=== PATIENT | female | born 1965 | race Caucasian/White ===

== ENCOUNTER 2024-12-11 13:52 | Inpatient (IN) | payer OTHER, SELFPAY ==
[2024-12-11] VITALS (11 sets, daily range): BP systolic 139–206; BP diastolic 77–125; PULSE 70–151; RESP 16–30; TEMP 36.4–36.9; O2SAT 95–98; BMI 49.6; BMI 45.1
[2024-12-11 14:22] LABS: Absolute Lymphocyte Count 1.23 X10^3/uL (0.83-4.51); Absolute Neutrophil Count 6.2 X10^3/uL (2.0-7.7); Basophil# 0.03 X10^3/uL; Basophil% 0.4 % (0-1); Eosinophil# 0.12 X10^3/uL; Eosinophils% 1.5 % (0-5); Hematocrit 43.8 % (37-47); Hemoglobin 14.7 g/dL (12.0-15.0); Lymphocyte # 1.23 X10^3/ul (0.83-4.51); Lymphocyte % 15.1 % (19-41); Mean Corp Hgb Conc 33.6 g/dL (32-36); Mean Corpuscular Hgb 28.6 pg (27.0-32.0); Mean Corpuscular Volume 85.2 fL (81-99); Mean Platelet Vol. 10.5 fl (6.2-12.0); Monocyte# 0.47 X10^3/uL; Monocyte% 5.8 % (0-10); NRBC Flagged by Analyzer 0 % (0-5); Neutrophil # 6.23 X10^3/uL (2.7-7.7); Neutrophil % 76.7 % (47-70); Platelet Count 265 K/mm3 (150-450); RBC Distribution Width CV 12.7 % (11.6-14.6); RBC Distribution Width SD 39.3 fl (35.1-43.9); Red Blood Count 5.14 M/mm3 (4.2-5.4); White Blood Count 8.1 K/mm3 (4.4-11.0)
--- NOTE | 2024-12-11 14:38 | ED.VIS.DYS ---
HPI History of Present Illness Chief Complaint: Shortness of Breath Narrative Narrative: Chief complaint and HPI: Chest pain. 59-year-old female with past medical history of asthma noncompliant with medication as well as had no medical care in multiple years presents for evaluation of left-sided chest pain. Onset of symptoms yesterday and progressively worsened. Describes the pain as sharp. Associated symptom is shortness of breath and chronic morning cough. She denies any fever, chills, URI symptoms, abdominal pain, nausea, vomiting. Bilateral lower extremity swelling or pain. Recent travel or surgery. Review of systems: See HPI Medications: As listed on the chart Allergies: As listed on the chart PFSH: Per chart Vital signs: As listed on the chart. Reviewed. Physical exam: Gen: A&O x3, NAD Head: Normocephalic, atraumatic Eyes: No sclera icterus, conjunctiva clear PERRL, ENT: Moist mucous membranes Neck: Trachea midline, No JVD CV: Tachycardic, irregularly irregular rhythm, no murmurs, no peripheral edema Resp: Lungs CTA BL, no w/r/c GI: Obese, abd soft, non-distended, non-tender, no r/r/g Musc: Full ROM, no deformity Skin: Warm, dry Neuro: Alert, oriented, grossly intact, sensation intact Psych: Cooperative, appropriate mood and affect [facility] Medical History (Updated 12/11/24 @ 19:[address] Mackenzie Pritchard MD) Asthma Home Medications ?Medication ?Instructions ?Recorded ?Last Taken ?Type albuterol sulfate 90 mcg/actuation 2 inh inhalation Q4H PRN shortness 12/11/24 Unknown History aerosol inhaler (Ventolin HFA) of breath or wheezing Allergy/AdvReac Type Severity Reaction Status Date / Time bee venom protein (honey Allergy Severe Anaphylaxis Verified 12/11/24 14:01 bee) (bee sting) Social History Smoking Status: Never smoker EXAM Physical Exam Const Vital Signs: 12/11/24 13:53 12/11/24 14:31 12/11/24 14:31 Temperature 97.6 F L 98.5 F Temperature Source Oral Oral Pulse Rate 151 H 125 H Respiratory Rate 30 H 28 H Respiratory Effort Respiratory Depth Respiratory Pattern Blood Pressure 206/125 H 148/109 H Blood Pressure Mean 152 122 Pulse Ox 98 97 Oxygen Delivery Method Room Air Room Air Room Air 12/11/24 14:31 12/11/24 14:55 12/11/24 15:00 Temperature 98.5 F 98.5 F Temperature Source Oral Oral Pulse Rate 78 78 Respiratory Rate 23 H 23 H Respiratory Effort Short of Breath Respiratory Depth Normal Respiratory Pattern Tachypnea Blood Pressure 142/90 H 142/90 H Blood Pressure Mean 107 107 Pulse Ox 95 95 Oxygen Delivery Method Room Air Room Air Room Air 12/11/24 16:00 12/11/24 17:00 12/11/24 18:00 Temperature 98.3 F 98.3 F Temperature Source Oral Oral Pulse Rate 83 70 80 Respiratory Rate 20 H 16 21 H Respiratory Effort Respiratory Depth Respiratory Pattern Blood Pressure 142/78 H 142/77 H 152/81 H Blood Pressure Mean 99 98 104 Pulse Ox 96 96 96 Oxygen Delivery Method Room Air Room Air Room Air 12/11/24 19:03 Temperature 98 F Temperature Source Pulse Rate 73 Respiratory Rate 17 Respiratory Effort Respiratory Depth Respiratory Pattern Blood Pressure 139/79 H Blood Pressure Mean 99 Pulse Ox 96 Oxygen Delivery Method MDM MDM MDM Narrative Medical decision making narrative: 59-year-old female with past medical history of asthma noncompliant with medication as well as had no medical care in multiple years presents for evaluation of left-sided chest pain. Onset of symptoms yesterday and progressively worsened. On presentation, patient is hypertensive and tachycardic. She is in atrial fibrillation with RVR. Patient states she has no history of atrial fibrillation. Differential diagnosis includes but is not limited to symptomatic atrial fibrillation with RVR, ACS, PE, electrolyte abnormality, thyroid disease, viral illness, pneumonia, CHF. Diltiazem bolus ordered for atrial fibrillation with RVR. Cardiac/respiratory workup ordered. Aspirin given for chest pain. EKG and chest x-ray reviewed see below. CBC without leukocytosis or anemia. Coagulation panel unremarkable. D-dimer elevated at 0.93. CTA chest ordered to assess for PE. BMP shows mild renal insufficiency with creatinine 1.21. I do not previous labs to compare to. Troponin unremarkable. Magnesium level unremarkable. CTA chest negative for PE although this shows severe coronary artery and mild thoracic artery calcifications. Troponin unremarkable x 2. BNP elevated at 1213. Patient not overtly fluid overloaded on exam or chest x-ray. TSH elevated at 10.1. Will add on free T4 and free T3. Free T4 and free T3 unremarkable. On reevaluation, patient's chest pain has improved. She is no longer tachycardic. Repeat EKG shows atrial fibrillation with a heart rate of 68. Patient not placed on anticoagulation given no previous medical diagnoses. Patient will warrant admission for further cardiac workup given new onset atrial fibrillation with elevated BNP. Patient and family member was updated of all the results and the plan. They confirmed understanding. Patient discussed with the hospitalist service who accepted admission. EKG: Interpreted by me/EM physician: EKG shows atrial fibrillation with RVR. Nonspecific ST changes. Heart rate 126. Repeat EKG shows atrial fibrillation. Heart rate 68. Diagnostic: Interpreted by me/EM physician: Chest x-ray pneumonia, effusion, pneumothorax, cardiomegaly. Radiology in agreement. Impression: 1. New onset atrial fibrillation with RVR, now rate controlled 2. Elevated BNP, concerning for heart failure 3. Subclinical hypothyroidism 4. HTN Lab Data Labs: Laboratory Results - last 24 hr 12/11/24 12/11/24 12/11/24 14:02 14:02 14:37 WBC 8.1 RBC 5.14 Hgb 14.7 Hct 43.8 MCV 85.2 MCH 28.6 MCHC 33.6 RDW Std Deviation 39.3 RDW Coeff of Shannan 12.7 Plt Count 265 MPV 10.5 Immature Gran % (Auto) 0.500 Neut % (Auto) 76.7 H Lymph % (Auto) 15.1 L [place] % (Auto) 5.8 Eos % (Auto) 1.5 Baso % (Auto) 0.4 Absolute Neuts (auto) 6.2 Absolute Lymphs (auto) 1.23 Nucleated RBC % 0 PT 13.2 INR 1.0 APTT 27.8 D-Dimer Quant (PE/DVT) 0.93 H* Sodium 138 Potassium 3.8 Chloride 100 Carbon Dioxide 24.4 Anion Gap 13 BUN 13 Creatinine 1.21 H Est GFR (MDRD) Non-Af 51 L BUN/Creatinine Ratio 10.7 Glucose 126 H Calcium 9.5 Magnesium 2.0 1.9 Troponin T High Sens 13 Troponin T Hi Sens 2 Hr NT pro BNP II 1213 H TSH 10.100 H Free T4 1.00 Free T3 pg/dL 2.7 12/11/24 16:35 WBC RBC Hgb Hct MCV MCH MCHC RDW Std Deviation RDW Coeff of Shannan Plt Count MPV Immature Gran % (Auto) Neut % (Auto) Lymph % (Auto) [place] % (Auto) Eos % (Auto) Baso % (Auto) Absolute Neuts (auto) Absolute Lymphs (auto) Nucleated RBC % PT INR APTT D-Dimer Quant (PE/DVT) Sodium Potassium Chloride Carbon Dioxide Anion Gap BUN Creatinine Est GFR (MDRD) Non-Af BUN/Creatinine Ratio Glucose Calcium Magnesium Troponin T High Sens Troponin T Hi Sens 2 Hr 13 NT pro BNP II TSH Free T4 Free T3 pg/dL Radiography Diagnostic Testing: Clinical Impression(s) from Imaging Studies Chest X-Ray 12/11/24 14:45 IMPRESSION: The lateral view is markedly limited by patient motion. Mild frontal view patient motion. Lungs appear clear of acute disease. No pleural effusion or pneumothorax. The cardiomediastinal silhouette is within the normal range for age. 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 Reading Location: [place] [id number] Chest CTA 12/11/24 15:46 IMPRESSION: LIMITED. NO LARGE CENTRAL PULMONARY EMBOLI. Reading Location: [id number] Discharge Plan Disposition Disposition: Acute Care Hospital [facility] Discharge Date/Time: 12/11/24 19:39
[2024-12-11 14:39] LABS: Anion Gap 13 (5-15); BUN 13 mg/dL (4-19); BUN/Creat Ratio 10.7 RATIO (10-20); Calcium,Total 9.5 mg/dL (7.6-11.0); Carbon Dioxide 24.4 mmol/L (21.0-32.0); Chloride 100 mmol/L (98-108); Creatinine, Serum 1.21 mg/dL (0.70-1.20); EST Glomerular Filtration Rate 51 (>60); Glucose 126 mg/dL (70-99); Potassium 3.8 mmol/L (3.3-5.1); Sodium Level 138 mmol/L (133-145); Troponin T High Sensitivity 13 ng/L (<=14)
[2024-12-11] MEDS: Aspirin 81 MG TAB.CHEW 324 MG PO (14:39)
--- NOTE | 2024-12-11 14:45 | RAD_ITS ---
PROCEDURE: CHEST PA AND LATERAL 12/11/2024 REASON FOR EXAM: CHEST PAIN/SOB TECHNIQUE: CHEST PA AND LATERAL COMPARISON: None provided. RAD/Chest PA and Lateral IMPRESSION: The lateral view is markedly limited by patient motion. Mild frontal view patient motion. Lungs appear clear of acute disease. No pleural effusion or pneumothorax. The cardiomediastinal silhouette is within the normal range for age. 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 Reading Location: [place] [id number]
[2024-12-11] MEDS: dilTIAZem 25 MG/5 ML Vial 20 MG IV BOLUS (14:59)
[2024-12-11] MEDS: 0.9% Normal Saline (500mL Bag) 500 ML 999 ML IV (14:59)
[2024-12-11 15:16] LABS: Partial Thromboplast Time 27.8 Seconds (24.1-36.2); Prothrombin Time (Protime)PT. 13.2 SECONDS (11.7-14.9)
[2024-12-11 15:33] LABS: D-Dimer Quantitative (DVT/PE) 0.93 FEU/ug/m (0.27-0.49)
--- NOTE | 2024-12-11 15:46 | CT_ITS ---
PROCEDURE: CTA CHEST W/WO CONTRAST 12/11/2024 REASON FOR EXAM: ELEVATED DIMER, ASSESS FOR PE TECHNIQUE: CTA axial imaging of the chest with intravenous contrast. Coronal and Sagittal reconstruction series were provided. 3D, 3D post processing, 3D reconstructions, Maximum intensity projection (MIPs) Volume rendering and Shaded surface rendering was provided. PATIENT PREPARATION: Per protocol CONTRAST: Isovue 370 VOLUME: 100mL One or more dose reduction techniques were used (e.g., Automated exposure control, adjustment of the mA and/or kV according to patient size, use of iterative reconstruction technique). RADIATION DOSE SUMMARY: CTDlvol: 35 mGy DLP: 540 mGycm COMPARISON: Same day chest radiograph. FINDINGS: Hardware: None. Lymph nodes: No axillary, mediastinal, or hilar lymphadenopathy. Heart: The heart is normal in size without pericardial effusion. Severe coronary artery and mild thoracic aortic calcifications. The great vessels are normal in caliber. Pulmonary Vessels: No central filling defect of the segmental pulmonary arteries. Visualization of the more distal pulmonary arteries is limited by motion artifact. Lungs and Airways: Visualization is limited by motion artifact. The central airways are patent with expiratory phase imaging. No large pulmonary mass. No pleural effusion or pneumothorax. Upper Abdomen: Visualized portions of the upper abdominal viscera are unremarkable. Bones: Mild thoracic spondylosis. CT/CTA Chest W/WO Contrast IMPRESSION: LIMITED. NO LARGE CENTRAL PULMONARY EMBOLI. Reading Location: [id number]
[2024-12-11 17:01] LABS: Pro- Brain NATRIURETIC PEPTIDE 1213 pg/mL (<=900)
[2024-12-11 17:05] LABS: Troponin T High Sens 2 HR 13 ng/L (<=14)
[2024-12-11 18:16] LABS: Free T3 2.7 pg/mL (2.18-3.98)
--- NOTE | 2024-12-11 19:28 | PCM.HP.STD ---
HPI - General General Date of Admission: 12/11/24 Date of Service: 12/11/24 Chief Complaint: Generally feeling unwell, some sharp left-sided chest pain HPI Narrative ALECIA GUTIERREZ, is a 59-year-old female history of asthma noncompliant with medications and no medical care in multiple years presented [facility] ED 12/11/2024 for left-sided chest pain. Symptoms started yesterday and has progressively worsened, it is sharp in nature and is associated with shortness of breath and morning cough. In the ED patient afebrile, heart rate initially 151 with a blood pressure of 206/125, respiratory rate of 30 and pulse ox 98% on room air. EKG revealed A-fib with RVR. CBC overall unremarkable, BMP with a creatinine 1.21 with no previous baseline for comparison and a glucose of 126. Chest x-ray no overt abnormality on D-dimer 0.93 so patient CTA which was limited but had no central pulmonary emboli or other acute abnormality. TSH found to be 10, proBNP 1200 and initial troponin of 13 with a repeat of 13. Patient given diltiazem bolus and hospitalist contacted for admission for A-fib with RVR with elevated BNP. Patient evaluated at bedside. She reports some chronic shortness of breath from her asthma but is noncompliant with her inhaler but does not feel this is changed over the past couple of days, also has a chronic morning cough which is unchanged. She reports that since yesterday she has had some sharp pain under her left breast which is worse when she moves, does seem to be worse with palpation as well and she thinks she might of pulled a muscle playing with her puppy. She notes that her right now she might feel a little bit of dull sensation in that area but feels it is improved from earlier. She denies any swelling in her legs. [facility] Medical History (Updated 12/11/24 @ 19:[address] Mackenzie Pritchard MD) Asthma Home Medications ?Medication ?Instructions ?Recorded ?Last Taken ?Type albuterol sulfate 90 mcg/actuation 2 inh inhalation Q4H PRN shortness 12/11/24 Unknown History aerosol inhaler (Ventolin HFA) of breath or wheezing Allergy/AdvReac Type Severity Reaction Status Date / Time bee venom protein (honey Allergy Severe Anaphylaxis Verified 12/11/24 14:01 bee) (bee sting) Social History Smoking Status: Never smoker ROS ROS Narrative General: Denies fever/chills HENT: Denies headache, denies stuffy nose, denies sore throat EYES: Denies changes in vision Resp: Chronic morning cough, chronic intermittent shortness of breath that is unchanged Cardiac: Some sharp pain under her left breast GI: Denies abdominal pain, denies changes in bowel, denies nausea/vomiting : Denies changes in urination Extremity: Denies swelling MSK: Denies weakness Neuro: Denies any numbness/tingling Heme: Denies any bleeding or bruising Skin: Denies rashes, some scratches on her legs from her puppy Psychiatric: No complaints voiced Vital Signs Vital Signs Vital Signs: 12/11/24 13:53 12/11/24 14:31 12/11/24 14:31 Temperature 97.6 F L 98.5 F Temperature Source Oral Oral Pulse Rate 151 H 125 H Respiratory Rate 30 H 28 H Respiratory Effort Respiratory Depth Respiratory Pattern Blood Pressure 206/125 H 148/109 H Blood Pressure Mean 152 122 Pulse Ox 98 97 Oxygen Delivery Method Room Air Room Air Room Air 12/11/24 14:31 12/11/24 14:55 12/11/24 15:00 Temperature 98.5 F 98.5 F Temperature Source Oral Oral Pulse Rate 78 78 Respiratory Rate 23 H 23 H Respiratory Effort Short of Breath Respiratory Depth Normal Respiratory Pattern Tachypnea Blood Pressure 142/90 H 142/90 H Blood Pressure Mean 107 107 Pulse Ox 95 95 Oxygen Delivery Method Room Air Room Air Room Air 12/11/24 16:00 12/11/24 17:00 12/11/24 18:00 Temperature 98.3 F 98.3 F Temperature Source Oral Oral Pulse Rate 83 70 80 Respiratory Rate 20 H 16 21 H Respiratory Effort Respiratory Depth Respiratory Pattern Blood Pressure 142/78 H 142/77 H 152/81 H Blood Pressure Mean 99 98 104 Pulse Ox 96 96 96 Oxygen Delivery Method Room Air Room Air Room Air 12/11/24 19:03 Temperature 98 F Temperature Source Pulse Rate 73 Respiratory Rate 17 Respiratory Effort Respiratory Depth Respiratory Pattern Blood Pressure 139/79 H Blood Pressure Mean 99 Pulse Ox 96 Oxygen Delivery Method Weight Weight: 139.6 kg Body Mass Index (BMI) 49.6 Physical Exam Narrative General: Alert, oriented, no apparent distress, large body habitus HEENT: Atraumatic, normocephalic Eyes: Anicteric, normal conjunctiva, extraocular movements grossly intact Neck: Supple Respiratory: Slightly diminished at the bases but suspect this largely due to body habitus, normal respiratory effort Cardiovascular: Irregularly irregular but normal rate GI: Soft, nontender, nondistended Extremities: No edema Musculoskeletal: Moving all extremities Neuro: No overt focal neurological deficits Skin: No rashes appreciated, has some light scratches on legs without any appreciated discharge Psych: Cooperative Results Lab / Micro Data 12/11/24 14:02 12/11/24 14:02 Labs: Laboratory Results - last 24 hr 12/11/24 14:02: WBC 8.1, RBC 5.14, Hgb 14.7, Hct 43.8, MCV 85.2, MCH 28.6, MCHC 33.6, RDW Std Deviation 39.3, RDW Coeff of Shannan 12.7, Plt Count 265, MPV 10.5, Immature Gran % (Auto) 0.500, Neut % (Auto) 76.7 H, Lymph % (Auto) 15.1 L, [place] % (Auto) 5.8, Eos % (Auto) 1.5, Baso % (Auto) 0.4, Absolute Neuts (auto) 6.2, Absolute Lymphs (auto) 1.23, Nucleated RBC % 0, Sodium 138, Potassium 3.8, Chloride 100, Carbon Dioxide 24.4, Anion Gap 13, BUN 13, Creatinine 1.21 H, Est GFR (MDRD) Non-Af 51 L, BUN/Creatinine Ratio 10.7, Glucose 126 H, Calcium 9.5, Magnesium 2.0, Troponin T High Sens 13, NT pro BNP II 1213 H, TSH 10.100 H, Free T4 1.00, Free T3 pg/dL 2.7 12/11/24 14:37: PT 13.2, INR 1.0, APTT 27.8, D-Dimer Quant (PE/DVT) 0.93 H* 12/11/24 16:35: Troponin T Hi Sens 2 Hr 13 Micro: Microbiology 12/11/24 14:40 Mucosa - Nose SARS-CoV-2, Influenza & RSV (PCR) - Final Imaging Radiology Impression Chest X-Ray 12/11/24 14:45 IMPRESSION: The lateral view is markedly limited by patient motion. Mild frontal view patient motion. Lungs appear clear of acute disease. No pleural effusion or pneumothorax. The cardiomediastinal silhouette is within the normal range for age. 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 Reading Location: [facility] Chest CTA 12/11/24 15:46 IMPRESSION: LIMITED. NO LARGE CENTRAL PULMONARY EMBOLI. Reading Location: [facility] Assessment & Plan Assessment/Plan (1) Atrial fibrillation with RVR: PLAN: Plan #Afib w/ RVR -Admit to telemetry -Improved with push of diltiazem, will schedule beta-gale -Initial rate in ED: 151 -EKG: With heart rate of 126, repeat with A-fib with rate of 68 -Rate control: Start beta-gale -AC: Checking A1c in the a.m., technically patient does not meet criteria for anticoagulation but suspect this is because she does not follow with a physician, if she remains hypertensive or if A1c elevated may benefit from anticoagulation on discharge -Echocardiogram: Ordered -TSH: 10.1 but free T4 and T3 WNL, may need to repeat TSH on outpatient basis to see if patient does indeed need further management, will need to establish with PCP on discharge - High suspicion the patient has sleep apnea given habitus and she does snore, would recommend sleep study on an outpatient basis # Elevated proBNP -proBNP of 1200, does not appear overloaded -May be due to patient's A-fib with RVR -Echo as above -Daily weights, I's and O's # Pain under left breast - Pain is sharp, positional, seems to be reproducible and troponin is within normal limits - This is atypical, patient said she thinks she might have pulled muscle playing with her puppy and this is certainly possible - Beta-gale and echo as above, if pain becomes more concerning can consider stress testing or other workup prior to DC # History of asthma -Albuterol as needed # Hyperglycemia -Will check A1c, unclear if this is stress response or patient may have diabetes or prediabetes # Mild renal insufficiency -Creatinine of 1.21, no baseline available -Repeat in the a.m. #Morbid obesity -BMI documented as 49.7 kg/m? at time of admission -Complicates treatment, prognosis, outcomes -Recommend weight loss and lifestyle changes #DVT ppx: Lovenox twice daily Mackenzie Pritchard MD Charges/Coding Visit Charges Inpatient E&M: 41106 Init Hosp L2
[2024-12-11 21:10] LABS: Magnesium 1.9 mg/dL (1.5-2.2)
[2024-12-11] MEDS: Metoprolol Tartrate 25 MG Tablet PO (22:22)
[2024-12-11] MEDS: Enoxaparin 40 MG/0.4 ML Syringe SC (22:22)
--- OUTSIDE RECORDS SUMMARY | 2024-12-11 22:46 | XMS RPT_ITS | CCD ---
Author Organization [facility] Inform ion Partnership [facility] Care Team Providers Care Tool Carrier Name Role Phone Ede FUNEZ, Dr. Kareem Mortensen Primary Care Provider Dr. Wilfredo Galindo DO Emergency Provider Macho FUNEZ, Dr. Mann Admit Provider Macho FUNEZ, Dr. Mann Attending Provider Allergies Allergy Classification Reported Allergen(s) Allergy Type Date of Onset Reaction(s) Facility (1 source) bee venom protein (honey bee) Allergy to substance 12-11-2024 Anaphylaxis [facility] Medications Current Medications Medication Drug Class(es) Dates Sig (Normalized) Sig (Original) [id number] 200 actuat albuterol 0.09 mg/actuat metered dose inhaler (1 source) beta2-Adrenergic Agonist Start: 12-11-2024 Albuterol Sulfate (Ventolin Hfa) 90 mcg/actuation HFA aerosol inhaler Active 2 NMA INHALATION Q4H as needed for shortness of breath or wheezing December 11, 2024 12:00am Results Test Name Value Interpretation Reference Range Facility Absolute lymphocyte countOrd ered By: ED PROVIDER on 12-11-2024 Lymphocytes Auto (Unsp spec) [#/Vol] 1.23 10*3/uL 0.83-4.51 [facility] Absolute neutrophil countOrd ered By: ED PROVIDER on 12-11-2024 Neutrophils (Bld) [#/Vol] 6.2 10*3/uL 2.0-7.7 [facility] Activated partial thrombopla stin time (aPTT) in platelet poor plasma by coagulation aOrdered By: Wilfredo Galindo on 12-11-2024 aPTT Coag (PPP) [Time] 27.8 s 24.1-36.2 [facility] Anion gap in Serum or Plasma Ordered By: Wilfredo Galindo on 12-11-2024 Anion gap [Moles/Vol] 13 mmol/L 5-15 [facility] Automated lymphocyte count a s percentage of total leukocytesOrdered By: ED PROVIDER on 12-11-2024 Lymphocytes/100 WBC Auto (Unsp spec) 15.1 % Low 19-41 [facility] BUN/creatinine ratioOrdered By: Wilfredo Galindo on 12-11-2024 Urea nitrogen/Creatinine [Mass ratio] 10.7 mg/mg 10-20 [facility] Basophil percentageOrdered B y: ED PROVIDER on 12-11-2024 Basophils/100 WBC (Bld) 0.4 % 0-1 [facility] Carbon dioxide, total [Moles /volume] in Central venous bloodOrdered By: Wilfredo Galindo on 12-11-2024 CO2 [Moles/Vol] 24.4 mmol/L 21.0-32.0 [facility] Chloride assayOrdered By: Hemanth Galindo on 12-11-2024 Chloride [Moles/Vol] 100 mmol/L 98-108 [facility] Eosinophil percentageOrdered By: ED PROVIDER on 12-11-2024 Eosinophils/100 WBC (Bld) 1.5 % 0-5 [facility] Erythrocyte distribution wid th ratioOrdered By: ED PROVIDER on 12-11-2024 Erythrocyte distribution width (RBC) [Ratio] 12.7 % 11.6-14.6 [facility] Erythrocyte distribution wid th standard deviationOrdered By: ED PROVIDER on 12-11-2024 Erythrocyte distribution width (RBC) [Ratio] 39.3 fl 35.1-43.9 [facility] Free J1Xmejdpe By: Wilfredo Hannah on 12-11-2024 Free T3 [Mass/Vol] 2.7 pg/mL 2.18-3.98 [facility] Glomerular filtration rate ( GFR) estimation/1.73 sq m using serum, plasma, or whole bOrdered By: Wilfredo Galindo on 12-11-2024 GFR/1.73 sq M.predicted among non-blacks MDRD (S/P/Bld) [Vol rate/Area] 51 mL/min/{1.73_m2} Low >60 [facility] Comment on above: mL/min/1.73m2 CKD-EP I Creatinine Equation (2020) Hematocrit Auto (Bld) [Volum e fraction]Ordered By: ED PROVIDER on 12-11-2024 Hematocrit (Bld) [Volume fraction] 43.8 % 37-47 [facility] Hemoglobin measurementOrdere d By: ED PROVIDER on 12-11-2024 Hemoglobin (Bld) [Mass/Vol] 14.7 g/dL 12.0-15.0 [facility] Immature granulocytes/100 WB C Auto (Bld)Ordered By: ED PROVIDER on 12-11-2024 Immature granulocytes/100 WBC (Bld) 0.500 % 0.0-0.9 [facility] Comment on above: IG% - Immature Granu locytes (promyelocytes, myelocytes and metamyelocytes) > 1% indicates that a LEFT SHIFT is Present. Influenza virus A and B and SARS-CoV-2 (COVID-19) and Respiratory syncytial virus RNAOrdered By: Wilfredo Galindo on 12-11-2024 SARS-CoV-2 (COVID-19) RNA GT+probe Ql (Unsp spec) [facility] International normalized rat io (INR) calculationOrdered By: Wilfredo Galindo on 12-11-2024 INR Coag (Bld) [Relative time] 1.0 {INR} [facility] MCV (mean corpuscular volume ) determinationOrdered By: ED PROVIDER on 12-11-2024 MCV (RBC) [Entitic vol] 85.2 fL 81-99 [facility] Magnesium measurement (mass/ volume)Ordered By: Wilfredo Galindo on 12-11-2024 Magnesium (Unsp spec) [Mass/Vol] 2.0 mg/dL 1.5-2.2 [facility] Mean corpuscular hemoglobin (MCH) determinationOrdered By: ED PROVIDER on 12-11-2024 MCH (RBC) [Entitic mass] 28.6 pg 27.0-32.0 [facility] Mean corpuscular hemoglobin concentration (MCHC) determinationOrdered By: ED PROVIDER on 12-11-2024 MCHC (RBC) [Mass/Vol] 33.6 g/dL 32-36 [facility] Mean platelet volume determi nationOrdered By: ED PROVIDER on 12-11-2024 Platelet mean volume (Bld) [Entitic vol] 10.5 fL 6.2-12.0 [facility] Monocyte percentageOrdered B y: ED PROVIDER on 12-11-2024 Monocytes/100 WBC (Bld) 5.8 % 0-10 [facility] Natriuretic peptide.B prohor twila N-Terminal [Mass/volume] in Serum or PlasmaOrdered By: Wilfredo Galindo on 12-11-2024 Natriuretic peptide.B prohormone N-Terminal [Mass/Vol] 1213 pg/mL High <900 [facility] Comment on above: Heart Failure Unlike ly: < 300 pg/mLHeart Failure Likely< 50 Years: > 450 pg/mL50-75 Years: > 900 pg/mL>75 Years: > 1800 pg/mL Neutrophil percentageOrdered By: ED PROVIDER on 12-11-2024 Neutrophils/100 WBC (Bld) 76.7 % High 47-70 [facility] Nucleated red blood cell per centageOrdered By: ED PROVIDER on 12-11-2024 Nucleated RBC/100 WBC (Bld) [Ratio] 0 % 0-5 [facility] Platelet countOrdered By: ED PROVIDER on 12-11-2024 Platelets (Bld) [#/Vol] 265 10*3/uL 150-450 [facility] Potassium measurement (mass/ volume)Ordered By: Wilfredo Galindo on 12-11-2024 Potassium (Unsp spec) [Mass/Vol] 3.8 mmol/L 3.3-5.1 [facility] Prothrombin timeOrdered By: Wilfredo Galindo on 12-11-2024 PT Coag (PPP) [Time] 13.2 s 11.7-14.9 [facility] RBC Auto (Bld) [#/Vol]Ordere d By: ED PROVIDER on 12-11-2024 RBC (Bld) [#/Vol] 5.14 10*6/uL 4.2-5.4 [facility] Serum creatinine measurement (mass/volume)Ordered By: Wilfredo Galindo on 12-11-2024 Creatinine [Mass/Vol] 1.21 mg/dL High 0.70-1.20 [facility] Serum glucose measurement (m ass/volume)Ordered By: Wilfredo Galindo on 12-11-2024 Glucose [Mass/Vol] 126 mg/dL High 70-99 [facility] Serum or plasma calcium willian urement (mass/volume)Ordered By: Wilfredo Gonzalez on 12-11-2024 Calcium [Mass/Vol] 9.5 mg/dL 7.6-11.0 [facility] Serum or plasma urea nitroge n measurement (mass/volume)Ordered By: Wilfredo Galindo on 12-11-2024 Urea nitrogen [Mass/Vol] 13 mg/dL 4-19 [facility] Sodium levelOrdered By: [place] Galindo on 12-11-2024 Sodium [Moles/Vol] 138 mmol/L 133-145 [facility] T4 freeOrdered By: Wilfredo Hannah on 12-11-2024 Free T4 [Mass/Vol] 1.00 ng/dL 0.76-1.46 [facility] TSH DL <= 0.005 mIU/L QnOrde red By: Wilfredo Galindo on 12-11-2024 TSH Qn 10.100 uIU/mL High 0.300-4.200 [facility] Troponin T.cardiac [Mass/vol ume] in Serum or Plasma by High sensitivity methodOrdered By: Wilfredo Galindo on 12-11-2024 Troponin T.cardiac High sensitivity method [Mass/Vol] 13 ng/L <14 [facility] Troponin T.cardiac High sensitivity method [Mass/Vol] 13 ng/L <14 [facility] White blood cell (WBC) count Ordered By: ED PROVIDER on 12-11-2024 WBC (Bld) [#/Vol] 8.1 10*3/uL 4.4-11.0 [facility] Vital Signs Date Time Vital Sign Value Performing Clinician Faci lity 12-11-2024 19:03-0400 Body temperature 98 [degF] Dr. Kareem Esteban MD Work Phone: [phone] [place] [address] 12-11-2024 19:03-0400 Diastolic blood pressure 79 mm[Hg] Dr. Kareem Esteban MD Work Phone: [phone] [place] [address] 12-11-2024 19:03-0400 Heart rate 73 /min Dr. Kareem Esteban MD Work Phone: [phone] [place] [address] 12-11-2024 19:03-0400 Respiratory rate 17 /min Dr. Kareem Esteban MD Work Phone: [phone] [place] [address] 12-11-2024 19:03-0400 SaO2% (BldA) [Mass fraction] 96 % Dr. Kareem Esteban MD Work Phone: [phone] [place] [address] 12-11-2024 19:03-0400 Systolic blood pressure 139 mm[Hg] Dr. Kareem Esteban MD Work Phone: [phone] [place] [address] 12-11-2024 15:33-0400 Body mass index (BMI) [Ratio] 49.6 kg/m2 Dr. Kaerem Esteban MD Work Phone: [phone] [place] [address] 12-11-2024 15:33-0400 Body weight 139.[address] Kareem Esteban MD Work Phone: [phone] [place] [address] 12-11-2024 13:53-0400 Body height 167.[address] Kareem Esteban MD Work Phone: [phone] [place] [address] Encounters Encounter Date Encounter Type Care Provider Facility Start: 12-11-2024 Evaluation and management of inpatient Dr. Mackenzie Pritchard MD -Progressive Care Unit Work Phone: Start: 12-11-[address] Kareem Esteban MD Work Phone: [facility] Work Phone: Procedures Date Procedure Procedure Detail Performing Clinician Start: 12-11-2024 CT angiography of ch est with contrast Dr. Kareem Esteban MD Work Phone: Start: 12-11-2024 X-ray of chest, PA a nd lateral views Dr. Kareem Esteban MD Work Phone: Start: 12-11-2024 D-dimer assay, quantitative Dr. Kareem Esteban MD Work Phone: Comment on above: D-Dimer ELEVATED (>0 .49): Additional studies and clinicalassessments are indicated to conclude diagnosis of:Deep Vein Thrombosis (DVT) or Pulmonary Embolism (PE)CRITICAL VALUE CALLED TO Isidro HALE12/11/24 1532 Philly Reynoso.RESULTS READ BACK BY SAME. Start: 12-11-2024 SARS-CoV-2, Influenz a & RSV (PCR) Dr. Kareem Esteban MD Work Phone: Plan of Treatment Date Care Activity Detail Author Start: 12-12-2024 [facility] Start: 12-11-2024 Admission procedure [facility] Start: 12-11-2024 Hospital admission, emergency, from emergency room, medical nature [facility] Start: 12-11-2024 End: 12-11-2024 [facility] spital Patient referral [facility] Work Phone: Payers Date Payer Category Payer Policy ID Unknown ERIKA [id number] Unknown [id number] Social History Date Type Detail [facility] Work Phone: Start: 1965 Sex Assigned At Female [facility] Start: 12-11-2024 [facility] Radiology Diagnostic study note 12-11-2024 Note Date & Type Note Facility 12-11-2024 Radiology Diagnostic study note [facility] Imaging Services [address] [place] [address] CTA Chest W/WO Contrast MR#: [id number] Acct: [id number] Name: ALECIA GUTIERREZ Rep #: [id number] : 1965 F 59 From: Elizabeth Ritchie MD PCP: Dr. Kareem Esteban MD Status: RE G ER Study:CTA Chest W/WO Contrast Date of Exam: 12/11/24 Exam# [id number] Ordering Dr: Wilfredo Moore DO PROCEDURE: CTA CHEST W/WO CONTRAST 12/11/2024 REASON FOR EXAM: ELEVATED DIMER, ASSESS FOR PE TECHNIQUE: CTA axial imaging of the chest with intravenous contrast. Coronal and Sagittal reconstruction series were provided. 3D, 3D post processing, 3D reconstructions, Maximum intensity projection (MIPs) Volume rendering and Shaded surface rendering was provided. PATIENT PREPARATION: Per protocol CONTRAST: Isovue 370 VOLUME: 100mL One or more dose reduction techniques were used (e.g., Automated exposure control, adjustment of the mA and/or kV according to patient size, use of iterative reconstruction technique). RADIATION DOSE SUMMARY: CTDlvol: 35 mGy DLP: 540 mGycm COMPARISON: Same day chest radiograph. FINDINGS: Hardware: None. Lymph nodes: No axillary, mediastinal, or hilar lymphadenopathy. Heart: The heart is normal in size without pericardial effusion. Severe coronary artery and mild thoracic aortic calcifications. The great vessels are normal in caliber. Pulmonary Vessels: No central filling defect of the segmental pulmonary arteries. Visualization of the more distal pulmonary arteries is limited by motion artifact. Lungs and Airways: Visualization is limited by motion artifact. The central airways are patent with expiratory phase imaging. No large pulmonary mass. No pleural effusion or pneumothorax. Upper Abdomen: Visualized portions of the upper abdominal viscera are unremarkable. Bones: Mild thoracic spondylosis. CT/CTA Chest W/WO Contrast IMPRESSION: LIMITED. NO LARGE CENTRAL PULMONARY EMBOLI. Reading Location: [id number] CC: Dr. Wilfredo Galindo DO; Dr. Kareem Esteban MD ~ Pulp Grinder Feeder: Signed [facility] Radiology Diagnostic study note 12-11-2024 Note Date & Type Note Facility 12-11-2024 Radiology Diagnostic study note [facility] Imaging Services [address] [place] [address] Chest PA and Lateral MR#: [id number] Acct: [id number] Name: ALECIA GUTIERREZ Rep #: [id number] : 1965 F 59 From: Melvin Frank MD PCP: Dr. Kareem Esteban MD Status: RE G ER Study:Chest PA and Lateral Date of Exam: 12/11/24 Exam# [id number] Ordering Dr: Wilfredo Moore DO PROCEDURE: CHEST PA AND LATERAL 12/11/2024 REASON FOR EXAM: CHEST PAIN/SOB TECHNIQUE: CHEST PA AND LATERAL COMPARISON: None provided. RAD/Chest PA and Lateral IMPRESSION: The lateral view is markedly limited by patient motion. Mild frontal view patient motion. Lungs appear clear of acute disease. No pleural effusion or pneumothorax. The cardiomediastinal silhouette is within the normal range for age. 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 Reading Location: [place] [address] CC: Dr. Wilfredo Galindo DO; Dr. Kareem Esteban MD ~ Pulp Grinder Feeder: Signed [facility] Clinical Note 01-08-2021 Note Date & Type Note Facility 01-08-2021 Note Patient Outreach (IN [facility]) ALECIA GUTIERREZ ([id number]) 1965 F Date Time Provider Department 01/08/21 KAREEM ESTEBAN During your visit today, we recorded the following information about you: Allergies As of Date: 01/08/2021 Noted Allergy Reaction BEES 03/09/2015 7 - Swelling Date Reviewed: 05/16/2018 Reviewed by: Myrna Harry LPN - Fully Assessed Visit Diagnosis:Encounter for screening mammogram for breast cancer [Z12.31] Order(s):[facility] SCREENING [[id number]] Order #: [id number] FUTURE Prescriptions as of 01/11/2021 - beclomethasone (QVAR REDIHALER) 40 mcg/actuation inhaler Inhale 1 Puff as instructed twice daily. - albuterol sulfate (PROAIR RESPICLICK) 90 mcg/actuation aepb Inhale 2 Inhalation as instructed every 4 hours as needed (PRN for shortness of breath or wheezing). - EPINEPHrine (EPIPEN) 0.3 mg/0.3 mL auto-injector Use for bee sting. 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] 03/09/2015 Obesity, Class III, BMI 40-49.9 (morbid obesity*03/09/2015 Asthma [J45.909] Acute midline low back pain without sciatica [M*07/05/2016 Sacral pain [M53.3] 07/12/2016 Pain in right hip [M25.551] 07/12/2016 Gastroesophageal reflux disease [K21.9] 08/22/2016 Encounter Status:Closed by YOLI HERNÁNDEZ on 01/11/21 [facility] Evaluation note Note Date & Type Note Facility Evaluation note No assessment information availa ble [facility] Work Phone: Reason for referral (narrative) Note Date & Type Note Facility Reason for referral (narrative) No reason for referral information available [facility] Work Phone: Summary Purpose Family History No Family History Records Found Advance Directives Advance Directive Response Recorded Date/ Time Do you have a Healthcare Power of Flap Presser? No December 11, 2024 2:31pm Chief Complaint and Reason for Visit Chief Complaint Admit Date NEW ONSET AFIB WITH RVR December 11, 2024 7:12pm Additional Source Comments INFORMATION SOURCE (unrecogn ized section and content) DATE CREATED AUTHOR 01/11/2021 [facility] Goals (unrecognized section and content) Goals may be documented in a n alternate sectionGoals may be documented in an alternate section Care Teams (unrecognized sec tion and content) Team Status: Active Member Role Status Dates Dr. Kareem Esteban MD Primary Care Provider Active Team Status: Active Member Role Status Dates Dr. Kareem Esteban MD Primary Care Provider Active Start: December 11, 2024 Dr. Wilfredo Galindo DO Emergency Provider Activ e Start: December 11, 2024 Dr. Mackenzie Pritchard MD Admit Provider Active Star t: December 11, 2024 Dr. Mackenzie Pritchard MD Attending Provider Active Start: December 11, 2024 FOR RECORDS PERTAINING TO PATIENTS WHO ARE OR HAVE BEEN ENROLLED IN A CHEMICAL DEPENDENCY/SUBSTANCEABUSE PROGRAM, SOME INFORMATION MAY BE OMITTED. This clinical summary was aggregated from multiple sources. Caution should be exercised in using it in the provision of clinical care. This summary normalizes information from multiple sources, and as a consequence, information in this document may materially change the coding, format and clinical context of patient data. In addition, data may be omitted in some cases. CLINICAL DECISIONS SHOULD BE BASED ON THE PRIMARY CLINICAL RECORDS. [employer] provides no warranty or guarantee of the accuracy or completeness of information in this document.
--- OUTSIDE RECORDS SUMMARY | 2024-12-11 22:59 | XMS RPT_ITS | CCD ---
Author Organization [facility] Inform ion Partnership [facility] Care Team Providers Care Jewel Bearing Maker Name Role Phone Ede FUNEZ, Dr. Kareem Mortensen Primary Care Provider Dr. Wilfredo Galindo DO Emergency Provider Macho FUNEZ, Dr. Mann Admit Provider Macho FUNEZ, Dr. Mann Attending Provider [phone] Allergies Allergy Classification Reported Allergen(s) Allergy Type Date of Onset Reaction(s) Facility (1 source) bee venom protein (honey bee) Allergy to substance 12-11-2024 Anaphylaxis [facility] Medications Current Medications Medication Drug Class(es) Dates Sig (Normalized) Sig (Original) [id number] 200 actuat albuterol 0.09 mg/actuat metered dose [...] Auto (Unsp spec) [#/Vol] 1.23 10*3/uL 0.83-4.51 [facility] Absolute neutrophil countOrd ered By: ED PROVIDER on 12-11-2024 Neutrophils (Bld) [#/Vol] 6.2 10*3/uL 2.0-7.7 [facility] Activated partial thrombopla stin time (aPTT) in platelet poor plasma by coagulation aOrdered By: Wilfredo Galindo on 12-11-2024 aPTT Coag (PPP) [Time] 27.8 s 24.1-36.2 [facility] Anion gap in Serum or Plasma Ordered By: Wilfredo Galindo on 12-11-2024 Anion gap [Moles/Vol] 13 mmol/L 5-15 [facility] Automated lymphocyte count a s percentage of total leukocytesOrdered By: ED PROVIDER on 12-11-2024 Lymphocytes/100 WBC Auto (Unsp spec) 15.1 % Low 19-41 [facility] BUN/creatinine ratioOrdered By: Wilfredo Galindo on 12-11-2024 Urea nitrogen/Creatinine [Mass ratio] 10.7 mg/mg 10-20 [facility] Basophil percentageOrdered B y: ED PROVIDER on 12-11-2024 Basophils/100 WBC (Bld) 0.4 % 0-1 [facility] Carbon dioxide, total [Moles /volume] in Central venous bloodOrdered By: Wilfredo Galindo on 12-11-2024 CO2 [Moles/Vol] 24.4 mmol/L 21.0-32.0 [facility] Chloride assayOrdered By: Hemanth Galindo on 12-11-2024 Chloride [Moles/Vol] 100 mmol/L 98-108 [facility] Eosinophil percentageOrdered By: ED PROVIDER on 12-11-2024 Eosinophils/100 WBC (Bld) 1.5 % 0-5 [facility] Erythrocyte distribution wid th ratioOrdered By: ED PROVIDER on 12-11-2024 Erythrocyte distribution width (RBC) [Ratio] 12.7 % 11.6-14.6 [facility] Erythrocyte distribution wid th standard deviationOrdered By: ED PROVIDER on 12-11-2024 Erythrocyte distribution width (RBC) [Ratio] 39.3 fl 35.1-43.9 [facility] Free [id number] By: Wilfredo Hannah on 12-11-2024 Free T3 [Mass/Vol] 2.7 pg/mL 2.18-3.98 [facility] Glomerular filtration rate ( GFR) estimation/1.73 sq m using serum, plasma, or whole bOrdered By: Wilfredo Galindo on 12-11-2024 GFR/1.73 sq M.predicted among non-blacks MDRD (S/P/Bld) [Vol rate/Area] 51 mL/min/{1.73_m2} Low >60 [facility] Comment on above: mL/min/1.73m2 CKD-EP I Creatinine Equation (2020) Hematocrit Auto (Bld) [Volum e fraction]Ordered By: ED PROVIDER on 12-11-2024 Hematocrit (Bld) [Volume fraction] 43.8 % 37-47 [facility] Hemoglobin measurementOrdere d By: ED PROVIDER on 12-11-2024 Hemoglobin (Bld) [Mass/Vol] 14.7 g/dL 12.0-15.0 [facility] Immature granulocytes/100 WB C Auto (Bld)Ordered By: ED PROVIDER on 12-11-2024 Immature granulocytes/100 WBC (Bld) 0.500 % 0.0-0.9 [facility] Comment on above: IG% - Immature Granu locytes (promyelocytes, myelocytes and metamyelocytes) > 1% indicates that a LEFT SHIFT is Present. Influenza virus A and B and SARS-CoV-2 (COVID-19) and Respiratory syncytial virus RNAOrdered By: Wilfredo Galindo on 12-11-2024 SARS-CoV-2 (COVID-19) RNA GT+probe Ql (Unsp spec) [facility] International normalized rat io (INR) calculationOrdered By: Wilfredo Galindo on 12-11-2024 INR Coag (Bld) [Relative time] 1.0 {INR} [facility] MCV (mean corpuscular volume ) determinationOrdered By: ED PROVIDER on 12-11-2024 MCV (RBC) [Entitic vol] 85.2 fL 81-[address] [facility] Magnesium measurement (mass/ volume)Ordered By: Wilfredo Galindo on 12-11-2024 Magnesium (Unsp spec) [Mass/Vol] 2.0 mg/dL 1.5-2.2 [facility] Mean corpuscular hemoglobin (MCH) determinationOrdered By: ED PROVIDER on 12-11-2024 MCH (RBC) [Entitic mass] 28.6 pg 27.0-32.0 [facility] Mean corpuscular hemoglobin concentration (MCHC) determinationOrdered By: ED PROVIDER on 12-11-2024 MCHC (RBC) [Mass/Vol] 33.6 g/dL 32-36 [facility] Mean platelet volume determi nationOrdered By: ED PROVIDER on 12-11-2024 Platelet mean volume (Bld) [Entitic vol] 10.5 fL 6.2-12.0 [facility] Monocyte percentageOrdered B y: ED PROVIDER on 12-11-2024 Monocytes/100 WBC (Bld) 5.8 % 0-[address] [facility] Natriuretic peptide.B prohor twila N-Terminal [Mass/volume] in Serum or PlasmaOrdered By: Wilfredo Galindo on 12-11-2024 Natriuretic peptide.B prohormone N-Terminal [Mass/Vol] 1213 pg/mL High <900 [facility] Comment on above: Heart Failure Unlike ly: < 300 pg/mLHeart Failure Likely< 50 Years: > 450 pg/mL50-75 Years: > 900 pg/mL>75 Years: > 1800 pg/mL Neutrophil percentageOrdered By: ED PROVIDER on 12-11-2024 Neutrophils/100 WBC (Bld) 76.7 % High 47-70 [facility] Nucleated red blood cell per centageOrdered By: ED PROVIDER on 12-11-2024 Nucleated RBC/100 WBC (Bld) [Ratio] 0 % 0-5 [facility] Platelet countOrdered By: ED PROVIDER on 12-11-2024 Platelets (Bld) [#/Vol] 265 10*3/uL 150-450 [facility] Potassium measurement (mass/ volume)Ordered By: Wilfredo Galindo on 12-11-2024 Potassium (Unsp spec) [Mass/Vol] 3.8 mmol/L 3.3-5.1 [facility] Prothrombin timeOrdered By: Wilfredo Galindo on 12-11-2024 PT Coag (PPP) [Time] 13.2 s 11.7-14.9 [facility] RBC Auto (Bld) [#/Vol]Ordere d By: ED PROVIDER on 12-11-2024 RBC (Bld) [#/Vol] 5.14 10*6/uL 4.2-5.4 [facility] Serum creatinine measurement (mass/volume)Ordered By: Wilfredo Galindo on 12-11-2024 Creatinine [Mass/Vol] 1.21 mg/dL High 0.70-1.20 [facility] Serum glucose measurement (m ass/volume)Ordered By: Wilfredo Galindo on 12-11-2024 Glucose [Mass/Vol] 126 mg/dL High 70-99 [facility] Serum or plasma calcium willian urement (mass/volume)Ordered By: Wilfredo Gonzalez on 12-11-2024 Calcium [Mass/Vol] 9.5 mg/dL 7.6-11.0 [facility] Serum or plasma urea nitroge n measurement (mass/volume)Ordered By: Wilfredo Galindo on 12-11-2024 Urea nitrogen [Mass/Vol] 13 mg/dL 4-19 [facility] Sodium levelOrdered By: London Galindo on 12-11-2024 Sodium [Moles/Vol] 138 mmol/L 133-145 [facility] T4 freeOrdered By: Wilfredo Hannah on 12-11-2024 Free T4 [Mass/Vol] 1.00 ng/dL 0.76-1.46 [facility] TSH DL <= 0.005 mIU/L QnOrde red By: Wilfredo Galindo on 12-11-2024 TSH Qn 10.100 uIU/mL High 0.300-4.200 [facility] Troponin T.cardiac [Mass/vol ume] in Serum or Plasma by High sensitivity methodOrdered By: Wilfredo Galindo on 12-11-2024 Troponin T.cardiac High sensitivity method [Mass/Vol] 13 ng/L <14 [facility] Troponin T.cardiac High sensitivity method [Mass/Vol] 13 ng/L <14 [facility] White blood cell (WBC) count Ordered By: ED PROVIDER on 12-11-2024 WBC (Bld) [#/Vol] 8.1 10*3/uL 4.4-11.0 [facility] Vital Signs Date Time Vital Sign Value Performing Clinician Faci lity 12-11-2024 19:03-0400 Body temperature 98 [degF] Dr. Kareem Esteban MD Work Phone: [phone] [place] [address] 12-11-2024 19:03-0400 Diastolic blood pressure 79 mm[Hg] Dr. Kareem Esteban MD Work Phone: [phone] [place] [address] 12-11-2024 19:03-0400 Heart rate 73 /min Dr. Kareem Esteban MD Work Phone: [phone] [place] [address] 12-11-2024 19:03-0400 Respiratory rate 17 /min Dr. Kareem Esteban MD Work Phone: [phone] [place] [address] 12-11-2024 19:03-0400 SaO2% (BldA) [Mass fraction] 96 % Dr. Kareem Esteban MD Work Phone: [phone] [place] [address] 12-11-2024 19:03-0400 Systolic blood pressure 139 mm[Hg] Dr. Kareem Esteban MD Work Phone: [phone] [place] [address] 12-11-2024 15:33-0400 Body mass index (BMI) [Ratio] 49.6 kg/m2 Dr. Kareem Esteban MD Work Phone: [phone] [place] [address] 12-11-2024 15:33-0400 Body weight 139.[address] Kareem Esteban MD Work Phone: [phone] [place] [address] 12-11-2024 13:53-0400 Body height 167.[address] Kareem Esteban MD Work Phone: [phone] [place] [address] Encounters Encounter Date Encounter Type Care Provider Facility Start: 12-11-2024 Evaluation and management of inpatient Dr. Mackenzie Pritchard MD -Progressive Care Unit Work Phone: Start: 12-11-[address] Kareem Esteban MD Work Phone: [facility] Work Phone: Procedures Date Procedure Procedure Detail [...] Date Care Activity Detail Author Start: 12-12-2024 [facility] Start: 12-11-2024 Admission procedure [facility] Start: 12-11-2024 Hospital admission, emergency, from emergency room, medical nature [facility] Start: 12-11-2024 End: 12-11-2024 [facility] spital Patient referral [facility] Work Phone: Payers Date Payer Category Payer Policy ID Unknown ERIKA [id number] [id number] Social History Date Type Detail Facility [facility] if ever smoked [facility] Work Phone: Start: 1965 Sex Assigned At Female [facility] Start: 12-11-2024 Tobacco [facility] Never [facility] tobacco (finding) [facility] Radiology Diagnostic study note 12-11-2024 Note Date & Type Note Facility 12-11-2024 Radiology Diagnostic study note [facility] Imaging Services [address] [place] [address] CTA Chest W/WO Contrast MR#: [id number] Acct: [id number] Name: ALECIA GUTIERREZ Rep #: [id number] : 1965 F 59 From: Elizabeth Ritchie MD PCP: Dr. Kareem Esteban MD Status: RE G ER Study:CTA Chest W/WO Contrast Date of Exam: 12/11/24 Exam# [id number] Ordering Dr: Wilfredo Moore DO PROCEDURE: CTA [...] NO LARGE CENTRAL PULMONARY EMBOLI. Reading Location: [id number] CC: Dr. Wilfredo Galindo DO; Dr. Kareem Esteban MD ~ Fluorescent Solution Mixer: Signed [facility] Radiology Diagnostic study note 12-11-2024 Note Date & Type Note Facility 12-11-2024 Radiology Diagnostic study note [facility] Imaging Services [address] [place] [address] Chest PA and Lateral MR#: [id number] Acct: [id number] Name: ALECIA GUTIERREZ Rep #: [id number] : 1965 F 59 From: Melvin Frank MD PCP: Dr. Kareem Esteban MD Status: RE G ER Study:Chest PA and Lateral Date of Exam: 12/11/24 Exam# [id number] Ordering Dr: Wilfredo Moore DO PROCEDURE: CHEST [...] degenerative changes and DISH noted. Reading Location: [place] [address] CC: Dr. Wilfredo Galindo DO; Dr. Kareem Esteban MD ~ Fluorescent Solution Mixer: Signed [facility] Clinical Note 01-08-2021 Note Date & Type Note Facility 01-08-2021 Note Patient Outreach (IN T[facility]) ALECIA GUTIERREZ ([id number]) 1965 F Date Time Provider Department 01/08/21 KAREEM ESTEBAN During your visit today, we recorded the following information about you: Allergies As of Date: 01/08/2021 Noted Allergy Reaction BEES 03/09/2015 7 - Swelling Date Reviewed: 05/16/2018 Reviewed by: Myrna Harry LPN - Fully Assessed Visit Diagnosis:Encounter for screening mammogram for breast cancer [Z12.31] Order(s):[facility] SCREENING [[id number]] Order #: [id number] FUTURE Prescriptions as of 01/11/2021 - beclomethasone [...] Encounter Status:Closed by YOLI HERNÁNDEZ on 01/11/21 [facility] Evaluation note Note Date & Type Note Facility Evaluation note No assessment information availa ble [facility] Work Phone: Reason for referral (narrative) Note Date & Type Note Facility Reason for referral (narrative) No reason for referral information available [facility] Work Phone: Summary Purpose Family History No Family History Records Found Advance Directives Advance Directive Response Recorded Date/ Time Do you have a Healthcare Power of Commercial Loan Closer? No December 11, 2024 2:31pm Chief Complaint and Reason for Visit Chief Complaint Admit Date NEW ONSET AFIB WITH RVR December 11, 2024 7:12pm Additional Source Comments INFORMATION SOURCE (unrecogn ized section and content) DATE CREATED AUTHOR 01/11/2021 [facility] Goals (unrecognized section and content) Goals may [...] BE BASED ON THE PRIMARY CLINICAL RECORDS. [employer] provides no warranty or guarantee of the accuracy or completeness of information in this document.
[2024-12-12] VITALS (9 sets, daily range): BP systolic 117–144; BP diastolic 60–94; PULSE 62–81; RESP 18–20; TEMP 36.5–36.8; O2SAT 96–97; BMI 44.9
--- NOTE | 2024-12-12 05:55 | ECHOCS_ITS ---
Reason For Study Reason For Study: ATRIAL FIB-FLUTTER Procedure This was a 2D Doppler, Color Flow transthoracic echocardiogram. The study was technically difficult. Exam performed portable in patient room. Left Ventricle Normal LV size. Mild concentric left ventricular hypertrophy. Moderate generalized LV hypokinesis. Estimated LVEF 35- 40%. Stage I diastolic dysfunction. Right Ventricle Normal right ventricle. Atria There is moderate biatrial dilatation. Mitral Valve Trivial mitral valve insufficiency. Tricuspid Valve Trivial tricuspid valve insufficiency. Unable to estimate RV systolic pressure due to insufficient tricuspid regurgitant envelope. Aortic Valve Trisinus/trileaflet aortic valve. Pulmonic Valve The pulmonic valve is not well visualized. Great Vessels Normal sized aortic root. Pericardium/Pleural No pericardial effusion. Medication Diluted definity 2ml given slow IV push to enhance endocardial definition. MMode/2D Measurements & Calculations LVIDd: 4.7 cm IVSd: 1.2 cm Ao root diam: 3.1 cm LVIDs: 3.5 cm LVPWd: 1.2 cm LA dimension: 4.7 cm FS: 24.2 % LAV(MOD-bp): 55.3 ml LVAd ap4: 34.4 cm2 SV(MOD-sp4): 41.7 ml LAV(MOD-bp) Indexed: 24.0 ml/m2 LVLd ap4: 8.7 cm SI(MOD-sp4): 18.1 ml/m2 LAV(MOD-sp2): 51.6 ml EDV(MOD-sp4): 111.0 ml LAV(MOD-sp4): 51.1 ml EDV(sp4-el): 115.3 ml LVAs ap4: 24.6 cm2 LVLs ap4: 7.2 cm ESV(MOD-sp4): 69.3 ml ESV(sp4-el): 70.7 ml EF(MOD-sp4): 37.6 % EF(sp4-el): 38.7 % SV(sp4-el): 44.6 ml LA A4 area: 19.8 cm2 LA dimension(2D): 3.6 cm RA A4 area: 18.8 cm2 TAPSE: 2.3 cm Doppler Measurements & Calculations Ao V2 max: 162.3 cm/sec LV V1 max: 110.8 cm/sec PA V2 max: 92.0 cm/sec Ao max P.6 mmHg LV V1 max P.9 mmHg Ao V2 mean: 119.0 cm/sec LV V1 mean P.8 mmHg Ao mean P.3 mmHg LV V1 mean: 78.8 cm/sec Ao V2 VTI: 26.2 cm LV V1 VTI: 20.5 cm AV (velocity ratio): 0.78 ECHO/Echo Complete W/ Contrast Interpretation Summary The study was technically difficult. Mild concentric left ventricular hypertrophy. Moderate generalized LV hypokinesis. Estimated LVEF 35-40%. Stage I diastolic d ysfunction. There is moderate biatrial dilatation. Ordering Physician: Mackenzie Pritchard Referring Physician: KAREEM ESTEBAN Performed By: Kyra Monterroso RDCS and Student
[2024-12-12 07:23] LABS: Absolute Lymphocyte Count 0.97 X10^3/uL (0.83-4.51); Absolute Neutrophil Count 4.9 X10^3/uL (2.0-7.7); Basophil# 0.03 X10^3/uL; Basophil% 0.5 % (0-1); Eosinophil# 0.08 X10^3/uL; Eosinophils% 1.3 % (0-5); Hematocrit 41.4 % (37-47); Hemoglobin 13.8 g/dL (12.0-15.0); Lymphocyte # 0.97 X10^3/ul (0.83-4.51); Lymphocyte % 15.2 % (19-41); Mean Corp Hgb Conc 33.3 g/dL (32-36); Mean Corpuscular Hgb 28.6 pg (27.0-32.0); Mean Corpuscular Volume 85.9 fL (81-99); Mean Platelet Vol. 10.3 fl (6.2-12.0); Monocyte# 0.34 X10^3/uL; Monocyte% 5.3 % (0-10); NRBC Flagged by Analyzer 0 % (0-5); Neutrophil # 4.94 X10^3/uL (2.7-7.7); Neutrophil % 77.4 % (47-70); Platelet Count 239 K/mm3 (150-450); RBC Distribution Width CV 12.7 % (11.6-14.6); RBC Distribution Width SD 40.1 fl (35.1-43.9); Red Blood Count 4.82 M/mm3 (4.2-5.4); White Blood Count 6.4 K/mm3 (4.4-11.0)
[2024-12-12 08:33] LABS: Hemoglobin A1c 5.5 % (<=5.6)
[2024-12-12 08:37] LABS: Cholesterol 151 mg/dL (<=200); High Density Lipoprotein 41 mg/dL; Low Density Lipoprotein Calc. 93 mg/dL; Triglycerides 88 mg/dL; Very Low Density Lipoprotein 18 mg/dL (5-40); cholesterol:hdl ratio screen 3.71
[2024-12-12 08:53] LABS: Anion Gap 14 (5-15); BUN 11 mg/dL (4-19); BUN/Creat Ratio 12.8 RATIO (10-20); Carbon Dioxide 20.2 mmol/L (21.0-32.0); Chloride 103 mmol/L (98-108); Creatinine, Serum 0.88 mg/dL (0.70-1.20); EST Glomerular Filtration Rate 75 (>60); Estimated Creatinine Clearance 92.62 ml/min (50-250); Glucose 103 mg/dL (70-99); Potassium 3.8 mmol/L (3.3-5.1); Sodium Level 137 mmol/L (133-145)
--- NOTE | 2024-12-12 09:29 | PN.HOSP_ITS ---
Reason for Visit Reason for Visit: Diagnoses Unspecified atrial fibrillation (12/11/24) Objective Data Objective Data Vital Signs: Vital Signs Temp Pulse Resp BP Pulse Ox O2 Del Method 98.1 F 64 18 137/60 H 96 Room Air 12/12/24 02:00 12/12/24 03:00 12/12/24 02:00 12/12/24 02:00 12/12/24 02:00 12/12/24 02:00 Oxygen Delivery Method Room Air Weight: 279 lb 8.738 oz Body Mass Index (BMI) 44.9 Intake & Output: Intake and Output for Last 24 Hours 12/10/24 12/11/24 12/12/24 23:59 23:59 23:59 Intake Total 500 / 980 720 / 720 Balance 500 / 980 720 / 720 Lab / Micro Data 12/12/24 06:57 12/12/24 06:57 Labs: Laboratory Results - last 24 hr 12/11/24 14:02: WBC 8.1, RBC 5.14, Hgb 14.7, Hct 43.8, MCV 85.2, MCH 28.6, MCHC 33.6, RDW Std Deviation 39.3, RDW Coeff of Shannan 12.7, Plt Count 265, MPV 10.5, Immature Gran % (Auto) 0.500, Neut % (Auto) 76.7 H, Lymph % (Auto) 15.1 L, [place] % (Auto) 5.8, Eos % (Auto) 1.5, Baso % (Auto) 0.4, Absolute Neuts (auto) 6.2, Absolute Lymphs (auto) 1.23, Nucleated RBC % 0, Sodium 138, Potassium 3.8, Chloride 100, Carbon Dioxide 24.4, Anion Gap 13, BUN 13, Creatinine 1.21 H, Est GFR (MDRD) Non-Af 51 L, BUN/Creatinine Ratio 10.7, Glucose 126 H, Calcium 9.5, Magnesium 2.0 12/11/24 14:02: Magnesium 1.9, Troponin T High Sens 13, NT pro BNP II 1213 H, T SH 10.100 H, Free T4 1.00, Free T3 pg/dL 2.7 12/11/24 14:37: PT 13.2, INR 1.0, APTT 27.8, D-Dimer Quant (PE/DVT) 0.93 H* 12/11/24 16:35: Troponin T Hi Sens 2 Hr 13 12/12/24 06:57: WBC 6.4, RBC 4.82, Hgb 13.8, Hct 41.4, MCV 85.9, MCH 28.6, MCHC 33.3, RDW Std Deviation 40.1, RDW Coeff of Shannan 12.7, Plt Count 239, MPV 10.3, Immature Gran % (Auto) 0.300, Neut % (Auto) 77.4 H, Lymph % (Auto) 15.2 L, [place] % (Auto) 5.3, Eos % (Auto) 1.3, Baso % (Auto) 0.5, Absolute Neuts (auto) 4.9, Absolute Lymphs (auto) 0.97, Nucleated RBC % 0, Sodium 137, Potassium 3.8, Chloride 103, Carbon Dioxide 20.2 L, Anion Gap 14, BUN 11, Creatinine 0.88, Estim Creat Clear Calc 92.62, Est GFR (MDRD) Non-Af 75, BUN/Creatinine Ratio 12.8, Glucose 103 H, Hemoglobin A1c 5.5, Calcium 9.0, Triglycerides 88, Cholesterol 151, LDL Cholesterol, Calc 93, VLDL Cholesterol 18, HDL Cholesterol 41, Cholesterol/HDL Ratio 3.71 Micro: Microbiology 12/11/24 14:40 Mucosa - Nose SARS-CoV-2, Influenza & RSV (PCR) - Final Radiography Diagnostic Testing: Radiology Impression Chest X-Ray 12/11/24 14:45 IMPRESSION: The lateral view is markedly limited by patient motion. Mild frontal view patient motion. Lungs appear clear of acute disease. No pleural effusion or pneumothorax. The cardiomediastinal silhouette is within the normal range for age. 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 Reading Location: [facility] Chest CTA 12/11/24 15:46 IMPRESSION: LIMITED. NO LARGE CENTRAL PULMONARY EMBOLI. Reading Location: [id number] Physical Exam Narrative Seen and Patient had mild chest tightness/squeezing sensation over left inframammary region then persistent for 2 days. Mild short of breath. History of asthma. Shortness of breath. A-fib with RVR Physical exam General: Alert, Oriented x3, Cooperative. Morbid obesity BMI 45.1 kg/m? HEENT: Atraumatic, PERRLA, EOMI, Normocephalic. Oral: No Gingival or Mucosal Lesions/ Ulcerations Neck: Supple, No JVD, Negative Carotid Bruits Chest wall/Lungs: Air entry diminished in bilateral lungs. Bilateral fine wheezing Cardiovascular: Regular rate and rhythm, Normal S1,S2, No M/G/R Abdomen: Bowel Sounds Present, Soft, Non Tender, Non-Distended : No dysuria. No renal angle tenderness. No suprapubic tenderness. Extremities: Bilateral 3+ below mid thigh edema, bilateral TKR Skin: No rashes, No breakdown Musculoskeletal: No Tenderness to Palpation of Joints or Extremities Neurological: Cranial nerves II-XII grossly intact, DTR 2+/4. No acute focal neurological deficit. Psych/Mental Status: Normal Affect, Appropriate. Assessment & Plan Assessment/Plan (1) Atrial fibrillation with RVR: PLAN: Plan 59-year-old female admitted with shortness of breath and left-sided chest pain, inframammary region started yesterday and progressively got worse described as sharp with associated shortness of breath and chronic morning cough. Denies fever, chills, abdominal pain, nausea or vomiting. Bilateral middle extremity swelling or pain #Afib w/ RVR -Admit to telemetry -Improved with push of diltiazem, will schedule beta-gale -Initial rate in ED: 151 -EKG: With heart rate of 126, repeat with A-fib with rate of 68 12/12: Heart rate is controlled currently in 70s. Afebrile. Continue beta- gale. Chest x-ray shows lungs clear of no acute disease no pleural effusion or pneumothorax. Chest CTA no large central pulmonary emboli. A1c 5.5%. 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 TSH: 10.1 but free T4 and T3 WNL, advise repeat thyroid function test in 6 weeks to 2 months. Possible subclinical hypothyroidism. proBNP 1200. Heart failure core measures including intake and output, fluid restriction less than 1500 mL, daily weight monitoring, kidney and electrolytes monitoring. Discussed with the delinquency prevention officer and nuclear stress test ordered for tomorrow Atypical chest pain: - Pain is sharp, positional, seems to be reproducible and troponin is within normal limits from admitting hospital Plan for nuclear stress test tomorrow a.m. # History of asthma -Albuterol as needed # Hyperglycemia -Will check A1c, unclear if this is stress response or patient may have diabetes or prediabetes # Mild renal insufficiency -Creatinine of 1.21, no baseline available -Repeat in the a.m. #Morbid obesity -BMI documented as 49.7 kg/m? at time of admission -Complicates treatment, prognosis, outcomes -Recommend weight loss and lifestyle changes - High suspicion the patient has sleep apnea given habitus and she does snore, would recommend sleep study on an outpatient basis #DVT ppx: Lovenox twice daily Microbiology Past 72 Hours 12/11/24 14:40 Mucosa - Nose SARS-CoV-2, Influenza & RSV (PCR) - Final Laboratory Results 12/11/24 14:02: Magnesium 1.9, NT pro BNP II 1213 H, TSH 10.100 H, Free T4 1.00, Free T3 pg/dL 2.7 12/11/24 16:35: Troponin T Hi Sens 2 Hr 13 12/12/24 06:57: WBC 6.4, RBC 4.82, Hgb 13.8, Hct 41.4, MCV 85.9, MCH 28.6, MCHC 33.3, RDW Std Deviation 40.1, RDW Coeff of Shannan 12.7, Plt Count 239, MPV 10.3, Immature Gran % (Auto) 0.300, Neut % (Auto) 77.4 H, Lymph % (Auto) 15.2 L, [place] % (Auto) 5.3, Eos % (Auto) 1.3, Baso % (Auto) 0.5, Absolute Neuts (auto) 4.9, Absolute Lymphs (auto) 0.97, Nucleated RBC % 0, Sodium 137, Potassium 3.8, Chloride 103, Carbon Dioxide 20.2 L, Anion Gap 14, BUN 11, Creatinine 0.88, Estim Creat Clear Calc 92.62, Est GFR (MDRD) Non-Af 75, BUN/Creatinine Ratio 12.8, Glucose 103 H, Hemoglobin A1c 5.5, Calcium 9.0, Triglycerides 88, Cholesterol 151, LDL Cholesterol, Calc 93, VLDL Cholesterol 18, HDL Cholesterol 41, Cholesterol/HDL Ratio 3.71 Clinical Impression(s) from Imaging Studies Chest X-Ray 12/11/24 14:45 IMPRESSION: The lateral view is markedly limited by patient motion. Mild frontal view patient motion. Lungs appear clear of acute disease. No pleural effusion or pneumothorax. The cardiomediastinal silhouette is within the normal range for age. 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 Reading Location: [facility] Chest CTA 12/11/24 15:46 IMPRESSION: LIMITED. NO LARGE CENTRAL PULMONARY EMBOLI. Reading Location: [id number] Echocardiogram 12/12/24 05:55 Interpretation Summary The study was technically difficult. Mild concentric left ventricular hypertrophy. Moderate generalized LV hypokinesis. Estimated LVEF 35-40%. Stage I diastolic dysfunction. There is moderate biatrial dilatation. Ordering Physician: Mackenzie Pritchard Referring Physician: KAREEM ESTEBAN Performed By: Kriss HOLDEN, Kyra and Student Charges/Coding Visit Charges Inpatient E&M: 76903 Subs Hosp L2
[2024-12-12] MEDS: Metoprolol Tartrate 25 MG Tablet PO ×2 (10:45→21:05)
[2024-12-12] MEDS: Enoxaparin 40 MG/0.4 ML Syringe SC ×2 (10:45→21:05)
[2024-12-13] VITALS (13 sets, daily range): BP systolic 98–153; BP diastolic 57–104; PULSE 62–85; RESP 14–20; TEMP 36.4–36.8; O2SAT 90–98; BMI 45.0
[2024-12-13] MEDS: Metoprolol Tartrate 25 MG Tablet PO (10:58)
[2024-12-13 12:23] LABS: Absolute Lymphocyte Count 0.71 X10^3/uL (0.83-4.51); Absolute Neutrophil Count 4.7 X10^3/uL (2.0-7.7); Basophil# 0.01 X10^3/uL; Basophil% 0.2 % (0-1); Eosinophil# 0.06 X10^3/uL; Hematocrit 42.2 % (37-47); Hemoglobin 13.7 g/dL (12.0-15.0); Lymphocyte # 0.71 X10^3/ul (0.83-4.51); Lymphocyte % 12.4 % (19-41); Mean Corp Hgb Conc 32.5 g/dL (32-36); Mean Corpuscular Hgb 28.3 pg (27.0-32.0); Mean Corpuscular Volume 87.2 fL (81-99); Mean Platelet Vol. 10.4 fl (6.2-12.0); Monocyte# 0.24 X10^3/uL; Monocyte% 4.2 % (0-10); NRBC Flagged by Analyzer 0 % (0-5); Neutrophil # 4.69 X10^3/uL (2.7-7.7); Neutrophil % 81.7 % (47-70); Platelet Count 227 K/mm3 (150-450); RBC Distribution Width CV 12.7 % (11.6-14.6); RBC Distribution Width SD 40.1 fl (35.1-43.9); Red Blood Count 4.84 M/mm3 (4.2-5.4); White Blood Count 5.7 K/mm3 (4.4-11.0)
--- NOTE | 2024-12-13 12:54 | STRESSREP ---
Stress Test Report Date: 12/13/2024 Procedure: Pharmacologic stress nuclear imaging study Indications: Chest pain Consent: Per the patient Procedure: The patient underwent pharmacologic (Regadenoson 0.4mg ) evaluation with a peak heart rate of 122 beats per minute (76%predicted maximal heart rate) and a peak blood pressure of 138/92 mmHg. The baseline ECG demonstrated atrial fibrillation with nonspecific ST changes. The peak pharmacologic ECG was nondiagnostic. Rare PVC noted. There was no complaint of chest discomfort during pharmacologic infusion or recovery. The patient was injected with 15.3 millicuries of technetium 99m Cardiolite and subsequently rest SPECT Cardiolite nuclear imaging was obtained in the horizontal long, vertical long, and short axis views. The patient underwent pharmacologic (Regadenoson) evaluation. The patient was injected with 44.9 millicuries of technetium 99m Cardiolite and subsequently stress SPECT Cardiolite nuclear imaging was obtained in the horizontal long, vertical long, and short axis views. A gated Cardiolite study at peak stress was obtained. The examination was stopped secondary to completion of protocol. Rest and stress SPECT Cardiolite nuclear imaging status post realignment, normalization, and attenuation correction demonstrate anterior hypoperfusion suggestive of moderate ischemia. There is end systolic thickening and brightening. The gated Cardiolite study demonstrates myocardial thickening and inward wall motion. The reported LVEF is 55%. Impression: 1. Pharmacologic (Regadenoson) evaluation 2. Peak pharmacologic ECG nondiagnostic. 3. Baseline atrial fibrillation. Rare PVC. 5. Reversible anterior perfusion defect, suggestive of anterior ischemia. 6. The gated Cardiolite study reports an LVEF of 55%. This note was generated with [employer] software. It may contain incorrect words, spelling, and punctuation that were not noted in checking the note before signing.
[2024-12-13 13:35] LABS: Anion Gap 13 (5-15); BUN 12 mg/dL (4-19); BUN/Creat Ratio 13.2 RATIO (10-20); Calcium,Total 8.7 mg/dL (7.6-11.0); Carbon Dioxide 23.3 mmol/L (21.0-32.0); Chloride 100 mmol/L (98-108); Creatinine, Serum 0.92 mg/dL (0.70-1.20); EST Glomerular Filtration Rate 71 (>60); Estimated Creatinine Clearance 88.47 ml/min (50-250); Glucose 111 mg/dL (70-99); Sodium Level 136 mmol/L (133-145)
--- NOTE | 2024-12-13 13:55 | PCM.CONS.C ---
Assessment & Plan Assessment/Plan (1) Abnormal cardiovascular stress test: PLAN: Stress test shows anterior ischemia. Recommend coronary angiography and possible revascularization, if indicated. Risks benefits and alternatives were explained to the patient. She understand these and wishes to proceed. (2) Atrial fibrillation: PLAN: New onset atrial fibrillation. Her echocardiogram showed LVEF 35 to 40%. If this is confirmed on left ventriculography, or if she is noted to have significant coronary artery disease, then will recommend chronic oral anticoagulation. (3) Hypertension: PLAN: Started on metoprolol. (4) Morbid obesity: PLAN: Lose weight. (5) History of asthma: PLAN: As per internal medicine. HPI Consult Data Date of Consult: 12/13/24 HPI Narrative Reason for Consultation: Abnormal cardiovascular stress test HPI Narrative: 59-year-old female with past medical history significant for morbid obesity and asthma. She presented to the emergency room with complaints of chest pain. According to her, the chest pain was left-sided. Constant. According to her, it worsened with doing stuff such as lifting laundry. There was some shortness of breath. No diaphoresis. Lasted for hours. In the emergency room, she was noted to be in atrial fibrillation with rapid ventricular response. She was treated with diltiazem. An echocardiogram was done. It showed EF of 35 to 40%. Mild LVH. Also has had a Lexiscan stress Myoview done this morning. It shows ischemia in the anterior wall. Patient denies any previous history of chest pains. She does describe dyspnea on exertion. According to her, it has been a chronic problem for her with no recent exacerbation. Denies any orthopnea or PND. Denies ankle edema. COUNT INCLUDES THE [facility] Medical History (Updated 12/13/24 @ 14:[address] Zachary Cleary MD) Asthma Home Medications ?Medication ?Instructions ?Recorded ?Last Taken ?Type albuterol sulfate 90 mcg/actuation 2 inh inhalation Q4H PRN shortness 12/11/24 Unknown History aerosol inhaler (Ventolin HFA) of breath or wheezing Allergy/AdvReac Type Severity Reaction Status Date / Time bee venom protein (honey Allergy Severe Anaphylaxis Verified 12/11/24 14:01 bee) (bee sting) Social History Smoking Status: Never smoker Physical Exam Narrative Morbidly obese. Heart sounds 1 and 2 noted. Irregularly irregular. Chest examination with decreased air entry bilaterally. 1+ bilateral ankle edema. Alert oriented x 3. Risk Stratification Risk Stratification Applicable: No Objective Data Vital Signs: Vital Signs Temp Pulse Resp BP Pulse Ox O2 Del Method 97.5 F L 85 18 147/94 H 96 Room Air 12/13/24 10:58 12/13/24 10:58 12/13/24 10:58 12/13/24 10:58 12/13/24 10:58 12/13/24 10:58 Oxygen Delivery Method Room Air Weight: 278 lb 14.156 oz Body Mass Index (BMI) 45.0 Intake & Output: Intake and Output for Last 24 Hours 12/11/24 12/12/24 12/13/24 23:59 23:59 23:59 Intake Total 500 / 980 1140 / 1140 220 / 220 Balance 500 / 980 1140 / 1140 220 / 220 Lab / Micro Data 12/13/24 11:59 12/13/24 11:59 Labs: Laboratory Results - last 24 hr 12/13/24 11:59: WBC 5.7, RBC 4.84, Hgb 13.7, Hct 42.2, MCV 87.2, MCH 28.3, MCHC 32.5, RDW Std Deviation 40.1, RDW Coeff of Shannan 12.7, Plt Count 227, MPV 10.4, Immature Gran % (Auto) 0.500, Neut % (Auto) 81.7 H, Lymph % (Auto) 12.4 L, [place] % (Auto) 4.2, Eos % (Auto) 1.0, Baso % (Auto) 0.2, Absolute Neuts (auto) 4.7, Absolute Lymphs (auto) 0.71 L, Nucleated RBC % 0, Sodium 136, Potassium 4.0, Chloride 100, Carbon Dioxide 23.3, Anion Gap 13, BUN 12, Creatinine 0.92, Estim Creat Clear Calc 88.47, Est GFR (MDRD) Non-Af 71, BUN/Creatinine Ratio 13.2, Glucose 111 H, Calcium 8.7 Cardiology Labs/Tests 12/13/24 11:59: WBC 5.7, RBC 4.84, Hgb 13.7, Hct 42.2, MCV 87.2, MCH 28.3, MCHC 32.5, Plt Count 227, MPV 10.4, Immature Gran % (Auto) 0.500, Neut % (Auto) 81.7 H, Lymph % (Auto) 12.4 L, [place] % (Auto) 4.2, Eos % (Auto) 1.0, Baso % (Auto) 0.2, Absolute Neuts (auto) 4.7, Nucleated RBC % 0, Sodium 136, Potassium 4.0, Chloride 100, Carbon Dioxide 23.3, Anion Gap 13, BUN 12, Creatinine 0.92, Est GFR (MDRD) Non-Af 71, BUN/Creatinine Ratio 13.2, Glucose 111 H, Calcium 8.7 Rhythm: EKG: ECHO: Stress Test: Cardiac Cath: PCI: CT Surgery: Holter monitor: EPS: PPM: CXR: Chest CT Scan: Radiography Diagnostic Testing: Radiology Impression Echocardiogram 12/12/24 05:55 Interpretation Summary The study was technically difficult. Mild concentric left ventricular hypertrophy. Moderate generalized LV hypokinesis. Estimated LVEF 35-40%. Stage I diastolic dysfunction. There is moderate biatrial dilatation. Ordering Physician: Mackenzie Pritchard Referring Physician: KAREEM ESTEBAN Performed By: Kyra Monterroso RDCS and Student
--- NOTE | 2024-12-13 14:46 | NURSING ---
Report called to TONG Anderson in [facility].
--- NOTE | 2024-12-13 15:33 | CHAPLAIN ---
Type of Pastoral Visit _x__ Initial Visit ___ Follow-up Visit ___ On-call Visit ___ General Patient Visit ___ Spiritual Assessment ___ Family Conference ___ Bereavement ___ Rapid Response ___ Code Blue ___ Other (describe below) Pastoral Care Referral From _x__ Patient ___ Family ___ Nurse ___ Physician ___ Mineralogy Professor ___ Munitions Worker ___ Other (describe below) Sacrament/Intervention _x__ Active listening ___ Anointing ___ Hinduism ___ Bereavement ___ Communion ___ Missy exploration ___ ___ Life review ___ Prayer ___ Reconciliation ___ Sacrament of Sick ___ Supportive presence ___ Wedding ___ Other (describe below) Pastoral Comments patient has visitor in the room; pt stats that she is feeling fine and is optimistic; pt goal is to get home today or soon; no other needs reported
[2024-12-13 15:51] LABS: ACT Activated Clotting Time 227 sec (74-137)
[2024-12-13] MEDS: Potassium Chloride Oral Tablet 20 MEQ PO (16:14)
[2024-12-13] MEDS: 0.9% Normal Saline (1000mL) 1,000 ML 100 ML IV (16:14)
[2024-12-13] MEDS: Furosemide 40 MG Tablet PO (16:14)
[2024-12-13] MEDS: 0.9% Saline Lock 10 ML Syringe IV (16:14)
[2024-12-13] MEDS: Empagliflozin 10 MG Tablet PO (16:14)
[2024-12-13] MEDS: Acetaminophen 325 MG Tablet 650 MG PO (16:18)
--- NOTE | 2024-12-13 16:31 | PN.HOSP_ITS ---
Reason for Visit Reason for Visit: Diagnoses Morbid (severe) obesity due to excess calories (12/11/24) Essential (primary) hypertension (12/11/24) Unspecified atrial fibrillation (12/11/24) Abnormal result of other cardiovascular function study (12/11/24) Personal history of other diseases of the respiratory system (12/11/24) Objective Data Objective Data Vital Signs: Vital Signs Temp Pulse Resp BP Pulse Ox O2 Del Method 97.5 F L 75 20 H 153/103 H 98 Room Air 12/13/24 10:58 12/13/24 14:05 12/13/24 14:05 12/13/24 14:05 12/13/24 14:05 12/13/24 14:05 Oxygen Delivery Method Room Air Weight: 278 lb 14.156 oz Body Mass Index (BMI) 45.0 Intake & Output: Intake and Output for Last 24 Hours 12/11/24 12/12/24 12/13/24 23:59 23:59 23:59 Intake Total 500 / 980 1140 / 1140 220 / 220 Balance 500 / 980 1140 / 1140 220 / 220 Lab / Micro Data 12/13/24 11:59 12/13/24 11:59 Labs: Laboratory Results - last 24 hr 12/13/24 11:59: WBC 5.7, RBC 4.84, Hgb 13.7, Hct 42.2, MCV 87.2, MCH 28.3, MCHC 32.5, RDW Std Deviation 40.1, RDW Coeff of Shannan 12.7, Plt Count 227, MPV 10.4, Immature Gran % (Auto) 0.500, Neut % (Auto) 81.7 H, Lymph % (Auto) 12.4 L, [place] % (Auto) 4.2, Eos % (Auto) 1.0, Baso % (Auto) 0.2, Absolute Neuts (auto) 4.7, A bsolute Lymphs (auto) 0.71 L, Nucleated RBC % 0, Sodium 136, Potassium 4.0, Chloride 100, Carbon Dioxide 23.3, Anion Gap 13, BUN 12, Creatinine 0.92, Estim Creat Clear Calc 88.47, Est GFR (MDRD) Non-Af 71, BUN/Creatinine Ratio 13.2, G lucose 111 H, Calcium 8.7 12/13/24 14:37: Activated Clotting Time 227 H Micro: Microbiology 12/11/24 14:40 Mucosa - Nose SARS-CoV-2, Influenza & RSV (PCR) - Final Physical Exam Narrative Seen and examined Stress test was normal therefore patient had cardiac catheter today. Patient was admitted with mild chest tightness/squeezing sensation over left inframammary region then persistent for 2 days. Mild short of breath. History of asthma. Shortness of breath. A-fib with RVR Physical exam General: Alert, Oriented x3, Cooperative. Morbid obesity BMI 45.1 kg/m? HEENT: Atraumatic, PERRLA, EOMI, Normocephalic. Oral: No Gingival or Mucosal Lesions/ Ulcerations Neck: Supple, No JVD, Negative Carotid Bruits Chest wall/Lungs: Air entry diminished in bilateral lungs. Bilateral fine wheezing Cardiovascular: Irregular rate and rhythm normal S1,S2, No M/G/R Abdomen: Bowel Sounds Present, Soft, Non Tender, Non-Distended : No dysuria. No renal angle tenderness. No suprapubic tenderness. Extremities: Bilateral 3+ below mid thigh edema, bilateral TKR Skin: Right radial region no hematoma or bleeding Musculoskeletal: No Tenderness to Palpation of Joints or Extremities Neurological: Cranial nerves II-XII grossly intact, DTR 2+/4. No acute focal neurological deficit. Psych/Mental Status: Normal Affect, Appropriate. Assessment & Plan Assessment/Plan (1) Atrial fibrillation with RVR: PLAN: Plan 59-year-old female admitted with shortness of breath and left-sided chest pain, inframammary region started yesterday and progressively got worse described as sharp with associated shortness of breath and chronic morning cough. Denies fever, chills, abdominal pain, nausea or vomiting. Bilateral middle extremity swelling or pain #Afib w/ RVR -Admit to telemetry -Improved with push of diltiazem, will schedule beta-gale -Initial rate in ED: 151 -EKG: With heart rate of 126, repeat with A-fib with rate of 68 12/12: Heart rate is controlled currently in 70s. Afebrile. Continue beta- gale. Chest x-ray shows lungs clear of no acute disease no pleural effusion or pneumothorax. Chest CTA no large central pulmonary emboli. A1c 5.5%. Fasting profile within normal limit 12/13 heart rate is controlled 75/min. 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 TSH: 10.1 but free T4 and T3 WNL, advise repeat thyroid function test in 6 weeks to 2 months. Possible subclinical hypothyroidism. proBNP 1200. Heart failure core measures including intake and output, fluid restriction less than 1500 mL, daily weight monitoring, kidney and electrolytes monitoring. Discussed with the regulatory affairs internship and nuclear stress test ordered for tomorrow 12/13: Her stress test was abnormal therefore taken for Community Mental Health Worker. It reported anterior wall hypoperfusion suggestive of moderate ischemia. Diagnostic cardiac cath showed EF 30% calcific moderate three-vessel disease 40% mid LAD, 50% mid circumflex, 60% mid RCA IFR 0.99. Medical therapy was recommended. Empagliflozin 10 mg daily, losartan 25 mg daily, metoprolol succinate 50 mg daily and atorvastatin 40 mg daily started. Atypical chest pain: - Pain is sharp, positional, seems to be reproducible and troponin is within normal limits from admitting hospital Plan for nuclear stress test tomorrow a.m. # History of asthma -Albuterol as needed 12/13: Patient is white and thick neck and wheezing suggestive of possible obstructive sleep apnea associated with asthma/COPD. Follow-up in pulmonary clinic for sleep study and PFT. # Hyperglycemia -Will check A1c, unclear if this is stress response or patient may have diabetes or prediabetes # Mild renal insufficiency -Creatinine of 1.21, no baseline available -Repeat in the a.m. #Morbid obesity -BMI documented as 49.7 kg/m? at time of admission -Complicates treatment, prognosis, outcomes -Recommend weight loss and lifestyle changes - High suspicion the patient has sleep apnea given habitus and she does snore, would recommend sleep study on an outpatient basis #DVT ppx: Lovenox twice daily Changed to Eliquis 5 mg twice daily. Microbiology Past 72 Hours 12/11/24 14:40 Mucosa - Nose SARS-CoV-2, Influenza & RSV (PCR) - Final Laboratory Results 12/13/24 11:59: WBC 5.7, RBC 4.84, Hgb 13.7, Hct 42.2, MCV 87.2, MCH 28.3, MCHC 32.5, RDW Std Deviation 40.1, RDW Coeff of Shannan 12.7, Plt Count 227, MPV 10.4, Immature Gran % (Auto) 0.500, Neut % (Auto) 81.7 H, Lymph % (Auto) 12.4 L, [place] % (Auto) 4.2, Eos % (Auto) 1.0, Baso % (Auto) 0.2, Absolute Neuts (auto) 4.7, A bsolute Lymphs (auto) 0.71 L, Nucleated RBC % 0, Sodium 136, Potassium 4.0, Chloride 100, Carbon Dioxide 23.3, Anion Gap 13, BUN 12, Creatinine 0.92, Estim Creat Clear Calc 88.47, Est GFR (MDRD) Non-Af 71, BUN/Creatinine Ratio 13.2, G lucose 111 H, Calcium 8.7 12/13/24 13:13: Triglycerides Pending, Cholesterol Pending, LDL Cholesterol, Calc Pending, VLDL Cholesterol Pending, HDL Cholesterol Pending, Cholesterol/HDL Ratio Pending 12/13/24 14:37: Activated Clotting Time 227 H Hemoglobin A1c 5.5, Calcium 9.0, Triglycerides 88, Cholesterol 151, LDL Cholesterol, Calc 93, VLDL Cholesterol 18, HDL Cholesterol 41, Cholesterol/HDL Ratio 3.71 Clinical Impression(s) from Imaging Studies Chest X-Ray 12/11/24 14:45 IMPRESSION: The lateral view is markedly limited by patient motion. Mild frontal view patient motion. Lungs appear clear of acute disease. No pleural effusion or pneumothorax. The cardiomediastinal silhouette is within the normal range for age. 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 [facility] Chest CTA 12/11/24 15:46 IMPRESSION: LIMITED. NO LARGE CENTRAL PULMONARY EMBOLI. Reading Location: [id number] Echocardiogram 12/12/24 05:55 Interpretation Summary The study was technically difficult. Mild concentric left ventricular hypertrophy. Moderate generalized LV hypokinesis. Estimated LVEF 35-40%. Stage I diastolic dysfunction. There is moderate biatrial dilatation. Ordering Physician: Mackenzie Pritchard Referring Physician: KAREEM ESTEBAN Performed By: Kyra Monterroso RDCS and Student Charges/Coding Visit Charges Inpatient E&M: 84778 Subs Hosp L2
[2024-12-13] MEDS: Ondansetron 4 MG/2 ML Vial IV (16:41)
[2024-12-13] MEDS: Albuterol 2.5 MG/3 ML VIAL.NEB. INHALATION (16:54)
[2024-12-13 17:43] LABS: Cholesterol 147 mg/dL (<=200); High Density Lipoprotein 37 mg/dL; Low Density Lipoprotein Calc. 90 mg/dL; Triglycerides 98 mg/dL; Very Low Density Lipoprotein 20 mg/dL (5-40); cholesterol:hdl ratio screen 3.93
[2024-12-13] MEDS: APIXABAN 5 MG TABLET PO (20:40)
[2024-12-13] MEDS: Atorvastatin Calcium 40 MG Tablet PO (20:42)
[2024-12-14 03:47] VITALS: BMI 44.8
[2024-12-14 05:35] VITALS: BP 155/86; PULSE 81; RESP 18; TEMP 36.7; O2SAT 96
--- NOTE | 2024-12-14 05:55 | EKG12_ITS ---
Test Reason : AM EKG Blood Pressure : */* mmHG Vent. Rate : 74 BPM Atrial Rate : * BPM P-R Int : * ms QRS Dur : 94 ms QT Int : 400 ms P-R-T Axes : * -12 3 degrees QTcB Int : 444 ms Atrial fibrillation Abnormal ECG When compared with ECG of 13-Dec-2024 06:00, MANUAL COMPARISON REQUIRED DATA IS UNCONFIRMED Confirmed by STAR FUNEZ, ELVIA ([id number]), acquisitions editor GREG COWAN ([id number]) on 12/17/2024 6:51:54 AM Referred By: Confirmed By: ELVIA GRAVES MD
[2024-12-14 06:39] LABS: Absolute Lymphocyte Count 1.04 X10^3/uL (0.83-4.51); Absolute Neutrophil Count 5.7 X10^3/uL (2.0-7.7); Basophil# 0.02 X10^3/uL; Basophil% 0.3 % (0-1); Eosinophil# 0.07 X10^3/uL; Hematocrit 41.1 % (37-47); Hemoglobin 13.4 g/dL (12.0-15.0); Lymphocyte # 1.04 X10^3/ul (0.83-4.51); Lymphocyte % 14.5 % (19-41); Mean Corp Hgb Conc 32.6 g/dL (32-36); Mean Corpuscular Hgb 28.5 pg (27.0-32.0); Mean Corpuscular Volume 87.3 fL (81-99); Mean Platelet Vol. 10.5 fl (6.2-12.0); Monocyte# 0.34 X10^3/uL; Monocyte% 4.7 % (0-10); NRBC Flagged by Analyzer 0 % (0-5); Neutrophil # 5.67 X10^3/uL (2.7-7.7); Neutrophil % 78.9 % (47-70); Platelet Count 230 K/mm3 (150-450); RBC Distribution Width CV 12.7 % (11.6-14.6); RBC Distribution Width SD 40.4 fl (35.1-43.9); Red Blood Count 4.71 M/mm3 (4.2-5.4); White Blood Count 7.2 K/mm3 (4.4-11.0)
[2024-12-14 06:59] LABS: Anion Gap 12 (5-15); BUN 13 mg/dL (4-19); BUN/Creat Ratio 13.4 RATIO (10-20); Calcium,Total 8.7 mg/dL (7.6-11.0); Carbon Dioxide 24.1 mmol/L (21.0-32.0); Chloride 102 mmol/L (98-108); Creatinine, Serum 0.96 mg/dL (0.70-1.20); EST Glomerular Filtration Rate 68 (>60); Estimated Creatinine Clearance 84.59 ml/min (50-250); Glucose 101 mg/dL (70-99); Sodium Level 138 mmol/L (133-145)
--- NOTE | 2024-12-14 08:33 | DCINST_ITS ---
Discharge Instructions Diet Discharge Diet: Low fat / Low cholesterol and 2000 mg Sodium Diet DC O2, CPAP, BIPAP needs Home O2 Discharge instructions: No Dressing / Incision Discharge Activity: Return to Normal Activity Weight Bearing Status: Weight bearing as tolerated Dressing / Incision Call your doctor if you observe: Fever of 101 or Higher, Coldness, Increased Pain, Numbness or Tingling, Change in Color, Inability to urinate, Inability to have a bowel movement, Shortness of breath, Dizziness, Fainting spells, Swelling in the ankles, Chest pain, Prolonged hiccupping, Increased palpitations (irregular heartbeat) and Calf discomfort Follow Up Care When: IN 2 WEEKS Test Results: Test results from this visit will be discussed in further detail at your follow- up appointment, if applicable. Discharge Plan Admission Admit Date/Time: 12/13/24 16:43 Primary Reason for Your Visit: Moderate CAD, COPD/asthma bronchitis Attending Provider: Holden Barros Primary Care Provider: Gilda Mera Consulting Providers: Mackenzie Pritchard; Zachary Cleary Discharge Orders/Prescriptions Prescriptions: New furosemide 40 mg Tablet 40 mg PO DAILY 30 Days Qty: 30 0RF atorvastatin 40 mg Tablet 40 mg PO QHS 30 Days Qty: 30 2RF metoprolol succinate 50 mg Tablet Extended Release 24 Hr 50 mg PO DAILY 30 Days Qty: 30 2RF sennosides-docusate sodium [Stimulant Laxative Plus] 8.6-50 mg Tablet 2 tab PO BID PRN PRN (Reason: Constipation) Qty: 0 0RF losartan 25 mg Tablet 25 mg PO DAILY 30 Days Qty: 30 2RF Eliquis 5 mg Tablet 5 mg PO BID 30 Days Qty: 60 2RF Jardiance 10 mg Tablet 10 mg PO DAILY 30 Days Qty: 30 1RF potassium chloride 20 mEq Tablet,Er Particles/Crystals 20 meq PO DAILYCM 30 Days Qty: 30 0RF Continued albuterol sulfate [Ventolin HFA] 90 mcg/actuation HFA aerosol inhaler 2 inh inhalation Q4H PRN (Reason: shortness of breath or wheezing) Referrals / Follow Up: Pato Ritchie DO [Med Staff - Active Staff] - Within 1 Month (Needs sleep study and PFT) Gilda Mera MD [Primary Care Provider] - Maricruz Gaitan TRIMMING PRESS OPERATOR-C [Med Staff - Adv Practice Prof] - Within 2 Weeks (PFT and sleep study) Zachary Cleary MD [Med Staff - Active Staff] - Within 1 Month Kathie Richardson PA [Med Staff - Adv Practice Prof] - Within 2 Weeks Disposition Disposition (needs filled in before D/C Order can be placed): Home, Self Care
[2024-12-14 09:21] VITALS: BP 133/73; PULSE 91; RESP 18; TEMP 36.8; O2SAT 96
[2024-12-14 09:27] VITALS: PULSE 91
[2024-12-14] MEDS: APIXABAN 5 MG TABLET PO (09:27)
[2024-12-14] MEDS: Furosemide 40 MG Tablet PO (09:27)
[2024-12-14] MEDS: Metoprolol(XL)Succ 50 MG Tablet PO (09:27)
[2024-12-14] MEDS: Potassium Chloride Oral Tablet 20 MEQ PO (09:27)
[2024-12-14] MEDS: Losartan Potassium 25 MG Tablet PO (09:28)
[2024-12-14 10:01] VITALS: O2SAT 94
--- NOTE | 2024-12-14 10:01 | PCM.DC.SUM ---
Providers Date of Admission: 12/13/24 Date of Discharge: 12/14/24 Primary Care Physician: Dr. Gilda Esteban MD Consultations 12/13/24 13:35 Consult: Cardiology Routine Consulting Provider: Zachary Cleary Reason for Consult: Abrormal stress, Afib rvr EMERGENT Consult: No MD Notified: Yes Date Notified: 12/13/24 Time Notified: 13:39 Method of Notification: Verbal Reason For Visit: A-FIB WITH RVR Diagnosis Discharge Diagnosis (1) Atrial fibrillation with RVR: Status: Acute Code(s): I48.91 - Unspecified atrial fibrillation Plan 59-year-old female admitted with shortness of breath and left-sided chest pain, inframammary region started yesterday and progressively got worse described as sharp with associated shortness of breath and chronic morning cough. Denies fever, chills, abdominal pain, nausea or vomiting. Bilateral middle extremity swelling or pain #Afib w/ RVR -Admit to telemetry -Improved with push of diltiazem, will schedule beta-gale -Initial rate in ED: 151 -EKG: With heart rate of 126, repeat with A-fib with rate of 68 12/12: Heart rate is controlled currently in 70s. Afebrile. Continue beta-gale. Chest x-ray shows lungs clear of no acute disease no pleural effusion or pneumothorax. Chest CTA no large central pulmonary emboli. A1c 5.5%. Fasting profile within normal limit 12/13 heart rate is controlled 75/min. 12/14: Heart rate and blood pressure are controlled. Pulse ox 93% on room air. 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 TSH: 10.1 but free T4 and T3 WNL, advise repeat thyroid function test in 6 weeks to 2 months. Possible subclinical hypothyroidism. proBNP 1200. Heart failure core measures including intake and output, fluid restriction less than 1500 mL, daily weight monitoring, kidney and electrolytes monitoring. 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 It reported anterior wall hypoperfusion suggestive of moderate ischemia. Diagnostic cardiac cath showed EF 30% calcific moderate three-vessel disease 40% mid LAD, 50% mid circumflex, 60% mid RCA IFR 0.99. Medical therapy was recommended. Empagliflozin 10 mg daily, losartan 25 mg daily, metoprolol succinate 50 mg daily and atorvastatin 40 mg daily started. 12/14: Patient given prescription for furosemide 40 mg daily, metoprolol succinate 50 mg daily, losartan 25 mg daily, empagliflozin 10 mg daily, Eliquis 5 mg p.o. twice daily and baby aspirin 81 mg daily Atypical chest pain: - Pain is sharp, positional, seems to be reproducible and troponin is within normal limits from admitting hospital Plan for nuclear stress test tomorrow a.m. 12/14: Patient had cath admission of # History of asthma -Albuterol as needed 12/13: Patient is white and thick neck and wheezing suggestive of possible obstructive sleep apnea associated with asthma/COPD. Follow-up in pulmonary clinic for sleep study and PFT. # Hyperglycemia - A1c 5.5%. Diabetes or prediabetes ruled out. # Mild renal insufficiency -Creatinine of 1.21, no baseline available -Creatinine normal about 0.8 #Morbid obesity -BMI documented as 49.7 kg/m? at time of admission -Complicates treatment, prognosis, outcomes -Recommend weight loss and lifestyle changes - High suspicion the patient has sleep apnea given habitus and she does snore, would recommend sleep study on an outpatient basis #DVT ppx: Lovenox twice daily Changed to Eliquis 5 mg twice daily. Discharge medication reconciliation done. Discharge follow-up instructions completed. Discharge process discussed with the patient and all questions were answered to patient's satisfaction. Follow with PCP in 1 to 2 weeks Total time spent, exact 35 minutes on discharge meds reconciliation, examination, coordination of care with nurses and ancillary staff, review of imaging and blood test and discussion with the patient on follow-up instructions. Microbiology Past 72 Hours 12/11/24 14:40 Mucosa - Nose SARS-CoV-2, Influenza & RSV (PCR) - Final Laboratory Results 12/13/24 11:59: WBC 5.7, RBC 4.84, Hgb 13.7, Hct 42.2, MCV 87.2, MCH 28.3, MCHC 32.5, RDW Std Deviation 40.1, RDW Coeff of Shannan 12.7, Plt Count 227, MPV 10.4, Immature Gran % (Auto) 0.500, Neut % (Auto) 81.7 H, Lymph % (Auto) 12.4 L, [place] % (Auto) 4.2, Eos % (Auto) 1.0, Baso % (Auto) 0.2, Absolute Neuts (auto) 4.7, Absolute Lymphs (auto) 0.71 L, Nucleated RBC % 0, Sodium 136, Potassium 4.0, Chloride 100, Carbon Dioxide 23.3, Anion Gap 13, BUN 12, Creatinine 0.92, Estim Creat Clear Calc 88.47, Est GFR (MDRD) Non-Af 71, BUN/Creatinine Ratio 13.2, Glucose 111 H, Calcium 8.7 12/13/24 13:13: Triglycerides Pending, Cholesterol Pending, LDL Cholesterol, Calc Pending, VLDL Cholesterol Pending, HDL Cholesterol Pending, Cholesterol/HDL Ratio Pending 12/13/24 14:37: Activated Clotting Time 227 H Hemoglobin A1c 5.5, Calcium 9.0, Triglycerides 88, Cholesterol 151, LDL Cholesterol, Calc 93, VLDL Cholesterol 18, HDL Cholesterol 41, Cholesterol/HDL Ratio 3.71 Clinical Impression(s) from Imaging Studies Chest X-Ray 12/11/24 14:45 IMPRESSION: The lateral view is markedly limited by patient motion. Mild frontal view patient motion. Lungs appear clear of acute disease. No pleural effusion or pneumothorax. The cardiomediastinal silhouette is within the normal range for age. 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 Reading Location: [facility] Chest CTA 12/11/24 15:46 IMPRESSION: LIMITED. NO LARGE CENTRAL PULMONARY EMBOLI. Reading Location: [id number] Echocardiogram 12/12/24 05:55 Interpretation Summary The study was technically difficult. Mild concentric left ventricular hypertrophy. Moderate generalized LV hypokinesis. Estimated LVEF 35-40%. Stage I diastolic dysfunction. There is moderate biatrial dilatation. Ordering Physician: Mackenzie Pritchard Referring Physician: GILDA ESTEBAN Performed By: Kriss HOLDEN, Kyra and Student Medications at Discharge Home Medications albuterol sulfate 90 mcg/actuation aerosol inhaler (Ventolin HFA) 2 inh inhalation Q4H PRN shortness of breath or wheezing 12/11/24 apixaban 5 mg tablet (Eliquis) 5 mg PO BID 30 days #60 tabs 12/14/24 aspirin 81 mg tablet,delayed release (Rebel Low Dose Aspirin) 81 mg PO DAILY 3 months #90 tabs 12/14/24 atorvastatin 40 mg tablet 40 mg PO QHS 30 days #30 tabs 12/14/24 empagliflozin 10 mg tablet (Jardiance) 10 mg PO DAILY 30 days #30 tabs 12/14/24 furosemide 40 mg tablet 40 mg PO DAILY 30 days #30 tabs 12/14/24 losartan 25 mg tablet 25 mg PO DAILY 30 days #30 tabs 12/14/24 metoprolol succinate 50 mg tablet,extended release 24 hr 50 mg PO DAILY 30 days #30 tabs 12/14/24 potassium chloride 20 mEq tablet,extended release(part/cryst) 20 meq PO DAILYCM 30 days #30 tabs 12/14/24 sennosides 8.6 mg-docusate sodium 50 mg tablet (Stimulant Laxative Plus) 2 tab PO BID PRN PRN Constipation #0 tabs 12/14/24 Physical Exam Narrative Seen and examined Stress test was abnormal therefore patient had cardiac catheter yesterday and cardiac cath she has moderate CAD with calcified vessel Patient was admitted with mild chest tightness/squeezing sensation over left inframammary region then persistent for 2 days. Mild short of breath. History of asthma. Shortness of breath. A-fib with RVR Physical exam General: Alert, Oriented x3, Cooperative. Morbid obesity BMI 45.1 kg/m? HEENT: Atraumatic, PERRLA, EOMI, Normocephalic. Oral: No Gingival or Mucosal Lesions/ Ulcerations Neck: Supple, No JVD, Negative Carotid Bruits Chest wall/Lungs: Air entry diminished in bilateral lungs. Bilateral fine wheezing Cardiovascular: Irregular rate and rhythm normal S1,S2, No M/G/R Abdomen: Bowel Sounds Present, Soft, Non Tender, Non-Distended : No dysuria. No renal angle tenderness. No suprapubic tenderness. Extremities: Bilateral 1+ below mid thigh edema, bilateral TKR Skin: Right radial region no hematoma or bleeding Musculoskeletal: No Tenderness to Palpation of Joints or Extremities Neurological: Cranial nerves II-XII grossly intact, DTR 2+/4. No acute focal neurological deficit. Psych/Mental Status: Normal Affect, Appropriate. Weight / BMI Weight Weight: 277 lb 12.519 oz Body Mass Index (BMI) 44.8 ABG / Lab / Microbiology Data 12/14/24 05:50 12/14/24 05:50 Laboratory: Laboratory Results - last 24 hr 12/13/24 11:59: WBC 5.7, RBC 4.84, Hgb 13.7, Hct 42.2, MCV 87.2, MCH 28.3, MCHC 32.5, RDW Std Deviation 40.1, RDW Coeff of Shannan 12.7, Plt Count 227, MPV 10.4, Immature Gran % (Auto) 0.500, Neut % (Auto) 81.7 H, Lymph % (Auto) 12.4 L, [place] % (Auto) 4.2, Eos % (Auto) 1.0, Baso % (Auto) 0.2, Absolute Neuts (auto) 4.7, Absolute Lymphs (auto) 0.71 L, Nucleated RBC % 0, Sodium 136, Potassium 4.0, Chloride 100, Carbon Dioxide 23.3, Anion Gap 13, BUN 12, Creatinine 0.92, Estim Creat Clear Calc 88.47, Est GFR (MDRD) Non-Af 71, BUN/Creatinine Ratio 13.2, Glucose 111 H, Calcium 8.7 12/13/24 13:13: Triglycerides 98, Cholesterol 147, LDL Cholesterol, Calc 90, VLDL Cholesterol 20, HDL Cholesterol 37 L, Cholesterol/HDL Ratio 3.93 12/13/24 14:37: Activated Clotting Time 227 H 12/14/24 05:50: WBC 7.2, RBC 4.71, Hgb 13.4, Hct 41.1, MCV 87.3, MCH 28.5, MCHC 32.6, RDW Std Deviation 40.4, RDW Coeff of Shannan 12.7, Plt Count 230, MPV 10.5, Immature Gran % (Auto) 0.600, Neut % (Auto) 78.9 H, Lymph % (Auto) 14.5 L, [place] % (Auto) 4.7, Eos % (Auto) 1.0, Baso % (Auto) 0.3, Absolute Neuts (auto) 5.7, Absolute Lymphs (auto) 1.04, Nucleated RBC % 0, Sodium 138, Potassium 4.0, Chloride 102, Carbon Dioxide 24.1, Anion Gap 12, BUN 13, Creatinine 0.96, Estim Creat Clear Calc 84.59, Est GFR (MDRD) Non-Af 68, BUN/Creatinine Ratio 13.4, Glucose 101 H, Calcium 8.7 Microbiology: Microbiology 12/11/24 14:40 Mucosa - Nose SARS-CoV-2, Influenza & RSV (PCR) - Final D/C Instructions Discharge Diet: Low fat / Low cholesterol and 2000 mg Sodium Diet Weight Bearing Status: Weight bearing as tolerated Call your doctor if you observe: Fever of 101 or Higher, Coldness, Increased Pain, Numbness or Tingling, Change in Color, Inability to urinate, Inability to have a bowel movement, Shortness of breath, Dizziness, Fainting spells, Swelling in the ankles, Chest pain, Prolonged hiccupping, Increased palpitations (irregular heartbeat) and Calf discomfort DC O2, CPAP, BIPAP Needs Home O2 Discharge instructions: No When: IN 2 WEEKS Meaningful Use Info Meaningful Use Meaningful Use Diagnoses (Choose all that apply): None applicable Ischemic Stroke Statin Dosing Therapy Reference: STATIN DOSE THERAPY REFERENCE: * Patients > 75 years receive moderate or high dose statin therapy. * Patients 75 years or YOUNGER should receive HIGH intensity statin dose unless contraindicated. You will be required to document reason for non-treatment if statin daily dose does not meet guidelines. HIGH DOSE STATIN THERAPY DAILY Atorvastatin > than or = to 40 mg Rosuvastatin > than or = to 20 mg Amlodipine + Atorvastatin > than or = to 2.5/40 mg Ezetimibe + Simvastatin 10/80 mg Simvastatin 80mg Discharge Plan Admission Admit Date/Time: 12/13/24 16:43 Primary Reason for Your Visit: Moderate CAD, COPD/asthma bronchitis Attending Provider: Holden Barros Primary Care Provider: Gilda Estebna Consulting Providers: Mackenzie Pritchard; Zachary Cleary Discharge Orders/Prescriptions Prescriptions: New furosemide 40 mg Tablet 40 mg PO DAILY 30 Days Qty: 30 0RF atorvastatin 40 mg Tablet 40 mg PO QHS 30 Days Qty: 30 2RF metoprolol succinate 50 mg Tablet Extended Release 24 Hr 50 mg PO DAILY 30 Days Qty: 30 2RF sennosides-docusate sodium [Stimulant Laxative Plus] 8.6-50 mg Tablet 2 tab PO BID PRN PRN (Reason: Constipation) Qty: 0 0RF losartan 25 mg Tablet 25 mg PO DAILY 30 Days Qty: 30 2RF Eliquis 5 mg Tablet 5 mg PO BID 30 Days Qty: 60 2RF Jardiance 10 mg Tablet 10 mg PO DAILY 30 Days Qty: 30 1RF potassium chloride 20 mEq Tablet,Er Particles/Crystals 20 meq PO DAILYCM 30 Days Qty: 30 0RF aspirin [Rebel Low Dose Aspirin] 81 mg tablet,delayed release (DR/EC) 81 mg PO DAILY 90 Days Qty: 90 1RF Continued albuterol sulfate [Ventolin HFA] 90 mcg/actuation HFA aerosol inhaler 2 inh inhalation Q4H PRN (Reason: shortness of breath or wheezing) Referrals / Follow Up: Zachary Cleary MD [Med Staff - Active Staff] - Within 1 Month Pato Ritchie DO [Med Staff - Active Staff] - Within 1 Month (Needs sleep study and PFT) Gilda Esteban MD [Primary Care Provider] - Maricruz Gaitan NP-C [Med Staff - Adv Practice Prof] - Within 2 Weeks (PFT and sleep study) Kathie Richardson, PA [Med Staff - Adv Practice Prof] - Within 2 Weeks Disposition Disposition (needs filled in before D/C Order can be placed): Home, Self Care Charges/Coding Visit Charges Inpatient E&M: 81411 Disch Hosp >30min
--- NOTE | 2024-12-14 10:56 | CASEMGMT ---
Pt has an order for DC placed. Noted pt has an Rx for Eliquis and Jardiance. TC to [facility] who states that the Eliquis is 584$ and the Jardiance is 606$ after insurance. Collaborated with Dr Barros who states that if the pt cannot afford the Jardiance, the pt does not have to pick the Rx up and is then recommended to follow up with cardiology (See DC f/u referrals). TONG BAIN to pt room at this time. Pt states that she cannot afford either medication. This RN CM educated the pt about the 10$ co-pay card for Eliquis and that it can only be used once. Pt states understanding and accepts the savings card to bring to the pharmacy. Pt states that she will call and schedule a f/u appt with Cardiology regarding the Jardiance. Pt denies further DC concerns and is ready to go home with her today.
--- NOTE | 2024-12-14 12:11 | PN.CARD_ITS ---
Subjective Subjective Feels better. Denies any complaints. Objective Data Vital Signs: Vital Signs Temp Pulse Resp BP Pulse Ox O2 Del Method 98.3 F 91 18 133/73 H 96 Room Air 12/14/24 09:21 12/14/24 09:27 12/14/24 09:21 12/14/24 09:21 12/14/24 09:21 12/14/24 09:21 Oxygen Delivery Method Room Air Weight: 277 lb 12.519 oz Body Mass Index (BMI) 44.8 Intake & Output: Intake and Output for Last 24 Hours 12/12/24 12/13/24 12/14/24 23:59 23:59 23:59 Intake Total 1140 / 1140 560 / 560 1600 / 1600 Balance 1140 / 1140 560 / 560 1600 / 1600 Lab / Micro Data 12/14/24 05:50 12/14/24 05:50 Labs: Laboratory Results - last 24 hr 12/13/24 11:59: WBC 5.7, RBC 4.84, Hgb 13.7, Hct 42.2, MCV 87.2, MCH 28.3, MCHC 32.5, RDW Std Deviation 40.1, RDW Coeff of Shannan 12.7, Plt Count 227, MPV 10.4, Immature Gran % (Auto) 0.500, Neut % (Auto) 81.7 H, Lymph % (Auto) 12.4 L, [place] % (Auto) 4.2, Eos % (Auto) 1.0, Baso % (Auto) 0.2, Absolute Neuts (auto) 4.7, A bsolute Lymphs (auto) 0.71 L, Nucleated RBC % 0, Sodium 136, Potassium 4.0, Chloride 100, Carbon Dioxide 23.3, Anion Gap 13, BUN 12, Creatinine 0.92, Estim Creat Clear Calc 88.47, Est GFR (MDRD) Non-Af 71, BUN/Creatinine Ratio 13.2, G lucose 111 H, Calcium 8.7 12/13/24 13:13: Triglycerides 98, Cholesterol 147, LDL Cholesterol, Calc 90, VLDL Cholesterol 20, HDL Cholesterol 37 L, Cholesterol/HDL Ratio 3.93 12/13/24 14:37: Activated Clotting Time 227 H 12/14/24 05:50: WBC 7.2, RBC 4.71, Hgb 13.4, Hct 41.1, MCV 87.3, MCH 28.5, MCHC 32.6, RDW Std Deviation 40.4, RDW Coeff of Shannan 12.7, Plt Count 230, MPV 10.5, Immature Gran % (Auto) 0.600, Neut % (Auto) 78.9 H, Lymph % (Auto) 14.5 L, [place] % (Auto) 4.7, Eos % (Auto) 1.0, Baso % (Auto) 0.3, Absolute Neuts (auto) 5.7, Absolute Lymphs (auto) 1.04, Nucleated RBC % 0, Sodium 138, Potassium 4.0, Chloride 102, Carbon Dioxide 24.1, Anion Gap 12, BUN 13, Creatinine 0.96, Estim Creat Clear Calc 84.59, Est GFR (MDRD) Non-Af 68, BUN/Creatinine Ratio 13.4, G lucose 101 H, Calcium 8.7 Cardiology Labs/Tests 12/13/24 11:59: WBC 5.7, RBC 4.84, Hgb 13.7, Hct 42.2, MCV 87.2, MCH 28.3, MCHC 32.5, Plt Count 227, MPV 10.4, Immature Gran % (Auto) 0.500, Neut % (Auto) 81.7 H, Lymph % (Auto) 12.4 L, [place] % (Auto) 4.2, Eos % (Auto) 1.0, Baso % (Auto) 0.2, Absolute Neuts (auto) 4.7, Nucleated RBC % 0, Sodium 136, Potassium 4.0, Chloride 100, Carbon Dioxide 23.3, Anion Gap 13, BUN 12, Creatinine 0.92, Est GFR (MDRD) Non-Af 71, BUN/Creatinine Ratio 13.2, Glucose 111 H, Calcium 8.7 12/13/24 13:13: Triglycerides 98, Cholesterol 147, VLDL Cholesterol 20, HDL Cholesterol 37 L, Cholesterol/HDL Ratio 3.93 12/14/24 05:50: WBC 7.2, RBC 4.71, Hgb 13.4, Hct 41.1, MCV 87.3, MCH 28.5, MCHC 32.6, Plt Count 230, MPV 10.5, Immature Gran % (Auto) 0.600, Neut % (Auto) 78.9 H, Lymph % (Auto) 14.5 L, [place] % (Auto) 4.7, Eos % (Auto) 1.0, Baso % (Auto) 0.3, Absolute Neuts (auto) 5.7, Nucleated RBC % 0, Sodium 138, Potassium 4.0, Chloride 102, Carbon Dioxide 24.1, Anion Gap 12, BUN 13, Creatinine 0.96, Est GFR (MDRD) Non-Af 68, BUN/Creatinine Ratio 13.4, Glucose 101 H, Calcium 8.7 Rhythm: EKG: ECHO: Stress Test: Cardiac Cath: PCI: CT Surgery: Holter monitor: EPS: PPM: CXR: Chest CT Scan: Physical Exam Narrative Morbidly obese. Heart sounds 1 and 2 noted. Irregularly irregular. Chest examination with decreased air entry bilaterally. 1+ bilateral ankle edema. Alert oriented x 3. Assessment & Plan Assessment/Plan (1) Atrial fibrillation: PLAN: New onset atrial fibrillation. CHADS2?VASc score 4. Recommend oral anticoagulation for prevention of thromboembolic phenomenon. Discussed with patient in detail. Risks and benefits explained. She understands these and wishes to proceed with chronic oral anticoagulation. Continue metoprolol for rate control. (2) CAD (coronary artery disease): PLAN: Three-vessel calcific CAD. No critical stenosis. Continue medical management. Risk factor modification. (3) Nonischemic cardiomyopathy: PLAN: Beta-blockers, ARB, SGLT2 inhibitors. (4) Chronic systolic (congestive) heart failure: PLAN: Beta-blockers, ARB, SGLT2 inhibitors, furosemide (5) Hypertension: PLAN: Metoprolol, furosemide, ARB (6) Dyslipidemia: PLAN: Atorvastatin. (7) Morbid obesity: PLAN: Lose weight. (8) History of asthma: PLAN: As per internal medicine.
--- NOTE | 2025-01-27 09:45 | CL.D_ITS ---
Patient Name: ALECIA GUTIERREZ Study Date: 12/13/2024 Performing: Zachary Cleary MD Ht: 64 inches 162.56 cm : 1965 Wt: 278 lbs 126.1 kg Age: 59 Gender: female BSA: 2.25 PROCEDURE(S) PERFORMED DC01-(95273)LHC/COR/LV IC10-(46337)FFR, CORONARY OR GRAFT, INITIAL VESSEL CLINICAL PROFILE AND INDICATIONS Indications: Suspected CAD Heart Failure: None Stress/Imaging Stress Test w/SPECT MPI: Yes Result: Positive Intermediate RiskStress Test with SPECT MPI: Positive Intermediate Risk CAD Presentations: Symptom unlikely to be ischemic. CONCLUSIONS Calcific moderate 3 vessel disease 40% Mid LAD, 50% Mid LCX, 60% Mid RCA (iFR 0.99) Non-ischemic cardiomyopathy. LVEF 30% RECOMMENDATIONS Medical therapy Risk factor modification DESCRIPTION OF PROCEDURE The patient arrived to the procedure lab. The risks and benefits of the procedure as well as a full description of our services here and current unavailability of surgical backup were fully explained to the patient and/or their significant other prior to the catheterization. The Timeout was completed, verifying the correct patient and procedure. The patient's procedural site was prepped and draped in the usual fashion. Local anesthetic was given subcutaneously to right radial region with Lidocaine 2%. Using a modified Seldinger technique, arterial access was obtained via the right radial artery, a 6Fr sheath was inserted. Left Coronary Artery selective angiography was performed in multiple views using a 5 Fr. 4.0 [place] catheter. Right Coronary Artery selective angiography was then performed in multiple views using a 5 Fr. 4.0 [place] catheter. Left Ventriculography was performed in JE[employer]TISTE projection using a 5 Fr. [place] catheter. LV to AO pullback pressures were then recorded.The arterial sheath was pulled and a TR Band was applied for hemostasis w/ 8ml air CORONARY ANGIOGRAPHY DOMINANCE: Right Dominant LEFT HEART ASSESSMENT Left Ventricular Ejection Fraction: by LV Gram 30 % Global Hypokinesis - Severe LVEDP: 37 mmHg LEFT MAIN: Tubular 20% Distal lesion in LMCA RIGHT CORONARY ARTERY: RCA: Calcified Eccentric 60% Mid lesion in RCA COMPLICATIONS No Complications PROCEDURE MEDICATIONS Versed 1 mg IV Fentanyl 50 mcg IV Fentanyl 25 mcg IV Oxygen: 2 L/min via nasal cannula Aspirin (325mg) 1 Tabs PO @ 12/13/2024 15:01:42 Heparin given IA 12/13/2024 15:14:07 Heparin 8000 unit(s) IV 12/13/2024 15:22:37 Verapamil 2.5mg, Ntg 200mcgs, 2000 units of Heparin given IA 12/13/2024 15:14:07 SUMMARY OF HEMODYNAMIC DATA Time AIR REST ECG 15:00:30 AO 140/91 (112) SA 15:16:35 LV 156/27, 37 15:22:55 LV 157/28, 38 15:23:04 LV 161/40, 52 15:23:56 LV 163/39, 50 15:24:04 LVp 167/39, 49 15:24:09 AOp 162/98 (122) 15:24:16 AO 170/84 (123) 15:31:52 15:44:35 Signed By Zachary Cleary MD On 12/13/2024 15:50:28 Zachary Cleary MD
== END 2024-12-14 12:24 | disposition home or self-care (01) | DRG 286 ==
LOC: ED 14:57 → PCU 20:19
PROVIDERS: Internal Medicine Cardiovascular Disease; Admitting Provider Internal Medicine; Emergency Provider Surgery; PCP Internal Medicine; Visit Provider Internal Medicine
DX: I48.91 Unspecified atrial fibrillation (principal); I50.43 Acute on chronic combined systolic (congestive) and diastolic (congestive) heart failure; Z68.42 Body mass index [BMI] 45.0-49.9, adult; I11.0 Hypertensive heart disease with heart failure; E03.9 Hypothyroidism, unspecified; J45.909 Unspecified asthma, uncomplicated; I42.8 Other cardiomyopathies; E78.5 Hyperlipidemia, unspecified; E66.01 Morbid (severe) obesity due to excess calories; I25.10 Atherosclerotic heart disease of native coronary artery without angina pectoris; R73.9 Hyperglycemia, unspecified; R07.89 Other chest pain; N28.9 Disorder of kidney and ureter, unspecified; R94.39 Abnormal result of other cardiovascular function study
CPT/HCPCS: 36415; 71046; 71275; 78452; 80048; 80061; 83036; 83735; 83880; 84439; 84443; 84481; 84484; 85025; 85347; 85379; 85610; 85730; 87631; 93005; 93017; 93306; 93458; 93571; 94640; 94668; 97802; 99152; 99153; 99285; A9500; Q9957; Q9967; A4216; C1769; C1887; C1894; C8929; J2405; J2785

== ENCOUNTER 2025-01-13 10:09 | Day surgery (SDC) | payer OTHER, SELFPAY ==
[2025-01-10 10:51] VITALS: BMI 48.9
--- NOTE | 2025-01-13 12:44 | PRO.PCM_ITS ---
Procedures Pulmonary Pulmonary Procedures /Diagnostic Testin Con Sedation Non-invasive Procedural Procedure Information Date of Procedure: 01/13/25 Description of procedure: CONSCIOUS SEDATION REPORT DATE OF SERVICE: January 13, 2025 BRIEF HISTORY OF PRESENT ILLNESS: The patient is a 59-year-old female who presented to [facility] to undergo an elective outpatient cardioversion due to underlying atrial fibrillation. The patient has never previously undergone a cardioversion. She denied any prior anesthetic complications. The patient is at high risk for obstructive sleep apnea and is currently scheduled to undergo a diagnostic polysomnogram, but is yet to complete testing. She reported that she is a lifelong non-smoker. The patient is systemically anticoagulated on Eliquis. Her last surface echocardiogram demonstrated an ejection fraction of 35 to 40%. PHYSICAL EXAMINATION: VITAL SIGNS: Reviewed and were acceptable. GENERAL: The patient is a morbidly obese female, in no apparent dist ress, speaking in full sentences. HEENT: Normocephalic, atraumatic. Mucous membranes are moist and pink. Good mouth opening noted. Trachea is midline. Good neck mobility. MPII CHEST: S1, S2 irregularly irregular. No murmurs, rubs or gallops were noted. LUNGS: Clear to auscultation bilaterally without appreciable wheezes, rales or rhonchi. ABDOMEN: Soft, nontender, nondistended. Positive bowel sounds. EXTREMITIES: There is no clubbing, cyanosis or edema. ASA Class: II DESCRIPTION OF PROCEDURE: After confirmation of informed consent, the patient's anesthesia plan was reviewed in detail. Etomidate was chosen. Risks and benefits were reviewed and the patient agreed to proceed. At 1204, the patient was given 6 mg of etomidate. The patient achieved an appropriate level of sedation and was given a 300 joule synchronized cardioversion by Dr. Bay at the bedside. This was successful in achieving normal sinus rhythm. However, shortly after going back into sinus rhythm, the patient reverted back to atrial fibrillation. The patient was then given an additional 8 mg of etomidate to facilitate two additional attempts at cardioversion, both at 360 J. Unfortunately, normal sinus rhythm was unable to be restored. The patient was monitored until 1220, at which time she reached her baseline mental status and function. The patient tolerated the procedure well. COMPLICATIONS: None ESTIMATED BLOOD LOSS: None RECOMMENDATIONS: Okay to recover in usual fashion.
--- NOTE | 2025-01-13 12:54 | PCM.OP.PRO2 ---
Non-invasive Procedural Procedure Information Date of Procedure: 01/13/25 Pre-Procedure Diagnosis: Atrial fibrillation Post-Procedure Diagnosis: Same Procedure Performed:: DC cardioversion measurer machine: No Procedure Time Out: 12:04 Procedure Start Time: 12:06 Procedure Stop Time: 12:15 Special Medications: Intravenous etomidate 6 mg, followed by intravenous etomidate 8mg Description of procedure: Patient was brought to cardiac catheterization lab in the postabsorptive nonsedated state. Informed consent was obtained. The patient was seen by Dr. Ritchie of the critical care division. Patient was confirmed to have atrial fibrillation with reduced ejection fraction of 40%. Anterior posterior pads were applied. The patient was then administered 6 mg of intravenous etomidate and 300 J of synchronized DC biphasic cardioversion energy were applied. The patient reverted to sinus rhythm but it appeared it held for only approximately 5 minutes. The patient then went back into atrial fibrillation and underwent resedation with 6 mg of intravenous etomidate and was cardioverted with 360 J of biphasic DC cardioversion energy which was unsuccessful in restoring sinus rhythm. An additional 2 mg of intravenous etomidate was administered for total of 8 mg and then 360 J of DC biphasic energy was applied with reversal to sinus rhythm only for a brief moment. Procedure findings: Unsuccessful DC cardioversion from atrial fibrillation to sinus rhythm Severe sleep apnea noted with decreased oxygen saturation by observation Will consider referral to pulmonary and EP
== END 2025-01-13 13:10 | disposition home or self-care (01) ==
PROVIDERS: PCP Internal Medicine; Referring Provider Internal Medicine Cardiovascular Disease; Visit Provider Internal Medicine Cardiovascular Disease
DX: I48.19 Other persistent atrial fibrillation (principal); I42.8 Other cardiomyopathies; Z68.42 Body mass index [BMI] 45.0-49.9, adult; I10 Essential (primary) hypertension; E78.5 Hyperlipidemia, unspecified; E66.9 Obesity, unspecified; I25.10 Atherosclerotic heart disease of native coronary artery without angina pectoris; G47.33 Obstructive sleep apnea (adult) (pediatric); J45.909 Unspecified asthma, uncomplicated; Z79.01 Long term (current) use of anticoagulants; Z79.82 Long term (current) use of aspirin; Z79.899 Other long term (current) drug therapy
CPT/HCPCS: 92960; 93005

== ENCOUNTER → 2025-01-14 | Outpatient (CLI) | payer OTHER, SELFPAY | END | disposition home or self-care (01) | LOC: SL 19:50 | PROVIDERS: PCP Internal Medicine; Referring Provider Physician Assistant Medical; Visit Provider Physician Assistant Medical | DX: G47.33 Obstructive sleep apnea (adult) (pediatric) (principal) | CPT/HCPCS: 95810 ==

== ENCOUNTER → 2025-02-28 | Outpatient (CLI) | payer OTHER, SELFPAY | END | disposition home or self-care (01) | LOC: SL 19:33 | PROVIDERS: PCP Pediatrics; Referring Provider Nurse Practitioner Acute Care; Visit Provider Nurse Practitioner Acute Care | DX: G47.33 Obstructive sleep apnea (adult) (pediatric) (principal) | CPT/HCPCS: 95811 ==

== ENCOUNTER → 2025-04-03 | Outpatient (CLI) | payer OTHER, SELFPAY | END | disposition home or self-care (01) | LOC: SL 13:34 | PROVIDERS: PCP Pediatrics; Referring Provider Nurse Practitioner Acute Care; Visit Provider Nurse Practitioner Acute Care | DX: Z00.00 Encounter for general adult medical examination without abnormal findings (principal) ==

== ENCOUNTER → 2025-04-04 | Outpatient (CLI) | payer OTHER, SELFPAY ==
--- NOTE | 2025-04-04 14:34 | ECHOLC_ITS ---
Reason For Study Reason For Study: CHF Procedure This was a limited 2D transthoracic echocardiogram. Contrast injection was performed. Exam performed in department. Left Ventricle Normal LV size. Mild concentric left ventricular hypertrophy. Moderate to severe LV systolic dysfunction. Estimated LVEF 35-40%. Stage I diastolic dysfunction. Right Ventricle Normal right ventricle. Atria There is moderate biatrial dilatation. Mitral Valve Trivial mitral valve insufficiency. Tricuspid Valve Trivial tricuspid valve insufficiency. Normal pulmonary artery pressure. Aortic Valve Aortic sclerosis, no stenosis. Trivial aortic valve insufficiency. Pulmonic Valve The pulmonic valve is not well visualized. Great Vessels Normal sized aortic root. Pericardium/Pleural No pericardial effusion. Medication Diluted definity 4ml given slow IV push to enhance endocardial definition. MMode/2D Measurements & Calculations LVIDd: 4.8 cm IVSd: 1.2 cm LVIDs: 4.0 cm LVPWd: 1.1 cm LVAd ap4: 29.4 cm2 FS: 16.1 % LVLd ap4: 7.7 cm EDV(MOD-sp4): 92.6 ml EDV(sp4-el): 94.9 ml LVAs ap4: 22.0 cm2 LVLs ap4: 6.8 cm ESV(MOD-sp4): 58.8 ml ESV(sp4-el): 60.2 ml EF(MOD-sp4): 36.6 % EF(sp4-el): 36.6 % SV(MOD-sp4): 33.9 ml SV(sp4-el): 34.7 ml SI(MOD-sp4): 14.6 ml/m2 Doppler Measurements & Calculations TR max barb: 225.4 cm/sec TR max P.4 mmHg ECHO/Echo Limited w/Contrast Interpretation Summary Technically difficult study. Moderate to severe LV systolic dysfunction. Estimated LVEF 35-40%. Stage I pham tolic dysfunction. There is moderate biatrial dilatation. Aortic sclerosis, no stenosis. Recommend cardiac MRI for definitive evaluation of LVEF. Ordering Physician: Kathie Richardson Referring Physician: Aidee Kincaid Performed By: Radha Mckeon, NAVIN, RVT
--- OUTSIDE RECORDS SUMMARY | 2025-04-04 15:04 | XMS RPT_ITS | CCD ---
Author Organization [facility] Care Team Providers Care Marble Setter Name Role Phone Ede FUNEZ, Dr. Kareem Mortensen Primary Care Provider [phone] Josie CARPENTER, Dr. Villalobos Emergency Provider Macho FUNEZ, Dr. Mann Admit Provider Macho FUNEZ, Dr. Mann Attending Provider Ede FUNEZ, Dr. Kareem Mortensen Primary Care Provider [phone] Josie CARPENTER, Dr. Villalobos Emergency Provider Macho FUNEZ, Dr. Mann Admit Provider Dr. Mackenzie Pritchard MD Attending Provider Macho FUNEZ, Dr. Mann Other Provider Papo FUNEZ, Dr. Hatch Attending Provider Papo FUNEZ, Dr. Hatch Other Provider Dr. Zachary Cleary MD Attending Provider Dr. Zachary Cleary MD Other Provider Dr. Kareem Esteban MD Referring Provider Germania Handy Attending Provider Dr. Ezra Bay MD Attending Provider Dr. Ezra Bay MD Referring Provider Phu FUNEZ, Dr. Munguia Other Provider Dr. Pato Ritchie DO Attending Provider Patricio VENDING ROUTE DRIVER.HIGH RISK CASE MANAGER, Carmen Unavailable María VENDING ROUTE DRIVER.PATTERN PUNCHER, Evi Unavailable Sanjiv FUNEZ, Aidee Primary Care Provider AIDEE KINCAID Referring Unavailable SANJIV, AIDEE Primary Care Unavailable KINCAID, AIDEE Attending Unavailable KINCAID, AIDEE Primary Care Unavailable Germania Handy Referring Provider Mariah EVENT SPECIALIST FOOD DEMONSTRATOR-C, Nida Attending Provider Sanjiv FUNEZ, Dr. Aidee Wing Primary Care Provider Ede FUNEZ, Dr. Kareem Mortensen Primary Care Physician Josie CARPENTER, Dr. Villalobos Emergency [facility] t Physician Macho FUNEZ, Dr. Mann Admitting Physician Macho FUNEZ, Dr. Mann Attending Physician Macho FUNEZ, Dr. Mann Nurse Practitioner Papo FUNEZ, Dr. Hatch Attending Physician Papo FUNEZ, Dr. Hatch Nurse Practitioner Evin FUNEZ, Dr. Sharma Attending Physician Evin FUNEZ, Dr. Sharma Nurse Practitioner Germania Handy Attending Physician Phu FUNEZ, Dr. Munguia Attending Physician Phu FUNEZ, Dr. Munguia Nurse Practitioner Chau CARPENTER, Dr. Whyte Attending Physician Mariah EVENT SPECIALIST FOOD DEMONSTRATOR-C, Nida Attending Physician Sanjiv FUNEZ, Dr. Aidee Wing Primary Care Physician Mariah EVENT SPECIALIST FOOD DEMONSTRATOR-C, Nida Referring Provider AIDEE KINACID Primary Care Unavailable NEAL GONZALEZ Attending Unavailable GERMANIA RICHARDSON Referring Cici Lemus EVENT SPECIALIST FOOD DEMONSTRATOR, Nida Referring Unavailable Mariah EVENT SPECIALIST FOOD DEMONSTRATOR, Nida Attending Unavailable Aidee Kincaid Primary Care Unavailable Sanjiv, Aidee EscamillaPolish Primary Care Unavailable Germania Handy Referring Unavail able Germania Handy Attending Unavail able Talampas, Kareem D Primary Care Unavailable Talampas, Kareem D Referring Unavailable Germania Handy Attending Unavail able Talampas, Kareem D Referring Unavailable Mariah EVENT SPECIALIST FOOD DEMONSTRATOR, Nida Attending Unavailable Kincaid [facility] Primary Care Unavailable Talampas, Kareem D Primary Care Unavailable Pritchard, Mackenzie Admitting Unavailable Pritchard, Mackenzie Attending Unavailable Pritchard, Mackenzie Consulting Unavailable Pritchard, Mackenzie Admitting Unavailable Pritchard, Mackenzie Consulting Unavailable Papo, Holden Attending Unavailable Talampas, Kareem D Primary Care Unavailable Evin, Zachary Consulting Unavailable Papo, Holden Consulting Unavailable Pritchard, Mackenzie Admitting Unavailable Pritchard, Mackenzie Consulting Unavailable Papo, Holden Attending Unavailable Talampas, Kareem D Primary Care Unavailable Evin, Zachary Consulting Unavailable Papo, Holden Consulting Unavailable Evin, Zachary Attending Unavailable Evin, Zachary Attending Unavailable Talampas, Kareem D Primary Care Unavailable Evin, Zachary Attending Unavailable Talampas, Kareem D Primary Care Unavailable Phu, [place] Referring Unavailable Phu, Ezra Consulting Unavailable Pato Ritchie Attending Unavailable Talampas, Kareem D Primary Care Unavailable Phu, [place] Referring Unavailable Phu, [place] Attending Unavailable Phu, [place] Consulting Unavailable Talampas, Kareem D Referring Unavailable [facility] Unavailable Germania Handy Attending Unavail able Nida Lemus NP Referring Unavailable Mariah JUAREZ, Nida Attending Unavailable Sanjiv [facility] Primary Care Unavailable Talampas, Kareem D Primary Care Unavailable Germania Handy Referring Unavail able Germania Handy Attending Unavail able Talampas, Kareem D Primary Care Unavailable Phu, Ezra Referring Unavailable Phu, [place] Attending Unavailable Talampas, Kareem D Primary Care Unavailable Pritchard, Mackenzie Admitting Unavailable Pritchard, Mackenzie Consulting Unavailable Papo, Holden Attending Unavailable Evin, Zachary Consulting Unavailable Allergies Allergy Classification Reported Allergen(s) Allergy Type Date of Onset Reaction(s) Facility (8 sources) bee venom protein (honey bee) Allergy to substance 12-11-2024 Anaphylaxis [facility] (3 sources) Bees; Translations: [BEES] Allergy to substance 03-09-2015 Swelling [facility] Work Phone: (1 source) bee venom protein (honey bee) Drug allergy (disorder) 02-26-2025 [facility] Repository Medications Current Medications Medication Drug Class(es) Dates Sig (Normalized) Sig (Original) [id number] 200 actuat albuterol 0.09 mg/actuat metered dose inhaler (13 sources) beta2-Adrenergic Agonist Start: 12-11-2024 End: 01-29-2025 Start: 08-07-2017 albuterol sulf ate (PROAIR RESPICLICK) 90 mcg/actuation aepb Inhale 2 Inhalation as instructed every 4 hours as needed (PRN for shortness of breath or wheezing). 1 Inhaler 5 08/07/2017 Active aspirin 81 mg delayed release oral tablet (8 sources) Platelet Aggregation Inhibitor, Nonsteroidal Anti-inflammatory Drug Start: 12-14-2024 atorvastatin 80 mg oral tablet (16 sources) HMG-CoA Reductase Inhibitor Start: 01-24-2025 End: 01-24-2026 take 1 tablet by mouth once daily Start: 12-14-2024 End: 02-26-2025 take 1 tablet by mouth at bedtime Atorvastatin 40 mg tablet Discontinued 40 mg PO AT BEDTIME 90 3 December 25, 2024 1:34pm February 26, 2025 2:00pm [id number] 0.3 ml EPINEPHrine 1 mg/ml auto-injector (1 source) alpha-Adrenergic Agonist, beta-Adrenergic Agonist, Catecholamine Start: 01-24-2025 EPINEPHrine (EPIPEN) 0.3 mg/0.3 mL auto-injector Indications: Bee sting allergy Use for bee sting. (V15.06; Z91.038) Bee sting allergy 2 each 01/24/2025 Active furosemide 40 mg oral tablet (14 sources) Loop Diuretic Start: 12-14-2024 End: 12-25-2024 take 1 tablet by mouth once daily levothyroxine sodium 0.025 mg oral tablet (3 sources) l-Thyroxine Start: 02-26-2025 take 1 tablet by mouth once daily Levothyroxine 25 mcg tablet Active 25 ug PO daily February 26, 2025 12:00am Start: 01-25-2025 End: 04-25-2025 take 1 tablet by mouth once daily 24 hr metoprolol succinate 50 mg extended release oral tablet (14 sources) beta-Adrenergic Gale Start: 12-14-2024 End: 12-25-2024 take 1 tablet by mouth once daily spironolactone 25 mg oral tablet (3 sources) Aldosterone Antagonist Start: 01-24-2025 End: 01-24-2026 take 1 tablet by mouth once daily Completed/Discontinued Medications Medication Drug Class(es) Dates Sig (Normalized) Sig (Original) apixaban 5 mg oral tablet (18 sources) Factor Xa Inhibitor Start: 02-26-2025 End: 02-26-2025 take 1 tablet by mouth once daily Apixaban (Eliquis) 5 mg tablet Discontinued 5 mg PO DAILY February 26, 2025 2:02pm February 26, 2025 2:20pm Start: 12-14-2024 End: 02-26-2025 take 1 tablet by mouth twice daily Apixaban (Eliquis) 5 mg tablet Discontinued 5 mg PO TWICE A DAY 180 30 December 25, 2024 1:33pm February 26, 2025 2:02pm docusate sodium 50 mg / sennosides, long term 8.6 mg oral tablet (8 sources) Start: 12-14-2024 End: 01-29-2025 Sennosides-Docusate Sodium (Stimulant Laxative Plus) 8.6-50 mg Tablet Discontinued 2 {tbl} PO TWICE DAILY NEEDED as needed for Constipation 0 December 14, 2024 12:00am January 29, 2025 9:15am take 2 tablets by mo [facility] once daily as needed for constipation senna-docusate (SENNA-S) 8.6-50 mg per tablet Take 2 tablets by mouth once daily as needed for constipation. Active empagliflozin 10 mg oral tablet (16 sources) Sodium-Glucose Cotransporter 2 Inhibitor Start: 12-14-2024 End: 01-24-2026 take 1 tablet by mouth once daily Empagliflozin (Jardiance) 10 mg tablet Discontinued 10 mg PO DAILY 180 December 25, 2024 1:34pm January 29, 2025 9:15am losartan potassium 25 mg oral tablet (14 sources) Angiotensin 2 Receptor Gale Start: 12-14-2024 End: 02-26-2025 take 1 tablet by mouth once daily Losartan 25 mg tablet Discontinued 25 mg PO DAILY 90 December 25, 2024 1:35pm February 26, 2025 2:01pm microencapsulated potassium chloride 20 meq extended release oral tablet (13 sources) Start: 12-14-2024 End: 01-29-2025 take 1 tablet by mouth once daily at mealtime Potassium Chloride 20 mEq tablet,ER particles/crystal s Discontinued 20 meq PO DAILY WITH MEALS 90 3 December 25, 2024 1:35pm January 29, 2025 9:14am Problems Active Problems Problem Classification Problem Date Documented Date Episodic/Chronic Asthma (2 sources) Asthma; Translations: [Unspecified asthma, uncomplicated] Onset: 04-14-2016 04-14-2016 Chronic Cardiac dysrhythmias (20 sources) Atrial fibrillation; Translations: [Unspecified atrial fibrillation] Onset: 12-11-2024 12-13-2024 Chronic Chronic kidney disease (2 sources) Chronic kidney disease stage 2; Translations: [Chronic kidney disease, stage 2 (mild)] 01-25-2025 Chronic Congestive heart failure; nonhypertensive (17 sources) Chronic systolic heart failure; Translations: [Chronic systolic (congestive) heart failure] Onset: 01-06-2025 12-14-2024 Chronic Coronary atherosclerosis and other heart disease (20 sources) Coronary arteriosclerosis; Translations: [Atherosclerotic heart disease of [place] coronary artery without angina pectoris] Onset: 01-06-2025 12-14-2024 Chronic Disorders of lipid metabolism (20 sources) Dyslipidemia; Translations: [Hyperlipidemia, unspecified] Onset: 02-26-2025 12-14-2024 Chronic Esophageal disorders (1 source) Gastroesophageal reflux disease; Translations: [Gastro-esophageal reflux disease without esophagitis] Onset: 08-22-2016 08-22-2016 Chronic Essential hypertension (20 sources) Hypertensive disorder; Translations: [Essential (primary) hypertension] Onset: 01-06-2025 12-13-2024 Chronic Menopausal disorders (1 source) Menorrhagia; Translations: [Excessive bleeding in the premenopausal period] Onset: 03-22-2012 03-22-2012 Chronic Other aftercare (1 source) 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 service (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) use of anticoagulants; Translations: [Anticoagulant long-term use] Onset: 03-24-2025 Episodic Other and ill-defined heart disease (2 sources) Heart disease, unspecified; Translations: [Heart disease, unspecified] Onset: 02-26-2025 Chronic Other liver diseases (1 source) Alkaline phosphatase raised; Translations: [Abnormal levels of other serum enzymes] 01-25-2025 Episodic Other lower respiratory disease (14 sources) H/O: asthma; Translations: [Personal history of other diseases of the respiratory system] 12-13-2024 Episodic Other lower respiratory disease (1 source) Personal history of other diseases of the respiratory system; Translations: [Personal history of other diseases of the respiratory system] Onset: 01-06-2025 Episodic Other lower respiratory disease (1 source) Shortness of breath; Translations: [Shortness of breath] Onset: 01-06-2025 Episodic Other nutritional; endocrine; and metabolic disorders (17 sources) Morbid obesity; Translations: [Morbid (severe) obesity due to excess calories] 12-13-2024 Chronic Other nutritional; endocrine; and metabolic disorders (1 source) Body mass index 40+ - severely obese; Translations: [Obesity, Class III, BMI 40-49.9 (morbid obesity)] Onset: 03-09-2015 03-09-2015 Chronic Other nutritional; endocrine; and metabolic disorders (1 source) Obesity, unspecified; Translations: [Obesity with serious comorbidity, unspecified class, unspecified obesity type] Onset: 01-24-2025 Chronic Other nutritional; endocrine; and metabolic disorders (1 source) Morbid (severe) obesity due to excess calories; Translations: [Morbid (severe) obesity due to excess calories] Onset: 01-06-2025 Chronic Other screening for suspected conditions (not mental disorders or infectious disease) (15 sources) Cardiovascular stress test abnormal; Translations: [Abnormal result of other cardiovascular function study] Onset: 01-06-2025 12-13-2024 Episodic Radha-; endo-; and myocarditis; cardiomyopathy (except that caused by tuberculosis or sexually transmitted disease) (20 sources) Cardiomyopathy; Translations: [Other cardiomyopathies] Onset: 02-26-2025 12-14-2024 Chronic Residual codes; unclassified (18 sources) Obstructive sleep apnea syndrome; Translations: [Obstructive sleep apnea (adult) (pediatric)] 12-25-2024 Chronic Comment on above: AHI 11.5 Residual codes; unclassified (3 sources) Obstructive sleep apnea (adult) (pediatric); Translations: [AYO (obstructive sleep apnea)] Onset: 01-24-2025 Chronic Residual codes; unclassified (1 source) Other specified personal risk factors, not elsewhere classified; Translations: [At risk for stroke] Onset: 03-24-2025 Episodic Screening and history of mental health and substance abuse codes (2 sources) Encounter for screening for depression; Translations: [Encounter for screening examination for other mental health and behavioral disorders] Onset: 01-24-2025 Episodic Thyroid disorders (1 source) Subclinical hypothyroidism; Translations: [Other specified hypothyroidism] 01-25-2025 Chronic Thyroid disorders (1 source) Sick-euthyroid syndrome; Translations: [Sick euthyroidism] Onset: 01-24-2025 Episodic Unclassified (7 sources) Needs sleep study and PFT Unclassified (7 sources) PFT and sleep study Unclassified (11 sources) I48.19 - Other persistent atrial fibrillation Unclassified (3 sources) Other persistent atrial fibrillation; Translations: [Persistent atrial fibrillation (HCC)] Onset: 01-22-2025 Past or Other Problems Problem Classification Problem Date Documented Da te Episodic/Chronic Allergic reactions (2 sources) Allergy to bee venom; Translations: [Bee allergy status] Onset: 03-09-2015 03-09-2015 Episodic Other non-traumatic joint disorders (1 source) Hip pain; Translations: [Pain in right hip] Onset: 07-12-2016 07-12-2016 Episodic Spondylosis; intervertebral disc disorders; other back problems (2 sources) Acute low back pain; Translations: [Acute midline low back pain without sciatica] Onset: 07-05-2016 07-05-2016 Episodic Results Test Name Value Interpretation Reference Range Facility [facility] 03-26-2025 OV Office Visit (AGCARDPOB) ALECIA GUTIERREZ ([id number]) 1965 F Date Time Provider Department 03/26/25 10:20 AM NEAL GONZALEZ During your visit today, we recorded the following information about you: Pulse Blood pressure Weight 99/minute 130/86 136.1 kg Neal Gonzalez MD 03/26/2025 1:28 PM Signed Hey did not PRIMARY CARE PHYSICIAN: Aidee Kincaid [address] [place] [address] REFERRING PHYSICIAN: Germania Richardson ([facility]) [address] [facility] [address] Patient Care Team: Aidee Kincaid MD as PCP - General (Internal Medicine/Pediatrics) Germania Richardson PA-C as Physician J2Ee Engineer (Cardiology) Zachary Cleary MD as Specialty Graining Operator (Cardiology) Nida Lemus as Nurse Practitioner (Pulmonary Disease) Recording using [employer] software for draft documentation of the visit was discussed with the patient/authorized underwriting service representative; all questions welcomed and answered. Patient/authorized underwriting service representative agreed to proceed CHIEF COMPLAINT: Evaluation for arrhythmia HISTORY OF PRESENT ILLNESS: Mrs. Gutierrez is a 60 year old female who presents today for evaluation of arrhythmia. The patient is a 60-year-old female with a history of atrial fibrillation, moderate three-vessel CAD, and cardiomyopathy, presenting for evaluation and management of atrial fibrillation. The patient was initially hospitalized on December 11, 2024, at [facility] due to chest pain and dyspnea. She describes the chest pain as a "pulled muscle" sensation located in the left axillary area, which she attributed to playing with her puppy on the porch for two days. She also experienced dyspnea, which she thought was due to the heat. Her sister insisted on taking her to the hospital due to a family history of heart issues in their mother. In the ED, she was found to have hypertension and tachycardia and was diagnosed with atrial fibrillation with rapid ventricular response. She received IV diltiazem, which was effective in controlling her heart rate. During her hospitalization, a TTE revealed mild to moderate cardiomyopathy with an LVEF of 35-40% and mild concentric LVH. A stress test on December 13, 2024, showed anterior ischemia, prompting a cardiac catheterization, which revealed moderate three-vessel disease: 40% stenosis in the mid-LAD, 50% in the mid-circumflex, and 60% in the mid-RCA. No interventions were performed, and she was managed medically. She followed up with her commercial lines account assistant office JOVANA ([facility]) on December 25, 2024, and a cardioversion was scheduled. The cardioversion was performed on January 13, 2025, by Dr. Bay but was unsuccessful in maintaining normal sinus rhythm despite multiple attempts. She did state that there was a brief period of time that she was in sinus rhythm after the initial cardioversion attempt. She underwent two sleep studies, the first on January 14, 2025, which she states was inconclusive due to insufficient sleep duration. The second study confirmed obstructive sleep apnea, and she is scheduled to receive a CPAP machine on the . She reports ongoing dyspnea on exertion, stating that she cannot walk long distances without needing to rest. 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 She denies any recent worsening of her dyspnea and states that it has been consistent for years (prior to diagnosis of atrial fibrillation). She denies any history of smoking but reports exposure to secondhand smoke from her brother and . She denies any history of COPD or emphysema. She denies any known kidney dysfunction. She states she is scheduled for a repeat cardioversion on April 04, 2025, but has not been started on any antiarrhythmic medications. She has a history of tubal ligation in 1992. She denies any known drug allergies but is allergic to bee stings. She is currently taking metoprolol succinate 50 mg once daily, Eliquis 5 mg BID, aspirin 81 mg once daily, atorvastatin, Jardiance, furosemide, losartan, spironolactone, and thyroid medication. I have confirmed and edited as necessary, the PFSH and ROS obtained by others. PAST MEDICAL HISTORY Diagnosis Date Anticoagulant long-term use 03/24/2025 Asthma (HCC) At risk for stroke 03/24/2025 Bee sting allergy 03/09/2015 CAD (coronary artery disease) Chronic systolic (congestive) heart failure (HCC) 03/24/2025 Dyslipidemia Gastroesophageal reflux disease 08/22/2016 Hypertension Morbid obesity (HCC) 03/24/2025 Nonischemic cardiomyopathy (HCC) Obesity Obesity, Class III, BMI 40-49.9 (morbid obesity) (HCC) 03/09/2015 AYO (obstructive sleep apnea) 03/24/2025 Persistent atrial fibrillation (HCC) (more content not included)... Normal [facility] Cardiology Visit Reporton Cardiology Visit Report [facility] [address] [place], [place] [address] OFFICE VISIT Date of Service: 02/26/25 MR#: [id number] Acct: [id number] Name: ALECIA GUTIERREZ Rep #: [id number] : 1965 Provider: JOVANA Bravo Age/Sex: 60/F Location: [facility] [place].[facility] Status: Signed HPI HPI History of Present Illness Details: This is a 60-year-old female that was admitted to [facility] on 12/13/2024 for increased shortness of breath, left-sided chest pain. She was noted to be in atrial fibrillation with RVR. Initial heart rate was 151. Echocardiogram demonstrated moderate generalized LV hypokinesis with mild concentric LVH with an estimated ejection fraction of 35 to 40%. Stage I diastolic dysfunction. Moderate biatrial enlargement. Patient underwent a stress test which demonstrated anterior ischemia. She underwent a diagnostic heart catheterization which demonstrated calcific moderate three-vessel disease. 40% mid LAD, 50% mid circumflex, 60% mid RCA with IFR of 0.99. Nonischemic cardiomyopathy with an ejection fraction of 30%. Patient did attempt a cardioversion on January 13, 2025. This was unsuccessful. She was noted to have severe sleep apnea during this time and a referral was made to pulmonary. Sleep study demonstrated mild obstruction apnea noted. 6 minutes of desats noted. She has a f/u sleep study 02/28 since she did not sleep well during this test. She was also referred to EP. She has an appt with them 03/26/25. She does not have any chest pain/heaviness/tight ness. She does have SOB with activity. She is able to sleep in a bed. She does not have any bleeding issues. She does not have any edema. Intake Vital Signs 12/25/24 13:01 01/29/25 08:08 02/26/25 13:56 02/26/25 14:25 Height 5 ft 6 in 5 ft 6 in 5 ft 6 in Weight: 300 lb BMI 48.4 BP 117/79 Blood Pressure Location Lt brachial Position Sitting Respiration 20 H Pulse 95 80 Pulse Source Monitor Intake Visit Reasons: 2 M FU Rabbet Operator Required: No Accompanied by: Self Is patient in pain?: No Allergies bee venom protein (honey bee) (bee sting) Allergy (Severe, Verified 02/26/25 13:59) Anaphylaxis Medications ???Medication ???Instructions ???Recorded ???Confirmed ???Type aspirin 81 mg tablet,delayed 81 mg PO DAILY 3 months #90 tabs 0 12/14/24 02/26/25 Rx release (Rebel Low Dose Aspirin) furosemide 40 mg tablet 40 mg PO DAILY #90 tabs 12/25/24 0 02/26/25 Rx metoprolol succinate 50 mg 50 mg PO DAILY #90 tabs 12/25/24 0 02/26/25 Rx tablet,extended release 24 hr albuterol sulfate 90 mcg/actuation 2 inh inhalation Q4H PRN shortne ss 01/29/25 02/26/25 Rx aerosol inhaler (Ventolin HFA) of breath or wheezing #8.5 grams apixaban 5 mg tablet (Eliquis) 5 mg PO BID 90 days #180 tabs 02/17 Rx atorvastatin 80 mg tablet 80 mg PO QDAY 02/26/25 02/26/25 Hi story empagliflozin 10 mg tablet 10 mg PO QDAY 02/26/25 02/26/25 Hi story (Jardiance) levothyroxine 25 mcg tablet 25 mcg PO QDAY 02/26/25 02/26/25 H istory spironolactone 25 mg tablet 25 mg PO QDAY 02/26/25 02/26/25 Hi story Ejection fraction %: 35 PFSH Medical History Asthma Atrial fibrillation Atrial fibrillation with RVR CAD (coronary artery disease) Dyslipidemia Hypertension Nonischemic cardiomyopathy Persistent atrial fibrillation Surgical History H/O right heart catheterization Social History Smoking Status: Never smoker ROS Const Const: Negative for fatigue, weakness, daytime sleepiness or difficulty sleeping ENT ENT: Negative for dizziness or Nosebleed/epistaxis Cardio Chest Pain: No Palpitations: No Edema: None Resp Respiratory: Positive for SOB with activity; Negative for SOB at rest, SOB orthopnea SOB lying down or Cough GI GI: Negative nausea, vomiting or heartburn Neuro Neuro: Negative for dizziness, lightheadedness, near syncope or weakness Endo Endo: Negative for fatigue Cardiology Exam Const Appearance: cooperative, comfortable, no acute distress and well developed Nutritional Appearance: obese Orientation: alert, awake and oriented x3 Head Head: normal to inspection Ears: hearing grossly normal bilaterally Nose: external nose normal Face and Sinus: face symmetric Mouth: oral mucosae normal, lip normal and moist mucous membranes Eyes General: appearance normal, both eyes and all related structures Eyelids: eyelids normal Conjunctivae: conjunctivae normal Pupils: PERRL EOM: EOM intact bilaterally Neck Neck: normal visual inspection and trachea midline; Negative no JVD Carotids: Negative bruit Chest Chest insp (more content not included)... Normal [facility] Pulmonary Visit Reporton Pulmonary Visit Report [facility] [place] [address] [place] [address] OFFICE VISIT Date of Service: 01/29/25 MR#: [id number] Acct: [id number] Name: ALECIA GUTIERREZ Rep #: [id number] : 1965 Provider: SIMRAN Lemus Age/Sex: 59/F Location: [facility] [place]PMW Status: Signed Assessment and Plan Assessment and Plan (1) AYO (obstructive sleep apnea): Status: Acute Comment: AHI 11.5 Plan: New. Lengthy discussion about the pathophysiology of obstructive sleep apnea. We discussed the risks of untreated sleep apnea as well as the benefits. I am sending her for a titration study. Once the recommended pressures are available for review, I will order the appropriate machine and settings. Initial goal will be to wear PAP at least 4 hours nightly. Ultimately, it should be worn any time spent sleeping. I have encouraged the patient to call the office with any difficulties acclimating to PAP therapy. Follow up in the office in 3 months, at which time I anticipate the patient will be on PAP therapy for 4-6 weeks. (2) Persistent atrial fibrillation: Status: Acute Plan: Complicates exam, plan, care and prognosis. The patient has been suffering from atrial fibrillation despite medical management. She was also noted to have atrial fibrillation during the sleep study. I explained to the patient the relationship of her risk for irregular heart rhythm and untreated sleep apnea. The goal will be to get the patient's sleep apnea under control and optimize so that cardiology can better manage her rhythm and potentially get her back into a regular rate. (3) Morbid obesity: Status: Chronic Plan: BMI 48.6%. This complicates exam, plan, care and prognosis. The patient would benefit from weight loss in multiple ways. Now that she has a diagnosis of obstructive sleep apnea confirmed, she would be appropriate to be managed with weight loss medication called Zepbound. This information will be shared with her primary care doctor to decide if it is a good fit for the patient. This should be managed by PCP as it requires counseling and close monitoring. Obesity and obstructive sleep apnea are closely related and weight loss would impact the patient's pressure support requirements. Ultimately, 20% weight loss would result in patient requiring pressure support and could potentially reverse her obstructive sleep apnea. Orders: Orders Polysomnography with PAP Today G47.33 - Obstructive sleep apnea (adult) (pediatric) Medications: New albuterol sulfate 90 mcg/actuation (Ventolin HFA) 2 inhalations inhalation Q4H PRN 8.5 grams 11RF shortness of breath or wheezing G47.33 - Obstructive sleep apnea (adult) (pediatric) Plan Details Additional Comments: This note was generated with WaveDeck dictation software. It may contain incorrect words, spelling, and punctuation that were not noted in checking the note before signing. Follow Up: 3 Months HPI Sleep problems/Hospital FU Chief Complaint: Test results HPI Comments Details: This patient presents to the office today for initial consultation regarding concern for obstructive sleep apnea. She is in a wheelchair and on room air. The patient reports that her tells her that she does snore. She believes that she usually feels rested when in the morning. She does nap 1 or 2 times weekly, and admits that it is typically unintentional. She finds herself off to sleep occasionally during the day. She has about 2 episodes of nocturia nightly. She denies any difficulty with dry mouth or morning headaches. She is currently unemployed. She states that most recently she had worked [employer] at a [employer]. She states that she saw a news analyst many years ago in [place]. She cannot recall his name. She states that she was told she had some type of respiratory problem, but cannot remember the name of it. She was prescribed a maintenance inhaler, however "after I lost my job I could not afford it". She admits that she never found it to be very effective. She does have an albuterol rescue inhaler that is outdated. She has not recently utilized it. She is a lifelong never smoker. Past medical family history significant for: Mother had some type of heart problems and diabetes. Father had heart problems. Brother had heart problems, diabetes and lung cancer that metastasized to his brain. She has 2 sons, 1 son had a meth addiction. She is not in touch with him any longer and does not know of any additional health problems or if he is still using. She does have shortness of breath on exertion. She denies any cough, sputum production or hemoptysis. She denies any wheezing, chest tightness, chest pain or palpitations. She has not had any fever, chills or body aches. Test results personally reviewed with the patient: Overnight polysom (more content not included)... Normal [facility] Cardiac Cath [facility] Cardiac Cath Diagnostic [facility] Services [address] [place] [address] Cardiac Cath Diagnostic MR#: [id number] Acct: [id number] Name: ALECIA GUTIERREZ Rep #: [id number] : 1965 59 From: Zachary Cleary MD PCP: Dr. Kareem Esteban MD Status:DIS IN Patient Name: ALECIA GUTIERREZ Study Date: 12/13/2024 Performing: Zachary Cleary MD Ht: 64 inches 162.56 cm : 1965 Wt: 278 lbs 126.1 kg Age: 59 Gender: female BSA: 2.25 PROCEDURE(S) PERFORMED DC01-(91007)LHC/COR/ LV IC10-(78002)FFR, CORONARY OR GRAFT, INITIAL VESSEL CLINICAL PROFILE AND INDICATIONS Indications: Suspected CAD Heart Failure: None Stress/Imaging Stress Test w/SPECT MPI: Yes Result: Positive Intermediate RiskStress Test with SPECT MPI: Positive Intermediate Risk CAD Presentations: Symptom unlikely to be ischemic. CONCLUSIONS Calcific moderate 3 vessel disease 40% Mid LAD, 50% Mid LCX, 60% Mid RCA (iFR 0.99) Non-ischemic cardiomyopathy. LVEF 30% RECOMMENDATIONS Medical therapy Risk factor modification DESCRIPTION OF PROCEDURE The patient arrived to the procedure lab. The risks and benefits of the procedure as well as a full description of our services here and current unavailability of surgical backup were fully explained to the patient and/or their significant other prior to the catheterization. The Timeout was completed, verifying the correct patient and procedure. The patient's procedural site was prepped and draped in the usual fashion. Local anesthetic was given subcutaneously to right radial region with Lidocaine 2%. Using a modified Seldinger technique, arterial access was obtained via the right radial artery, a 6Fr sheath was inserted. Left Coronary Artery selective angiography was performed in multiple views using a 5 Fr. 4.0 Wiseman catheter. Right Coronary Artery selective angiography was then performed in multiple views using a 5 Fr. 4.0 Wiseman catheter. Left Ventriculography was performed in JEAN BAPTISTE projection using a 5 Fr. Pigtail catheter. LV to AO pullback pressures were then recorded.The arterial sheath was pulled and a TR Band was applied for hemostasis w/ 8ml air CORONARY ANGIOGRAPHY DOMINANCE: Right Dominant LEFT HEART ASSESSMENT Left Ventricular Ejection Fraction: by LV Gram 30 % Global Hypokinesis - Severe LVEDP: 37 mmHg LEFT MAIN: Tubular 20% Distal lesion in LMCA RIGHT CORONARY ARTERY: RCA: Calcified Eccentric 60% Mid lesion in RCA COMPLICATIONS No Complications PROCEDURE MEDICATIONS Versed 1 mg IV Fentanyl 50 mcg IV Fentanyl 25 mcg IV Oxygen: 2 L/min via nasal cannula Aspirin (325mg) 1 Tabs PO @ 12/13/2024 15:01:42 Heparin given IA 12/13/2024 15:14:07 Heparin 8000 unit(s) IV 12/13/2024 15:22:37 Verapamil 2.5mg, Ntg 200mcgs, 2000 units of Heparin given IA 12/13/2024 15:14:07 SUMMARY OF HEMODYNAMIC DATA Time AIR REST ECG 15:00:30 AO 140/91 (112) SA 15:16:35 LV 156/27, 37 15:22:55 LV 157/28, 38 15:23:04 LV 161/40, 52 15:23:56 LV 163/39, 50 15:24:04 LVp 167/39, 49 15:24:09 AOp 162/98 (122) 15:24:16 AO 170/84 (123) 15:31:52 15:44:35 Signed By Zachary Cleary MD On 12/13/2024 15:50:28 Zachary Cleary MD 01/27/25 0945 Date Zachary Cleary MD Cosigner Signature: Date (if indicated) CC: Dr. Zachary Cleary MD; Dr. Kareem Esteban MD; Dr. Holden Barros MD Date Dictated: 12/13/24 151 Date Transcribed: 12/13/24 155 Crutch Maker: AR Signed Normal [facility] CBC panel Auto (Bld)on 01-24 Erythrocyte distribution width (RBC) [Ratio] 13.5 % Normal 11.5-15.0 [facility] Comment on above: Order Comment: Speci men Type: BLOOD SPECIMENOrdering Facility: [facility] Address: [address] [place] [address] Performed By: #### 5 8410-2 ####[facility] LABIA [id number] [address] STATES OF [facility] Hematocrit (Bld) [Volume fraction] 44.7 % Normal 36.0-46.0 [facility] Comment on above: Order Comment: Speci men Type: BLOOD SPECIMENOrdering Facility: [facility] Address: [address] [place] [address] Performed By: #### 5 8410-2 ####[facility] LABIA [id number] [place] [id number] [place] Hemoglobin (Bld) [Mass/Vol] 14.4 g/dL Normal 11.5-15.5 [facility] Comment on above: Order Comment: Speci men Type: BLOOD SPECIMENOrdering Facility: [facility] Address: [address] [place] [address] Performed By: #### 5 8410-2 ####[facility] LABIA [id number] [place] [address] [place] MCH (RBC) [Entitic mass] 28.5 pg Normal 26.0-34.0 [facility] Comment on above: Order Comment: Speci men Type: BLOOD SPECIMENOrdering Facility: [facility] Address: [address] [place] [address] Performed By: #### 5 8410-2 ####[facility] LABIA [id number] [address] [place] MCHC (RBC) [Mass/Vol] 32.2 g/dL Normal 30.5-36.0 [facility] Comment on above: Order Comment: Speci men Type: BLOOD SPECIMENOrdering Facility: [facility] Address: [address] [place] [address] Performed By: #### 5 8410-2 ####[facility] [id number] [place] [address] [place] MCV (RBC) [Entitic vol] 88.5 fL Normal 80.0-100.0 [facility] Comment on above: Order Comment: Speci men Type: BLOOD SPECIMENOrdering Facility: [facility] Address: [address] [place] [address] Performed By: #### 5 8410-2 ####[facility] LABIA [id number] [place] [address] [place] Nucleated RBC (Bld) [#/Vol] 10*3/uL Normal <0.01 [facility] Comment on above: Order Comment: Speci men Type: BLOOD SPECIMENOrdering Facility: [facility] Address: [address] [place] [address] Performed By: #### 5 8410-2 ####[facility] LABCLIA [id number] [address] [address] [place] Platelet mean volume (Bld) [Entitic vol] 10.7 fL Normal 9.0-12.7 [facility] Comment on above: Order Comment: Speci men Type: BLOOD SPECIMENOrdering Facility: [facility] Address: [address] [place] [address] Performed By: #### 5 8410-2 ####[facility] LABIA [id number] [place] [address] [place] Platelets (Bld) [#/Vol] 302 10*3/uL Normal 150-400 [facility] Comment on above: Order Comment: Speci men Type: BLOOD SPECIMENOrdering Facility: [facility] Address: [address] [place] [address] Performed By: #### 5 8410-2 ####[facility] LABIA [id number] [place] [address] [place] RBC (Bld) [#/Vol] 5.05 10*6/uL Normal 3.90-5.20 [facility] Comment on above: Order Comment: Speci men Type: BLOOD SPECIMENOrdering Facility: [facility] Address: [address] [place] [address] Performed By: #### 5 8410-2 ####[facility] LABIA [id number] [place] [id number] [place] WBC (Bld) [#/Vol] 9.27 10*3/uL Normal 3.70-11.00 [facility] Comment on above: Order Comment: Speci men Type: BLOOD SPECIMENOrdering Facility: [facility] Address: [address] [place] [address] Performed By: #### 5 8410-2 ####[facility] LUIS [id number] ROGERIO BALDERRAMA [id number] [place] [address] [facility] CNOVon 01-24-2025 CNOV Office Visit (FAMPWS) ALECIA GUTIERREZ ([id number]) 1965 F Date Time Provider Department 01/24/25 9:20 AM AIDEE KINCAID During your visit today, we recorded the following information about you: Temperature Pulse Respiration Blood pressure 97.9 degrees 88/minute 24/minute 110/76 Weight Height 137 kg 1.556 m Aidee Kincaid MD 01/24/2025 11:06 AM Signed Family Medicine OUTPATIENT VISIT January 24, 2025 CC: Annual physical HPI: 59 year old female patient with a history of Restrictive lung disease AYO CAD Obesity A fib Bee sting allergy Presents for hospital follow up. Prior to hospitalization in November, her only known chronic illness was asthma, though PFT's in 2015 showed restrictive lung disease. She as admitted 12/13 to 12/15 for Shortness of Breath and left sided chest pain to [facility]. With shortness of breath. Found to have a fib with RVR. Given diltiazem and started on beta blockers Initially rate 151. Responded to above. CXR unremarkable. Chest Cta no PE. A1c 5.5. Fasting lipids normal. Echo c/w Acute on chronic HFrEF and HFpEF, EF 35 to 40%, stage I diastolic dysfunction with moderate biatrial dilation. SH 10 normal T4. BNP 1200. Abnormal stress test. Anterior wall hypoperfusion moderate ischemia. 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 Recommending medical therapy. Started empagliflozin 10mg daily, losartan 25mtg daily, metoproll sucinate 50mg daily, atorvastatin 40mg daily. Given lasix 40 daily. Eliquis 5mg PO, asa 80. Also ordered PFT and PSG as OP. Creatine of 1.2 without baseline. Presents to establish care. Since hospital stay. No chest pain. No shortness of breath. She had a cardioversion on 28 of January with [facility], where she states they attempted cardioversion three times. She converted back to a fib after all three attempts. Not using albuterol routinely. Her 2016 PFT's did suggest restrictive lung disease rather than obstructive. She did get her PSG that showed mild AYO. She has follow up with sleep medicine out of system scheduled to get CPAP initiated. Review of Systems PAIN ASSESSMENT: Negative for pain, history of chronic pain, or current treatment for a chronic pain condition. GENERAL: No weight loss, or fevers HEENT: Negative for frequent or significant headaches RESPIRATORY: Negative for cough, wheezing, shortness of breath CARDIOVASCULAR: Negative for chest pain, palpitations, PND or orthopnea GI: No nausea, vomiting, or diarrhea or abdominal pain. No PA bleeding or melana : No history of dysuria, frequency, urgency, or change in urine appearance NEURO: No history of headaches, numbness, weakness, or changes to vision or hearing Health maintenance: Colorectal Cancer Screening due on 03/11/2025 Allergies: ALLERGIES Allergen Reactions Bees Swelling Medications: potassium chloride ER (KLOR-CON) 20 mEq tablet Take 20 mEq by mouth once daily. senna-docusate (SENNA-S) 8.6-50 mg per tablet Take 2 tablets by mouth once daily as needed for constipation. aspirin, enteric coated (ADULT LOW DOSE ASPIRIN) 81 mg EC tablet Take 81 mg by mouth once daily. apixaban (ELIQUIS) 5 mg tab(s) Take 5 mg by mouth two times a day. furosemide (LASIX) 40 mg tablet Take 40 mg by mouth two times a day. losartan (COZAAR) 25 mg tablet Take 25 mg by mouth once daily. metoprolol succinate ER (TOPROL XL) 50 mg 24 hr tablet Take 50 mg by mouth once daily. albuterol sulfate (PROAIR RESPICLICK) 90 mcg/actuation aepb Inhale 2 Inhalation as instructed every 4 hours as needed (PRN for shortness of breath or wheezing). EPINEPHrine (EPIPEN) 0.3 mg/0.3 mL auto-injector Use for bee sting. (V15.06; Z91.038) Bee sting allergy atorvastatin (LIPITOR) 80 mg tablet Take 1 tablet by mouth once daily. empagliflozin (JARDIANCE) 25 mg tablet Take 1 tablet by mouth daily with breakfast. Past Medical History: PAST MEDICAL HISTORY Diagnosis Date Asthma (HCC) Bee sting allergy 03/09/2015 CAD (coronary artery disease) Dyslipidemia Hypertension Nonischemic cardiomyopathy (HCC) Obesity Persistent atrial fibrillation (HCC) Social History: Social History Tobacco Use Smoking status: Never Smokeless tobacco: Never Tobacco comments: Exposed to secondhand smoke x2 years (1989) Substance Use Topics Alcohol use: No Drug use: No Family History: Family History Problem Relation Age of Onset Diabetes Mother Ischemic Heart Disease Mother 40 atrial fibrillation; CAD; CABG in late 60's other (Atrial Fibrillation [Other]) Mother Ischemic Heart Disease Father at 77yo with ME Prostate Cancer Father Ischemic Heart Disease Brother 50 other (Lung Cancer [Other]) Brother Smoker BP 110/76 Pulse 88 Temp 36.6 ?C (97.9 ?F) (Temporal) Resp 24 Ht 155.6 c (more content not included)... [facility] ALECIA GUTIERREZ ([id number]) 1965 F Date Time Provider Department 01/24/[address] [facility] During your visit today, we recorded the following information about you: Laxmi Rodriguez LPN 01/24/2025 11:50 AM Signed Patient has been notified to stop taking potassium supplement and to take Lasix [address] Kincaid. Allergies As of Date: 01/24/2025 Noted Allergy Reaction BEES 03/09/2015 7 - Swelling Date Reviewed: 01/24/2025 Reviewed by: Laxmi Rodriguez LPN - Fully Assessed Reason for Visit: Medication Update [7126] Prescriptions as of 01/24/2025 - senna-docusate (SENNA-S) 8.6-50 mg per tablet Take 2 tablets by mouth once daily as needed for constipation. - EPINEPHrine (EPIPEN) 0.3 mg/0.3 mL auto-injector Use for bee sting. (V15.06; Z91.038) Bee sting allergy - atorvastatin (LIPITOR) 80 mg tablet Take 1 tablet by mouth once daily. - spironolactone (ALDACTONE) 25 mg tablet Take 1 tablet by mouth once daily. - empagliflozin (JARDIANCE) 10 mg tablet Take 1 tablet by mouth daily with breakfast. - furosemide (LASIX) 40 mg tablet Take 1 tablet by mouth once daily. - aspirin, enteric coated (ADULT LOW DOSE ASPIRIN) 81 mg EC tablet Take 81 mg by mouth once daily. - apixaban (ELIQUIS) 5 mg tab(s) Take 5 mg by mouth two times a day. - losartan (COZAAR) 25 mg tablet Take 25 mg by mouth once daily. - metoprolol succinate ER (TOPROL XL) 50 mg 24 hr tablet Take 50 mg by mouth once daily. - albuterol sulfate (PROAIR RESPICLICK) 90 mcg/actuation aepb Inhale 2 Inhalation as instructed every 4 hours as needed (PRN for shortness of breath or wheezing). Problem List As Of Date 01/24/2025 Noted Resolved Premenopausal menorrhagia [N92.4] 03/22/2012 Bee sting allergy [Z91.030] 03/09/2015 Obesity, Class III, BMI 40-49.9 (morbid obesity*03/09/2015 Asthma [J45.909] Acute midline low back pain without sciatica [M*07/05/2016 Sacral pain [M53.3] 07/12/2016 Pain in right hip [M25.551] 07/12/2016 Gastroesophageal reflux disease [K21.9] 08/22/2016 A-fib (HCC) [I48.91] 12/11/2024 Encounter Status:Closed by LAXMI RODRIGUEZ on 01/24/25 Normal [facility] Comprehensive metabolic 2000 panelon 01-24-2025 Albumin [Mass/Vol] 4.2 g/dL Normal 3.9-4.9 [facility] Comment on above: Order Comment: Speci men Type: BLOOD SPECIMEN [facility]ing Facility: [facility] Address: [address] [place] [address] Performed By: #### L IPNF, 3024-7, TSHRF, 25284-7 #### [facility] LAB CLIA [id number] [address] [place] [address] [place] ALP [Catalytic activity/Vol] 171 U/L High 34-123 [facility] Comment on above: Order Comment: Speci men Type: BLOOD SPECIMEN Ordering Facility: [facility] Address: [address] [place] [address] Performed By: #### L IPNF, 3024-7, TSHRF, 61430-3 #### [facility] CLIA [id number] [address] [place] [address] [place] ALT [Catalytic activity/Vol] 13 U/L Normal 7-38 [facility] Comment on above: Order Comment: Speci men Type: BLOOD SPECIMEN Ordering Facility: [facility] Address: [address] [place] [address] Performed By: #### L IPNF, 3023-7, TSHRF, 17764-7 #### [facility] CLIA [id number] [address] [place] [address] [place] Anion gap [Moles/Vol] 15 mmol/L Normal 8-15 [facility] Comment on above: Order Comment: Speci men Type: BLOOD SPECIMEN Ordering Facility: [facility] Address: [address] [place] [address] Performed By: #### L IPNF, 3024-7, TSHRF, 27449-1 #### [facility] CLIA [id number] [address] [place] [address] [place] AST [Catalytic activity/Vol] 21 U/L Normal 13-35 [facility] Comment on above: Order Comment: Speci men Type: BLOOD SPECIMEN Ordering Facility: [facility] Address: [address] [place] [address] Performed By: #### L IPNF, 3024-7, TSHRF, 49951-8 #### [facility] CLIA [id number] [address] [place] [address] [place] Bilirubin [Mass/Vol] 0.7 mg/dL Normal 0.2-1.3 [facility] Comment on above: Order Comment: Speci men Type: BLOOD SPECIMEN Ordering Facility: [facility] Address: [address] [place] [address] Performed By: #### L IPNF, 3023-7, TSHRF, 00821-7 #### [facility] CLIA [id number] [address] [place] [address] [place] Calcium [Mass/Vol] 9.7 mg/dL Normal 8.5-10.2 [facility] Comment on above: Order Comment: Speci men Type: BLOOD SPECIMEN Ordering Facility: [facility] Address: [address] [place] [address] Performed By: #### L IPNF, 3023-7, TSHRF, 28540-5 #### [facility] CLIA [id number] [address] [place] [address] [place] Chloride [Moles/Vol] 96 mmol/L Low 98-107 [facility] Comment on above: Order Comment: Speci men Type: BLOOD SPECIMEN Ordering Facility: [facility] Address: [address] [place] [address] Performed By: #### L IPNF, 3023-7, TSHRF, 55156-2 #### [facility] CLIA [id number] [address] [place] [address] [place] CO2 [Moles/Vol] 26 mmol/L Normal 22-30 [facility] Comment on above: Order Comment: Speci men Type: BLOOD SPECIMEN Ordering Facility: [facility] Address: [address] [place] [address] Performed By: #### L IPNF, 3023-7, TSHRF, 55011-9 #### [facility] CLIA [id number] [address] [place] [address] [place] Creatinine [Mass/Vol] 1.07 mg/dL High 0.58-0.96 [facility] Comment on above: Order Comment: Yamilet ariza Type: BLOOD SPECIMEN Ordering Facility: [facility] Address: [address] [place] [address] Performed By: #### L SHARDA, 3024-7, [facility], #### [facility] CLIA [id number] [address] [place] [address] [place] eGFRcr SerPlBld CKD-EPI 2020 60 mL/min/1.73m??? Normal >=60 [facility] [facility] Comment on above: Order Comment: Yamilet ariza Type: BLOOD SPECIMEN Ordering Facility: [facility] Address: [address] [place] [address] Result Comment: Tisha mated Glomerular Filtration Rate (eGFR) is calculated using the 2020 CKD-EPI creatinine equation. This equation utilizes serum creatinine, sex, and age as parameters. The creatinine assay has traceable calibration to isotope dilution-mass spectrometry. Refer to KDIGO guidelines for clinical interpretation. In patients with unstable renal function, e.g. those with acute kidney injury, the eGFR may not accurately reflect actual GFR. Performed By: #### L SHARDA, 4-7, [facility], #### [facility] CLIA [id number] [address] [place] [address] [place] Glucose [Mass/Vol] 98 mg/dL Normal 74-99 [facility] Comment on above: Order Comment: Yamilet ariza Type: BLOOD SPECIMEN Ordering Facility: [facility] Address: [address] [place] [address] Result Comment: The [place] Diabetes Association (ADA) provides guidance for cutoff values for fasting glucose and random glucose. The ADA defines fasting as no caloric intake for at least 8 hours. Fasting plasma glucose results between 100 to 125 mg/dL indicate increased risk for diabetes (prediabetes). Fasting plasma glucose results greater than or equal to 126 mg/dL meet the criteria for diagnosis of diabetes. In the absence of unequivocal hyperglycemia, results should be confirmed by repeat testing. In a patient with classic symptoms of hyperglycemia or hyperglycemic crisis, random plasma glucose results greater than or equal to 200 mg/dL meet the criteria for diagnosis of diabetes. Reference: Standards of Medical Care in Diabetes 2016, [place] Diabetes Association. Diabetes Care. 2016.39(Suppl 1). Performed By: #### L IPPB, 3023-7, [facility], #### [facility] CLIA [id number] [address] [place] [address] [place] Potassium [Moles/Vol] 5.1 mmol/L Normal 3.7-5.1 [facility] Comment on above: Order Comment: Speci men Type: BLOOD SPECIMEN Ordering Facility: [facility] Address: [address] [place] [address] Performed By: #### L IPNF, 3023-12, TSHRF, #### [facility] CLIA [id number] [address] [place] [address] [place] Protein [Mass/Vol] 8.0 g/dL Normal 6.3-8.0 [facility] Comment on above: Order Comment: Shelbiei men Type: BLOOD SPECIMEN Ordering Facility: [facility] Address: [address] [place] [address] Performed By: #### L IPNF, 3023-12, TSHRF, #### [facility] CLIA [id number] [address] [place] [address] [place] Sodium [Moles/Vol] 137 mmol/L Normal 136-144 [facility] Comment on above: Order Comment: Speci men Type: BLOOD SPECIMEN Ordering Facility: [facility] Address: [address] [place] [address] Performed By: #### L IPNF, 3023-12, TSHRF, 30243-0 #### [facility] CLIA [id number] [address] [place] [address] [place] Urea nitrogen [Mass/Vol] 17 mg/dL Normal 7-21 [facility] Comment on above: Order Comment: Yamilet ariza Type: BLOOD SPECIMEN Ordering Facility: [facility] Address: [address] [place] [address] Performed By: #### L IPNF, 3024-7, TSHRF, 37270-0 #### [facility] CLIA [id number] [address] [place] [address] [place] HBV core Ab Ser Qlon 025 HBV core Ab Ql (S) Negative Normal Negative [facility] Comment on above: Order Comment: Yamilet ariza Type: BLOOD SPECIMEN Ordering Facility: [facility] Address: [address] [place] [address] Result Comment: No e vidence of current or past infection with Hepatitis B virus. Should recent infection be suspected, repeat testing may be considered 3-4 weeks after this draw. Performed By: #### 5 195-3, 68686-6, 19934-9 #### [facility] CLIA [id number] [address] [place] [address] [place] HBV surface Ab Ql (S)on HBV surface Ab Qn (S) <8.00 Normal [facility] Comment on above: Order Comment: Yamilet ariza Type: BLOOD SPECIMEN Ordering Facility: [facility] Address: [address] [place] [address] Result Comment: <8 m IU/mL: No serological evidence of immunity to Hepatitis B Virus. >/= 8 to <12 mIU/mL: No serological evidence of immunity to Hepatitis B Virus. >/= 12 mIU/mL: Consistent with serological evidence of immunity to Hepatitis B Virus. Performed By: #### 5 195-3, 50381-4, 66467-2 #### [facility] CLIA [id number] [address] [place] [address] [place] HBV surface Ab Ser Qlon HBV surface Ab Ql (S) Negative Normal [facility] Comment on above: Order Comment: Speci men Type: BLOOD SPECIMEN Ordering Facility: [facility] Address: [address] [place] [address] Result Comment: No s erological evidence of immunity to Hepatitis B Virus. Performed By: #### 5 195-3, 07009-6, 32367-4 #### [facility] CLIA [id number] [address] [place] [address] [place] HBV surface Ag Ser Qlon HBV surface Ag Ql (S) Negative Normal Negative [facility] Comment on above: Order Comment: Shelbiei [facility] Type: BLOOD SPECIMEN Ordering Facility: [facility] Address: [address] [place] [address] Performed By: #### 5 195-3, 09577-9, 81479-6 #### [facility] CLIA [id number] [address] [place] [address] [place] HCV Ab Ser Qlon 01-24-2025 HCV Ab Ql (S) Negative Normal Negative [facility] Comment on above: Order Comment: Shelbiei annita Type: BLOOD SPECIMEN Ordering Facility: [facility] Address: [address] [place] [address] Result Comment: The result suggests no evidence of infection with Hepatitis C virus. Should recent infection be suspected, repeat testing may be considered 4-6 weeks after this draw. Performed By: #### 1 6128-1 #### [facility] CLIA [id number] [address] [place] [address] [place] LIPID PANEL, NONFASTINGon Cholesterol [Mass/Vol] 109 mg/dL Normal <200 [facility] Comment on above: Order Comment: Yamilet ariza Type: BLOOD SPECIMEN Ordering Facility: [facility] Address: [address] [place] [address] Result Comment: <200 mg/dL, Desirable 200-239 mg/dL, Borderline high >239 mg/dL, High Performed By: #### L IPNF, 3024-7, TSHRF, #### [facility] CLIA [id number] [address] [place] [address] [place] HDL CHOLESTEROL, NF 42 mg/dL Normal >39 [facility] Comment on above: Order Comment: Speci men Type: BLOOD SPECIMEN Ordering Facility: [facility] Address: [address] [place] [address] Result Comment: 40-5 9 mg/dL, Acceptable >59 mg/dL, High: Negative risk factor for coronary heart disease <40 mg/dL, Low: Positive risk factor for coronary heart disease Performed By: #### L SHARDA, 3023-7, TSH, #### [facility] CLIA [id number] [address] [place] [address] [facility] LDL CHOLESTEROL CALCULATED, NF 52 mg/dL Normal <100 [facility] Comment on above: Order Comment: Speci men Type: BLOOD SPECIMEN Ordering Facility: [facility] Address: [address] [place] [address] Result Comment: <100 mg/dL, Optimal 100-129 mg/dL, Near optimal/above optimal 130-159 mg/dL, Borderline high 160-189 mg/dL, High >189 mg/dL, Very high Secondary prevention optimal LDL Cholesterol levels are recommended to be <70 mg/dL LDL cholesterol is calculated using the Ariza-NIH equation. Performed By: #### L SHARDA, 3023-7, TSHRF, #### [facility] CLIA [id number] [address] [place] [address] [place] LDL/HDL RATIO, NF 1.24 mg/dL Normal <2.54 [facility] Comment on above: Order Comment: Speci men Type: BLOOD SPECIMEN Ordering Facility: [facility] Address: [address] [place] [address] Result Comment: Refe anantce: 1. National Cholesterol Education Program ATP III Guideline At-A-Glance Quick Desk Reference: National Heart, Lung, and Blood [place]. National Institutes of Health. 2001: NIH Publication No. 01-3305. 2. An International Atherosclerosis Society position paper: global recommendations for the management of dyslipidemia: executive summary, Atherosclerosis. 2014: 232(2):410-413. Performed By: #### L SHARDA, 3023-7, TSHRF, 86106-5 #### [facility] CLIA [id number] [address] [place] [address] [place] NON HDL CHOL, NF 67 mg/dL Normal <130 [facility] Comment on above: Order Comment: Speci men Type: BLOOD SPECIMEN Ordering Facility: [facility] Address: [address] [place] [address] Result Comment: <130 mg/dL, Optimal 130-159 mg/dL, Near optimal/above optimal 160-189 mg/dL, Borderline high 190-219 mg/dL, High >219 mg/dL, Very high Secondary prevention optimal non HDL Cholesterol levels are recommended to be <100 mg/dL Performed By: #### L SHARDA, 3023-7, TSHRF, #### [facility] CLIA [id number] [address] [place] [address] [place] T CHOL/HDL RATIO NF 2.60 mg/dL Normal <5.10 [facility] Comment on above: Order Comment: Speci men Type: BLOOD SPECIMEN Ordering Facility: [facility] Address: [address] [place] [address] Performed By: #### L SHARDA, 3023-7, TSHRF, #### [facility] CLIA [id number] [address] [place] [address] [place] TRIGLYCERIDES, NF 71 mg/dL Normal <150 [facility] Comment on above: Order Comment: Shelbiei men Type: BLOOD SPECIMEN Ordering Facility: [facility] Address: [address] [place] [address] Result Comment: <150 mg/dL, Normal 150-199 mg/dL, Borderline high 200-499 mg/dL, High >499 mg/dL, Very high Performed By: #### L IPNF, 3024-7, TSHRF, 20230-7 #### [facility] CLIA [id number] [address] [place] [address] [place] VLDL CHOLESTEROL, NF 10 mg/dL Normal <30 [facility] Comment on above: Order Comment: Speci men Type: BLOOD SPECIMEN Ordering Facility: [facility] Address: [address] [place] [address] Performed By: #### L IPNF, 3024-7, TSHRF, 72950-6 #### [facility] CLIA [id number] [address] [place] [address] [place] T4 Free SerPl-mCncon 025 Free T4 [Mass/Vol] 1.1 ng/dL Normal 0.9-1.7 [facility] Comment on above: Order Comment: Speci men Type: BLOOD SPECIMEN Ordering Facility: [facility] Address: [address] [place] [address] Performed By: #### L IPNF, 3024-7, TSHRF, 73874-9 #### [facility] CLIA [id number] [address] [place] [address] [place] TSH W/REFLEX FT4on 5 TSH Qn 9.490 m[IU]/L High 0.270-4.200 [facility] Comment on above: Order Comment: Speci men Type: BLOOD SPECIMEN Ordering Facility: [facility] Address: [address] [place] [address] Performed By: #### L IPNF, 3024-7, TSHRF, 06214-5 #### [facility] CLIA [id number] [address] [place] [address] [place] Procedure Reporton 5 Procedure Report [facility] Medical Records Department [address] [place] [address] Procedure Report 01/13/25 1254 MR#: [id number] Acct: [id number] Name: ALECIA GUTIERREZ Rep #: [id number] : 1965 59 From: Ezra Bay MD PCP: Dr. Kareem Esteban MD Status:REG [facility] Location: [facility] Non-invasive Procedural Procedure Information Date of Procedure: 01/13/25 Pre-Procedure Diagnosis: Atrial fibrillation Post-Procedure Diagnosis: Same Procedure Performed:: DC cardioversion oxygraph operator: No Procedure Time Out: 12:04 Procedure Start Time: 12:06 Procedure Stop Time: 12:15 Special Medications: Intravenous etomidate 6 mg, followed by intravenous etomidate 8mg Description of procedure: Patient was brought to cardiac catheterization lab in the postabsorptive nonsedated state. Informed consent was obtained. The patient was seen by Dr. Ritchie of the critical care division. Patient was confirmed to have atrial fibrillation with reduced ejection fraction of 40%. Anterior posterior pads were applied. The patient was then administered 6 mg of intravenous etomidate and 300 J of synchronized DC biphasic cardioversion energy were applied. The patient reverted to sinus rhythm but it appeared it held for only approximately 5 minutes. The patient then went back into atrial fibrillation and underwent resedation with 6 mg of intravenous etomidate and was cardioverted with 360 J of biphasic DC cardioversion energy which was unsuccessful in restoring sinus rhythm. An additional 2 mg of intravenous etomidate was administered for total of 8 mg and then 360 J of DC biphasic energy was applied with reversal to sinus rhythm only for a brief moment. Procedure findings: Unsuccessful DC cardioversion from atrial fibrillation to sinus rhythm Severe sleep apnea noted with decreased oxygen saturation by observation Will consider referral to pulmonary and EP 01/13/25 1256 Cosigner Signature (if applicable): CC: Dr. Ezra Bay MD; Dr. Kareem Esteban MD Signed Normal [facility] Procedure Report [facility] Medical Records Department [address] [place] [address] Procedure Report 01/13/25 1244 MR#: [id number] Acct: [id number] Name: ALECIA GUTIERREZ Rep #: [id number] : 1965 59 From: Pato Ritchie DO PCP: Dr. Kareem Esteban MD Status:REG [facility] Location: [facility] Procedures Pulmonary Pulmonary Procedures /Diagnostic Testin Con Sedation Non-invasive Procedural Procedure Information Date of Procedure: 01/13/25 Description of procedure: CONSCIOUS SEDATION REPORT DATE OF SERVICE: January 13, 2025 BRIEF HISTORY OF PRESENT ILLNESS: The patient is a 59-year-old female who presented to [facility] to undergo an elective outpatient cardioversion due to underlying atrial fibrillation. The patient has never previously undergone a cardioversion. She denied any prior anesthetic complications. The patient is at high risk for obstructive sleep apnea and is currently scheduled to undergo a diagnostic polysomnogram, but is yet to complete testing. She reported that she is a lifelong non-smoker. The patient is systemically anticoagulated on Eliquis. Her last surface echocardiogram demonstrated an ejection fraction of 35 to 40%. PHYSICAL EXAMINATION: VITAL SIGNS: Reviewed and were acceptable. GENERAL: The patient is a morbidly obese female, in no apparent distress, speaking in full sentences. HEENT: Normocephalic, atraumatic. Mucous membranes are moist and pink. Good mouth opening noted. Trachea is midline. Good neck mobility. MPII CHEST: S1, S2 irregularly irregular. No murmurs, rubs or gallops were noted. LUNGS: Clear to auscultation bilaterally without appreciable wheezes, rales or rhonchi. ABDOMEN: Soft, nontender, nondistended. Positive bowel sounds. EXTREMITIES: There is no clubbing, cyanosis or edema. ASA Class: II DESCRIPTION OF PROCEDURE: After confirmation of informed consent, the patient's anesthesia plan was reviewed in detail. Etomidate was chosen. Risks and benefits were reviewed and the patient agreed to proceed. At 1204, the patient was given 6 mg of etomidate. The patient achieved an appropriate level of sedation and was given a 300 joule synchronized cardioversion by Dr. Bay at the bedside. This was successful in achieving normal sinus rhythm. However, shortly after going back into sinus rhythm, the patient reverted back to atrial fibrillation. The patient was then given an additional 8 mg of etomidate to facilitate two additional attempts at cardioversion, both at 360 J. Unfortunately, normal sinus rhythm was unable to be restored. The patient was monitored until 1220, at which time she reached her baseline mental status and function. The patient tolerated the procedure well. COMPLICATIONS: None ESTIMATED BLOOD LOSS: None RECOMMENDATIONS: Okay to recover in usual fashion. 01/13/25 1248 Cosigner Signature (if applicable): CC: Dr. Ezra Bya MD; Dr. Pato Ritchie DO; Dr. Kareem Esteban MD Signed Normal [facility] Cardiology Visit Reporton Cardiology Visit Report [facility] [address] [place] [address] OFFICE VISIT Date of Service: 12/25/24 MR#: [id number] Acct: [id number] Name: ALECIA GUTIERREZ Rep #: [id number] : 1965 Provider: JOVANA Bravo Age/Sex: 59/F Location: [facility] Status: Signed HPI HPI History of Present Illness Details: This is a 59-year-old female that was admitted to [facility] on 12/13/2024 for increased shortness of breath, left-sided chest pain. She was noted to be in atrial fibrillation with RVR. Initial heart rate was 151. Echocardiogram demonstrated moderate generalized LV hypokinesis with mild concentric LVH with an estimated ejection fraction of 35 to 40%. Stage I diastolic dysfunction. Moderate biatrial enlargement. Patient underwent a stress test which demonstrated anterior ischemia. She underwent a diagnostic heart catheterization which demonstrated calcific moderate three-vessel disease. 40% mid LAD, 50% mid circumflex, 60% mid RCA with IFR of 0.99. Nonischemic cardiomyopathy with an ejection fraction of 30%. Pt notes that since she was in the hospital she feels better. She is not aware of her Afib. She does not have any more left sided pain. STOP-BANG Assessment: 1. Do you snore? y 2. Are you frequently tired during the day?y 3. Have you been observed gasping or choking while asleep? y 4. Do you have high blood pressure? y 5. BMI - greater than 35kg/m2? y 6. Age - over 50 years old? y 7. Neck Circumference - greater than 37 cm for females or 40 cm for males? y 8. Gender - male? n Total STOP-BANG score = 7 which indicates positive risk for obstructive sleep apnea (yes to 3 or more questions = high risk of sleep apnea). Intake Vital Signs 12/12/24 13:25 12/25/24 13:01 Height 5 ft 6 in 5 ft 6 in Weight: 303 lb BMI 48.9 BP 117/79 Blood Pressure Location Lt brachial Position Sitting Respiration 22 H Pulse 79 Pulse Source Monitor Intake Visit Reasons: [facility] 12/14 AFIB w/ RVR Rabbet Operator Required: No Accompanied by: Self Is patient in pain?: No Allergies bee venom protein (honey bee) (bee sting) Allergy (Severe, Verified 12/25/24 13:01) Anaphylaxis Medications ???Medication ???Instructions ???Recorded ???Confirmed ???Type albuterol sulfate 90 mcg/actuation 2 inh inhalation Q4H PRN shortne ss 12/11/24 12/25/24 History aerosol inhaler (Ventolin HFA) of breath or wheezing aspirin 81 mg tablet,delayed 81 mg PO DAILY 3 months #90 tabs 0 12/14/24 12/25/24 Rx release (Rebel Low Dose Aspirin) sennosides 8.6 mg-docusate sodium 2 tab PO BID PRN PRN Constipation 12/14/24 12/25/24 Rx 50 mg tablet (Stimulant Laxative #0 tabs Plus) apixaban 5 mg tablet (Eliquis) 5 mg PO BID 30 days #180 tabs 03/1312/25/24 Rx atorvastatin 40 mg tablet 40 mg PO QHS #90 tabs 12/25/2403/13 Rx empagliflozin 10 mg tablet 10 mg PO DAILY #180 tabs 12/25/24 12/25/24 Rx (Jardiance) furosemide 40 mg tablet 40 mg PO DAILY #90 tabs 12/25/24 0 12/25/24 Rx losartan 25 mg tablet 25 mg PO DAILY #90 tabs 12/25/24 0 12/25/24 Rx metoprolol succinate 50 mg 50 mg PO DAILY #90 tabs 12/25/24 0 12/25/24 Rx tablet,extended release 24 hr potassium chloride 20 mEq 20 meq PO DAILYCM #90 tabs 5 12/25/24 Rx tablet,extended release(part/cryst) Ejection fraction %: 30 Have you fallen in the past year?: No [facility] Medical History (Updated 12/25/24 @ 13:42 by Germania WHALEY, PA) Persistent atrial fibrillation Atrial fibrillation with RVR Dyslipidemia Hypertension CAD (coronary artery disease) Nonischemic cardiomyopathy Atrial fibrillation Asthma Social History Smoking Status: Never smoker ROS Const Const: Negative for fatigue or weakness Eyes Eyes: Negative for change in vision ENT ENT: Negative for dizziness or balance problems Cardio Chest Pain: No Palpitations: No Edema: None Resp Respiratory: Negative for SOB with activity, SOB at rest or SOB orthopnea SOB lying down GI GI: Negative nausea or heartburn Musc Musc: Negative for balance problems Neuro Neuro: Negative for dizziness, lightheadedness, near syncope, syncope or weakness Endo Endo: Negative for fatigue Cardiology Exam Const Appearance: cooperative, comfortable, no acute distress and well developed Nutritional Appearance: obese Orientation: alert, awake and oriented x3 Head Head: normal to inspection Ears: hearing grossly normal bilaterally Nose: external nose normal Face and Sinus: face symmetric Mouth: oral mucosae normal, lip normal and moist mucous membranes Eyes General: appearance normal, both eyes and all related structures Eyelids: eyelids normal Conjunctivae: conjunctivae n (more content not included)... Normal [facility] Basic Metabolic Profile (BMP )on 12-15-2024 BUN Normal - [facility] Comment on above: Result Comment: Canc elled via OM: Order cancelled - Patient discharged Performed By: #### L 100.0100, L500.2500 #### [facility] [address] [place], [address] BUN/CRE Normal - [facility] Comment on above: Result Comment: Canc elled via OM: Order cancelled - Patient discharged Performed By: #### L 100.0100, L500.2500 #### [facility] [address] [place], [address] Calcium Normal 7.6-11.0 [facility] Comment on above: Result Comment: Canc elled via OM: Order cancelled - Patient discharged Performed By: #### L 100.0100, L500.2500 #### [facility] [address] [place], [address] CL Normal 98-108 [facility] Comment on above: Result Comment: Canc elled via OM: Order cancelled - Patient discharged Performed By: #### L 100.0100, L500.2500 #### [facility] [address] [place], [address] CO2 Normal 21.0-32.0 [facility] Comment on above: Result Comment: Canc elled via OM: Order cancelled - Patient discharged Performed By: #### L 100.0100, L500.2500 #### [facility] [address] [place], [address] CREAT,SERUM Normal 0.70-1.20 [facility] Comment on above: Result Comment: Canc elled via OM: Order cancelled - Patient discharged Performed By: #### L 100.0100, L500.2500 #### [facility] [address] [place], [address] eGFR Normal >60 [facility] Comment on above: Result Comment: Canc elled via OM: Order cancelled - Patient discharged Performed By: #### L 100.0100, L500.2500 #### [facility] [address] [place], [address] GAP Normal 5-15 [facility] Comment on above: Result Comment: Canc elled via OM: Order cancelled - Patient discharged Performed By: #### L 100.0100, L500.2500 #### [facility] [address] [place], [address] GLU Normal 70-99 [facility] Comment on above: Result Comment: Canc elled via OM: Order cancelled - Patient discharged Performed By: #### L 100.0100, L500.2500 #### [facility] [address] [place], [address] Potassium Normal 3.3-5.1 [facility] Comment on above: Result Comment: Canc elled via OM: Order cancelled - Patient discharged Performed By: #### L 100.0100, L500.2500 #### [facility] [address] [place], [address] Basic Metabolic Profile (BMP) Normal 133-145 [facility] Comment on above: Result Comment: Canc elled via OM: Order cancelled - Patient discharged Performed By: #### L 100.0100, L500.2500 #### [facility] [address] [place], [address] CBC W/Diff, Automatedon - Absolute Neut Normal 2.0-7.7 [facility] Comment on above: Result Comment: Canc elled via OM: Order cancelled - Patient discharged Performed By: #### L 100.0100, L500.2500 #### [facility] [address] [place], [address] HCT Normal 37-47 [facility] Comment on above: Result Comment: Canc elled via OM: Order cancelled - Patient discharged Performed By: #### L 100.0100, L500.2500 #### [facility] [address] [place], [address] HGB Normal 12.0-15.0 [facility] Comment on above: Result Comment: Canc elled via OM: Order cancelled - Patient discharged Performed By: #### L 100.0100, L500.2500 #### [facility] [address] [place], [address] MCH Normal 27.0-32.0 [facility] Comment on above: Result Comment: Canc elled via OM: Order cancelled - Patient discharged Performed By: #### L 100.0100, L500.2500 #### [facility] [address] [place], [address] MCHC Normal 32-36 [facility] Comment on above: Result Comment: Canc elled via OM: Order cancelled - Patient discharged Performed By: #### L 100.0100, L500.2500 #### [facility] [address] [place], [address] MCV Normal 81-99 [facility] Comment on above: Result Comment: Canc elled via OM: Order cancelled - Patient discharged Performed By: #### L 100.0100, L500.2500 #### [facility] [address] [place], [address] NEUT% Normal 47-70 [facility] Comment on above: Result Comment: Canc elled via OM: Order cancelled - Patient discharged Performed By: #### L 100.0100, L500.2500 #### [facility] [address] [place], [address] PLT Normal 150-450 [facility] Comment on above: Result Comment: Canc elled via OM: Order cancelled - Patient discharged Performed By: #### L 100.0100, L500.2500 #### [facility] [address] [place], [address] RBC Normal 4.2-5.4 [facility] Comment on above: Result Comment: Canc elled via OM: Order cancelled - Patient discharged Performed By: #### L 100.0100, L500.2500 #### [facility] [address] [place], [address] RDW CV Normal 11.6-14.6 [facility] Comment on above: Result Comment: Canc elled via OM: Order cancelled - Patient discharged Performed By: #### L 100.0100, L500.2500 #### [facility] [address] [place], [address] RDW SD Normal 35.1-43.9 [facility] Comment on above: Result Comment: Canc elled via OM: Order cancelled - Patient discharged Performed By: #### L 100.0100, L500.2500 #### [facility] [address] [place], [address] WBC Normal 4.4-11.0 [facility] Comment on above: Result Comment: Canc elled via OM: Order cancelled - Patient discharged Performed By: #### L 100.0100, L500.2500 #### [facility] [address] [place], [address] 12 Lead EKGon 12-14-2024 12 Lead EKG [facility] [address] [place] [address] 12 Lead EKG 12/14/24 0514 MR#: [id number] Acct: [id number] Name: ALECIA GUTIERREZ Rep #: [id number] : 1965 59 From: Ezra Bay MD Attending Dr: Dr. Holden Barros MD Status: DIS IN Ordering Dr: Holden Barros MD Date: 12/14/24 Location: [facility] Sex: F C Admitted: 12/13/24 Test Reason : AM EKG Blood Pressure : */* mmHG Vent. Rate : 74 BPM Atrial Rate : * BPM P-R Int : * ms QRS Dur : 94 ms QT Int : 400 ms P-R-T Axes : * -12 3 degrees QTcB Int : 444 ms Atrial fibrillation Abnormal ECG When compared with ECG of 13-Dec-2024 06:00, MANUAL COMPARISON REQUIRED DATA IS UNCONFIRMED Confirmed by EZRA BAY MD ([id number]), newspaper managing editor GREG COWAN ([id number]) on 12/17/2024 6:51:54 AM Referred By: Confirmed By: EZRA BAY MD 12/17/24 0652 Date Ezra Bay MD CC: Dr. Kareem Esteban MD; Dr. Holden Barros MD Signed Normal [facility] Absolute lymphocyte countOrd ered By: Holden Barros on 12-14-2024 Lymphocytes Auto (Unsp spec) [#/Vol] 1.04 10*3/uL 0.83-4.51 [facility] Absolute neutrophil countOrd ered By: Holden Barros on 12-14-2024 Neutrophils (Bld) [#/Vol] 5.7 10*3/uL 2.0-7.7 [facility] Anion gap in Serum or Plasma Ordered By: Holden Barros on 12-14-2024 Anion gap [Moles/Vol] 12 mmol/L 10-31 [facility] Automated lymphocyte count a s percentage of total leukocytesOrdered By: Holden Barros on 12-14-2024 Lymphocytes/100 WBC Auto (Unsp spec) 14.5 % Low - [facility] BUN/creatinine ratioOrdered By: Holden Barros on 12-14-2024 Urea nitrogen/Creatinine [Mass ratio] 13.4 mg/mg 04-07 [facility] Basic Metabolic Profile (BMP )on 12-14-2024 BUN/CRE 13.4 RATIO Normal 04-07 [facility] Comment on above: Performed By: #### L 500.2500, L100.0100 #### [facility] [address] [place], [address] Calcium [Mass/Vol] 8.7 mg/dL Normal 7.6-11.[address] [facility] Comment on above: Performed By: #### L 500.2500, L100.0100 #### [facility] [address] [place], [address] Chloride [Moles/Vol] 102 mmol/L Normal 98-108 [facility] Comment on above: Performed By: #### L 500.2500, L100.0100 #### [facility] [address] [place], [address] CO2 [Moles/Vol] 24.1 mmol/L Normal 21.0-32.0 [facility] Comment on above: Performed By: #### L 500.2500, L100.0100 #### [facility] [address] [place], [address] Creatinine [Mass/Vol] 0.96 mg/dL Normal 0.70-1.20 [facility] Comment on above: Performed By: #### L 500.2500, L100.0100 #### [facility] [address] [place], [address] ECRCL 84.59 ml/min Normal 50-250 [facility] Comment on above: Performed By: #### L 500.2500, L100.0100 #### [facility] [address] [place], [address] GAP 12 Normal 5-15 [facility] Comment on above: Performed By: #### L 500.2500, L100.0100 #### [facility] [address] [place], [address] GFR/1.73 sq M.predicted among non-blacks MDRD (S/P/Bld) [Vol rate/Area] 68 mL/min/{1.73_m2} Normal >60 [facility] Comment on above: Result Comment: mL/m in/1.73m2 CKD-EPI Creatinine Equation (2020) Performed By: #### L 500.2500, L100.0100 #### [facility] [address] [place], [address] Glucose [Mass/Vol] 101 mg/dL High 70-[address] [facility] Comment on above: Performed By: #### L 500.2500, L100.0100 #### [facility] [address] [place], [address] Potassium [Moles/Vol] 4.0 mmol/L Normal 3.3-5.1 [facility] Comment on above: Performed By: #### L 500.2500, L100.0100 #### [facility] [address] [place], [address] Sodium [Moles/Vol] 138 mmol/L Normal 133-[address] [facility] Comment on above: Performed By: #### L 500.2500, L100.0100 #### [facility] [address] [place], [address] Urea nitrogen [Mass/Vol] 13 mg/dL Normal 4-19 [facility] Comment on above: Performed By: #### L 500.2500, L100.0100 #### [facility] [address] [place], [address] Basophil percentageOrdered B y: Holden Papo on 12-14-2024 Basophils/100 WBC (Bld) 0.3 % 0-1 [facility] CBC W/Diff, Automatedon 11-18 Absolute Lymph 1.04 X10 3/uL Normal 0.83-4.51 [facility] Comment on above: Performed By: #### L 500.2500, L100.0100 #### [facility] [address] [place], [address] Absolute Neut 5.7 X10 3/uL Normal 2.0-7.7 [facility] Comment on above: Performed By: #### L 500.2500, L100.0100 #### [facility] [address] [place], [address] Basophils/100 WBC (Bld) 0.3 % Normal 0-1 [facility] Comment on above: Performed By: #### L 500.2500, L100.0100 #### [facility] [address] [place], [address] Eosinophils/100 WBC (Bld) 1.0 % Normal 0-5 [facility] Comment on above: Performed By: #### L 500.2500, L100.0100 #### [facility] [address] [place], [address] Erythrocyte distribution width (RBC) [Ratio] 12.7 % Normal 11.6-14.6 [facility] Comment on above: Performed By: #### L 500.2500, L100.0100 #### [facility] [address] [place], [address] Hematocrit (Bld) [Volume fraction] 41.1 % Normal 37-47 [facility] Comment on above: Performed By: #### L 500.2500, L100.0100 #### [facility] [address] [place], [address] Hemoglobin (Bld) [Mass/Vol] 13.4 g/dL Normal 12.0-15.0 [facility] Comment on above: Performed By: #### L 500.2500, L100.0100 #### [facility] [address] [place], [address] IG% 0.600 Normal 0.0-0.9 [facility] Comment on above: Result Comment: IG% - Immature Granulocytes (promyelocytes, myelocytes and metamyelocytes) > 1% indicates that a LEFT SHIFT is Present. Performed By: #### L 500.2500, L100.0100 #### [facility] [address] [place], [address] Lymphocytes/100 WBC (Bld) 14.5 % Low 19-41 [facility] Comment on above: Performed By: #### L 500.2500, L100.0100 #### [facility] [address] [place], [address] MCH (RBC) [Entitic mass] 28.5 pg Normal 27.0-32.0 [facility] Comment on above: Performed By: #### L 500.2500, L100.0100 #### [facility] [address] [place], [address] MCHC (RBC) [Mass/Vol] 32.6 g/dL Normal 32-36 [facility] Comment on above: Performed By: #### L 500.2500, L100.0100 #### [facility] [address] [place], [address] MCV (RBC) [Entitic vol] 87.3 fL Normal 81-99 [facility] Comment on above: Performed By: #### L 500.2500, L100.0100 #### [facility] [address] [place], [address] Monocytes/100 WBC (Bld) 4.7 % Normal 0-10 [facility] Comment on above: Performed By: #### L 500.2500, L100.0100 #### [facility] [address] [place], [address] Neutrophils/100 WBC (Bld) 78.9 % High 47-70 [facility] Comment on above: Performed By: #### L 500.2500, L100.0100 #### [facility] [address] [place], [address] Nucleated RBC (Bld) [#/Vol] 0 10*3/uL Normal 0-5 [facility] Comment on above: Performed By: #### L 500.2500, L100.0100 #### [facility] [address] [place], [address] Platelet mean volume (Bld) [Entitic vol] 10.5 fL Normal 6.2-12.0 [facility] Comment on above: Performed By: #### L 500.2500, L100.0100 #### [facility] [address] [place], [address] Platelets (Bld) [#/Vol] 230 10*3/uL Normal 150-450 [facility] Comment on above: Performed By: #### L 500.2500, L100.0100 #### [facility] [address] [place], [address] RBC (Bld) [#/Vol] 4.71 10*6/uL Normal 4.2-5.4 [facility] Comment on above: Performed By: #### L 500.2500, L100.0100 #### [facility] [address] [place], [address] RDW SD 40.4 fl Normal 35.1-43.9 [facility] Comment on above: Performed By: #### L 500.2500, L100.0100 #### [facility] [address] [place], [address] WBC (Bld) [#/Vol] 7.2 10*3/uL Normal 4.4-11.[address] [facility] Comment on above: Performed By: #### L 500.2500, L100.0100 #### [facility] [address] [place], [address] Carbon dioxide, total [Moles /volume] in Central venous bloodOrdered By: Holden Barros on 12-14-2024 CO2 [Moles/Vol] 24.1 mmol/L 21.0-32.0 [facility] Chloride assayOrdered By: Temo Barros on 12-14-2024 Chloride [Moles/Vol] 102 mmol/L 98-108 [facility] Discharge Instructionon 11-18 Discharge Instruction [facility] Medical Records Department [address] [place] [address] Instructions for Home/Discharge Instructions 12/14/24 0833 MR#: [id number] Acct: [id number] Name: ALECIA GUTIERREZ Rep #: [id number] : 1965 59 From: Holden Barros MD PCP: Dr. Kareem Esteban MD Status:ADM IN Discharge Instructions Diet Discharge Diet: Low fat / Low cholesterol and 2000 mg Sodium Diet DC O2, CPAP, BIPAP needs Home O2 Discharge instructions: No Dressing / Incision Discharge Activity: Return to Normal Activity Weight Bearing Status: Weight bearing as tolerated Dressing / Incision Call your doctor if you observe: Fever of 101 or Higher, Coldness, Increased Pain, Numbness or Tingling, Change in Color, Inability to urinate, Inability to have a bowel movement, Shortness of breath, Dizziness, Fainting spells, Swelling in the ankles, Chest pain, Prolonged hiccupping, Increased palpitations (irregular heartbeat) and Calf discomfort Follow Up Care When: IN 2 WEEKS Test Results: Test results from this visit will be discussed in further detail at your follow-up appointment, if applicable. Discharge Plan Admission Admit Date/Time: 12/13/24 16:43 Primary Reason for Your Visit: Moderate CAD, COPD/asthma bronchitis Attending Provider: Holden Barros Primary Care Provider: Kareem Esteban Consulting Providers: Mackenzie Pritchard; Zachary Cleary Discharge Orders/Prescriptions Prescriptions: New furosemide 40 mg Tablet 40 mg PO DAILY 30 Days Qty: 30 0RF atorvastatin 40 mg Tablet 40 mg PO QHS 30 Days Qty: 30 2RF metoprolol succinate 50 mg Tablet Extended Release 24 Hr 50 mg PO DAILY 30 Days Qty: 30 2RF sennosides-docusate sodium [Stimulant Laxative Plus] 8.6-50 mg Tablet 2 tab PO BID PRN PRN (Reason: Constipation) Qty: 0 0RF losartan 25 mg Tablet 25 mg PO DAILY 30 Days Qty: 30 2RF Eliquis 5 mg Tablet 5 mg PO BID 30 Days Qty: 60 2RF Jardiance 10 mg Tablet 10 mg PO DAILY 30 Days Qty: 30 1RF potassium chloride 20 mEq Tablet,Er Particles/Crystals 20 meq PO DAILYCM 30 Days Qty: 30 0RF Continued albuterol sulfate [Ventolin HFA] 90 mcg/actuation HFA aerosol inhaler 2 inh inhalation Q4H PRN (Reason: shortness of breath or wheezing) Referrals / Follow Up: Pato Ritchie DO [Med Staff - Active Staff] - Within 1 Month (Needs sleep study and PFT) Kareem Esteban MD [Primary Care Provider] - Maricruz Gaitan NP-C [Med Staff - Adv Practice Prof] - Within 2 Weeks (PFT and sleep study) Zachary Cleary MD [Med Staff - Active Staff] - Within 1 Month Germania Richardson, PA [Med Staff - Adv Practice Prof] - Within 2 Weeks Disposition Disposition (needs filled in before D/C Order can be placed): Home, Self Care 12/14/24 1001 Holden Barros MD CC: Dr. Zachary Cleary MD; Dr. Kareem Esteban MD; Dr. Mackenzie Pritchard MD Signed Normal [facility] Eosinophil percentageOrdered By: Holden Barros on 12-14-2024 Eosinophils/100 WBC (Bld) 1.0 % 0-5 [facility] Erythrocyte distribution wid th ratioOrdered By: Holden Barros on 12-14-2024 Erythrocyte distribution width (RBC) [Ratio] 12.7 % 11.6-14.6 [facility] Erythrocyte distribution wid th standard deviationOrdered By: Holden Barros on 12-14-2024 Erythrocyte distribution width (RBC) [Ratio] 40.4 fl 35.1-43.9 [facility] Glomerular filtration rate ( GFR) estimation/1.73 sq m using serum, plasma, or whole bOrdered By: Holden Barros on 12-14-2024 GFR/1.73 sq M.predicted among non-blacks MDRD (S/P/Bld) [Vol rate/Area] 68 mL/min/{1.73_m2} >60 [facility] Comment on above: mL/min/1.73m2 CKD-EP I Creatinine Equation (2020) Hematocrit Auto (Bld) [Volum e fraction]Ordered By: Holden Barros on 12-14-2024 Hematocrit (Bld) [Volume fraction] 41.1 % 37-47 [facility] Hemoglobin measurementOrdere d By: Holden Barros on 12-14-2024 Hemoglobin (Bld) [Mass/Vol] 13.4 g/dL 12.0-15.0 [facility] Immature granulocytes/100 WB C Auto (Bld)Ordered By: Holden Barros on 12-14-2024 Immature granulocytes/100 WBC (Bld) 0.600 % 0.0-0.9 [facility] Comment on above: IG% - Immature Granu locytes (promyelocytes, myelocytes and metamyelocytes) > 1% indicates that a LEFT SHIFT is Present. MCV (mean corpuscular volume ) determinationOrdered By: Holden Barros on 12-14-2024 MCV (RBC) [Entitic vol] 87.3 fL 81-99 [facility] Mean corpuscular hemoglobin (MCH) determinationOrdered By: Holden Barros on 12-14-2024 MCH (RBC) [Entitic mass] 28.5 pg 27.0-32.0 [facility] Mean corpuscular hemoglobin concentration (MCHC) determinationOrdered By: Holden Barros on 12-14-2024 MCHC (RBC) [Mass/Vol] 32.6 g/dL 32-36 [facility] Mean platelet volume determi nationOrdered By: Holden Barros on 12-14-2024 Platelet mean volume (Bld) [Entitic vol] 10.5 fL 6.2-12.0 [facility] Monocyte percentageOrdered B y: Holden Barros on 12-14-2024 Monocytes/100 WBC (Bld) 4.7 % 0-10 [facility] Neutrophil percentageOrdered By: Holden Barros on 12-14-2024 Neutrophils/100 WBC (Bld) 78.9 % High 47-70 [facility] Nucleated red blood cell per centageOrdered By: Holden Barros on 12-14-2024 Nucleated RBC/100 WBC (Bld) [Ratio] 0 % 0-5 [facility] Platelet countOrdered By: Temo Barros on 12-14-2024 Platelets (Bld) [#/Vol] 230 10*3/uL 150-450 [facility] Potassium measurement (mass/ volume)Ordered By: Holden Barros on 12-14-2024 Potassium (Unsp spec) [Mass/Vol] 4.0 mmol/L 3.3-5.1 [facility] RBC Auto (Bld) [#/Vol]Ordere d By: Holden Barros on 12-14-2024 RBC (Bld) [#/Vol] 4.71 10*6/uL 4.2-5.4 [facility] Serum creatinine measurement (mass/volume)Ordered By: Holden Barros on 12-14-2024 Creatinine [Mass/Vol] 0.96 mg/dL 0.70-1.20 [facility] Serum glucose measurement (m ass/volume)Ordered By: Holden Barros on 12-14-2024 Glucose [Mass/Vol] 101 mg/dL High 70-[address] [facility] Serum or plasma calcium willian urement (mass/volume)Ordered By: Holden Barros on 12-14-2024 Calcium [Mass/Vol] 8.7 mg/dL 7.6-11.[address] [facility] Serum or plasma urea nitroge n measurement (mass/volume)Ordered By: Holden Barros on 12-14-2024 Urea nitrogen [Mass/Vol] 13 mg/dL 4-19 [facility] Sodium levelOrdered By: Giselle Barros on 12-14-2024 Sodium [Moles/Vol] 138 mmol/L 133-[address] [facility] White blood cell (WBC) count Ordered By: Holden Barros on 12-14-2024 WBC (Bld) [#/Vol] 7.2 10*3/uL 4.4-11.[address] [facility] ACT Activated Clotting Timeo n 12-13-2024 ACTk CLOT TIME 227 sec High 74-137 [facility] Comment on above: Performed By: #### L 9100.0100 #### [facility] [address] [place], [address] Basic Metabolic Profile (BMP )on 12-13-2024 BUN/CRE 13.2 RATIO Normal 10-20 [facility] Comment on above: Performed By: #### L 100.0100, L500.2500 #### [facility] [address] [place], [address] Calcium [Mass/Vol] 8.7 mg/dL Normal 7.6-11.[address] [facility] Comment on above: Performed By: #### L 100.0100, L500.2500 #### [facility] [address] [place], [address] Chloride [Moles/Vol] 100 mmol/L Normal 98-108 [facility] Comment on above: Performed By: #### L 100.0100, L500.2500 #### [facility] [address] [place], [address] CO2 [Moles/Vol] 23.3 mmol/L Normal 21.0-32.0 [facility] Comment on above: Performed By: #### L 100.0100, L500.2500 #### [facility] [address] [place], [address] Creatinine [Mass/Vol] 0.92 mg/dL Normal 0.70-1.20 [facility] Comment on above: Performed By: #### L 100.0100, L500.2500 #### [facility] [address] [place], [address] ECRCL 88.47 ml/min Normal 50-250 [facility] Comment on above: Performed By: #### L 100.0100, L500.2500 #### [facility] [address] [place], [address] GAP 13 Normal 5-15 [facility] Comment on above: Performed By: #### L 100.0100, L500.2500 #### [facility] [address] [place], [address] GFR/1.73 sq M.predicted among non-blacks MDRD (S/P/Bld) [Vol rate/Area] 71 mL/min/{1.73_m2} Normal >60 [facility] Comment on above: Result Comment: mL/m in/1.73m2 CKD-EPI Creatinine Equation (2020) Performed By: #### L 100.0100, L500.2500 #### [facility] [address] [place], [address] Glucose [Mass/Vol] 111 mg/dL High 70-[address] [facility] Comment on above: Performed By: #### L 100.0100, L500.2500 #### [facility] [address] [place], [address] Potassium [Moles/Vol] 4.0 mmol/L Normal 3.3-5.1 [facility] Comment on above: Result Comment: Hemo lysis present, Results??could be affected. ?? Performed By: #### L 100.0100, L500.2500 #### [facility] [address] [place], [address] Sodium [Moles/Vol] 136 mmol/L Normal 133-[address] [facility] Comment on above: Performed By: #### L 100.0100, L500.2500 #### [facility] [address] [place], [address] Urea nitrogen [Mass/Vol] 12 mg/dL Normal 4-19 [facility] Comment on above: Performed By: #### L 100.0100, L500.2500 #### [facility] [address] [place], [address] CBC W/Diff, Automatedon 11-18-2024 Absolute Lymph 0.71 X10 3/uL Low 0.83-4.51 [facility] Comment on above: Performed By: #### L 100.0100, L500.2500 #### [facility] [address] [place], [address] Absolute Neut 4.7 X10 3/uL Normal 2.0-7.7 [facility] Comment on above: Performed By: #### L 100.0100, L500.2500 #### [facility] [address] [place], [address] Basophils/100 WBC (Bld) 0.2 % Normal 0-1 [facility] Comment on above: Performed By: #### L 100.0100, L500.2500 #### [facility] [address] [place], [address] Eosinophils/100 WBC (Bld) 1.0 % Normal 0-5 [facility] Comment on above: Performed By: #### L 100.0100, L500.2500 #### [facility] [address] [place], [address] Erythrocyte distribution width (RBC) [Ratio] 12.7 % Normal 11.6-14.6 [facility] Comment on above: Performed By: #### L 100.0100, L500.2500 #### [facility] [address] [place], [address] Hematocrit (Bld) [Volume fraction] 42.2 % Normal 37-47 [facility] Comment on above: Performed By: #### L 100.0100, L500.2500 #### [facility] [address] [place], [address] Hemoglobin (Bld) [Mass/Vol] 13.7 g/dL Normal 12.0-15.0 [facility] Comment on above: Performed By: #### L 100.0100, L500.2500 #### [facility] [address] [place], [address] IG% 0.500 Normal 0.0-0.9 [facility] Comment on above: Result Comment: IG% - Immature Granulocytes (promyelocytes, myelocytes and metamyelocytes) > 1% indicates that a LEFT SHIFT is Present. Performed By: #### L 100.0100, L500.2500 #### [facility] [address] [place], [address] Lymphocytes/100 WBC (Bld) 12.4 % Low 19-41 [facility] Comment on above: Performed By: #### L 100.0100, L500.2500 #### [facility] [address] [place], [address] MCH (RBC) [Entitic mass] 28.3 pg Normal 27.0-32.0 [facility] Comment on above: Performed By: #### L 100.0100, L500.2500 #### [facility] [address] [place], [address] MCHC (RBC) [Mass/Vol] 32.5 g/dL Normal 32-36 [facility] Comment on above: Performed By: #### L 100.0100, L500.2500 #### [facility] [address] [place], [address] MCV (RBC) [Entitic vol] 87.2 fL Normal 81-99 [facility] Comment on above: Performed By: #### L 100.0100, L500.2500 #### [facility] [address] [place], [address] Monocytes/100 WBC (Bld) 4.2 % Normal 0-10 [facility] Comment on above: Performed By: #### L 100.0100, L500.2500 #### [facility] [address] [place], [address] Neutrophils/100 WBC (Bld) 81.7 % High 47-70 [facility] Comment on above: Performed By: #### L 100.0100, L500.2500 #### [facility] [address] [place], [address] Nucleated RBC (Bld) [#/Vol] 0 10*3/uL Normal 0-5 [facility] Comment on above: Performed By: #### L 100.0100, L500.2500 #### [facility] [address] [place], [address] Platelet mean volume (Bld) [Entitic vol] 10.4 fL Normal 6.2-12.0 [facility] Comment on above: Performed By: #### L 100.0100, L500.2500 #### [facility] [address] [place], [address] Platelets (Bld) [#/Vol] 227 10*3/uL Normal 150-450 [facility] Comment on above: Performed By: #### L 100.0100, L500.2500 #### [facility] [address] [place], [address] RBC (Bld) [#/Vol] 4.84 10*6/uL Normal 4.2-5.4 [facility] Comment on above: Performed By: #### L 100.0100, L500.2500 #### [facility] [address] [place], [address] RDW SD 40.1 fl Normal 35.1-43.9 [facility] Comment on above: Performed By: #### L 100.0100, L500.2500 #### [facility] [address] [place], [address] WBC (Bld) [#/Vol] 5.7 10*3/uL Normal 4.4-11.[address] [facility] Comment on above: Performed By: #### L 100.0100, L500.2500 #### [facility] [address] [place], [address] Calculated very low density lipoprotein (VLDL) cholesterol measurementOrdered By: Zachary Cleary on 12-13-2024 Calculated very low density lipoprotein (VLDL) cholesterol measurement 20 mg/dL 5-40 [facility] Cardiovascular stress test r eportOrdered By: Zachary Cleary on 12-13-2024 Study report [facility] [address] [place] [address] MR#: [id number] Acct: [id number] Name: ALECIA GUTIERREZ Rep #: [id number] : 1965 59 From: Zachary Cleary MD Primary Care: Dr. Kareem Esteban MD Sta tus: ADM FCO Referring Dr: Sex: F C Stress Test Report Date: 12/13/2024 Procedure: Pharmacologic stress nuclear imaging study Indications: Chest pain Consent: Per the patient Procedure: The patient underwent pharmacologic (Regadenoson 0.4mg ) evaluation with a peak heart rate of 122 beats per minute (76%predicted maximal heart rate) and a peak blood pressure of 138/92 mmHg. The baseline ECG demonstrated atrial fibrillation with nonspecific ST changes. The peak pharmacologic ECG was nondiagnostic. Rare PVC noted. There was no complaint of chest discomfort during pharmacologic infusion or recovery. The patient was injected with 15.3 millicuries of technetium 99m Cardiolite and subsequently rest SPECT Cardiolite nuclear imaging was obtained in the horizontal long, vertical long, and short axis views. The patient underwent pharmacologic (Regadenoson) evaluation. The patient was injected with 44.9 millicuries of technetium 99m Cardiolite and subsequently stress SPECT Cardiolite nuclear imaging was obtained in the horizontal long, vertical long, and short axis views. A gated Cardiolite study at peak stress was obtained. The examination was stopped secondary to completion of protocol. Rest and stress SPECT Cardiolite nuclear imaging status post realignment, normalization, and attenuation correction demonstrate anterior hypoperfusion suggestive of moderate ischemia. There is end systolic thickening and brightening. The gated Cardiolite study demonstrates myocardial thickening and inward wall motion. The reported LVEF is 55%. Impression: 1. Pharmacologic (Regadenoson) evaluation 2. Peak pharmacologic ECG nondiagnostic. 3. Baseline atrial fibrillation. Rare PVC. 5. Reversible anterior perfusion defect, suggestive of anterior ischemia. 6. The gated Cardiolite study reports an LVEF of 55%. This note was generated with Wave[employer] dictation software. It may contain incorrectwords, spelling, and punctuation that were not noted in checking the note beforesigning. 12/13/24 1256 Date _ Zachary Cleary MD CC: Dr. Wilfredo Galindo DO; Dr. Kareem Esteban MD; Dr. Mackenzie Pritchard MD; Dr. Holden Barros MD ~ Date Dictated: 12/13/241253 Date Transcribed: 12/13/241253 Crutch Maker: HEMANTH Fisher [facility] Work Phone: Consultation - Cardiologyon 12-13-2024 Consultation - Cardiology [facility] Medical Records Department [address] [place] [address] Consultation - Cardiology 12/13/24 1353 MR#: [id number] Acct: [id number] Name: ALECIA GUTIERREZ Rep #: [id number] : 1965 59 From: Zachary Cleary MD PCP: Dr. Kareem Esteban MD Status:ADM [facility]CO Location: [place] [address] Assessment Plan Assessment/Plan (1) Abnormal cardiovascular stress test: PLAN: Stress test shows anterior ischemia. Recommend coronary angiography and possible revascularization, if indicated. Risks benefits and alternatives were explained to the patient. She understand these and wishes to proceed. (2) Atrial fibrillation: PLAN: New onset atrial fibrillation. Her echocardiogram showed LVEF 35 to 40%. If this is confirmed on left ventriculography, or if she is noted to have significant coronary artery disease, then will recommend chronic oral anticoagulation. (3) Hypertension: PLAN: Started on metoprolol. (4) Morbid obesity: PLAN: Lose weight. (5) History of asthma: PLAN: As per internal medicine. HPI Consult Data Date of Consult: 12/13/24 HPI Narrative Reason for Consultation: Abnormal cardiovascular stress test HPI Narrative: 59-year-old female with past medical history significant for morbid obesity and asthma. She presented to the emergency room with complaints of chest pain. According to her, the chest pain was left-sided. Constant. According to her, it worsened with doing stuff such as lifting laundry. There was some shortness of breath. No diaphoresis. Lasted for hours. In the emergency room, she was noted to be in atrial fibrillation with rapid ventricular response. She was treated with diltiazem. An echocardiogram was done. It showed EF of 35 to 40%. Mild LVH. Also has had a Lexiscan stress Myoview done this morning. It shows ischemia in the anterior wall. Patient denies any previous history of chest pains. She does describe dyspnea on exertion. According to her, it has been a chronic problem for her with no recent exacerbation. Denies any orthopnea or PND. Denies ankle edema. [facility] Medical History (Updated 12/13/24 @ 14:[address] Zachary Cleary MD) Asthma Home Medications ???Medication ???Instructions ???Recorded ???Last Taken ???Type albuterol sulfate 90 mcg/actuation 2 inh inhalation Q4H PRN shortne ss 12/11/24 Unknown History aerosol inhaler (Ventolin HFA) of breath or wheezing Allergy/AdvReac Type Severity Reaction Status Date / Time bee venom protein (honey Allergy Severe Anaphylaxis Verified 12/11/24 14:01 bee) (bee sting) Social History Smoking Status: Never smoker Physical Exam Narrative Morbidly obese. Heart sounds 1 and 2 noted. Irregularly irregular. Chest examination with decreased air entry bilaterally. 1+ bilateral ankle edema. Alert oriented x 3. Risk Stratification Risk Stratification Applicable: No Objective Data Vital Signs: Vital Signs Temp Pulse Resp BP Pulse Ox O2 Del Method 97.5 F L 85 18 147/94 H 96 Room Air 12/13/24 10:58 12/13/24 10:58 12/13/24 10:58 12/13/24 10:58 12/13/24 10:58 12/13/24 10:58 Oxygen Delivery Method Room Air Weight: 278 lb 14.156 oz Body Mass Index (BMI) 45.0 Intake Output: Intake and Output for Last 24 Hours 12/11/24 12/12/24 12/13/24 23:59 23:59 23:59 Intake Total 500 / 980 1140 / 1140 220 / 220 Balance 500 / 980 1140 / 1140 220 / 220 Lab / Micro Data 12/13/24 11:59 12/13/24 11:59 Labs: Laboratory Results - last 24 hr 12/13/24 11:59: WBC 5.7, RBC 4.84, Hgb 13.7, Hct 42.2, MCV 87.2, MCH 28.3, MCHC 32.5, RDW Std Deviation 40.1, RDW Coeff of Shannan 12.7, Plt Count 227, MPV 10.4, Immature Gran % (Auto) 0.500, Neut % (Auto) 81.7 H, Lymph % (Auto) 12.4 L, Freestone % (Auto) 4.2, Eos % (Auto) 1.0, Baso % (Auto) 0.2, Absolute Neuts (auto) 4.7, Absolute Lymphs (auto) 0.71 L, Nucleated RBC % 0, Sodium 136, Potassium 4.0, Chloride 100, Carbon Dioxide 23.3, Anion Gap 13, BUN 12, Creatinine 0.92, Estim Creat Clear Calc 88.47, Est GFR (MDRD) Non-Af 71, BUN/Creatinine Ratio 13.2, Glucose 111 H, Calcium 8.7 Cardiology Labs/Tests 12/13/24 11:59: WBC 5.7, RBC 4.84, Hgb 13.7, Hct 42.2, MCV 87.2, MCH 28.3, MCHC 32.5, Plt Count 227, MPV 10.4, Immature Gran % (Auto) 0.500, Neut % (Auto) 81.7 H, Lymph % (Auto) 12.4 L, Fre[place] % (Auto) 4.2, Eos % (Auto) 1.0, Baso % (Auto) 0.2, Absolute Neuts (auto) 4.7, Nucleated RBC % 0, Sodium 136, Potassium 4.0, Chloride 100, Carbon Dioxide 23.3, Anion Gap 13, BUN 12, Creatinine 0.92, Est GFR (MDRD) Non-Af 71, BUN/Creatinine Ratio 13.2, Glucose 111 H, Calcium 8.7 Rhythm: EKG: ECHO: Stress Test: Cardiac Cath: PCI: CT Surgery: Holter monitor: EPS: PPM: CXR: Chest CT Scan: Radiography Diagnostic Testing: Radiology Impression Echocardiogram 12/12/24 05:55 Interpretatio (more content not included)... Normal [facility] LDL calc ser/plasOrdered By: Zachary Cleary on 12-13-2024 Cholesterol in LDL [Mass/Vol] 90 mg/dL [facility] Comment on above: Mjyynqtrzi=228-938 m g/dL & Higher Jlzl=912 mg/dL or greater Lipid Profileon 12-13-2024 CHOL:HDL 3.93 Normal [facility] Comment on above: Performed By: #### L 500.2500, L100.0100 #### [facility] [address] [place], [place], [id number] Cholesterol [Mass/Vol] 147 mg/dL Normal <=200 [facility] Comment on above: Result Comment: Chol esterol level, Desirable <200 mg/dL Borderline high cholesterol 200-239 mg/dL High cholesterol >=240 mg/dL Recommendations of the NCEP Adult Treatment Panel for the following risk-cutoff thresholds for the [place] population. Performed By: #### L 500.2500, L100.0100 #### [facility] [address] [place], [address] Cholesterol in HDL [Mass/Vol] 37 mg/dL Low [facility] Comment on above: Result Comment: Miriam onal Cholesterol Education Program (NCEP) guidelines: <40 mg/dL: Low HDL-cholesterol (major risk factor for CHD) >= 60 mg/dL: High HDL-cholesterol (negative risk factor for CHD) HDL-cholesterol is affected by a number of factors, e.g. smoking, exercise, hormones, sex and age. Performed By: #### L 500.2500, L100.0100 #### [facility] [address] [place], [address] Cholesterol in LDL [Mass/Vol] 90 mg/dL Normal [facility] Comment on above: Result Comment: Bord kxodah=055-275 mg/dL Higher Mlzf=953 mg/dL or greater Performed By: #### L 500.2500, L100.0100 #### [facility] [address] [place], [address] Cholesterol in VLDL [Mass/Vol] 20 mg/dL Normal 5-40 [facility] Comment on above: Performed By: #### L 500.2500, L100.0100 #### [facility] [address] [place], [address] Triglyceride [Mass/Vol] 98 mg/dL Normal [facility] Comment on above: Result Comment: The drugs N-Acetylcysteine and Metamizole may falsely depress this assay. Normal range: <150 mg/dL Borderline High: 150-199 mg/dL High: 200-499 mg/dL Very High: >500 mg/dL Performed By: #### L 500.2500, L100.0100 #### [facility] [address] [place], [address] Screening total cholesterol/ high density lipoprotein (HDL) cholesterol ratioOrdered By: Zachary Cleary on 12-13-2024 Cholesterol.total/Choles terol in HDL [Mass ratio] 3.93 {ratio} [facility] Serum or plasma cholesterol in HDL measurement (mass/volume)Ordered By: Zachary Cleary on 12-13-2024 Cholesterol in HDL [Mass/Vol] 37 mg/dL Low >40 [facility] Comment on above: National Cholesterol Education Program (NCEP) guidelines:<40 mg/dL: Low HDL-cholesterol (major risk factor for CHD)>= 60 mg/dL: High HDL-cholesterol (negative risk factor for CHD)HDL-cholesterol is affected by a number of factors, e.g. smoking, exercise, hormones, sex and age. Serum or plasma cholesterol measurement (mass/volume)Ordered By: Zachary Cleary on 12-13-2024 Cholesterol [Mass/Vol] 147 mg/dL <201 [facility] Comment on above: Cholesterol level, D esirable <200 mg/dLBorderline high cholesterol 200-239 mg/dLHigh cholesterol >=240 mg/dLRecommendations of the NCEP Adult Treatment Panel for the following risk-cutoff thresholds for the [place] population. Stress Reporton 12-13-2024 Stress Report [facility] [address] [place] [address] MR#: [id number] Acct: [id number] Name: ALECIA GUTIERREZ Rep #: [id number] : 1965 59 From: Zachary Cleary MD Primary Care: Dr. Kareem Esteban MD Status: ADM [facility]CO Referring Dr: Sex: F C Stress Test Report Date: 12/13/2024 Procedure: Pharmacologic stress nuclear imaging study Indications: Chest pain Consent: Per the patient Procedure: The patient underwent pharmacologic (Regadenoson 0.4mg ) evaluation with a peak heart rate of 122 beats per minute (76%predicted maximal heart rate) and a peak blood pressure of 138/92 mmHg. The baseline ECG demonstrated atrial fibrillation with nonspecific ST changes. The peak pharmacologic ECG was nondiagnostic. Rare PVC noted. There was no complaint of chest discomfort during pharmacologic infusion or recovery. The patient was injected with 15.3 millicuries of technetium 99m Cardiolite and subsequently rest SPECT Cardiolite nuclear imaging was obtained in the horizontal long, vertical long, and short axis views. The patient underwent pharmacologic (Regadenoson) evaluation. The patient was injected with 44.9 millicuries of technetium 99m Cardiolite and subsequently stress SPECT Cardiolite nuclear imaging was obtained in the horizontal long, vertical long, and short axis views. A gated Cardiolite study at peak stress was obtained. The examination was stopped secondary to completion of protocol. Rest and stress SPECT Cardiolite nuclear imaging status post realignment, normalization, and attenuation correction demonstrate anterior hypoperfusion suggestive of moderate ischemia. There is end systolic thickening and brightening. The gated Cardiolite study demonstrates myocardial thickening and inward wall motion. The reported LVEF is 55%. Impression: 1. Pharmacologic (Regadenoson) evaluation 2. Peak pharmacologic ECG nondiagnostic. 3. Baseline atrial fibrillation. Rare PVC. 5. Reversible anterior perfusion defect, suggestive of anterior ischemia. 6. The gated Cardiolite study reports an LVEF of 55%. This note was generated with Frugotonation software. It may contain incorrect words, spelling, and punctuation that were not noted in checking the note before signing. 12/13/24 1256 Date Zachary Cleary MD CC: Dr. Wilfredo Galindo DO; Dr. Kareem Esteban MD; Dr. Mackenzie Pritchard MD; Dr. Holden Barros MD Date Dictated: 12/13/24 1254 Date Transcribed: 12/13/24 125 Crutch Maker: HEMANTH Signed Normal [facility] Triglycerides measurementOrd ered By: Zachary Cleary on 12-13-2024 Triglyceride [Mass/Vol] 98 mg/dL <199 [facility] Comment on above: The drugs N-Acetylcy steine and Metamizole may falsely depress this assay. Normal range: <150 mg/dLBorderline High: 150-199 mg/dLHigh: 200-499 mg/dLVery High: >500 mg/dL Basic Metabolic Profile (BMP )on 12-12-2024 BUN/CRE 12.8 RATIO Normal 10-20 [facility] Comment on above: Order Comment: Comme nts: Fasting Lipid Profile Performed By: #### L 100.0100, L500.2500 #### [facility] [address] [place], [address] Calcium [Mass/Vol] 9.0 mg/dL Normal 7.6-11.[address] [facility] Comment on above: Order Comment: Comme nts: Fasting Lipid Profile Performed By: #### L 100.0100, L500.2500 #### [facility] [address] [place], [address] Chloride [Moles/Vol] 103 mmol/L Normal 98-108 [facility] Comment on above: Order Comment: Comme nts: Fasting Lipid Profile Performed By: #### L 100.0100, L500.2500 #### [facility] [address] [place], [address] CO2 [Moles/Vol] 20.2 mmol/L Low 21.0-32.0 [facility] Comment on above: Order Comment: Comme nts: Fasting Lipid Profile Performed By: #### L 100.0100, L500.2500 #### [facility] [address] [place], [address] Creatinine [Mass/Vol] 0.88 mg/dL Normal 0.70-1.20 [facility] Comment on above: Order Comment: Comme nts: Fasting Lipid Profile Performed By: #### L 100.0100, L500.2500 #### [facility] [address] [place], [address] ECRCL 92.62 ml/min Normal 50-250 [facility] Comment on above: Order Comment: Comme nts: Fasting Lipid Profile Performed By: #### L 100.0100, L500.2500 #### [facility] [address] [place], [address] GAP 14 Normal 5-15 [facility] Comment on above: Order Comment: Comme nts: Fasting Lipid Profile Performed By: #### L 100.0100, L500.2500 #### [facility] [address] [place], [address] GFR/1.73 sq M.predicted among non-blacks MDRD (S/P/Bld) [Vol rate/Area] 75 mL/min/{1.73_m2} Normal >60 [facility] Comment on above: Order Comment: Comme nts: Fasting Lipid Profile Result Comment: mL/m in/1.73m2 CKD-EPI Creatinine Equation (2020) Performed By: #### L 100.0100, L500.2500 #### [facility] [address] [place], [address] Glucose [Mass/Vol] 103 mg/dL High 70-[address] [facility] Comment on above: Order Comment: Comme nts: Fasting Lipid Profile Performed By: #### L 100.0100, L500.2500 #### [facility] [address] [place], [address] Potassium [Moles/Vol] 3.8 mmol/L Normal 3.3-5.1 [facility] Comment on above: Order Comment: Comme nts: Fasting Lipid Profile Result Comment: Hemo lysis present, Results??could be affected. ?? Performed By: #### L 100.0100, L500.2500 #### [facility] [address] [place], [address] Sodium [Moles/Vol] 137 mmol/L Normal 133-[address] [facility] Comment on above: Order Comment: Comme nts: Fasting Lipid Profile Performed By: #### L 100.0100, L500.2500 #### [facility] [address] [place], [address] Urea nitrogen [Mass/Vol] 11 mg/dL Normal 4-19 [facility] Comment on above: Order Comment: Comme nts: Fasting Lipid Profile Performed By: #### L 100.0100, L500.2500 #### [facility] [address] [place], [address] CBC W/Diff, Automatedon 06-2 Absolute Lymph 0.97 X10 3/uL Normal 0.83-4.51 [facility] Comment on above: Performed By: #### L 100.0100, L500.2500 #### [facility] [address] [place], [address] Absolute Neut 4.9 X10 3/uL Normal 2.0-7.7 [facility] Comment on above: Performed By: #### L 100.0100, L500.2500 #### [facility] [address] [place], [address] Basophils/100 WBC (Bld) 0.5 % Normal 0-1 [facility] Comment on above: Performed By: #### L 100.0100, L500.2500 #### [facility] [address] [place], [address] Eosinophils/100 WBC (Bld) 1.3 % Normal 0-5 [facility] Comment on above: Performed By: #### L 100.0100, L500.2500 #### [facility] [address] [place], [address] Erythrocyte distribution width (RBC) [Ratio] 12.7 % Normal 11.6-14.6 [facility] Comment on above: Performed By: #### L 100.0100, L500.2500 #### [facility] [address] [place], [address] Hematocrit (Bld) [Volume fraction] 41.4 % Normal 37-47 [facility] Comment on above: Performed By: #### L 100.0100, L500.2500 #### [facility] [address] [place], [address] Hemoglobin (Bld) [Mass/Vol] 13.8 g/dL Normal 12.0-15.0 [facility] Comment on above: Performed By: #### L 100.0100, L500.2500 #### [facility] [address] [place], [address] IG% 0.300 Normal 0.0-0.9 [facility] Comment on above: Result Comment: IG% - Immature Granulocytes (promyelocytes, myelocytes and metamyelocytes) > 1% indicates that a LEFT SHIFT is Present. Performed By: #### L 100.0100, L500.2500 #### [facility] [address] [place], [address] Lymphocytes/100 WBC (Bld) 15.2 % Low 19-41 [facility] Comment on above: Performed By: #### L 100.0100, L500.2500 #### [facility] [address] [place], [address] MCH (RBC) [Entitic mass] 28.6 pg Normal 27.0-32.0 [facility] Comment on above: Performed By: #### L 100.0100, L500.2500 #### [facility] [address] [place], [address] MCHC (RBC) [Mass/Vol] 33.3 g/dL Normal 32-36 [facility] Comment on above: Performed By: #### L 100.0100, L500.2500 #### [facility] [address] [place], [address] MCV (RBC) [Entitic vol] 85.9 fL Normal 81-99 [facility] Comment on above: Performed By: #### L 100.0100, L500.2500 #### [facility] [address] [place], [address] Monocytes/100 WBC (Bld) 5.3 % Normal 0-10 [facility] Comment on above: Performed By: #### L 100.0100, L500.2500 #### [facility] [address] [place], [address] Neutrophils/100 WBC (Bld) 77.4 % High 47-70 [facility] Comment on above: Performed By: #### L 100.0100, L500.2500 #### [facility] [address] [place], [address] Nucleated RBC (Bld) [#/Vol] 0 10*3/uL Normal 0-5 [facility] Comment on above: Performed By: #### L 100.0100, L500.2500 #### [facility] [address] [place], [address] Platelet mean volume (Bld) [Entitic vol] 10.3 fL Normal 6.2-12.0 [facility] Comment on above: Performed By: #### L 100.0100, L500.2500 #### [facility] [address] [place], [address] Platelets (Bld) [#/Vol] 239 10*3/uL Normal 150-450 [facility] Comment on above: Performed By: #### L 100.0100, L500.2500 #### [facility] [address] [place], [address] RBC (Bld) [#/Vol] 4.82 10*6/uL Normal 4.2-5.4 [facility] Comment on above: Performed By: #### L 100.0100, L500.2500 #### [facility] [address] [place], [address] RDW SD 40.1 fl Normal 35.1-43.9 [facility] Comment on above: Performed By: #### L 100.0100, L500.2500 #### [facility] [address] [place], [address] WBC (Bld) [#/Vol] 6.4 10*3/uL Normal 4.4-11.[address] [facility] Comment on above: Performed By: #### L 100.0100, L500.2500 #### [facility] [address] [place], [address] Echo Complete W/ Contraston 12-12-2024 Echo Complete W/ Contrast [facility] [facility] [address] [place] [address] Echo Complete W/ Contrast 12/12/24 0929 MR#: [id number] Acct: [id number] Name: ALECIA GUTIERREZ Rep #: [id number] : 1965 59 From: Zachary Cleary MD Attending Dr: Dr. Holden Barros MD Status: ADM [facility]CO Ordering Dr: Mackenzie Pritchard MD Date: 12/12/24 Location: [facility] Sex: F C Admitted: 12/11/24 Reason For Study Reason For Study: ATRIAL FIB-FLUTTER Procedure This was a 2D Doppler, Color Flow transthoracic echocardiogram. The study was technically difficult. Exam performed portable in patient room. Left Ventricle Normal LV size. Mild concentric left ventricular hypertrophy. Moderate generalized LV hypokinesis. Estimated LVEF 35- 40%. Stage I diastolic dysfunction. Right Ventricle Normal right ventricle. Atria There is moderate biatrial dilatation. Mitral Valve Trivial mitral valve insufficiency. Tricuspid Valve Trivial tricuspid valve insufficiency. Unable to estimate RV systolic pressure due to insufficient tricuspid regurgitant envelope. Aortic Valve Trisinus/trileaflet aortic valve. Pulmonic Valve The pulmonic valve is not well visualized. Great Vessels Normal sized aortic root. Pericardium/Pleural No pericardial effusion. Medication Diluted definity 2ml given slow IV push to enhance endocardial definition. MMode/2D Measurements Calculations LVIDd: 4.7 cm IVSd: 1.2 cm Ao root diam: 3.1 cm LVIDs: 3.5 cm LVPWd: 1.2 cm LA dimension: 4.7 cm FS: 24.2 % LAV(MOD-bp): 55.3 ml LVAd ap4: 34.4 cm2 SV(MOD-sp4): 41.7 ml LAV(MOD-bp) Indexed: 24.0 ml/m2 LVLd ap4: 8.7 cm SI(MOD-sp4): 18.1 ml/m2 LAV(MOD-sp2): 51.6 ml EDV(MOD-sp4): 111.0 ml LAV(MOD-sp4): 51.1 ml EDV(sp4-el): 115.3 ml LVAs ap4: 24.6 cm2 LVLs ap4: 7.2 cm ESV(MOD-sp4): 69.3 ml ESV(sp4-el): 70.7 ml EF(MOD-sp4): 37.6 % EF(sp4-el): 38.7 % SV(sp4-el): 44.6 ml LA A4 area: 19.8 cm2 LA dimension(2D): 3.6 cm RA A4 area: 18.8 cm2 TAPSE: 2.3 cm Doppler Measurements Calculations Ao V2 max: 162.3 cm/sec LV V1 max: 110.8 cm/sec PA V2 max: 92.0 cm/sec Ao max P.6 mmHg LV V1 max P.9 mmHg Ao V2 mean: 119.0 cm/sec LV V1 mean P.8 mmHg Ao mean P.3 mmHg LV V1 mean: 78.8 cm/sec Ao V2 VTI: 26.2 cm LV V1 VTI: 20.5 cm AV (velocity ratio): 0.78 ECHO/Echo Complete W/ Contrast Interpretation Summary The study was technically difficult. Mild concentric left ventricular hypertrophy. Moderate generalized LV hypokinesis. Estimated LVEF 35-40%. Stage I diastolic dysfunction. There is moderate biatrial dilatation. Ordering Physician: Mackenzie Pritchard Referring Physician: KAREEM ESTEBAN Performed By: Kyra Monterroso RDCS and Student 12/12/249 Date Zachary Cleary MD CC: Dr. Kareem Esteban MD; Dr. Mackenzie Pritchard MD; Dr. Holden Barros MD Date Dictated: 12/12/24928 Date Transcribed: 12/12/241438 Crutch Maker: Signed Normal [facility] Echocardiogram study reportO rdered By: Zachary Cleary on 12-12-2024 Study report [facility] [address] [place] [address] Echo Complete W/ Contrast 12/12/24928 MR#: [id number] Acct: [id number] Name: ALECIA GUTIERREZ Rep #:[id number] : 1965 59 From: Zachary Cleary MD Attending Dr: Dr. Holden Barros MD Status: ADM [facility]CO Ordering Dr: Mackenzie Pritchard MD Date: Location: [facility] Sex: F C Admitted: 12/11/24 Reason For Study Reason For Study: ATRIAL FIB-FLUTTER Procedure This was a 2D Doppler, Color Flow transthoracic echocardiogram. The study was technically difficult. Exam performed portable in patient room. Left Ventricle Normal LV size. Mild concentric left ventricular hypertrophy. Moderate generalized LV hypokinesis. Estimated LVEF 35- 40%. Stage I diastolic dysfunction. Right Ventricle Normal right ventricle. Atria There is moderate biatrial dilatation. Mitral Valve Trivial mitral valve insufficiency. Tricuspid Valve Trivial tricuspid valve insufficiency. Unable to estimate RV systolic pressure due to insufficient tricuspid regurgitant envelope. Aortic Valve Trisinus/trileaflet aortic valve. Pulmonic Valve The pulmonic valve is not well visualized. Great Vessels Normal sized aortic root. Pericardium/Pleural No pericardial effusion. Medication Diluted definity 2ml given slow IV push to enhance endocardial definition. MMode/2D Measurements & Calculations LVIDd: 4.7 cm IVSd: 1.2 cm Ao root diam: 3.1 cm LVIDs: 3.5 cm LVPWd: 1.2 cm LA dimension: 4.7 cm FS: 24.2 % LAV(MOD-bp): 55.3 ml LVAd ap4: 34.4 cm2 SV(MOD-sp4): 41.7 ml LAV(MOD-bp) Indexed: 24.0 ml/m2 LVLd ap4: 8.7 cm SI(MOD-sp4): 18.1 ml/m2 LAV(MOD-sp2): 51.6 ml EDV(MOD-sp4): 111.0 ml LAV(MOD-sp4): 51.1 ml EDV(sp4-el): 115.3 ml LVAs ap4: 24.6 cm2 LVLs ap4: 7.2 cm ESV(MOD-sp4): 69.3 ml ESV(sp4-el): 70.7 ml EF(MOD-sp4): 37.6 % EF(sp4-el): 38.7 % SV(sp4-el): 44.6 ml LA A4 area: 19.8 cm2 LA dimension(2D): 3.6 cm RA A4 area: 18.8 cm2 TAPSE: 2.3 cm Doppler Measurements & Calculations Ao V2 max: 162.3 cm/sec LV V1 max: 110.8 cm/sec PA V2 max: 92.0 cm/sec Ao max P.6 mmHg LV V1 max P.9 mmHg Ao V2 mean: 119.0 cm/sec LV V1 mean P.8 mmHg Ao mean P.3 mmHg LV V1 mean: 78.8 cm/sec Ao V2 VTI: 26.2 cm LV V1 VTI: 20.5 cm AV (velocity ratio): 0.78 ECHO/Echo Complete W/ Contrast Interpretation Summary The study was technically difficult. Mild concentric left ventricular hypertrophy. Moderate generalized LV hypokinesis. Estimated LVEF 35-40%. Stage I diastolic dysfunction. There is moderate biatrial dilatation. Ordering Physician: Mackenzie Pritchard Referring Physician: KAREEM ESTEBAN Performed By: Kyra Monterroso RDCS and Student 12/12/24 1439 Date _ Zachary Cleary MD CC: Dr. Kareem Esteban MD; Dr. Mackenzie Pritchard MD; Dr. Holden Barros MD ~ Date Dictated: 12/12/24928 Date Transcribed: 12/12/241438 Crutch Maker: Signed [facility] Work Phone: Hemoglobin A1con 12-12-2024 HbA1c (Bld) [Mass fraction] 5.5 % Normal <=5.6 [facility] Comment on above: Result Comment: Norm al < 5.7 % Prediabetic 5.7 - 6.4 % Diabetic >or= 6.5 % Please note range changes. Performed By: #### L 100.0100, L500.2500 #### [facility] [address] [place], [address] Hemoglobin A1c percentageOrd ered By: Mackenzie Pritchard on 12-12-2024 HbA1c (Bld) [Mass fraction] 5.5 % <5.7 [facility] Comment on above: Normal < 5.7 % Predi abetic 5.7 - 6.4 % Diabetic >or= 6.5 % Please note range changes. Lipid Profileon 12-12-2024 CHOL:HDL 3.71 Normal [facility] Comment on above: Order Comment: Comme nts: Fasting Lipid Profile Performed By: #### L 100.0100, L500.2500 #### [facility] [address] [place], [place], [address] Cholesterol [Mass/Vol] 151 mg/dL Normal <=200 [facility] Comment on above: Order Comment: Comme nts: Fasting Lipid Profile Result Comment: Chol esterol level, Desirable <200 mg/dL Borderline high cholesterol 200-239 mg/dL High cholesterol >=240 mg/dL Recommendations of the NCEP Adult Treatment Panel for the following risk-cutoff thresholds for the [place] population. Performed By: #### L 100.0100, L500.2500 #### [facility] [address] [place], [address] Cholesterol in HDL [Mass/Vol] 41 mg/dL Normal [facility] Comment on above: Order Comment: Comme nts: Fasting Lipid Profile Result Comment: Miriam onal Cholesterol Education Program (NCEP) guidelines: <40 mg/dL: Low HDL-cholesterol (major risk factor for CHD) >= 60 mg/dL: High HDL-cholesterol (negative risk factor for CHD) HDL-cholesterol is affected by a number of factors, e.g. smoking, exercise, hormones, sex and age. Performed By: #### L 100.0100, L500.2500 #### [facility] [address] [place], [address] Cholesterol in LDL [Mass/Vol] 93 mg/dL Normal [facility] Comment on above: Order Comment: Comme nts: Fasting Lipid Profile Result Comment: Bord xgtxml=002-146 mg/dL Higher Sphs=417 mg/dL or greater Performed By: #### L 100.0100, L500.2500 #### [facility] [address] [place], [address] Cholesterol in VLDL [Mass/Vol] 18 mg/dL Normal 5-40 [facility] Comment on above: Order Comment: Comme nts: Fasting Lipid Profile Performed By: #### L 100.0100, L500.2500 #### [facility] [address] [place], [address] Triglyceride [Mass/Vol] 88 mg/dL Normal [facility] Comment on above: Order Comment: Comme nts: Fasting Lipid Profile Result Comment: The drugs N-Acetylcysteine and Metamizole may falsely depress this assay. Normal range: <150 mg/dL Borderline High: 150-199 mg/dL High: 200-499 mg/dL Very High: >500 mg/dL Performed By: #### L 100.0100, L500.2500 #### [facility] [address], [place], [address] Absolute lymphocyte countOrd ered By: ED PROVIDER on 12-11-2024 Lymphocytes Auto (Unsp spec) [#/Vol] 1.23 10*3/uL 0.83-4.51 [facility] Absolute neutrophil countOrd ered By: ED PROVIDER on 12-11-2024 Neutrophils (Bld) [#/Vol] 6.2 10*3/uL 2.0-7.7 [facility] Activated partial thrombopla stin time (aPTT) in platelet poor plasma by coagulation aOrdered By: Wilfrdeo Galindo on 12-11-2024 aPTT Coag (PPP) [Time] 27.8 s 24.1-36.2 [facility] Anion gap in Serum or Plasma Ordered By: Wilfredo Galindo on 12-11-2024 Anion gap [Moles/Vol] 13 mmol/L 5-15 [facility] Automated lymphocyte count a s percentage of total leukocytesOrdered By: ED PROVIDER on 12-11-2024 Lymphocytes/100 WBC Auto (Unsp spec) 15.1 % Low 19-41 [facility] BUN/creatinine ratioOrdered By: Wilfredo Galindo on 12-11-2024 Urea nitrogen/Creatinine [Mass ratio] 10.7 mg/mg 10-20 [facility] Basic Metabolic Profile (BMP )on 12-11-2024 BUN/CRE 10.7 RATIO Normal - [facility] Comment on above: Performed By: #### L 9100.0100 #### [facility] [address] [facility] [place], [address] Calcium [Mass/Vol] 9.5 mg/dL Normal 7.6-11.[address] [facility] Comment on above: Performed By: #### L 9100.0100 #### [facility] [address] [place], [address] Chloride [Moles/Vol] 100 mmol/L Normal 98-108 [facility] Comment on above: Performed By: #### L 9100.0100 #### [facility] [address] [place], [address] CO2 [Moles/Vol] 24.4 mmol/L Normal 21.0-32.0 [facility] Comment on above: Performed By: #### L 00.0100 #### [facility] [address] [place], [address] Creatinine [Mass/Vol] 1.21 mg/dL High 0.70-1.20 [facility] Comment on above: Performed By: #### L 9099.0100 #### [facility] [address] [place], [address] GAP 13 Normal 5-15 [facility] Comment on above: Performed By: #### L 9099.0100 #### [facility] [address] [place], [address] GFR/1.73 sq M.predicted among non-blacks MDRD (S/P/Bld) [Vol rate/Area] 51 mL/min/{1.73_m2} Low >60 [facility] Comment on above: Result Comment: mL/m in/1.73m2 CKD-EPI Creatinine Equation (2020) Performed By: #### L 00.0100 #### [facility] [address] [place], [address] Glucose [Mass/Vol] 126 mg/dL High 70-[address] [facility] Comment on above: Performed By: #### L 9100.0100 #### [facility] [address] [place], [address] Potassium [Moles/Vol] 3.8 mmol/L Normal 3.3-5.1 [facility] Comment on above: Performed By: #### L 9100.0100 #### [facility] [address] [place], [address] Sodium [Moles/Vol] 138 mmol/L Normal 133-[address] [facility] Comment on above: Performed By: #### L 9100.0100 #### [facility] [address] [place], [address] Urea nitrogen [Mass/Vol] 13 mg/dL Normal 4-19 [facility] Comment on above: Performed By: #### L 9100.0100 #### [facility] [address] [place], [address] Basophil percentageOrdered B y: ED PROVIDER on 12-11-2024 Basophils/100 WBC (Bld) 0.4 % 0-1 [facility] CBC W/Diff, Automatedon 11-18 Absolute Lymph 1.23 X10 3/uL Normal 0.83-4.51 [facility] Comment on above: Performed By: #### L 100.0100, L500.2500 #### [facility] [address] [place], [address] Absolute Neut 6.2 X10 3/uL Normal 2.0-7.7 [facility] Comment on above: Performed By: #### L 100.0100, L500.2500 #### [facility] [address] [place], [address] Basophils/100 WBC (Bld) 0.4 % Normal 0-1 [facility] Comment on above: Performed By: #### L 100.0100, L500.2500 #### [facility] [address] [place], [address] Eosinophils/100 WBC (Bld) 1.5 % Normal 0-5 [facility] Comment on above: Performed By: #### L 100.0100, L500.2500 #### [facility] [address] [place], [address] Erythrocyte distribution width (RBC) [Ratio] 12.7 % Normal 11.6-14.6 [facility] Comment on above: Performed By: #### L 100.0100, L500.2500 #### [facility] [address] [place], [address] Hematocrit (Bld) [Volume fraction] 43.8 % Normal 37-47 [facility] Comment on above: Performed By: #### L 100.0100, L500.2500 #### [facility] [address] [place], [address] Hemoglobin (Bld) [Mass/Vol] 14.7 g/dL Normal 12.0-15.0 [facility] Comment on above: Performed By: #### L 100.0100, L500.2500 #### [facility] [address] [place], [address] IG% 0.500 Normal 0.0-0.9 [facility] Comment on above: Result Comment: IG% - Immature Granulocytes (promyelocytes, myelocytes and metamyelocytes) > 1% indicates that a LEFT SHIFT is Present. Performed By: #### L 100.0100, L500.2500 #### [facility] [address] [place], [address] Lymphocytes/100 WBC (Bld) 15.1 % Low 19-41 [facility] Comment on above: Performed By: #### L 100.0100, L500.2500 #### [facility] [address] [place], [address] MCH (RBC) [Entitic mass] 28.6 pg Normal 27.0-32.0 [facility] Comment on above: Performed By: #### L 100.0100, L500.2500 #### [facility] [address] [place], [address] MCHC (RBC) [Mass/Vol] 33.6 g/dL Normal 32-36 [facility] Comment on above: Performed By: #### L 100.0100, L500.2500 #### [facility] [address] [place], [address] MCV (RBC) [Entitic vol] 85.2 fL Normal 81-99 [facility] Comment on above: Performed By: #### L 100.0100, L500.2500 #### [facility] [address] [place], [address] Monocytes/100 WBC (Bld) 5.8 % Normal 0-10 [facility] Comment on above: Performed By: #### L 100.0100, L500.2500 #### [facility] [address] [place], [address] Neutrophils/100 WBC (Bld) 76.7 % High 47-70 [facility] Comment on above: Performed By: #### L 100.0100, L500.2500 #### [facility] [address] [place], [address] Nucleated RBC (Bld) [#/Vol] 0 10*3/uL Normal 0-5 [facility] Comment on above: Performed By: #### L 100.0100, L500.2500 #### [facility] [address] [place], [address] Platelet mean volume (Bld) [Entitic vol] 10.5 fL Normal 6.2-12.0 [facility] Comment on above: Performed By: #### L 100.0100, L500.2500 #### [facility] [address] [place], [address] Platelets (Bld) [#/Vol] 265 10*3/uL Normal 150-450 [facility] Comment on above: Performed By: #### L 100.0100, L500.2500 #### [facility] [address] [place], [address] RBC (Bld) [#/Vol] 5.14 10*6/uL Normal 4.2-5.4 [facility] Comment on above: Performed By: #### L 100.0100, L500.2500 #### [facility] [address] [place], [address] RDW SD 39.3 fl Normal 35.1-43.9 [facility] Comment on above: Performed By: #### L 100.0100, L500.2500 #### [facility] [address] [place], [address] WBC (Bld) [#/Vol] 8.1 10*3/uL Normal 4.4-11.[address] [facility] Comment on above: Performed By: #### L 100.0100, L500.2500 #### [facility] [address] [place], [address] CTA Chest W/WO Contraston CTA Chest W/WO Contrast [facility] Imaging Services [address] [place] [address] CTA Chest W/WO Contrast MR#: [id number] Acct: [id number] Name: ALECIA GUTIERREZ Rep #: [id number] : 1965 F 59 From: Tyesha Damian nd, MD PCP: Dr. Kareem Esteban MD Status: [facility] ER Study: CTA Chest W/WO Contrast Date of Exam: 12/11/24 Exam# [id number] Ordering Dr: Wilfredo Galindo DO PROCEDURE: CTA CHEST W/WO CONTRAST 12/11/2024 [...] NO LARGE CENTRAL PULMONARY EMBOLI. Reading Location: [facility] CC: Dr. Wilfredo Galindo DO; Dr. Kareem Esteban MD Crutch Maker: Signed Normal [facility] Carbon dioxide, total [Moles /volume] in Central venous bloodOrdered By: Wilfredo Galindo on 12-11-2024 CO2 [Moles/Vol] 24.4 mmol/L 21.0-32.0 [facility] Chest PA and Lateralon 12-11 Chest PA and Lateral [facility] Imaging Services [address] [place] [address] Chest PA and Lateral MR#: [id number] Acct: [id number] Name: ALECIA GUTIERREZ Rep #: [id number] : 1965 F 59 From: Michael Mortensen PCP: Dr. Kareem Esteban MD Status: REG ER Study: Chest PA and Lateral Date of Exam: 12/11/24 Exam# [id number] Ordering Dr: Wilfredo Galindo DO PROCEDURE: CHEST PA AND LATERAL 12/11/2024 [...] degenerative changes and DISH noted. Reading Location: [place] [address] CC: Dr. Wilfredo Galindo DO; Dr. Kareem Esteban MD Crutch Maker: Signed Normal [facility] Chloride assayOrdered By: Hemanth Galindo on 12-11-2024 Chloride [Moles/Vol] 100 mmol/L 98-108 [facility] D-Dimer Quantitative (DVT/PE )on 12-11-2024 D-DIMER QUANT 0.93 FEU/ug/m Invalid Interpretation Code 0.27-0.49 [facility] Comment on above: Result Comment: D-Di mary ELEVATED (>0.49): Additional studies and clinical assessments are indicated to conclude diagnosis of: Deep Vein Thrombosis (DVT) or Pulmonary Embolism (PE) CRITICAL VALUE CALLED TO Isidro HALE 12/11/24 1532 Philly Reynoso. RESULTS READ BACK BY SAME. Performed By: #### L 500.2500, L100.0100 #### [facility] [address] [facility] [place], [address] Emergency Department Summary on 12-11-2024 Emergency Department Summary [facility] Medical Records Department [address] [place] [address] Emergency Department Summary 12/11/24 MR#: [id number] Acct: [id number] Name: ALECIA GUTIERREZ Rep #: [id number] : 1965 59 From: Wilfredo Galindo DO PCP: Dr. Kareem Esteban MD Status:ADM [facility]CO Location: [place] [address] HPI History of Present Illness Chief Complaint: Shortness of Breath Narrative Narrative: Chief complaint and HPI: Chest pain. 59-year-old female with past medical history of asthma noncompliant with medication as well as had no medical care in multiple years presents for evaluation of left-sided chest pain. Onset of symptoms yesterday and progressively worsened. Describes the pain as sharp. Associated symptom is shortness of breath and chronic morning cough. She denies any fever, chills, URI symptoms, abdominal pain, nausea, vomiting. Bilateral lower extremity swelling or pain. Recent travel or surgery. Review of systems: See HPI Medications: As listed on the chart Allergies: As listed on the chart PFSH: Per chart Vital signs: As listed on the chart. Reviewed. Physical exam: Gen: A O x3, NAD Head: Normocephalic, atraumatic Eyes: No sclera icterus, conjunctiva clear PERRL, ENT: Moist mucous membranes Neck: Trachea midline, No JVD CV: Tachycardic, irregularly irregular rhythm, no murmurs, no peripheral edema Resp: Lungs CTA BL, no w/r/c GI: Obese, abd soft, non-distended, non-tender, no r/r/g Musc: Full ROM, no deformity Skin: Warm, dry Neuro: Alert, oriented, grossly intact, sensation intact Psych: Cooperative, appropriate mood and affect [facility] Medical History (Updated 12/11/24 @ 19:[address] Mackenzie Pritchard MD) Asthma Home Medications ???Medication ???Instructions ???Recorded ???Last Taken ???Type albuterol sulfate 90 mcg/actuation 2 inh inhalation Q4H PRN shortne ss 12/11/24 Unknown History aerosol inhaler (Ventolin HFA) of breath or wheezing Allergy/AdvReac Type Severity Reaction Status Date / Time bee venom protein (honey Allergy Severe Anaphylaxis Verified 12/11/24 14:01 bee) (bee sting) Social History Smoking Status: Never smoker EXAM Physical Exam Const Vital Signs: 12/11/24 13:53 12/11/24 14:31 12/11/24 14:31 Temperature 97.6 F L 98.5 F Temperature Source Oral Oral Pulse Rate 151 H 125 H Respiratory Rate 30 H 28 H Respiratory Effort Respiratory Depth Respiratory Pattern Blood Pressure 206/125 H 148/109 H Blood Pressure Mean 152 122 Pulse Ox 98 97 Oxygen Delivery Method Room Air Room Air Room Air 12/11/24 14:31 12/11/24 14:55 12/11/24 15:00 Temperature 98.5 F 98.5 F Temperature Source Oral Oral Pulse Rate 78 78 Respiratory Rate 23 H 23 H Respiratory Effort Short of Breath Respiratory Depth Normal Respiratory Pattern Tachypnea Blood Pressure 142/90 H 142/90 H Blood Pressure Mean 107 107 Pulse Ox 95 95 Oxygen Delivery Method Room Air Room Air Room Air 12/11/24 16:00 12/11/24 17:00 12/11/24 18:00 Temperature 98.3 F 98.3 F Temperature Source Oral Oral Pulse Rate 83 70 80 Respiratory Rate 20 H 16 21 H Respiratory Effort Respiratory Depth Respiratory Pattern Blood Pressure 142/78 H 142/77 H 152/81 H Blood Pressure Mean 99 98 104 Pulse Ox 96 96 96 Oxygen Delivery Method Room Air Room Air Room Air 12/11/24 19:03 Temperature 98 F Temperature Source Pulse Rate 73 Respiratory Rate 17 Respiratory Effort Respiratory Depth Respiratory Pattern Blood Pressure 139/79 H Blood Pressure Mean 99 Pulse Ox 96 Oxygen Delivery Method MDM MDM MDM Narrative Medical decision making narrative: 59-year-old female with past medical history of asthma noncompliant with medication as well as had no medical care in multiple years presents for evaluation of left-sided chest pain. Onset of symptoms yesterday and progressively worsened. On presentation, patient is hypertensive and tachycardic. She is in atrial fibrillation with RVR. Patient states she has no history of atrial fibrillation. Differential diagnosis includes but is not limited to symptomatic atrial fibrillation with RVR, ACS, PE, electrolyte abnormality, thyroid disease, viral illness, pneumonia, CHF. Diltiazem bolus ordered for atrial fibrillation with RVR. Cardiac/respiratory workup ordered. Aspirin given for chest pain. EKG and chest x-ray reviewed see below. CBC without leukocytosis or anemia. Coagulation panel unremarkable. D-dimer elevated at 0.93. CTA chest ordered to assess for PE. BMP shows mild renal insufficiency with creatinine 1.21. I do not previous labs to compare to. Troponin unremarkable. Magnesium level unremarkable. CTA chest negative for PE although this shows severe coronary (more content not included)... Normal [facility] Eosinophil percentageOrdered By: ED PROVIDER on 12-11-2024 Eosinophils/100 WBC (Bld) 1.5 % 0-5 [facility] Erythrocyte distribution wid th ratioOrdered By: ED PROVIDER on 12-11-2024 Erythrocyte distribution width (RBC) [Ratio] 12.7 % 11.6-14.6 [facility] Erythrocyte distribution wid th standard deviationOrdered By: ED PROVIDER on 12-11-2024 Erythrocyte distribution width (RBC) [Ratio] 39.3 fl 35.1-43.9 [facility] Free T3on 12-11-2024 Free T3 [Mass/Vol] 2.7 pg/mL Normal 2.18-3.[address] [facility] Comment on above: Performed By: #### L 506.0400, L501.16219 #### [facility] [address] [facility] [facility] [place], [place], [id number] Free D1Pofylzn By: Wilfredo Hannah on 12-11-2024 Free T3 [Mass/Vol] 2.7 pg/mL 2.18-3.[address] [facility] Glomerular filtration rate ( GFR) estimation/1.73 sq m using serum, plasma, or whole bOrdered By: Wilfredo Galindo on 12-11-2024 GFR/1.73 sq M.predicted among non-blacks MDRD (S/P/Bld) [Vol rate/Area] 51 mL/min/{1.73_m2} Low >60 [facility] Comment on above: mL/min/1.73m2 CKD-EP I Creatinine Equation (2020) H AND P Exam - [facility] 12-11-2024 H&P Exam - Hospitalist [facility] Medical Records Department [address] [place] [address] H P Exam - Hospitalist 12/11/241927 MR#: [id number] Acct: [id number] Name: ALECIA GUTIERREZ Rep #: [id number] : 1965 59 From: Mackenzie Pritchard MD PCP: Dr. Kareem Esteban MD Status:ADM [facility]CO Location: [place] [address] HPI - General General Date of Admission: 12/11/24 Date of Service: 12/11/24 Chief Complaint: Generally feeling unwell, some sharp left-sided chest pain HPI Narrative ALECIA GUTIERREZ, is a 59-year-old female history of asthma noncompliant with medications and no medical care in multiple years presented [facility] ED 12/11/2024 for left-sided chest pain. Symptoms started yesterday and has progressively worsened, it is sharp in nature and is associated with shortness of breath and morning cough. In the ED patient afebrile, heart rate initially 151 with a blood pressure of 206/125, respiratory rate of 30 and pulse ox 98% on room air. EKG revealed A-fib with RVR. CBC overall unremarkable, BMP with a creatinine 1.21 with no previous baseline for comparison and a glucose of 126. Chest x-ray no overt abnormality on D-dimer 0.93 so patient CTA which was limited but had no central pulmonary emboli or other acute abnormality. TSH found to be 10, proBNP 1200 and initial troponin of 13 with a repeat of 13. Patient given diltiazem bolus and hospitalist contacted for admission for A-fib with RVR with elevated BNP. Patient evaluated at bedside. She reports some chronic shortness of breath from her asthma but is noncompliant with her inhaler but does not feel this is changed over the past couple of days, also has a chronic morning cough which is unchanged. She reports that since yesterday she has had some sharp pain under her left breast which is worse when she moves, does seem to be worse with palpation as well and she thinks she might of pulled a muscle playing with her puppy. She notes that her right now she might feel a little bit of dull sensation in that area but feels it is improved from earlier. She denies any swelling in her legs. [facility] Medical History (Updated 12/11/24 @ 19:[address] Mackenzie Pritchard MD) Asthma Home Medications ???Medication ???Instructions ???Recorded ???Last Taken ???Type albuterol sulfate 90 mcg/actuation 2 inh inhalation Q4H PRN shortne ss 12/11/24 Unknown History aerosol inhaler (Ventolin HFA) of breath or wheezing Allergy/AdvReac Type Severity Reaction Status Date / Time bee venom protein (honey Allergy Severe Anaphylaxis Verified 12/11/24 14:01 bee) (bee sting) Social History Smoking Status: Never smoker ROS ROS Narrative General: Denies fever/chills HENT: Denies headache, denies stuffy nose, denies sore throat EYES: Denies changes in vision Resp: Chronic morning cough, chronic intermittent shortness of breath that is unchanged Cardiac: Some sharp pain under her left breast GI: Denies abdominal pain, denies changes in bowel, denies nausea/vomiting : Denies changes in urination Extremity: Denies swelling MSK: Denies weakness Neuro: Denies any numbness/tingling Heme: Denies any bleeding or bruising Skin: Denies rashes, some scratches on her legs from her puppy Psychiatric: No complaints voiced Vital Signs Vital Signs Vital Signs: 12/11/24 13:53 12/11/24 14:31 12/11/24 14:31 Temperature 97.6 F L 98.5 F Temperature Source Oral Oral Pulse Rate 151 H 125 H Respiratory Rate 30 H 28 H Respiratory Effort Respiratory Depth Respiratory Pattern Blood Pressure 206/125 H 148/109 H Blood Pressure Mean 152 122 Pulse Ox 98 97 Oxygen Delivery Method Room Air Room Air Room Air 12/11/24 14:31 12/11/24 14:55 12/11/24 15:00 Temperature 98.5 F 98.5 F Temperature Source Oral Oral Pulse Rate 78 78 Respiratory Rate 23 H 23 H Respiratory Effort Short of Breath Respiratory Depth Normal Respiratory Pattern Tachypnea Blood Pressure 142/90 H 142/90 H Blood Pressure Mean 107 107 Pulse Ox 95 95 Oxygen Delivery Method Room Air Room Air Room Air 12/11/24 16:00 12/11/24 17:00 12/11/24 18:00 Temperature 98.3 F 98.3 F Temperature Source Oral Oral Pulse Rate 83 70 80 Respiratory Rate 20 H 16 21 H Respiratory Effort Respiratory Depth Respiratory Pattern Blood Pressure 142/78 H 142/77 H 152/81 H Blood Pressure Mean 99 98 104 Pulse Ox 96 96 96 Oxygen Delivery Method Room Air Room Air Room Air 12/11/24 19:03 Temperature 98 F Temperature Source Pulse Rate 73 Respiratory Rate 17 Respiratory Effort Respiratory Depth Respiratory Pattern Blood Pressure 139/79 H Blood Pressure Mean 99 Pulse Ox 96 Oxygen Delivery Method Weight Weight: 139.6 kg Body Mass Index (BMI) 49.6 (more content not included)... Normal [facility] Hematocrit Auto (Bld) [Volum e fraction]Ordered By: ED PROVIDER on 12-11-2024 Hematocrit (Bld) [Volume fraction] 43.8 % 37-47 [facility] Hemoglobin measurementOrdere d By: ED PROVIDER on 12-11-2024 Hemoglobin (Bld) [Mass/Vol] 14.7 g/dL 12.0-15.0 [facility] Immature granulocytes/100 WB C Auto (Bld)Ordered By: ED PROVIDER on 12-11-2024 Immature granulocytes/100 WBC (Bld) 0.500 % 0.0-0.9 [facility] Comment on above: IG% - Immature Granu locytes (promyelocytes, myelocytes and metamyelocytes) > 1% indicates that a LEFT SHIFT is Present. Influenza virus A and B and SARS-CoV-2 (COVID-19) and Respiratory syncytial virus RNAOrdered By: Wilfredo Galindo on 12-11-2024 SARS-CoV-2 (COVID-19) RNA GT+probe Ql (Unsp spec) [facility] International normalized rat io (INR) calculationOrdered By: Wilfredo Galindo on 12-11-2024 INR Coag (Bld) [Relative time] 1.0 {INR} [facility] L499.0042on 12-11-2024 Trop T High Sen 13 ng/L Normal <=14 [facility] Comment on above: Performed By: #### L 499.0042 #### [facility] [address] [place], [address] L499.0043on 12-11-2024 Trop T High Sen Normal <=14 [facility] Comment on above: Result Comment: Florin bob via OM: Ordered Performed By: #### L 500.2500, L100.0100 #### [facility] [address] [place], [address] L501.4021on 12-11-2024 Trop T High Sen 13 ng/L Normal <=14 [facility] Comment on above: Performed By: #### L 9100.0100 #### [facility] [address] [place], [address] L503.7505on 12-11-2024 Natriuretic peptide B (Bld) [Mass/Vol] 1213 pg/mL High <=900 [facility] Comment on above: Result Comment: Hear t Failure Unlikely: < 300 pg/mL Heart Failure Likely < 50 Years: > 450 pg/mL 50-75 Years: > 900 pg/mL >75 Years: > 1800 pg/mL Performed By: #### L 500.2500, L100.0100 #### [facility] [address] [place], [address] M100.678on 12-11-2024 M100.678 Pending SARS-CoV-2 (COVID 19) Negative INFLUENZA A Negative INFLUENZA B Negative RSV PCR Negative Normal [facility] Comment on above: Performed By: #### L 100.0100, L500.2500 #### [facility] [address] [place], [address] MCV (mean corpuscular volume ) determinationOrdered By: ED PROVIDER on 12-11-2024 MCV (RBC) [Entitic vol] 85.2 fL 81-99 [facility] Magnesiumon 12-11-2024 Magnesium [Mass/Vol] 1.9 mg/dL Normal 1.5-2.2 [facility] Comment on above: Order Comment: Comme nts: Add onto previous labs if possible Performed By: #### L 9100.0100 #### [facility] [address] [place], [address] Magnesium [Mass/Vol] 2.0 mg/dL Normal 1.5-2.2 [facility] Comment on above: Performed By: #### L 500.2500, L100.0100 #### [facility] [address] [place], [address] Magnesium measurement (mass/ volume)Ordered By: Wilfredo Galindo on 12-11-2024 Magnesium (Unsp spec) [Mass/Vol] 2.0 mg/dL 1.5-2.2 [facility] Magnesium measurement (mass/ volume)Ordered By: Mackenzie Pritchard on 12-11-2024 Magnesium (Unsp spec) [Mass/Vol] 1.9 mg/dL 1.5-2.2 [facility] Mean corpuscular hemoglobin (MCH) determinationOrdered By: ED PROVIDER on 12-11-2024 MCH (RBC) [Entitic mass] 28.6 pg 27.0-32.0 [facility] Mean corpuscular hemoglobin concentration (MCHC) determinationOrdered By: ED PROVIDER on 12-11-2024 MCHC (RBC) [Mass/Vol] 33.6 g/dL 32-36 [facility] Mean platelet volume determi nationOrdered By: ED PROVIDER on 12-11-2024 Platelet mean volume (Bld) [Entitic vol] 10.5 fL 6.2-12.0 [facility] Monocyte percentageOrdered B y: ED PROVIDER on 12-11-2024 Monocytes/100 WBC (Bld) 5.8 % 0-10 [facility] Natriuretic peptide.B prohor twila N-Terminal [Mass/volume] in Serum or PlasmaOrdered By: Wilfredo Galindo on 12-11-2024 Natriuretic peptide.B prohormone N-Terminal [Mass/Vol] 1213 pg/mL High <900 [facility] Comment on above: Heart Failure Unlike ly: < 300 pg/mLHeart Failure Likely< 50 Years: > 450 pg/mL50-75 Years: > 900 pg/mL>75 Years: > 1800 pg/mL Neutrophil percentageOrdered By: ED PROVIDER on 12-11-2024 Neutrophils/100 WBC (Bld) 76.7 % High 47-70 [facility] Nucleated red blood cell per centageOrdered By: ED PROVIDER on 12-11-2024 Nucleated RBC/100 WBC (Bld) [Ratio] 0 % 0-5 [facility] Partial Thromboplast Timeon 12-11-2024 aPTT Coag (Bld) [Time] 27.8 s Normal 24.1-36.2 [facility] Comment on above: Performed By: #### L 500.2500, L100.0100 #### [facility] [place], [address] Platelet countOrdered By: ED PROVIDER on 12-11-2024 Platelets (Bld) [#/Vol] 265 10*3/uL 150-450 [facility] Potassium measurement (mass/ volume)Ordered By: Wilfredo Galindo on 12-11-2024 Potassium (Unsp spec) [Mass/Vol] 3.8 mmol/L 3.3-5.1 [facility] Prothrombin Time w/INRon INR Coag (PPP) [Relative time] 1.0 {INR} Normal [facility] Comment on above: Performed By: #### L 500.2500, L100.0100 #### [facility] [address] [place], [address] PT Coag (PPP) [Time] 13.2 s Normal 11.7-14.9 [facility] Comment on above: Performed By: #### L 500.2500, L100.0100 #### [facility] [address] [place], [address] Prothrombin timeOrdered By: Wilfredo Galindo on 12-11-2024 PT Coag (PPP) [Time] 13.2 s 11.7-14.9 [facility] RBC Auto (Bld) [#/Vol]Ordere d By: ED PROVIDER on 12-11-2024 RBC (Bld) [#/Vol] 5.14 10*6/uL 4.2-5.4 [facility] Serum creatinine measurement (mass/volume)Ordered By: Wilfredo Galindo on 12-11-2024 Creatinine [Mass/Vol] 1.21 mg/dL High 0.70-1.20 [facility] Serum glucose measurement (m ass/volume)Ordered By: Wilfredo Galindo on 12-11-2024 Glucose [Mass/Vol] 126 mg/dL High 70-[address] [facility] Serum or plasma calcium willian urement (mass/volume)Ordered By: Wilfredo Gonzalez on 12-11-2024 Calcium [Mass/Vol] 9.5 mg/dL 7.6-11.[address] [facility] Serum or plasma urea nitroge n measurement (mass/volume)Ordered By: Wilfredo Galindo on 12-11-2024 Urea nitrogen [Mass/Vol] 13 mg/dL 4-19 [facility] Sodium levelOrdered By: [place] Galindo on 12-11-2024 Sodium [Moles/Vol] 138 mmol/L 133-[address] [facility] T4 Free Directon 12-11-2024 T4 FREE DIRECT 1.00 ng/dL Normal 0.76-1.46 [facility] Comment on above: Performed By: #### L 506.0400, L501.10540 #### [facility] [address] [place], [place], [id number] T4 freeOrdered By: Wilfredo Hannah on 12-11-2024 Free T4 [Mass/Vol] 1.00 ng/dL 0.76-1.[address] [facility] TSH DL <= 0.005 mIU/L QnOrde red By: Wilfredo Galindo on 12-11-2024 TSH Qn 10.100 uIU/mL High 0.300-4.200 [facility] Thyroid Stim Hormone (TSH)on 12-11-2024 TSH 10.100 uIU/mL High 0.300-4.200 [facility] Comment on above: Performed By: #### L 500.2500, L100.0100 #### [facility] [address] [place], [address] Troponin T.cardiac [Mass/vol ume] in Serum or Plasma by High sensitivity methodOrdered By: Wilfredo Galindo on 12-11-2024 Troponin T.cardiac High sensitivity method [Mass/Vol] 13 ng/L <14 [facility] Troponin T.cardiac High sensitivity method [Mass/Vol] 13 ng/L <14 [facility] White blood cell (WBC) count Ordered By: ED PROVIDER on 12-11-2024 WBC (Bld) [#/Vol] 8.1 10*3/uL 4.4-11.[address] [facility] Vital Signs Date Time Vital Sign Value Performing Clinician You amaro 02-26-2025 14:25-0400 Heart rate 80 /min Dr. Kareem Esteban MD Work Phone: 2(088)049-319420 [place] [address] 02-26-2025 13:56-0400 Body height 167.[address] Kareem Esteban MD Work Phone: 0(926)600-420495 [place] [address] 02-26-2025 13:56-0400 Body mass index (BMI) [Ratio] 48.4 kg/m2 Dr. Kareem Esteban MD Work Phone: 2(942)549-590595 [place] [address] 02-26-2025 13:56-0400 Body weight 136.[address] Kareem Esteban MD Work Phone: 7(671)703-345195 [place] [address] 02-26-2025 13:56-0400 Diastolic blood pressure 79 mm[Hg] Dr. Kareem Esteban MD Work Phone: 2(020)541-812195 [place] [address] 02-26-2025 13:56-0400 Respiratory rate 20 /min Dr. Kareem Esteban MD Work Phone: 0(135)406-820895 [place] [address] 02-26-2025 13:56-0400 Systolic blood pressure 117 mm[Hg] Dr. Kareem Esteban MD Work Phone: 4(768)571-641895 [place] [address] 01-29-2025 08:08-0400 Body mass index (BMI) [Ratio] 48.6 kg/m2 Dr. Kareem Esteban MD Work Phone: 3(747)012-822620 [place] [address] 01-29-2025 08:08-0400 Body temperature 97.6 [degF] Dr. Kareem Esteban MD Work Phone: 3(758)474-652795 [place] [address] 01-29-2025 08:08-0400 Body weight 136.[address] Kareem Esteban MD Work Phone: 4(202)038-950795 [place] [address] 01-29-2025 08:08-0400 Diastolic blood pressure 80 mm[Hg] Dr. Kareem Esteban MD Work Phone: 7(342)723-438595 [place] [address] 01-29-2025 08:08-0400 Heart rate 98 /min Dr. Kareem Esteban MD Work Phone: 4(227)950-492720 [place] [address] 01-29-2025 08:08-0400 Respiratory rate 18 /min Dr. Kareem Esteban MD Work Phone: 5(939)307-535195 [place] [address] 01-29-2025 08:08-0400 SaO2% (BldA) [Mass fraction] 95 % Dr. Kareem Esteban MD Work Phone: 8(508)818-811595 [place] [address] 01-29-2025 08:08-0400 Systolic blood pressure 137 mm[Hg] Dr. Kareem Esteban MD Work Phone: 6(784)503-310895 [place] [address] 01-13-2025 10:47-0400 Body height 167.[address] Kareem Esteban MD Work Phone: 6(452)612-241895 [place] [address] 01-13-2025 10:47-0400 Body weight 137.[address] Kareem Esteban MD Work Phone: 9(081)426-812395 [place] [address] 01-10-2025 10:51-0400 Body mass index (BMI) [Ratio] 48.9 kg/m2 Dr. Kareem Esteban MD Work Phone: 3(482)917-949895 [place] [address] 12-25-2024 13:01-0400 Body height 167.[address] Kareem Esteban MD Work Phone: 9(024)337-404895 [place] [address] 12-25-2024 13:01-0400 Body mass index (BMI) [Ratio] 48.9 kg/m2 Dr. Kareem Esteban MD Work Phone: 2(296)108-080995 [place] [address] 12-25-2024 13:01-0400 Body weight 137.[address] Kareem Esteban MD Work Phone: 4(713)296-425395 [place] [address] 12-25-2024 13:01-0400 Diastolic blood pressure 79 mm[Hg] Dr. Kareem Esteban MD Work Phone: 5(422)675-903095 [place] [address] 12-25-2024 13:01-0400 Heart rate 79 /min Dr. Kareem Esteban MD Work Phone: 6(461)772-078795 [place] [address] 12-25-2024 13:01-0400 Respiratory rate 22 /min Dr. Kareem Esteban MD Work Phone: 2(722)572-750595 [place] [address] 12-25-2024 13:01-0400 Systolic blood pressure 117 mm[Hg] Dr. Kareem Esteban MD Work Phone: 2(980)462-553695 [place] [address] 12-14-2024 09:27-0400 Heart rate 91 /min Dr. Kareem Esteban MD Work Phone: 6(887)971-668895 [place] [address] 12-14-2024 09:21-0400 Body temperature 98.3 [degF] Dr. Kareem Esteban MD Work Phone: 3(883)500-269395 [place] [address] 12-14-2024 09:21-0400 Diastolic blood pressure 73 mm[Hg] Dr. Kareem Esteban MD Work Phone: 5(297)786-299495 [place] [address] 12-14-2024 09:21-0400 Respiratory rate 18 /min Dr. Kareem Esteban MD Work Phone: 0(756)078-055795 [place] [address] 12-14-2024 09:21-0400 SaO2% (BldA) [Mass fraction] 96 % Dr. Kareem Esteban MD Work Phone: 6(081)700-946195 [place] [address] 12-14-2024 09:21-0400 Systolic blood pressure 133 mm[Hg] Dr. Kareem Esteban MD Work Phone: 7(072)357-195895 [place] [address] 12-14-2024 03:47-0400 Body mass index (BMI) [Ratio] 44.8 kg/m2 Dr. Kareem Esteban MD Work Phone: 1(160)932-555595 [place] [address] 12-14-2024 03:47-0400 Body weight [address] Kareem Esteban MD Work Phone: 6(633)532-160995 [place] [address] 12-12-2024 13:25-0400 Body height 167.[address] Kareem Esteban MD Work Phone: 7(058)805-291495 [place] [address] 12-11-2024 19:03-0400 Body temperature 98 [degF] Dr. Kareem Esteban MD Work Phone: [facility] 12-11-2024 19:03-0400 Diastolic blood pressure 79 mm[Hg] Dr. Kareem Esteban MD Work Phone: [facility] 12-11-2024 19:03-0400 Heart rate 73 /min Dr. Kareem Esteban MD Work Phone: [facility] 12-11-2024 19:03-0400 Respiratory rate 17 /min Dr. Kareem Esteban MD Work Phone: [facility] 12-11-2024 19:03-0400 SaO2% (BldA) [Mass fraction] 96 % Dr. Kareem Esteban MD Work Phone: [facility] 12-11-2024 19:03-0400 Systolic blood pressure 139 mm[Hg] Dr. Kareem Esteban MD Work Phone: [facility] 12-11-2024 15:33-0400 Body mass index (BMI) [Ratio] 49.6 kg/m2 Dr. Kareem Esteban MD Work Phone: [facility] 12-11-2024 15:33-0400 Body weight 139.[address] Kareem Esteban MD Work Phone: [facility] 12-11-2024 13:53-0400 Body height 167.[address] Kareem Esteban MD Work Phone: [facility] Encounters Encounter Date Encounter Type Care Provider Facility Start: 04-04-2025 ambulatory Aidee Kincaid Facil ity:[facility] Start: 04-03-2025 ambulatory Nida Lemus NP Fac ility:[facility] Start: 03-26-2025 End: 03-26-2025 ambulatory AIDEE SANJIV Facility:[facility] Start: 02-28-2025 End: 02-28-[address] Kareem Esteban MD Work Phone: [facility] Start: 02-28-2025 End: 02-28-2025 Patient encounter procedure Nida Lemus EVENT SPECIALIST FOOD DEMONSTRATOR-C -[facility] Work Phone: Start: 02-28-2025 End: 02-28-2025 ambulatory Nida Lemus NP Facility:[facility] Start: 02-26-2025 End: 02-26-2025 Patient encounter procedure Germania Richardson PA -[facility] Work Phone: Start: 02-26-2025 End: 02-26-[address] Kareem Esteban MD Work Phone: -[facility] Start: 01-29-2025 End: 01-29-2025 Patient encounter procedure Nida Lemus EVENT SPECIALIST FOOD DEMONSTRATOR-C -[facility] Work Phone: Start: 01-29-2025 End: 01-29-[address] Kareem Esteban MD Work Phone: -[facility] Start: 01-25-2025 End: 01-25-2025 ambulatory Aidee Kincaid MD Work Phone: [facility] Start: 01-25-2025 End: 01-25-2025 E-mail encounter from caregiver Aidee Kincaid MD Work Phone: [facility] Start: 01-24-2025 End: 01-24-2025 ambulatory AIDEE KINCAID Facility:[facility] Start: 01-24-2025 Patient encounter procedure AIDEE KINCAID [facility] Start: 01-24-2025 End: 01-24-2025 ambulatory AIDEE KINCAID Facility:[facility] Start: 01-14-2025 End: 01-14-[address] Kareem Esteban MD Work Phone: -[facility] Start: 01-14-2025 End: 01-14-2025 Patient encounter procedure Germania Richardson PA -[facility] Work Phone: Start: 01-13-2025 ambulatory Kareem Mcqueen y:[facility] Start: 01-13-2025 Non-patient / Non-visit Dr. Jude FUNEZ -[facility] Start: 01-13-2025 End: 01-13-2025 Admission to same day surgery center Dr. Ezra Bay MD -Body Repairer/Special Procedures Work Phone: Start: 01-13-2025 End: 01-14-[address] Kareem Esteban MD Work Phone: -Body Repairer/Special Procedures Start: 12-25-2024 End: 12-25-2024 Patient encounter procedure Germania Richardson AL -[facility] Work Phone: Start: 12-25-2024 End: 12-25-[address] Kareem Esteban MD Work Phone: -[facility] Start: 12-14-2024 Non-patient / Non-visit Dr. Zachary arnold MD -[facility] Start: 12-14-2024 Non-patient / Non-visit Dr. Holden Barros MD -[facility] Work Phone: Start: 12-13-2024 ambulatory Mackenzie Pritchard Facility:[facility] Start: 12-13-2024 End: 12-14-2024 Evaluation and management of inpatient Dr. Holden Barros MD -[facility] Work Phone: Start: 12-13-2024 Non-patient / Non-visit Dr. Holden Barros MD [facility] Work Phone: Start: 12-13-2024 Non-patient / Non-visit Dr. Zachary arnold MD -[facility] Start: 12-12-2024 ambulatory Kareem Mcqueen y:[facility] Start: 12-12-2024 Non-patient / Non-visit Dr. Holden Barros MD [facility] Work Phone: Start: 12-11-2024 Non-patient / Non-visit Dr. Mackenzie arcos MD -[facility] Work Phone: Start: 12-11-2024 Evaluation and management of inpatient Dr. Mackenzie Pritchard MD -[facility] Work Phone: Start: 12-11-[address] Kareem Esteban MD Work Phone: [facility] Work Phone: Start: 12-11-2024 ambulatory [facility] Facility:[facility] Procedures Date Procedure Procedure Detail Performing Clinician Start: 01-24-2025 Adult depression scr eening assessment Aidee Kincaid MD Work Phone: Start: 01-24-2025 Lipid 1996 panel - S arash or Plasma Aidee Kincaid MD Work Phone: Start: 12-14-[address] Kareem Esteban MD Work Phone: Start: 12-13-2024 Coagulation time, activated Dr. Kareem Esteban MD Work Phone: Start: 12-13-2024 Cardiovascular stres s test using pharmacologic stress agent Dr. Kareem Esteban MD Work Phone: Start: 12-11-2024 CT angiography of ch est [...] (PCR) Dr. Kareem Esteban MD Work Phone: Start: 03-11-2015 Colonoscopy Aidee Kincaid MD Work Phone: Plan of Treatment Date Care Activity Detail Author Start: 01-24-2030 Lipid panel Lipid Screening [facility] Start: 01-25-2028 Diabetes Screening Diabetes Screenin g [facility] Start: 01-24-2026 Annual PCP Team [employer] brandyn Disease Visit Annual PCP Team Chronic Disease Visit [facility] Start: 01-24-2026 Anxiety Screening Anxiety Screening [facility] Start: 01-24-2026 Depression Screening Depression Scre ening [facility] Start: 01-24-2026 Pneumococcal Vaccine : 50+ (3 of 3 - PCV20 or PCV21) Pneumococcal Vaccine: 50+ (3 of 3 - PCV20 or PCV21) [facility] Comment on above: Postponed from 07/10 (Declined at this time) Start: 01-24-2026 RSV Vaccine (1 - Ris k 60-74 years 1-dose series) RSV Vaccine (1 - Risk 60-74 years 1-dose series) [facility] Comment on above: Postponed from 02/12 (Declined at this time) Start: 01-24-2026 Screening for malign ant neoplasm of breast Mammogram Screening [facility] Comment on above: Postponed from 05/02 (Declined at this time) Start: 01-24-2026 Screening for malign ant neoplasm of cervix Cervical Cancer Screening [facility] Comment on above: Postponed from 03/22 (Declined at this time) Start: 01-24-2026 Shingrix Vaccine (1 of 2) Chance grix Vaccine (1 of 2) [facility] Comment on above: Postponed from 02/12 (Declined at this time) Start: 01-24-2026 Urine microalbumin profile DTaP,Tdap,Td Vaccine (2 - Td or Tdap) [facility] Comment on above: Postponed from 11/18 (Declined at this time) Start: 04-21-2025 End: 04-21-2025 Patient encounter procedure 04/21/2025 9:00 AM EST Office Visit Family Medicine [facility] [address] [place] [id number] Aidee Kincaid MD [address] [place] [id number] follow up [facility] Comment on above: follow up Start: 03-26-2025 End: 03-26-2025 Patient encounter procedure 03/26/2025 10:20 AM EDT Office Visit [facility] Cardiology [address] [place], [place] [id number] Neal Gonzalez MD [address] [place] [address] Ref; WHG for AFIB- hlk [facility] Comment on above: Ref; WHG for AFIB- h lk Start: 03-11-2025 Screening for malign ant neoplasm of colon [facility] Start: 03-08-2025 End: 06-06-2025 TSH W/REFLEX FT4 TSH W/REFLEX FT4 Lab Routine Subclinical hypothyroidism Expected: 03/08/2025, Expires: 06/06/2025 [facility] Work Phone: Comment on above: Expected: 03/08/2025 , Expires: 06/06/2025 Start: 02-28-2025 [facility] Start: 02-17-2025 Influenza vaccination Influenza Vacc ine (#1) [facility] Start: 01-25-2025 End: 04-25-2025 ALK PHOS ISOENZYM BL ALK PHOS ISOENZYM BL Lab Routine Elevated alkaline phosphatase level Expected: 01/25/2025, Expires: 04/25/[address] [facility] Comment on above: Expected: 01/25/2025 , Expires: 04/25/2025 Start: 01-25-2025 End: 04-25-2025 Gamma glutamyl transferase [Enzymatic activity/volume] in Serum or Plasma GGT Lab Routine Elevated alkaline phosphatase level Expected: 01/25/2025, Expires: 04/25/[address] [facility] Comment on above: Expected: 01/25/2025 , Expires: 04/25/2025 Start: 01-14-2025 Polysomnography [facility] Start: 01-13-2025 Patient discharge [facility] Start: 12-14-2024 Patient discharge [facility] Start: 12-13-2024 Admission procedure [facility] Start: 12-13-2024 Notification of physician [facility] Start: 12-13-2024 Patient education [facility] Start: 12-13-2024 Provision of activit y privileges [facility] Start: 12-13-2024 Pulse taking [facility] Start: 12-13-2024 Taking patient vital signs [facility] Start: 12-13-2024 Wound care [facility] Start: 12-13-2024 [facility] Start: 12-13-2024 Referral to commercial lines account assistant [facility] Start: 12-12-2024 [facility] Start: 12-12-2024 [facility] Start: 12-11-2024 Assessment of risk o f venous thromboembolism [facility] Start: 12-11-2024 Insertion of cathete r into peripheral vein [facility] Start: 12-11-2024 Measuring intake and output [facility] Start: 12-11-2024 Providing care accor ding to standard [facility] Start: 12-11-2024 Provision of activit y privileges [facility] Start: 12-11-2024 [facility] Start: 12-11-2024 Following clinical pathway protocol [facility] Start: 12-11-2024 Admission procedure [facility] Start: 12-11-2024 Hospital admission, emergency, from emergency room, medical nature [facility] Start: 12-11-2024 End: 12-11-2024 [facility] Start: 12-11-2024 Patient referral to dietitian [facility] Start: 11-26-2015 Screening for malign ant neoplasm of colon Fecal Occult Blood [facility] Start: 02-12-2009 Screening for malign ant neoplasm of colon [facility] Patient referral [facility] Work Phone: Polysomnography [facility] US Heart limited [facility] End: 02-24-2026 US Kidney - bilateral and Urinary bladder US KIDNEY/BLADDER Radiology Routine CKD (chronic kidney disease) stage 2, GFR 60-89 ml/min 1 Occurrences starting 01/25/2025 until 02/24/[address] [facility] Comment on above: 1 Occurrences starti ng 01/25/2025 until 02/24/2026 [facility] Immunizations Immunization Date Immunization Notes Care Provider Kassandra silverman 07-10-2017 pneumococcal polysaccharide vaccine, 23 valent Aidee Kincaid MD Work Phone: [facility] 07-10-2017 influenza virus vacc ine, unspecified formulation Aidee Kincaid MD Work Phone: [facility] 04-14-2016 influenza, injectabl e, quadrivalent, contains preservative Aidee Kincaid MD Work Phone: [facility] 10-20-2015 pneumococcal conjuga te vaccine, 13 valent Aidee Kincaid MD Work Phone: [facility] 11-18-2014 tetanus toxoid, redu dee dee diphtheria toxoid, and acellular pertussis vaccine, adsorbed Aidee Kincaid MD Work Phone: [facility] Payers Date Payer Category Payer Self-pay 2019 Private Health Insurance [employer] [id number] 2019 Unknown [id number] Unknown [id number] Unknown [id number] .2.462 Unknown [id number] .2.462 Unknown [id number] [id number] .2.462 Unknown [id number] [id number] .2.462 Unknown [id number] [id number] .2.462 Unknown [id number] 2.16.840.1.693497.3.579 .2.462 Unknown [id number] 2.16.840.1.888058.3.579 .2.462 Unknown [id number] 2.16.840.1.533412.3.579 .2.462 Unknown [id number] 2.16.840.1.079899.3.579 .2.462 Unknown [id number] 2.16.840.1.095966.3.579 .2.462 Unknown [id number] 2.16.840.1.883370.3.579 .2.462 Unknown [id number] 2.16.840.1.498579.3.579 .2.462 Unknown [id number] 2.16.840.1.532378.3.579 .2.462 Unknown [id number] 2.16.840.1.548242.3.579 .2.462 Unknown [id number] 2.16.840.1.640242.3.579 .2.462 Unknown [id number] 2.16.840.1.834080.3.579 .2.462 Unknown [id number] 2.16.840.1.898451.3.579 .2.462 Unknown [id number] [id number] .2.462 Social History Date Type Detail Facility Tobacco smoking stat us NDIS Unknown if ever smoked [facility] Work Phone: Start: 1965 Sex Assigned At Female W [facility] Start: 12-11-2024 End: 01-13-2025 Tobacco smoking status NHIS Never smoked tobacco (finding) [facility] Start: 01-24-2025 Tobacco use and exposure Smokeless tobacco non-user [facility] Start: 01-24-2025 Alcoholic beverage intake Current non-drinker of alcohol (finding) [facility] Start: 01-24-2025 History of Social function [facility] Start: 01-24-2025 Tobacco use panel [facility] Start: 05-20-2012 Adult Depression Screening Assessment [address] [facility] Start: 01-24-2025 Tobacco Comment Exposed to sec ondhand smoke x2 years (1989) [facility] Start: 1965 Sex assigned at Not on file C [facility] Goals Date Patient Goal Desired Activity /State Functional Status Date Assessment Result Facility 12-14-2024 Functional status Ambulates;Chair [facility] Work Phone: 12-01-2014 Are you deaf, or do you have serious difficulty hearing No 12/01/2014 1:05 PM EDT Columba Castro LPN No [facility] 12-01-2014 Are you blind, or do you have serious difficulty seeing, even when wearing glasses No 12/01/2014 1:05 PM EDT Columba Castro LPN No [facility] 12-01-2014 Do you have serious difficulty walking or climbing stairs No 12/01/2014 1:05 PM EDT Columba Castro LPN No [facility] 12-01-2014 Do you have difficul ty dressing or bathing No 12/01/2014 1:05 PM EDT Columba Castro LPN No [facility] 12-01-2014 Because of a physica l, mental, or emotional condition, do you have difficulty doing errands alone such as visiting a physician's office or shopping No 12/01/2014 1:05 PM EDT Columba Castro LPN No [facility] Mental Status Date Assessment Result Facility 12-14-2024 Cognitive function Voice/Name [facility] Work Phone: 12-01-2014 Because of a physica l, mental, or emotional condition, do you have serious difficulty concentrating, remembering, or making decisions No 12/01/2014 1:05 PM EDT Columba Castro LPN No [facility] Clinical Notes 12-11-2024 to 03-26-2025 Telephone Encounter - Aidee Kincaid MD - 01/25/2025 10:58 AM EDTTelephone Encounter - Aidee Kincaid MD - 01/25/2025 10:58 AM EDT Note Date & Type Note Facility 03-26-2025 Note HNO ID: [id number] Author: NEAL GONZALEZ MD Service: ? Author Type: Physician Type: Progress Notes Filed: 03/26/2025 13:28 Note Text: Hey did not PRIMARY CARE PHYSICIAN: Aidee Kincaid [address] [place] [address] REFERRING PHYSICIAN: Germania Richardson ([facility]) [address] [facility] [address] Patient Care Team: Aidee Knicaid MD as PCP - General (Internal Medicine/Pediatrics) Germania Richardson PA-C as Physician J2Ee Engineer (Cardiology) Zachary Cleary MD as Specialty Graining Operator (Cardiology) Nida Lemus as Nurse Practitioner (Pulmonary Disease) Recording using ambient [employer] software for draft documentation of the visit was discussed with the patient/authorized underwriting service representative; all questions welcomed and answered. Patient/authorized underwriting service representative agreed to proceed CHIEF COMPLAINT: Evaluation for arrhythmia HISTORY OF PRESENT ILLNESS: Mrs. Gutierrez is a 60 year old female who presents today for evaluation of arrhythmia. The patient is a 60-year-old female with a history of atrial fibrillation, moderate three-vessel CAD, and cardiomyopathy, presenting for evaluation and management of atrial fibrillation. The patient was initially hospitalized on December 11, 2024, at [facility] due to chest pain and dyspnea. She describes the chest pain as a "pulled muscle" sensation located in the left axillary area, which she attributed to playing with her puppy on the porch for two days. She also experienced dyspnea, which she thought was due to the heat. Her sister insisted on taking her to the hospital due to a family history of heart issues in their mother. In the ED, she was found to have hypertension and tachycardia and was diagnosed with atrial fibrillation with rapid ventricular response. She received IV diltiazem, which was effective in controlling her heart rate. During her hospitalization, a TTE revealed mild to moderate cardiomyopathy with an LVEF of 35-40% and mild concentric LVH. A stress test on December 13, 2024, showed anterior ischemia, prompting a cardiac catheterization, which revealed moderate three-vessel disease: 40% stenosis in the mid-LAD, 50% in the mid-circumflex, and 60% in the mid-RCA. No interventions were performed, and she was managed medically. She followed up with her commercial lines account assistant office PA ([facility]) on December 25, 2024, and a cardioversion was scheduled. The cardioversion was performed on January 13, 2025, by Dr. Bay but was unsuccessful in maintaining normal sinus rhythm despite multiple attempts. She did state that there was a brief period of time that she was in sinus rhythm after the initial cardioversion attempt. She underwent two sleep studies, the first on January 14, 2025, which she states was inconclusive due to insufficient sleep duration. The second study confirmed obstructive sleep apnea, and she is scheduled to receive a CPAP machine on the . She reports ongoing dyspnea on exertion, stating that she cannot walk long distances without needing to rest. 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 She denies any recent worsening of her dyspnea and states that it has been consistent for years (prior to diagnosis of atrial fibrillation). She denies any history of smoking but reports exposure to secondhand smoke from her brother and . She denies any history of COPD or emphysema. She denies any known kidney dysfunction. She states she is scheduled for a repeat cardioversion on April 04, 2025, but has not been started on any antiarrhythmic medications. She has a history of tubal ligation in 1992. She denies any known drug allergies but is allergic to bee stings. She is currently taking metoprolol succinate 50 mg once daily, Eliquis 5 mg BID, aspirin 81 mg once daily, atorvastatin, Jardiance, furosemide, losartan, spironolactone, and thyroid medication. I have confirmed and edited as necessary, the PFSH and ROS obtained by others. PAST MEDICAL HISTORY Diagnosis Date Anticoagulant long-term use 03/24/2025 Asthma (HCC) At risk for stroke 03/24/2025 Bee sting allergy 03/09/2015 CAD (coronary artery disease) Chronic systolic (congestive) heart failure (HCC) 03/24/2025 Dyslipidemia Gastroesophageal reflux disease 08/22/2016 Hypertension Morbid obesity (HCC) 03/24/2025 Nonischemic cardiomyopathy (HCC) Obesity Obesity, Class III, BMI 40-49.9 (morbid obesity) (HCC) 03/09/2015 AYO (obstructive sleep apnea) 03/24/2025 Persistent atrial fibrillation (HCC) PAST SURGICAL HISTORY Procedure Laterality Date CARDIOVERSION EXTERNAL ELECTIVE 01/13/2025 only transient sinus rhythm achieved despite multiple attempts; Dr. Bay, [facility] COLONOSCOPY FLX DX W/COLLJ SPEC WHEN PFRMD 03/11/2015 Colonoscopy LEFT HE (more content not included)... [facility] 01-25-2025 Telephone encounter Note Subclinical hypothyroidism, TSH nearly at 10. Offered that given has afib she could go see endo for their opinion on whether to treat given she is on borderline on threshold when we would treat but she would like to elect to treat after discussion of risks and benefits. Given cardiac hx will start at lowest dose and titrate. Alk phos elevated, sending GGT and fractionated. Creat improved but in CKD 2 range (though two months since inpatient level). Discussed I suspect likely she has CKD 2 if we repeat in a month, so I have ordered RBUS to r/o obstructive pathology and obtain imaging. [facility] 01-25-2025 Miscellaneous Notes Subclinical hypothyroidism, TSH nearly at 10. Offered that given has afib she could go see endo for their opinion on whether to treat given she is on borderline on threshold when we would treat but she would like to elect to treat after discussion of risks and benefits. Given cardiac hx will start at lowest dose and titrate. Alk phos elevated, sending GGT and fractionated. Creat improved but in CKD 2 range (though two months since inpatient level). Discussed I suspect likely she has CKD 2 if we repeat in a month, so I have ordered RBUS to r/o obstructive pathology and obtain imaging. documented in this encounter [facility] 01-24-2025 Note HNO ID: [id number] Author: AIDEE KINCAID MD Service: ? Author Type: Physician Type: Progress Notes Filed: 01/24/2025 11:06 Note Text: Family Medicine OUTPATIENT VISIT January 24, 2025 CC: Annual physical HPI: 59 year old female patient with a history of Restrictive lung disease AYO CAD Obesity A fib Bee sting allergy Presents for hospital follow up. Prior to hospitalization in November, her only known chronic illness was "asthma," though PFT's in 2016 showed restrictive lung disease. She as admitted 12/13 to 12/15 for Shortness of Breath and left sided chest pain to [facility]. With shortness of breath. Found to have a fib with RVR. Given diltiazem and started on beta blockers Initially rate 151. Responded to above. CXR unremarkable. Chest Cta no PE. A1c 5.5. Fasting lipids normal. Echo c/w Acute on chronic HFrEF and HFpEF, EF 35 to 40%, stage I diastolic dysfunction with moderate biatrial dilation. SH 10 normal T4. BNP 1200. Abnormal stress test. Anterior wall hypoperfusion moderate ischemia. 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 Recommending medical therapy. Started empagliflozin 10mg daily, losartan 25mtg daily, metoproll sucinate 50mg daily, atorvastatin 40mg daily. Given lasix 40 daily. Eliquis 5mg PO, asa 80. Also ordered PFT and PSG as OP. Creatine of 1.2 without baseline. Presents to establish care. Since hospital stay. No chest pain. No shortness of breath. She had a cardioversion on 28 of January with [facility] system, where she states they attempted cardioversion three times. She converted back to a fib after all three attempts. Not using albuterol routinely. Her 2016 PFT's did suggest restrictive lung disease rather than obstructive. She did get her PSG that showed mild AYO. She has follow up with sleep medicine out of system scheduled to get CPAP initiated. Review of Systems PAIN ASSESSMENT: Negative for pain, history of chronic pain, or current treatment for a chronic pain condition. GENERAL: No weight loss, or fevers HEENT: Negative for frequent or significant headaches RESPIRATORY: Negative for cough, wheezing, shortness of breath CARDIOVASCULAR: Negative for chest pain, palpitations, PND or orthopnea GI: No nausea, vomiting, or diarrhea or abdominal pain. No PA bleeding or melana : No history of dysuria, frequency, urgency, or change in urine appearance NEURO: No history of headaches, numbness, weakness, or changes to vision or hearing Health maintenance: Colorectal Cancer Screening due on 03/11/2025 Allergies: ALLERGIES Allergen Reactions Bees Swelling Medications: potassium chloride ER (KLOR-CON) 20 mEq tablet Take 20 mEq by mouth once daily. senna-docusate (SENNA-S) 8.6-50 mg per tablet Take 2 tablets by mouth once daily as needed for constipation. aspirin, enteric coated (ADULT LOW DOSE ASPIRIN) 81 mg EC tablet Take 81 mg by mouth once daily. apixaban (ELIQUIS) 5 mg tab(s) Take 5 mg by mouth two times a day. furosemide (LASIX) 40 mg tablet Take 40 mg by mouth two times a day. losartan (COZAAR) 25 mg tablet Take 25 mg by mouth once daily. metoprolol succinate ER (TOPROL XL) 50 mg 24 hr tablet Take 50 mg by mouth once daily. albuterol sulfate (PROAIR RESPICLICK) 90 mcg/actuation aepb Inhale 2 Inhalation as instructed every 4 hours as needed (PRN for shortness of breath or wheezing). EPINEPHrine (EPIPEN) 0.3 mg/0.3 mL auto-injector Use for bee sting. (V15.06; Z91.038) Bee sting allergy atorvastatin (LIPITOR) 80 mg tablet Take 1 tablet by mouth once daily. empagliflozin (JARDIANCE) 25 mg tablet Take 1 tablet by mouth daily with breakfast. Past Medical History: PAST MEDICAL HISTORY Diagnosis Date Asthma (HCC) Bee sting allergy 03/09/2015 CAD (coronary artery disease) Dyslipidemia Hypertension Nonischemic cardiomyopathy (HCC) Obesity Persistent atrial fibrillation (HCC) Social History: Social History Tobacco Use Smoking status: Never Smokeless tobacco: Never Tobacco comments: Exposed to secondhand smoke x2 years (1989) Substance Use Topics Alcohol use: No Drug use: No Family History: Family History Problem Relation Age of Onset Diabetes Mother Ischemic Heart Disease Mother 40 atrial fibrillation; CAD; CABG in late 60's other (Atrial Fibrillation [Other]) Mother Ischemic Heart Disease Father at 77yo with ME Prostate Cancer Father Ischemic Heart Disease Brother 50 other (Lung Cancer [Other]) Brother Smoker BP 110/76 Pulse 88 Temp 36.6 ?C (97.9 ?F) (Temporal) Resp 24 Ht 155.6 cm (5' 1.25") Wt (!) 137 kg (302 lb) LMP 02/25/2012 BMI 56.60 kg/m? General: Awake, alert, not in acute distress, obese HIGH RISK CASE MANAGER: Answering questions appropriately. No abnormal posturing or positioning. Speech is normal. Strength grossly intact. RESP: Clear lungs bilateral with good air entry, No increa (more content not included)... [facility] 01-13-2025 Procedure note [facility] 01-13-2025 Procedure note [facility] 12-14-2024 Progress note [facility] 12-14-2024 Discharge summary Note Date/Time December 14, 2024 10:07am [facility] Medical Records Department [address] [place] [address] Discharge Summary 12/14/24 1001 MR#: [id number] Acct: [id number] Name: AELCIA GUTIERREZ Rep #:[id number] : 1965 59 From: Holden Mortensen PCP: Dr. Kareem Esteban MD Status:AD IN Location: [place] [address] Providers Date of Admission: 12/13/24 Date of Discharge: 12/14/24 Primary Care Physician: Dr. Kareem Esteban MD Consultations 12/13/24 13:35 Consult: Cardiology Routine Consulting Provider: Zachary Cleary Reason for Consult: Abrormal stress, Afib rvr EMERGENT Consult: No MD Notified: Yes Date Notified: 12/13/24 Time Notified: 13:39 Method of Notification: Verbal Reason For Visit: A-FIB WITH RVR Diagnosis Discharge Diagnosis (1) Atrial fibrillation with RVR: Status: Acute Code(s): I48.91 - Unspecified atrial fibrillation Plan 59-year-old female admitted with shortness of breath and left-sided chest pain, inframammary region started yesterday and progressively got worse described as sharp with associated shortness of breath and chronic morning cough. Denies fever, chills, abdominal pain, nausea or vomiting. Bilateral middle extremity swelling or pain #Afib w/ RVR -Admit to telemetry -Improved with push of diltiazem, will schedule beta-gale -Initial rate in ED: 151 -EKG: With heart rate of 126, repeat with A-fib with rate of 68 12/12: Heart rate is controlled currently in 70s. Afebrile. Continue beta-gale. Chest x-ray shows lungs clear of no acute disease no pleural effusion or pneumothorax. Chest CTA no large central pulmonary emboli. A1c 5.5%. Fasting profile within normal limit 12/13 heart rate is controlled 75/min. 12/14: Heart rate and blood pressure are controlled. Pulse ox 93% on room air. 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 TSH: 10.1 but free T4 and T3 WNL, advise repeat thyroid function test in 6 weeks to 2 months. Possible subclinical hypothyroidism. proBNP 1200. Heart failure core measures including intake and output, fluid restriction less than 1500 mL, dailyweight monitoring, kidney and electrolytes monitoring. Discussed with the commercial lines account assistant and nuclear stress test ordered for tomorrow 12/13: Her stress test was abnormal therefore taken for Body Repairer. It reported anterior wall hypoperfusion suggestive of moderate ischemia. Diagnostic cardiaccath showed EF 30% calcific moderate three-vessel disease 40% mid LAD, 50% mid circumflex, 60% mid RCA IFR 0.99. Medical therapy was recommended. Empagliflozin 10 mg daily, losartan 25 mg daily, metoprolol succinate 50 mg daily and atorvastatin 40 mg daily started. 12/14: Patient given prescription for furosemide 40 mg daily, metoprolol succinate 50 mg daily, losartan 25 mg daily, empagliflozin 10 mg daily, Eliquis 5 mg p.o. twice daily and baby aspirin 81 mg daily Atypical chest pain: - Pain is sharp, positional, seems to be reproducible and troponin is within normal limits from admitting hospital Plan for nuclear stress test tomorrow a.m. 12/14: Patient had cath admission of # History of asthma -Albuterol as needed 12/13: Patient is white and thick neck and wheezing suggestive of possible obstructive sleep apnea associated with asthma/COPD. Follow-up in pulmonary clinic for sleep study and PFT. # Hyperglycemia - A1c 5.5%. Diabetes or prediabetes ruled out. # Mild renal insufficiency -Creatinine of 1.21, no baseline available -Creatinine normal about 0.8 #Morbid obesity -BMI documented as 49.7 kg/m? at time of admission -Complicates treatment, prognosis, outcomes -Recommend weight loss and lifestyle changes - High suspicion the patient has sleep apnea given habitus and she does snore, would recommend sleep study on an outpatient basis #DVT ppx: Lovenox twice daily Changed to Eliquis 5 mg twice daily. Discharge medication reconciliation done. Discharge follow-up instructions completed. Discharge process discussed with the patient and all questions wereanswered to patient's satisfaction. Follow with PCP in 1 to 2 weeks Total time spent, exact 35 minutes on discharge meds reconciliation, examination, coordination of care with nurses and ancillary staff, review of imaging and blood test and discussion with the patient on follow-up instructions. Microbiology Past 72 Hours 12/11/24 14:40 Mucosa - Nose SARS-CoV-2, Influenza & RSV (PCR) - Final Laboratory Results 12/13/24 11:59: WBC 5.7, RBC 4.84, Hgb 13.7, Hct 42.2, MCV 87.2, MCH 28.3, MCHC 32.5, RDW Std Deviation 40.1, RDW Coeff of Shannan 12.7, Plt Count 227, MPV 10.4, Immature Gran % (Auto) 0.500, Neut % (Auto) 81.7 H, Lymph % (Auto) 12.4 L, Freestone % (Auto) 4.2, Eos % (Auto) 1.0, Baso % (Auto) 0.2, Absolute Neuts (auto) 4.7, Absolute Lymphs (auto) 0.71 L, Nucleated RBC % 0, Sodium 136, Potassium 4.0, Chloride 100, Carbon Dioxide 23.3, Anion Gap 13, BUN 12, Creatinine 0.92, Estim Creat Clear Calc 88.47, Est GFR (MDRD) Non-Af 71, BUN/Creatinine Ratio 13.2, Glucose 111 H, Calcium 8.7 12/13/24 13:13: Triglycerides Pending, Cholesterol Pending, LDL Cholesterol, Calc Pending, VLDL Cholesterol Pending, HDL Cholesterol Pending, Cholesterol/HDLRatio Pending 12/13/24 14:37: Activated Clotting Time 227 H Hemoglobin A1c 5.5, Calcium 9.0, Triglycerides 88, Cholesterol 151, LDL Cholesterol, Calc 93, VLDL Cholesterol 18, HDL Cholesterol 41, Cholesterol/HDL Ratio 3.71 Clinical Impression(s) from Imaging Studies Chest X-Ray 06/25/25 14:45 IMPRESSION: The lateral view is markedly limited by patient motion. Mild frontal view patient motion. Lungs appear clear of acute disease. No pleural effusion or pneumothorax. The cardiomediastinal silhouette is within the normal range for age. 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 Reading Location: [facility] Chest CTA 12/11/24 15:46 IMPRESSION: LIMITED. NO LARGE CENTRAL PULMONARY EMBOLI. Reading Location: [id number] Echocardiogram 12/12/24 05:55 Interpretation Summary The study was technically difficult. Mild concentric left ventricular hypertrophy. Moderate generalized LV hypokinesis. Estimated LVEF 35-40%. Stage I diastolic dysfunction. There is moderate biatrial dilatation. Ordering Physician: Mackenzie Pritchard Referring Physician: KAREEM ESTEBAN Performed By: Kyra Monterroso RDCS and Student Medications at Discharge Home Medications albuterol sulfate 90 mcg/actuation aerosol inhaler (Ventolin HFA) 2 inh inhalation Q4H PRN shortness of breath or wheezing 12/11/24 apixaban 5 mg tablet (Eliquis) 5 mg PO BID 30 days #60 tabs 12/14/24 aspirin 81 mg tablet,delayed release (Rebel Low Dose Aspirin) 81 mg PO DAILY 3 months #90 tabs 12/14/24 atorvastatin 40 mg tablet 40 mg PO QHS 30 days #30 tabs 12/14/24 empagliflozin 10 mg tablet (Jardiance) 10 mg PO DAILY 30 days #30 tabs 12/14/24 furosemide 40 mg tablet 40 mg PO DAILY 30 days #30 tabs 12/14/24 losartan 25 mg tablet 25 mg PO DAILY 30 days #30 tabs 12/14/24 metoprolol succinate 50 mg tablet,extended release 24 hr 50 mg PO DAILY 30 days #30 tabs 12/14/24 potassium chloride 20 mEq tablet,extended release(part/cryst) 20 meq PO DAILYCM 30 days #30 tabs 12/14/24 sennosides 8.6 mg-docusate sodium 50 mg tablet (Stimulant Laxative Plus) 2 tab PO BID PRN PRN Constipation #0 tabs 12/14/24 Physical Exam Narrative Seen and examined Stress test was abnormal therefore patient had cardiac catheter yesterday and cardiac cath she has moderate CAD with calcified vessel Patient was admitted with mild chest tightness/squeezing sensation over left inframammary region then persistent for 2 days. Mild short of breath. History of asthma. Shortness of breath. A-fib with RVR Physical exam General: Alert, Oriented x3, Cooperative. Morbid obesity BMI 45.1 kg/m? HEENT: Atraumatic, PERRLA, EOMI, Normocephalic. Oral: No Gingival or Mucosal Lesions/ Ulcerations Neck: Supple, No JVD, Negative Carotid Bruits Chest wall/Lungs: Air entry diminished in bilateral lungs. Bilateral fine wheezing Cardiovascular: Irregular rate and rhythm normal S1,S2, No M/G/R Abdomen: Bowel Sounds Present, Soft, Non Tender, Non-Distended : No dysuria. No renal angle tenderness. No suprapubic tenderness. Extremities: Bilateral 1+ below mid thigh edema, bilateral TKR Skin: Right radial region no hematoma or bleeding Musculoskeletal: No Tenderness to Palpation of Joints or Extremities Neurological: Cranial nerves II-XII grossly intact, DTR 2+/4. No acute focal neurological deficit. Psych/Mental Status: Normal Affect, Appropriate. Weight / BMI Weight Weight: 277 lb 12.519 oz Body Mass Index (BMI) 44.8 ABG / Lab / Microbiology Data 12/14/24 05:50 12/14/24 05:50 Laboratory: Laboratory Results - last 24 hr 12/13/24 11:59: WBC 5.7, RBC 4.84, Hgb 13.7, Hct 42.2, MCV 87.2, MCH 28.3, MCHC 32.5, RDW Std Deviation 40.1, RDW Coeff of Shannan 12.7, Plt Count 227, MPV 10.4, Immature Gran % (Auto) 0.500, Neut % (Auto) 81.7 H, Lymph % (Auto) 12.4 L, Freestone % (Auto) 4.2, Eos % (Auto) 1.0, Baso % (Auto) 0.2, Absolute Neuts (auto) 4.7, Absolute Lymphs (auto) 0.71 L, Nucleated RBC % 0, Sodium 136, Potassium 4.0, Chloride 100, Carbon Dioxide 23.3, Anion Gap 13, BUN 12, Creatinine 0.92, Estim Creat Clear Calc 88.47, Est GFR (MDRD) Non-Af 71, BUN/Creatinine Ratio 13.2, Glucose 111 H, Calcium 8.7 12/13/24 13:13: Triglycerides 98, Cholesterol 147, LDL Cholesterol, Calc 90, VLDL Cholesterol 20, HDL Cholesterol 37 L, Cholesterol/HDL Ratio 3.93 12/13/24 14:37: Activated Clotting Time 227 H 12/14/24 05:50: WBC 7.2, RBC 4.71, Hgb 13.4, Hct 41.1, MCV 87.3, MCH 28.5, MCHC 32.6, RDW Std Deviation 40.4, RDW Coeff of Shannan 12.7, Plt Count 230, MPV 10.5, Immature Gran % (Auto) 0.600, Neut % (Auto) 78.9 H, Lymph % (Auto) 14.5 L, Freestone % (Auto) 4.7, Eos % (Auto) 1.0, Baso % (Auto) 0.3, Absolute Neuts (auto) 5.7, Absolute Lymphs (auto) 1.04, Nucleated RBC % 0, Sodium 138, Potassium 4.0, Chloride 102, Carbon Dioxide 24.1, Anion Gap 12, BUN 13, Creatinine 0.96, Estim Creat Clear Calc 84.59, Est GFR (MDRD) Non-Af 68, BUN/Creatinine Ratio 13.4, Glucose 101 H, Calcium 8.7 Microbiology: Microbiology 12/11/24 14:40 Mucosa - Nose SARS-CoV-2, Influenza & RSV (PCR) - Final D/C Instructions Discharge Diet: Low fat / Low cholesterol and 2000 mg Sodium Diet Weight Bearing Status: Weight bearing as tolerated Call your doctor if you observe: Fever of 101 or Higher, Coldness, Increased Pain, Numbness or Tingling, Change in Color, Inability to urinate, Inability to have a bowel movement, Shortness of breath, Dizziness, Fainting spells, Swellingin the ankles, Chest pain, Prolonged hiccupping, Increased palpitations (irregular heartbeat) and Calf discomfort DC O2, CPAP, BIPAP Needs Home O2 Discharge instructions: No When: IN 2 WEEKS Meaningful Use Info Meaningful Use Meaningful Use Diagnoses (Choose all that apply): None applicable Ischemic Stroke Statin Dosing Therapy Reference: STATIN DOSE THERAPY REFERENCE: * Patients > 75 years receive moderate or high dose statin therapy. * Patients 75 years or YOUNGER should receive HIGH intensity statin dose unless contraindicated. You will be required to document reason for non-treatment if statin daily dose does not meet guidelines. HIGH DOSE STATIN THERAPY DAILY Atorvastatin > than or = to 40 mg Rosuvastatin > than or = to 20 mg Amlodipine + Atorvastatin > than or = to 2.5/40 mg Ezetimibe + Simvastatin 10/80 mg Simvastatin 80mg Discharge Plan Admission Admit Date/Time: 12/13/24 16:43 Primary Reason for Your Visit: Moderate CAD, COPD/asthma bronchitis Attending Provider: Holden Barros Primary Care Provider: Kareem Esteban Consulting Providers: Mackenzie Pritchard; Zachary Cleary Discharge Orders/Prescriptions Prescriptions: New furosemide 40 mg Tablet 40 mg PO DAILY 30 Days Qty: 30 0RF atorvastatin 40 mg Tablet 40 mg PO QHS 30 Days Qty: 30 2RF metoprolol succinate 50 mg Tablet Extended Release 24 Hr 50 mg PO DAILY 30 Days Qty: 30 2RF sennosides-docusate sodium [Stimulant Laxative Plus] 8.6-50 mg Tablet 2 tab PO BID PRN PRN (Reason: Constipation) Qty: 0 0RF losartan 25 mg Tablet 25 mg PO DAILY 30 Days Qty: 30 2RF Eliquis 5 mg Tablet 5 mg PO BID 30 Days Qty: 60 2RF Jardiance 10 mg Tablet 10 mg PO DAILY 30 Days Qty: 30 1RF potassium chloride 20 mEq Tablet,Er Particles/Crystals 20 meq PO DAILYCM 30 Days Qty: 30 0RF aspirin [Rebel Low Dose Aspirin] 81 mg tablet,delayed release (DR/EC) 81 mg PO DAILY 90 Days Qty: 90 1RF Continued albuterol sulfate [Ventolin HFA] 90 mcg/actuation HFA aerosol inhaler 2 inh inhalation Q4H PRN (Reason: shortness of breath or wheezing) Referrals / Follow Up: Evin,Zachary, MD [Med Staff - Active Staff] - Within 1 Month Pato Ritchie DO [Med Staff - Active Staff] - Within 1 Month (Needs sleep study and PFT) Kareem Esteban MD [Primary Care Provider] - Maricruz Gaitan EVENT SPECIALIST FOOD DEMONSTRATORLeighannC [Med Staff - Adv Practice Prof] - Within 2 Weeks (PFT andsleep study) Germania Richardson, PA [Med Staff - Adv Practice Prof] - Within 2 Weeks Disposition Disposition (needs filled in before D/C Order can be placed): Home, Self Care Charges/Coding Visit Charges Inpatient E&M: 35022 Disch Hosp >30min 12/14/24 1007 <Electronically signed by Holden Barros MD> Cosigner Signature (if applicable): CC: Dr. Zachary Cleary MD; Dr. Kareem Esteban MD; Dr. Holden Barros MD~ Signed [facility] Work Phone: [phone] 351-791406-28-2025 Discharge summary Author Holden Barros [facility] Note Date/Time December 14, 2024 10:0 1am [facility] Medical Records Department [address] [place] [address] Instructions for Home/Discharge Instructions 12/14/24 0833 MR#: [id number] Acct: [id number] Name: ALECIA GUTIERREZ Rep #:[id number] : 1965 59 From: Holden Mortensen PCP: Dr. Kareem Esteban MD Status:AD M IN Discharge Instructions Diet Discharge Diet: Low fat / Low cholesterol and 2000 mg Sodium Diet DC O2, CPAP, BIPAP needs Home O2 Discharge instructions: No Dressing / Incision Discharge Activity: Return to Normal Activity Weight Bearing Status: Weight bearing as tolerated Dressing / Incision Call your doctor if you observe: Fever of 101 or Higher, Coldness, Increased Pain, Numbness or Tingling, Change in Color, Inability to urinate, Inability to have a bowel movement, Shortness of breath, Dizziness, Fainting spells, Swellingin the ankles, Chest pain, Prolonged hiccupping, Increased palpitations (irregular heartbeat) and Calf discomfort Follow Up Care When: IN 2 WEEKS Test Results: Test results from this visit will be discussed in further detail at your follow- up appointment, if applicable. Discharge Plan Admission Admit Date/Time: 12/13/24 16:43 Primary Reason for Your Visit: Moderate CAD, COPD/asthma bronchitis Attending Provider: Holden Barros Primary Care Provider: Kareem Esteban Consulting Providers: Mackenzie Pritchard; Zachary Cleary Discharge Orders/Prescriptions Prescriptions: New furosemide 40 mg Tablet 40 mg PO DAILY 30 Days Qty: 30 0RF atorvastatin 40 mg Tablet 40 mg PO QHS 30 Days Qty: 30 2RF metoprolol succinate 50 mg Tablet Extended Release 24 Hr 50 mg PO DAILY 30 Days Qty: 30 2RF sennosides-docusate sodium [Stimulant Laxative Plus] 8.6-50 mg Tablet 2 tab PO BID PRN PRN (Reason: Constipation) Qty: 0 0RF losartan 25 mg Tablet 25 mg PO DAILY 30 Days Qty: 30 2RF Eliquis 5 mg Tablet 5 mg PO BID 30 Days Qty: 60 2RF Jardiance 10 mg Tablet 10 mg PO DAILY 30 Days Qty: 30 1RF potassium chloride 20 mEq Tablet,Er Particles/Crystals 20 meq PO DAILYCM 30 Days Qty: 30 0RF Continued albuterol sulfate [Ventolin HFA] 90 mcg/actuation HFA aerosol inhaler 2 inh inhalation Q4H PRN (Reason: shortness of breath or wheezing) Referrals / Follow Up: Pato Ritchie DO [Med Staff - Active Staff] - Within 1 Month (Needs sleep study and PFT) Kareem Esteban MD [Primary Care Provider] - Maricruz Gaitan, EVENT SPECIALIST FOOD DEMONSTRATOR-C [Med Staff - Adv Practice Prof] - Within 2 Weeks (PFT andsleep study) Zachary Cleary MD [Med Staff - Active Staff] - Within 1 Month Germania Richardson, PA [Med Staff - Adv Practice Prof] - Within 2 Weeks Disposition Disposition (needs filled in before D/C Order can be placed): Home, Self Care 12/14/24 1001<Electronically signed by Holden Barros MD>Holden Barros MD CC: Dr. Zachary Cleary MD; Dr. Kareem Esteban MD; Dr. Mackenzie Pritchard MD ~ Signed [facility] Work Phone: [phone] 421-597906-28-2025 Discharge summary [facility] Medical Records Department [address] [place] [address] Discharge Summary 12/14/24 1001 MR#: [id number] Acct: [id number] Name: ALECIA GUTIERREZ Rep #:[id number] : 1965 59 From: Holden Mortensen PCP: Dr. Kareem Esteban MD Status:AD M IN Location: [id number] Providers Date of Admission: 12/13/24 Date of Discharge: 12/14/24 Primary Care Physician: Dr. Kareem Esteban MD Consultations 12/13/24 13:35 Consult: Cardiology Routine Consulting Provider: Zachary Cleary Reason for Consult: Abrormal stress, Afib rvr EMERGENT Consult: No MD Notified: Yes Date Notified: 12/13/24 Time Notified: 13:39 Method of Notification: Verbal Reason For Visit: A-FIB WITH RVR Diagnosis Discharge Diagnosis (1) Atrial fibrillation with RVR: Status: Acute Code(s): I48.91 - Unspecified atrial fibrillation Plan 59-year-old female admitted with shortness of breath and left-sided chest pain, inframammary regionstarted yesterday and progressively got worse described as sharp with associated shortness of breath and chronic morning cough. Denies fever, chills, abdominal pain, nausea or vomiting. Bilateral middle extremity swelling or pain #Afib w/ RVR -Admit to telemetry -Improved with push of diltiazem, will schedule beta-gale -Initial rate in ED: 151 -EKG: With heart rate of 126, repeat with A-fib with rate of 68 12/12: Heart rate is controlled currently in 70s. Afebrile. Continue beta- gale. Chest x-ray showslungs clear of no acute disease no pleural effusion or pneumothorax. Chest CTA no large central pulmonary emboli. A1c 5.5%. Fasting profile within normal limit 12/13 heart rate is controlled 75/min. 12/14: Heart rate and blood pressure are controlled. Pulse ox 93% on room air. Acute on chronic combined HFrEF and HFpEF may be due to A-fib RVR: 2D echo EF decreased, 35 to 40%,stage I diastolic dysfunction, moderate biatrial dilatation suggestive of combined acute on chronicHFrEF and HFpEF. TSH: 10.1 but free T4 and T3 WNL, advise repeat thyroid function test in 6 weeks to 2 months. Possible subclinical hypothyroidism. proBNP 1200. Heart failure core measures including i ntake and output, fluid restriction less than 1500 mL, dailyweight monitoring, kidney and electrolytes monitoring. Discussed with the commercial lines account assistant and nuclear stress test ordered for tomorrow 12/13: Her stress test was abnormal therefore taken for Body Repairer. It reported anterior wall hypoperfusion suggestive of moderate ischemia. Diagnostic cardiaccath showed EF 30% calcific moderate three-vessel disease 40% mid LAD, 50% mid circumflex, 60% mid RCA IFR 0.99. Medical therapy was recommended. Empagliflozin 10 mg daily, losartan 25 mg daily, metoprolol succinate 50 mg daily and atorvastatin 40 mg daily started. 12/14: Patient given prescription for furosemide 40 mg daily, metoprolol succinate 50 mg daily, losartan 25 mg daily, empagliflozin 10 mg daily, Eliquis 5 mg p.o. twice daily and baby aspirin 81 mg daily Atypical chest pain: - Pain is sharp, positional, seems to be reproducible and troponin is within normal limits from admitting hospital Plan for nuclear stress test tomorrow a.m. 12/14: Patient had cath admission of # History of asthma -Albuterol as needed 12/13: Patient is white and thick neck and wheezing suggestive of possible obstructive sleep apnea associated with asthma/COPD. Follow-up in pulmonary clinic for sleep study and PFT. # Hyperglycemia - A1c 5.5%. Diabetes or prediabetes ruled out. # Mild renal insufficiency -Creatinine of 1.21, no baseline available -Creatinine normal about 0.8 #Morbid obesity -BMI documented as 49.7 kg/m? at time of admission -Complicates treatment, prognosis, outcomes -Recommend weight loss and lifestyle changes - High suspicion the patient has sleep apnea given habitus and she does snore, would recommend sleep study on an outpatient basis #DVT ppx: Lovenox twice daily Changed to Eliquis 5 mg twice daily. Discharge medication reconciliation done. Discharge follow-up instructions completed. Discharge process discussed with the patient and all questions wereanswered to patient's satisfaction. Follow with PCP in 1 to 2 weeks Total time spent, exact 35 minutes on discharge meds reconciliation, examination, coordination of care with nurses and ancillary staff, review of imaging and blood test and discussion with the patient on follow-up instructions. Microbiology Past 72 Hours 12/11/24 14:40 Mucosa - Nose SARS-CoV-2, Influenza & RSV (PCR) - Final Laboratory Results 12/13/24 11:59: WBC 5.7, RBC 4.84, Hgb 13.7, Hct 42.2, MCV 87.2, MCH 28.3, MCHC 32.5, RDW Std Deviation 40.1, RDW Coeff of Shannan 12.7, Plt Count 227, MPV 10.4, Immature Gran % (Auto) 0.500, Neut % (Auto) 81.7 H, Lymph % (Auto) 12.4 L, Freestone % (Auto) 4.2, Eos % (Auto) 1.0, Baso % (Auto) 0.2, Absolute Neuts (auto) 4.7, Absolute Lymphs (auto) 0.71 L, Nucleated RBC % 0, Sodium 136, Potassium 4.0, Chloride 100, Carbon Dioxide 23.3, Anion Gap 13, BUN 12, Creatinine 0.92, Estim Creat Clear Calc 88.47, Est GFR (MDRD) Non-Af 71, BUN/Creatinine Ratio 13.2, Glucose 111 H, Calcium 8.7 12/13/24 13:13: Triglycerides Pending, Cholesterol Pending, LDL Cholesterol, Calc Pending, VLDL Cholesterol Pending, HDL Cholesterol Pending, Cholesterol/HDLRatio Pending 12/13/24 14:37: Activated Clotting Time 227 H Hemoglobin A1c 5.5, Calcium 9.0, Triglycerides 88, Cholesterol 151, LDL Cholesterol, Calc 93, VLDL Cholesterol 18, HDL Cholesterol 41, Cholesterol/HDL Ratio 3.71 Clinical Impression(s) from Imaging Studies Chest X-Ray 12/11/24 14:45 IMPRESSION: The lateral view is markedly limited by patient motion. Mild frontal view patient motion. Lungs appear clear of acute disease. No pleural effusion or pneumothorax. The cardiomediastinal silhouette is within the normal range for age. 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 Reading Location: [id number] Chest CTA 12/11/24 15:46 IMPRESSION: LIMITED. NO LARGE CENTRAL PULMONARY EMBOLI. Reading Location: [id number] Echocardiogram 12/12/24 05:55 Interpretation Summary The study was technically difficult. Mild concentric left ventricular hypertrophy. Moderate generalized LV hypokinesis. Estimated LVEF 35-40%. Stage I diastolic dysfunction. There is moderate biatrial dilatation. Ordering Physician: Mackenzie Pritchard Referring Physician: KAREEM ESTEBAN Performed By: Kriss HOLDEN, Kyra and Student Medications at Discharge Home Medications albuterol sulfate 90 mcg/actuation aerosol inhaler (Ventolin HFA) 2 inh inhalation Q4H PRN shortness of breath or wheezing 12/11/24 apixaban 5 mg tablet (Eliquis) 5 mg PO BID 30 days #60 tabs 12/14/24 aspirin 81 mg tablet,delayed release (Rebel Low Dose Aspirin) 81 mg PO DAILY 3 months #90 tabs 12/14/24 atorvastatin 40 mg tablet 40 mg PO QHS 30 days #30 tabs 12/14/24 empagliflozin 10 mg tablet (Jardiance) 10 mg PO DAILY 30 days #30 tabs 12/14/24 furosemide 40 mg tablet 40 mg PO DAILY 30 days #30 tabs 12/14/24 losartan 25 mg tablet 25 mg PO DAILY 30 days #30 tabs 12/14/24 metoprolol succinate 50 mg tablet,extended release 24 hr 50 mg PO DAILY 30 days #30 tabs 12/14/24 potassium chloride 20 mEq tablet,extended release(part/cryst) 20 meq PO DAILYCM 30 days #30 tabs 12/14/24 sennosides 8.6 mg-docusate sodium 50 mg tablet (Stimulant Laxative Plus) 2 tab PO BID PRN PRN Constipation #0 tabs 12/14/24 Physical Exam Narrative Seen and examined Stress test was abnormal therefore patient had cardiac catheter yesterday and cardiac cath she has moderate CAD with calcified vessel Patient was admitted with mild chest tightness/squeezing sensation over left inframammary region then persistent for 2 days. Mild short of breath. History of asthma. Shortness of breath. A-fib with RVR Physical exam General: Alert, Oriented x3, Cooperative. Morbid obesity BMI 45.1 kg/m? HEENT: Atraumatic, PERRLA, EOMI, Normocephalic. Oral: No Gingival or Mucosal Lesions/ Ulcerations Neck: Supple, No JVD, Negative Carotid Bruits Chest wall/Lungs: Air entry diminished in bilateral lungs. Bilateral fine wheezing Cardiovascular: Irregular rate and rhythm normal S1,S2, No M/G/R Abdomen: Bowel Sounds Present, Soft, Non Tender, Non-Distended : No dysuria. No renal angle tenderness. No suprapubic tenderness. Extremities: Bilateral 1+ below mid thigh edema, bilateral TKR Skin: Right radial region no hematoma or bleeding Musculoskeletal: No Tenderness to Palpation of Joints or Extremities Neurological: Cranial nerves II-XII grossly intact, DTR 2+/4. No acute focal neurological deficit. Psych/Mental Status: Normal Affect, Appropriate. Weight / BMI Weight Weight: 277 lb 12.519 oz Body Mass Index (BMI) 44.8 ABG / Lab / Microbiology Data 12/14/24 05:50 12/14/24 05:50 Laboratory: Laboratory Results - last 24 hr 12/13/24 11:59: WBC 5.7, RBC 4.84, Hgb 13.7, Hct 42.2, MCV 87.2, MCH 28.3, MCHC 32.5, RDW Std Deviation 40.1, RDW Coeff of Shannan 12.7, Plt Count 227, MPV 10.4, Immature Gran % (Auto) 0.500, Neut % (Auto) 81.7 H, Lymph % (Auto) 12.4 L, Freestone % (Auto) 4.2, Eos % (Auto) 1.0, Baso % (Auto) 0.2, Absolute Neuts (auto) 4.7, Absolute Lymphs (auto) 0.71 L, Nucleated RBC % 0, Sodium 136, Potassium 4.0, Chloride 100, Carbon Dioxide 23.3, Anion Gap 13, BUN 12, Creatinine 0.92, Estim Creat Clear Calc 88.47, Est GFR (MDRD) Non-Af 71, BUN/Creatinine Ratio 13.2, Glucose 111 H, Calcium 8.7 12/13/24 13:13: Triglycerides 98, Cholesterol 147, LDL Cholesterol, Calc 90, VLDL Cholesterol 20, HDL Cholesterol 37 L, Cholesterol/HDL Ratio 3.93 12/13/24 14:37: Activated Clotting Time 227 H 12/14/24 05:50: WBC 7.2, RBC 4.71, Hgb 13.4, Hct 41.1, MCV 87.3, MCH 28.5, MCHC 32.6, RDW Std Deviation 40.4, RDW Coeff of Shannan 12.7, Plt Count 230, MPV 10.5, Immature Gran % (Auto) 0.600, Neut % (Auto) 78.9 H, Lymph % (Auto) 14.5 L, Freestone % (Auto) 4.7, Eos % (Auto) 1.0, Baso % (Auto) 0.3, Absolute Neuts (auto) 5.7, Absolute Lymphs (auto) 1.04, Nucleated RBC % 0, Sodium 138, Potassium 4.0, [id number], Carbon Dioxide 24.1, Anion Gap 12, BUN 13, Creatinine 0.96, Estim Creat Clear Calc 84.59, Est GFR (MDRD) Non-Af 68, BUN/Creatinine Ratio 13.4, Glucose 101 H, Calcium 8.7 Microbiology: Microbiology 12/11/24 14:40 Mucosa - Nose SARS-CoV-2, Influenza & RSV (PCR) - Final D/C Instructions Discharge Diet: Low fat / Low cholesterol and 2000 mg Sodium Diet Weight Bearing Status: Weight bearing as tolerated Call your doctor if you observe: Fever of 101 or Higher, Coldness, Increased Pain, Numbness or Tingling, Change in Color, Inability to urinate, Inability to have a bowel movement, Shortness of breath, Dizziness, Fainting spells, Swellingin the ankles, Chest pain, Prolonged hiccupping, Increased palpitations (irregular heartbeat) and Calf discomfort DC O2, CPAP, BIPAP Needs Home O2 Discharge instructions: No When: IN 2 WEEKS Meaningful Use Info Meaningful Use Meaningful Use Diagnoses (Choose all that apply): None applicable Ischemic Stroke Statin Dosing Therapy Reference: STATIN DOSE THERAPY REFERENCE: * Patients > 75 years receive moderate or high dose statin therapy. * Patients 75 years or YOUNGER should receive HIGH intensity statin dose unless contraindicated. You will be required to document reason for non-treatment if statin daily dose does not meet guidelines. HIGH DOSE STATIN THERAPY DAILY Atorvastatin > than or = to 40 mg Rosuvastatin > than or = to 20 mg Amlodipine + Atorvastatin > than or = to 2.5/40 mg Ezetimibe + Simvastatin 10/80 mg Simvastatin 80mg Discharge Plan Admission Admit Date/Time: 12/13/24 16:43 Primary Reason for Your Visit: Moderate CAD, COPD/asthma bronchitis Attending Provider: Holden Barros Primary Care Provider: Kareem Esteban Consulting Providers: Mackenzie Pritchard; Zachary Cleary Discharge Orders/Prescriptions Prescriptions: New furosemide 40 mg Tablet 40 mg PO DAILY 30 Days Qty: 30 0RF atorvastatin 40 mg Tablet 40 mg PO QHS 30 Days Qty: 30 2RF metoprolol succinate 50 mg Tablet Extended Release 24 Hr 50 mg PO DAILY 30 Days Qty: 30 2RF sennosides-docusate sodium [Stimulant Laxative Plus] 8.6-50 mg Tablet 2 tab PO BID PRN PRN (Reason: Constipation) Qty: 0 0RF losartan 25 mg Tablet 25 mg PO DAILY 30 Days Qty: 30 2RF Eliquis 5 mg Tablet 5 mg PO BID 30 Days Qty: 60 2RF Jardiance 10 mg Tablet 10 mg PO DAILY 30 Days Qty: 30 1RF potassium chloride 20 mEq Tablet,Er Particles/Crystals 20 meq PO DAILYCM 30 Days Qty: 30 0RF aspirin [Rebel Low Dose Aspirin] 81 mg tablet,delayed release (DR/EC) 81 mg PO DAILY 90 Days Qty: 90 1RF Continued albuterol sulfate [Ventolin HFA] 90 mcg/actuation HFA aerosol inhaler 2 inh inhalation Q4H PRN (Reason: shortness of breath or wheezing) Referrals / Follow Up: Zachary Cleary MD [Med Staff - Active Staff] - Within 1 Month Pato Ritchie DO [Med Staff - Active Staff] - Within 1 Month (Needs sleep study and PFT) Kareem Esteban MD [Primary Care Provider] - Maricruz Gaitan, EVENT SPECIALIST FOOD DEMONSTRATOR-C [Med Staff - Adv Practice Prof] - Within 2 Weeks (PFT andsleep study) Germania Richardson PA [Med Staff - [facility] Practice Prof] - Within 2 Weeks Disposition Disposition (needs filled in before D/C Order can be placed): Home, Self Care Charges/Coding Visit Charges Inpatient E&M: 81370 Disch Hosp >30min 12/14/24 1007 Cosigner Signature (if applicable): CC: Dr. Zachary Cleary MD; Dr. Kareem Esteban MD; Dr. Holden Barros MD~ Signed [facility]06-28-2025 Discharge summary [facility] Medical Records Department [address] [place] [address] Instructions for Home/Discharge Instructions 12/14/24 0833 MR#: [id number] Acct: [id number] Name: ALECIA GUTIERREZ Rep #:[id number] : 1965 59 From: Holden Mortensen PCP: Dr. Kareem Esteban MD Status:AD M IN Discharge Instructions Diet Discharge Diet: Low fat / Low cholesterol and 2000 mg Sodium Diet DC O2, CPAP, BIPAP needs Home O2 Discharge instructions: No Dressing / Incision Discharge Activity: Return to Normal Activity Weight Bearing Status: Weight bearing as tolerated Dressing / Incision Call your doctor if you observe: Fever of 101 or Higher, Coldness, Increased Pain, Numbness or Tingling, Change in Color, Inability to urinate, Inability to have a bowel movement, Shortness of breath, Dizziness, Fainting spells, Swellingin the ankles, Chest pain, Prolonged hiccupping, Increased palpitations (irregular heartbeat) and Calf discomfort Follow Up Care When: IN 2 WEEKS Test Results: Test results from this visit will be discussed in further detail at your follow- up appointment, if applicable. Discharge Plan Admission Admit Date/Time: 12/13/24 16:43 Primary Reason for Your Visit: Moderate CAD, COPD/asthma bronchitis Attending Provider: Holden Barros Primary Care Provider: Kareem Esteban Consulting Providers: Mackenzie Pritchard; Zachary Cleary Discharge Orders/Prescriptions Prescriptions: New furosemide 40 mg Tablet 40 mg PO DAILY 30 Days Qty: 30 0RF atorvastatin 40 mg Tablet 40 mg PO QHS 30 Days Qty: 30 2RF metoprolol succinate 50 mg Tablet Extended Release 24 Hr 50 mg PO DAILY 30 Days Qty: 30 2RF sennosides-docusate sodium [Stimulant Laxative Plus] 8.6-50 mg Tablet 2 tab PO BID PRN PRN (Reason: Constipation) Qty: 0 0RF losartan 25 mg Tablet 25 mg PO DAILY 30 Days Qty: 30 2RF Eliquis 5 mg Tablet 5 mg PO BID 30 Days Qty: 60 2RF Jardiance 10 mg Tablet 10 mg PO DAILY 30 Days Qty: 30 1RF potassium chloride 20 mEq Tablet,Er Particles/Crystals 20 meq PO DAILYCM 30 Days Qty: 30 0RF Continued albuterol sulfate [Ventolin HFA] 90 mcg/actuation HFA aerosol inhaler 2 inh inhalation Q4H PRN (Reason: shortness of breath or wheezing) Referrals / Follow Up: Pato Ritchie DO [Med Staff - Active Staff] - Within 1 Month (Needs sleep study and PFT) Kareem Esteban MD [Primary Care Provider] - Maricruz Gaitan NP-C [Med Staff - Adv Practice Prof] - Within 2 Weeks (PFT andsleep study) Zachary Cleary MD [Med Staff - Active Staff] - Within 1 Month Germania Richardson PA, PA [Med Staff - Adv Practice Prof] - Within 2 Weeks Disposition Disposition (needs filled in before D/C Order can be placed): Home, Self Care 12/14/24 1001Petta Barros MD CC: Dr. Zachary Cleary MD; Dr. Kareem Esteban MD; Dr. Mackenzie Pritchard MD ~ [facility]06-28-2025 [facility] Medical Records Department [address] [place] [address] Discharge Summary 12/14/24 1001 MR#: [id number] Acct: [id number] Name: ALECIA GUTIERREZ Rep #: [id number] : 1965 59 From: Holden Barros MD PCP: Dr. Kareem Esteban MD Status:ADM IN Location: [place] [address] Providers Date of Admission: 12/13/24 Date of Discharge: 12/14/24 Primary Care Physician: Dr. Kareem Esteban MD Consultations 12/13/24 13:35 Consult: Cardiology Routine Consulting Provider: Zachary Cleary Reason for Consult: Abrormal stress, Afib rvr EMERGENT Consult: No MD Notified: Yes Date Notified: 12/13/24 Time Notified: 13:39 Method of Notification: Verbal Reason For Visit: A-FIB WITH RVR Diagnosis Discharge Diagnosis (1) Atrial fibrillation with RVR: Status: Acute Code(s): I48.91 - Unspecified atrial fibrillation Plan 59-year-old female admitted with shortness of breath and left-sided chest pain, inframammary region started yesterday and progressively got worse described as sharp with associated shortness of breath and chronic morning cough. Denies fever, chills, abdominal pain, nausea or vomiting. Bilateral middle extremity swelling or pain #Afib w/ RVR -Admit to telemetry -Improved with push of diltiazem, will schedule beta-gale -Initial rate in ED: 151 -EKG: With heart rate of 126, repeat with A-fib with rate of 68 12/12: Heart rate is controlled currently in 70s. Afebrile. Continue beta- gale. Chest x-ray shows lungs clear of no acute disease no pleural effusion or pneumothorax. Chest CTA no large central pulmonary emboli. A1c 5.5%. Fasting profile within normal limit 12/13 heart rate is controlled 75/min. 12/14: Heart rate and blood pressure are controlled. Pulse ox 93% on room air. 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 TSH: 10.1 but free T4 and T3 WNL, advise repeat thyroid function test in 6 weeks to 2 months. Possible subclinical hypothyroidism. proBNP 1200. Heart failure core measures including intake and output, fluid restriction less than 1500 mL, daily weight monitoring, kidney and electrolytes monitoring. Discussed with the commercial lines account assistant and nuclear stress test ordered for tomorrow 12/13: Her stress test was abnormal therefore taken for Body Repairer. It reported anterior wall hypoperfusion suggestive of moderate ischemia. Diagnostic cardiac cath showed EF 30% calcific moderate three-vessel disease 40% mid LAD, 50% mid circumflex, 60% mid RCA IFR 0.99. Medical therapy was recommended. Empagliflozin 10 mg daily, losartan 25 mg daily, metoprolol succinate 50 mg daily and atorvastatin 40 mg daily started. 12/14: Patient given prescription for furosemide 40 mg daily, metoprolol succinate 50 mg daily, losartan 25 mg daily, empagliflozin 10 mg daily, Eliquis 5 mg p.o. twice daily and baby aspirin 81 mg daily Atypical chest pain: - Pain is sharp, positional, seems to be reproducible and troponin is within normal limits from admitting hospital Plan for nuclear stress test tomorrow a.m. 12/14: Patient had cath admission of # History of asthma -Albuterol as needed 12/13: Patient is white and thick neck and wheezing suggestive of possible obstructive sleep apnea associated with asthma/COPD. Follow-up in pulmonary clinic for sleep study and PFT. # Hyperglycemia - A1c 5.5%. Diabetes or prediabetes ruled out. # Mild renal insufficiency -Creatinine of 1.21, no baseline available -Creatinine normal about 0.8 #Morbid obesity -BMI documented as 49.7 kg/m??? at time of admission -Complicates treatment, prognosis, outcomes -Recommend weight loss and lifestyle changes - High suspicion the patient has sleep apnea given habitus and she does snore, would recommend sleep study on an outpatient basis #DVT ppx: Lovenox twice daily Changed to Eliquis 5 mg twice daily. Discharge medication reconciliation done. Discharge follow-up instructions completed. Discharge process discussed with the patient and all questions were answered to patient's satisfaction. Follow with PCP in 1 to 2 weeks Total time spent, exact 35 minutes on discharge meds reconciliation, examination, coordination of care with nurses and ancillary staff, review of imaging and blood test and discussion with the patient on follow-up instructions. Microbiology Past 72 Hours 12/11/24 14:40 Mucosa - Nose SARS-CoV-2, Influenza RSV (PCR) - Final Laboratory Results 12/13/24 11:59: WBC 5.7, RBC 4.84, Hgb 13.7, Hct 42.2, MCV 87.2, MCH 28.3, MCHC 32.5, RDW Std Deviation 40.1, RDW Coeff of Shannan 12.7, Plt Count 227, MPV 10.4, Immature Gran % (Auto) 0.500, Neut % (Auto) 81.7 H, Lymph % (Auto) 12.4 L, Freestone % (Auto) 4.2, Eos % (Auto) 1.0, (more content not included)...[facility]06-27-2025 Evaluation note* Diagnosis Onset Date Resolution Status Admit Date Abnormal cardiovascular stre ss test acute December 13, 2024 4:43pm Atrial fibrillation acute December 13, 2024 4:43pm Atrial fibrillation with RVR acute December 13, 2024 4:43pm CAD (coronary artery disease) acute December 13, 2024 4:43pm Dyslipidemia acute December 13, 2 025 4:43pm History of asthma acute December 132024 4:43pm Morbid obesity acute December 13, 2024 4:43pm Nonischemic cardiomyopathy acute December 13, 2024 4:43pm Chronic systolic (congestive ) heart failure chronic December 13, 2024 4:43pm Hypertension chronic December 13, 2 025 4:43pm [facility] Work Phone: 1(725) 241-340906-27-2025 Evaluation note* Diagnosis Onset Date Resolution Status Admit Date Abnormal cardiovascular stre ss test acute December 13, 2024 4:43pm Atrial fibrillation with RVR acute December 13, 2024 4:43pm CAD (coronary artery disease) acute December 13, 2024 4:43pm Dyslipidemia acute December 13, 2 025 4:43pm History of asthma acute December 132024 4:43pm Morbid obesity acute December 13, 2024 4:43pm Chronic systolic (congestive ) heart failure chronic December 13, 2024 4:43pm Hypertension chronic December 13, 2 025 4:43pm Nonischemic cardiomyopathy chronic December 13, 2024 4:43pm Atrial fibrillation inactive December 13, 2024 4:43pm CAD (coronary artery disease) acute December 25, 2024 12:53pm Dyslipidemia acute December 25 12:53pm AYO (obstructive sleep apnea) acute December 25, 2024 12:53pm Persistent atrial fibrillation acute December 25, 2024 12:53pm Hypertension chronic December 25 12:53pm Nonischemic cardiomyopathy chronic December 25, 2024 12:53pm [facility] Work Phone: 1(841) 710-348406-27-2025 Evaluation note* Diagnosis Onset Date Resolution Status Admit Date Abnormal cardiovascular stre ss test acute December 13, 2024 4:43pm Atrial fibrillation with RVR acute December 13, 2024 4:43pm CAD (coronary artery disease) acute December 13, 2024 4:43pm Dyslipidemia acute December 13, 2 025 4:43pm History of asthma acute December 132024 4:43pm Morbid obesity acute December 13, 2024 4:43pm Chronic systolic (congestive ) heart failure chronic December 13, 2024 4:43pm Hypertension chronic December 13, 2 025 4:43pm Nonischemic cardiomyopathy chronic December 13, 2024 4:43pm Atrial fibrillation inactive December 13, 2024 4:43pm CAD (coronary artery disease) acute December 25, 2024 12:53pm Dyslipidemia acute December 25 12:53pm AYO (obstructive sleep apnea) acute December 25, 2024 12:53pm Persistent atrial fibrillation acute December 25, 2024 12:53pm Hypertension chronic December 25 12:53pm Nonischemic cardiomyopathy chronic December 25, 2024 12:53pm AYO (obstructive sleep apnea) acute January 29, 2025 9:06am Persistent atrial fibrillation acute January 29, 2025 9:06am [facility] Work Phone: 1([phone]) 500-711906-27-2025 Evaluation note* Diagnosis Onset Date Resolution Status Admit Date Abnormal cardiovascular stre ss test acute December 13, 2024 4:43pm Atrial fibrillation with RVR acute December 13, 2024 4:43pm CAD (coronary artery disease) acute December 13, 2024 4:43pm Dyslipidemia acute December 13, 2 025 4:43pm History of asthma acute December 132024 4:43pm Chronic systolic (congestive ) heart failure chronic December 13, 2024 4:43pm Hypertension chronic December 13, 2 025 4:43pm Morbid obesity chronic December 13, 2024 4:43pm Nonischemic cardiomyopathy chronic December 13, 2024 4:43pm Atrial fibrillation inactive December 13, 2024 4:43pm CAD (coronary artery disease) acute December 25, 2024 12:53pm Dyslipidemia acute December 25 12:53pm AYO (obstructive sleep apnea) acute December 25, 2024 12:53pm Persistent atrial fibrillation acute December 25, 2024 12:53pm Hypertension chronic December 25 12:53pm Nonischemic cardiomyopathy chronic December 25, 2024 12:53pm AYO (obstructive sleep apnea) acute January 29, 2025 9:06am Persistent atrial fibrillation acute January 29, 2025 9:06am Morbid obesity chronic January 9:06am [facility] Work Phone: 1(248) 660-368906-27-2025 Evaluation note* Diagnosis Onset Date Resolution Status Admit Date Abnormal cardiovascular stre ss test acute December 13, 2024 4:43pm Atrial fibrillation with RVR acute December 13, 2024 4:43pm CAD (coronary artery disease) acute December 13, 2024 4:43pm Dyslipidemia acute December 13, 2 025 4:43pm History of asthma acute December 132024 4:43pm Chronic systolic (congestive ) heart failure chronic December 13, 2024 4:43pm Hypertension chronic December 13, 2 025 4:43pm Morbid obesity chronic December 13, 2024 4:43pm Nonischemic cardiomyopathy chronic December 13, 2024 4:43pm Atrial fibrillation inactive December 13, 2024 4:43pm CAD (coronary artery disease) acute December 25, 2024 12:53pm Dyslipidemia acute December 25 12:53pm AYO (obstructive sleep apnea) acute December 25, 2024 12:53pm Persistent atrial fibrillation acute December 25, 2024 12:53pm Hypertension chronic December 25 12:53pm Nonischemic cardiomyopathy chronic December 25, 2024 12:53pm AYO (obstructive sleep apnea) acute January 29, 2025 9:06am Persistent atrial fibrillation acute January 29, 2025 9:06am Morbid obesity chronic January 9:06am CAD (coronary artery disease) acute February 26, 2025 1:53pm Dyslipidemia acute February 262024 1:53pm AYO (obstructive sleep apnea) acute February 26, 2025 1:53pm Persistent atrial fibrillation acute February 26, 2025 1:53pm Hypertension chronic February 262024 1:53pm Nonischemic cardiomyopathy chronic February 26, 2025 1:53pm [facility] Work Phone: 1(549) 684-955506-27-2025 Progress note Author Holden Barros [facility] Note Date/Time December 13, 2024 4:40 pm [facility] Medical Records Department [address] [place] [address] Progress Note - Hospitalist 12/13/24 1631 MR#: [id number] Acct: [id number] Name: ALECIA GUTIERREZ Rep #:[id number] : 1965 59 From: Holden Mortensen PCP: Dr. Kareem Esteban MD Status:ALANIS EAGLE Location: [place] [address] Reason for Visit Reason for Visit: Diagnoses Morbid (severe) obesity due to excess calories (12/11/24) Essential (primary) hypertension (12/11/24) Unspecified atrial fibrillation (12/11/24) Abnormal result of other cardiovascular function study (12/11/24) Personal history of other diseases of the respiratory system (12/11/24) Objective Data Objective Data Vital Signs: Vital Signs Temp Pulse Resp BP Pulse Ox O2 Del Method 97.5 F L 75 20 H 153/103 H 98 Room Air 12/13/24 10:58 12/13/24 14:05 12/13/24 14:05 12/13/24 14:05 12/13/24 14:05 12/13/24 14:05 Oxygen Delivery Method Room Air Weight: 278 lb 14.156 oz Body Mass Index (BMI) 45.0 Intake & Output: Intake and Output for Last 24 Hours 12/11/24 12/12/24 12/13/24 23:59 23:59 23:59 Intake Total 500 / 980 1140 / 1140 220 / 220 Balance 500 / 980 1140 / 1140 220 / 220 Lab / Micro Data 12/13/24 11:59 12/13/24 11:59 Labs: Laboratory Results - last 24 hr 12/13/24 11:59: WBC 5.7, RBC 4.84, Hgb 13.7, Hct 42.2, MCV 87.2, MCH 28.3, MCHC 32.5, RDW Std Deviation 40.1, RDW Coeff of Shannan 12.7, Plt Count 227, MPV 10.4, Immature Gran % (Auto) 0.500, Neut % (Auto) 81.7 H, Lymph % (Auto) 12.4 L, Freestone % (Auto) 4.2, Eos % (Auto) 1.0, Baso % (Auto) 0.2, Absolute Neuts (auto) 4.7, Absolute Lymphs (auto) 0.71 L, Nucleated RBC % 0, Sodium 136, Potassium 4.0, Chloride 100, Carbon Dioxide 23.3, Anion Gap 13, BUN 12, Creatinine 0.92, Estim Creat Clear Calc 88.47, Est GFR (MDRD) Non-Af 71, BUN/Creatinine Ratio 13.2, Glucose 111 H, Calcium 8.7 12/13/24 14:37: Activated Clotting Time 227 H Micro: Microbiology 12/11/24 14:40 Mucosa - Nose SARS-CoV-2, Influenza & RSV (PCR) - Final Physical Exam Narrative Seen and examined Stress test was normal therefore patient had cardiac catheter today. Patient was admitted with mild chest tightness/squeezing sensation over left inframammary region then persistent for 2 days. Mild short of breath. History of asthma. Shortness of breath. A-fib with RVR Physical exam General: Alert, Oriented x3, Cooperative. Morbid obesity BMI 45.1 kg/m? HEENT: Atraumatic, PERRLA, EOMI, Normocephalic. Oral: No Gingival or Mucosal Lesions/ Ulcerations Neck: Supple, No JVD, Negative Carotid Bruits Chest wall/Lungs: Air entry diminished in bilateral lungs. Bilateral fine wheezing Cardiovascular: Irregular rate and rhythm normal S1,S2, No M/G/R Abdomen: Bowel Sounds Present, Soft, Non Tender, Non-Distended : No dysuria. No renal angle tenderness. No suprapubic tenderness. Extremities: Bilateral 3+ below mid thigh edema, bilateral TKR Skin: Right radial region no hematoma or bleeding Musculoskeletal: No Tenderness to Palpation of Joints or Extremities Neurological: Cranial nerves II-XII grossly intact, DTR 2+/4. No acute focal neurological deficit. Psych/Mental Status: Normal Affect, Appropriate. Assessment & Plan Assessment/Plan (1) Atrial fibrillation with RVR: PLAN: Plan 59-year-old female admitted with shortness of breath and left-sided chest pain, inframammary region started yesterday and progressively got worse described as sharp with associated shortness of breath and chronic morning cough. Denies fever, chills, abdominal pain, nausea or vomiting. Bilateral middle extremity swelling or pain #Afib w/ RVR -Admit to telemetry -Improved with push of diltiazem, will schedule beta-gale -Initial rate in ED: 151 -EKG: With heart rate of 126, repeat with A-fib with rate of 68 12/12: Heart rate is controlled currently in 70s. Afebrile. Continue beta- gale. Chest x-ray shows lungs clear of no acute disease no pleural effusion or pneumothorax. Chest CTA no large central pulmonary emboli. A1c 5.5%. Fasting profile within normal limit 12/13 heart rate is controlled 75/min. 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 TSH: 10.1 but free T4 and T3 WNL, advise repeat thyroid function test in 6 weeks to 2 months. Possible subclinical hypothyroidism. proBNP 1200. Heart failure core measures including intake and output, fluid restriction less than 1500 mL, dailyweight monitoring, kidney and electrolytes monitoring. Discussed with the commercial lines account assistant and nuclear stress test ordered for tomorrow 12/13: Her stress test was abnormal therefore taken for Body Repairer. It reported anterior wall hypoperfusion suggestive of moderate ischemia. Diagnostic cardiaccath showed EF 30% calcific moderate three-vessel disease 40% mid LAD, 50% mid circumflex, 60% mid RCA IFR 0.99. Medical therapy was recommended. Empagliflozin 10 mg daily, losartan 25 mg daily, metoprolol succinate 50 mg daily and atorvastatin 40 mg daily started. Atypical chest pain: - Pain is sharp, positional, seems to be reproducible and troponin is within normal limits from admitting hospital Plan for nuclear stress test tomorrow a.m. # History of asthma -Albuterol as needed 12/13: Patient is white and thick neck and wheezing suggestive of possible obstructive sleep apnea associated with asthma/COPD. Follow-up in pulmonary clinic for sleep study and PFT. # Hyperglycemia -Will check A1c, unclear if this is stress response or patient may have diabetesor prediabetes # Mild renal insufficiency -Creatinine of 1.21, no baseline available -Repeat in the a.m. #Morbid obesity -BMI documented as 49.7 kg/m? at time of admission -Complicates treatment, prognosis, outcomes -Recommend weight loss and lifestyle changes - High suspicion the patient has sleep apnea given habitus and she does snore, would recommend sleep study on an outpatient basis #DVT ppx: Lovenox twice daily Changed to Eliquis 5 mg twice daily. Microbiology Past 72 Hours 12/11/24 14:40 Mucosa - Nose SARS-CoV-2, Influenza & RSV (PCR) - Final Laboratory Results 12/13/24 11:59: WBC 5.7, RBC 4.84, Hgb 13.7, Hct 42.2, MCV 87.2, MCH 28.3, MCHC 32.5, RDW Std Deviation 40.1, RDW Coeff of Shannan 12.7, Plt Count 227, MPV 10.4, Immature Gran % (Auto) 0.500, Neut % (Auto) 81.7 H, Lymph % (Auto) 12.4 L, Freestone % (Auto) 4.2, Eos % (Auto) 1.0, Baso % (Auto) 0.2, Absolute Neuts (auto) 4.7, Absolute Lymphs (auto) 0.71 L, Nucleated RBC % 0, Sodium 136, Potassium 4.0, Chloride 100, Carbon Dioxide 23.3, Anion Gap 13, BUN 12, Creatinine 0.92, Estim Creat Clear Calc 88.47, Est GFR (MDRD) Non-Af 71, BUN/Creatinine Ratio 13.2, Glucose 111 H, Calcium 8.7 12/13/24 13:13: Triglycerides Pending, Cholesterol Pending, LDL Cholesterol, Calc Pending, VLDL Cholesterol Pending, HDL Cholesterol Pending, Cholesterol/HDLRatio Pending 12/13/24 14:37: Activated Clotting Time 227 H Hemoglobin A1c 5.5, Calcium 9.0, Triglycerides 88, Cholesterol 151, LDL Cholesterol, Calc 93, VLDL Cholesterol 18, HDL Cholesterol 41, Cholesterol/HDL Ratio 3.71 Clinical Impression(s) from Imaging Studies Chest X-Ray 12/11/24 14:45 IMPRESSION: The lateral view is markedly limited by patient motion. Mild frontal view patient motion. Lungs appear clear of acute disease. No pleural effusion or pneumothorax. The cardiomediastinal silhouette is within the normal range for age. 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 Reading Location: [facility] Chest CTA 12/11/24 15:46 IMPRESSION: LIMITED. NO LARGE CENTRAL PULMONARY EMBOLI. Reading Location: [id number] Echocardiogram 12/12/24 05:55 Interpretation Summary The study was technically difficult. Mild concentric left ventricular hypertrophy. Moderate generalized LV hypokinesis. Estimated LVEF 35-40%. Stage I diastolic dysfunction. There is moderate biatrial dilatation. Ordering Physician: Mackenzie Pritchard Referring Physician: KAREEM ESTEBAN Performed By: Kriss HOLDEN, Kyra and Student Charges/Coding Visit Charges Inpatient E&M: 24191 Subs Hosp L2 12/13/24 1640 <Electronically signed by Holden Barros MD> Cosigner Signature (if applicable): CC: ~ Signed [facility] Work Phone: 1(206) 818-370906-27-2025 Progress note [facility] Medical Records Department [address] [place] [address] Progress Note - Hospitalist 12/13/24 1631 MR#: [id number] Acct: [id number] Name: ALECIA GUTIERREZ Rep #:[id number] : 1965 59 From: Holden Mortensen PCP: Dr. Kareem Esteban MD Status:ALANIS EAGLE Location: [place] [address] Reason for Visit Reason for Visit: Diagnoses Morbid (severe) obesity due to excess calories (12/11/24) Essential (primary) hypertension (12/11/24) Unspecified atrial fibrillation (12/11/24) Abnormal result of other cardiovascular function study (12/11/24) Personal history of other diseases of the respiratory system (12/11/24) Objective Data Objective Data Vital Signs: Vital Signs Temp Pulse Resp BP Pulse Ox O2 Del Method 97.5 F L 75 20 H 153/103 H 98 Room Air 12/13/24 10:58 12/13/24 14:05 12/13/24 14:05 12/13/24 14:05 12/13/24 14:05 12/13/24 14:05 Oxygen Delivery Method Room Air Weight: 278 lb 14.156 oz Body Mass Index (BMI) 45.0 Intake & Output: Intake and Output for Last 24 Hours 12/11/24 12/12/24 12/13/24 23:59 23:59 23:59 Intake Total 500 / 980 1140 / 1140 220 / 220 Balance 500 / 980 1140 / 1140 220 / 220 Lab / Micro Data 12/13/24 11:59 12/13/24 11:59 Labs: Laboratory Results - last 24 hr 12/13/24 11:59: WBC 5.7, RBC 4.84, Hgb 13.7, Hct 42.2, MCV 87.2, MCH 28.3, MCHC 32.5, RDW Std Deviation 40.1, RDW Coeff of Shannan 12.7, Plt Count 227, MPV 10.4, Immature Gran % (Auto) 0.500, Neut % (Auto) 81.7 H, Lymph % (Auto) 12.4 L, Freestone % (Auto) 4.2, Eos % (Auto) 1.0, Baso % (Auto) 0.2, Absolute Neuts (auto) 4.7, Absolute Lymphs (auto) 0.71 L, Nucleated RBC % 0, Sodium 136, Potassium 4.0, Chloride 100, Carbon Dioxide 23.3, Anion Gap 13, BUN 12, Creatinine 0.92, Estim Creat Clear Calc 88.47, Est GFR (MDRD) Non-Af 71, BUN/Creatinine Ratio 13.2, Glucose 111 H, Calcium 8.7 12/13/24 14:37: Activated Clotting Time 227 H Micro: Microbiology 12/11/24 14:40 Mucosa - Nose SARS-CoV-2, Influenza & RSV (PCR) - Final Physical Exam Narrative Seen and examined Stress test was normal therefore patient had cardiac catheter today. Patient was admitted with mild chest tightness/squeezing sensation over left inframammary region then persistent for 2 days. Mild short of breath. History of asthma. Shortness of breath. A-fib with RVR Physical exam General: Alert, Oriented x3, Cooperative. Morbid obesity BMI 45.1 kg/m? HEENT: Atraumatic, PERRLA, EOMI, Normocephalic. Oral: No Gingival or Mucosal Lesions/ Ulcerations Neck: Supple, No JVD, Negative Carotid Bruits Chest wall/Lungs: Air entry diminished in bilateral lungs. Bilateral fine wheezing Cardiovascular: Irregular rate and rhythm normal S1,S2, No M/G/R Abdomen: Bowel Sounds Present, Soft, Non Tender, Non-Distended : No dysuria. No renal angle tenderness. No suprapubic tenderness. Extremities: Bilateral 3+ below mid thigh edema, bilateral TKR Skin: Right radial region no hematoma or bleeding Musculoskeletal: No Tenderness to Palpation of Joints or Extremities Neurological: Cranial nerves II-XII grossly intact, DTR 2+/4. No acute focal neurological deficit. Psych/Mental Status: Normal Affect, Appropriate. Assessment & Plan Assessment/Plan (1) Atrial fibrillation with RVR: PLAN: Plan 59-year-old female admitted with shortness of breath and left-sided chest pain, inframammary regionstarted yesterday and progressively got worse described as sharp with associated shortness of breath and chronic morning cough. Denies fever, chills, abdominal pain, nausea or vomiting. Bilateral middle extremity swelling or pain #Afib w/ RVR -Admit to telemetry -Improved with push of diltiazem, will schedule beta-gale -Initial rate in ED: 151 -EKG: With heart rate of 126, repeat with A-fib with rate of 68 12/12: Heart rate is controlled currently in 70s. Afebrile. Continue beta- gale. Chest x-ray showslungs clear of no acute disease no pleural effusion or pneumothorax. Chest CTA no large central pulmonary emboli. A1c 5.5%. Fasting profile within normal limit 12/13 heart rate is controlled 75/min. Acute on chronic combined HFrEF and HFpEF may be due to A-fib RVR: 2D echo EF decreased, 35 to 40%,stage I diastolic dysfunction, moderate biatrial dilatation suggestive of combined acute on chronicHFrEF and HFpEF. TSH: 10.1 but free T4 and T3 WNL, advise repeat thyroid function test in 6 weeks to 2 months. Possible subclinical hypothyroidism. proBNP 1200. Heart failure core measures including i ntake and output, fluid restriction less than 1500 mL, dailyweight monitoring, kidney and electrolytes monitoring. Discussed with the commercial lines account assistant and nuclear stress test ordered for tomorrow 12/13: Her stress test was abnormal therefore taken for Body Repairer. It reported anterior wall hypoperfusion suggestive of moderate ischemia. Diagnostic cardiaccath showed EF 30% calcific moderate three-vessel disease 40% mid LAD, 50% mid circumflex, 60% mid RCA IFR 0.99. Medical therapy was recommended. Empagliflozin 10 mg daily, losartan 25 mg daily, metoprolol succinate 50 mg daily and atorvastatin 40 mg daily started. Atypical chest pain: - Pain is sharp, positional, seems to be reproducible and troponin is within normal limits from admitting hospital Plan for nuclear stress test tomorrow a.m. # History of asthma -Albuterol as needed 12/13: Patient is white and thick neck and wheezing suggestive of possible obstructive sleep apnea associated with asthma/COPD. Follow-up in pulmonary clinic for sleep study and PFT. # Hyperglycemia -Will check A1c, unclear if this is stress response or patient may have diabetesor prediabetes # Mild renal insufficiency -Creatinine of 1.21, no baseline available -Repeat in the a.m. #Morbid obesity -BMI documented as 49.7 kg/m? at time of admission -Complicates treatment, prognosis, outcomes -Recommend weight loss and lifestyle changes - High suspicion the patient has sleep apnea given habitus and she does snore, would recommend sleep study on an outpatient basis #DVT ppx: Lovenox twice daily Changed to Eliquis 5 mg twice daily. Microbiology Past 72 Hours 12/11/24 14:40 Mucosa - Nose SARS-CoV-2, Influenza & RSV (PCR) - Final Laboratory Results 12/13/24 11:59: WBC 5.7, RBC 4.84, Hgb 13.7, Hct 42.2, MCV 87.2, MCH 28.3, MCHC 32.5, RDW Std Deviation 40.1, RDW Coeff of Shannan 12.7, Plt Count 227, MPV 10.4, Immature Gran % (Auto) 0.500, Neut % (Auto) 81.7 H, Lymph % (Auto) 12.4 L, Freestone % (Auto) 4.2, Eos % (Auto) 1.0, Baso % (Auto) 0.2, Absolute Neuts (auto) 4.7, Absolute Lymphs (auto) 0.71 L, Nucleated RBC % 0, Sodium 136, Potassium 4.0, Chloride 100, Carbon Dioxide 23.3, Anion Gap 13, BUN 12, Creatinine 0.92, Estim Creat Clear Calc 88.47, Est GFR (MDRD) Non-Af 71, BUN/Creatinine Ratio 13.2, Glucose 111 H, Calcium 8.7 12/13/24 13:13: Triglycerides Pending, Cholesterol Pending, LDL Cholesterol, Calc Pending, VLDL Cholesterol Pending, HDL Cholesterol Pending, Cholesterol/HDLRatio Pending 12/13/24 14:37: Activated Clotting Time 227 H Hemoglobin A1c 5.5, Calcium 9.0, Triglycerides 88, Cholesterol 151, LDL Cholesterol, Calc 93, VLDL Cholesterol 18, HDL Cholesterol 41, Cholesterol/HDL Ratio 3.71 Clinical Impression(s) from Imaging Studies Chest X-Ray 12/11/24 14:45 IMPRESSION: The lateral view is markedly limited by patient motion. Mild frontal view patient motion. Lungs appear clear of acute disease. No pleural effusion or pneumothorax. The cardiomediastinal silhouette is within the normal range for age. 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 Reading Location: [facility] Chest CTA 12/11/24 15:46 IMPRESSION: LIMITED. NO LARGE CENTRAL PULMONARY EMBOLI. Reading Location: [id number] Echocardiogram 12/12/24 05:55 Interpretation Summary The study was technically difficult. Mild concentric left ventricular hypertrophy. Moderate generalized LV hypokinesis. Estimated LVEF 35-40%. Stage I diastolic dysfunction. There is moderate biatrial dilatation. Ordering Physician: Mackenzie Pritchard Referring Physician: KAREEM ESTEBAN Performed By: Kriss HOLDEN, Kyra and Student Charges/Coding Visit Charges Inpatient E&M: 79062 Subs Hosp L2 12/13/24 1640 Cosigner Signature (if applicable): CC: ~ Signed [facility]06-27-2025 Consult note Author Zachary Cleary [facility] Note Date/Time December 13, 2024 2:04 pm [facility] Medical Records Department [address] [place] [address] Consultation - Cardiology 12/13/24 1355 MR#: [id number] Acct: [id number] Name: ALECIA GUTIERREZ Rep #:[id number] : 1965 59 From: Zachary Cleary MD PCP: Dr. Kareem Esteban MD Status:[facility] Location: [place] [address] Assessment & Plan Assessment/Plan (1) Abnormal cardiovascular stress test: PLAN: Stress test shows anterior ischemia. Recommend coronary angiography and possible revascularization, if indicated. Risks benefits and alternatives were explained to the patient. She understand these and wishes to proceed. (2) Atrial fibrillation: PLAN: New onset atrial fibrillation. Her echocardiogram showed LVEF 35 to 40%. If this is confirmed on left ventriculography, or if she is noted to have significant coronary artery disease, then will recommend chronic oral anticoagulation. (3) Hypertension: PLAN: Started on metoprolol. (4) Morbid obesity: PLAN: Lose weight. (5) History of asthma: PLAN: As per internal medicine. HPI Consult Data Date of Consult: 12/13/24 HPI Narrative Reason for Consultation: Abnormal cardiovascular stress test HPI Narrative: 59-year-old female with past medical history significant for morbid obesity and asthma. She presented to the emergency room with complaints of chest pain. According to her, the chest pain was left-sided. Constant. According to her, it worsened with doing stuff such as lifting laundry. There was some shortness of breath. No diaphoresis. Lasted for hours. In the emergency room, she was noted to be in atrial fibrillation with rapid ventricular response. She was treated with diltiazem. An echocardiogram was done. It showed EF of 35 to 40%. Mild LVH. Also has had a Lexiscan stress Myoview done this morning. It shows ischemia in the anterior wall. Patient denies any previous history of chest pains. She does describe dyspnea on exertion. According to her, it has been a chronic problem for her with no recent exacerbation. Denies any orthopnea or PND. Denies ankle edema. [facility] Medical History (Updated 12/13/24 @ 14:[address] Zachary Cleary MD) Asthma Home Medications ?Medication ?Instructions ?Recorded ?Last Taken ?Type albuterol sulfate 90 mcg/actuation 2 inh inhalation Q4 H PRN shortness 12/11/24 Unknown History aerosol inhaler (Ventolin HFA) of breath or wheezing Allergy/AdvReac Type Severity Reaction Status Date / Time bee venom protein (honey Allergy Severe Anaphylaxis Verified 12/11/24 14:01 bee) (bee sting) Social History Smoking Status: Never smoker Physical Exam Narrative Morbidly obese. Heart sounds 1 and 2 noted. Irregularly irregular. Chest examination with decreased air entry bilaterally. 1+ bilateral ankle edema. Alert oriented x 3. Risk Stratification Risk Stratification Applicable: No Objective Data Vital Signs: Vital Signs Temp Pulse Resp BP Pulse Ox O2 Del Method 97.5 F L 85 18 147/94 H 96 Room Air 12/13/24 10:58 12/13/24 10:58 12/13/24 10:58 12/13/24 10:58 12/13/24 10:58 12/13/24 10:58 Oxygen Delivery Method Room Air Weight: 278 lb 14.156 oz Body Mass Index (BMI) 45.0 Intake & Output: Intake and Output for Last 24 Hours 12/11/24 12/12/24 12/13/24 23:59 23:59 23:59 Intake Total 500 / 980 1140 / 1140 220 / 220 Balance 500 / 980 1140 / 1140 220 / 220 Lab / Micro Data 12/13/24 11:59 12/13/24 11:59 Labs: Laboratory Results - last 24 hr 12/13/24 11:59: WBC 5.7, RBC 4.84, Hgb 13.7, Hct 42.2, MCV 87.2, MCH 28.3, MCHC 32.5, RDW Std Deviation 40.1, RDW Coeff of Shannan 12.7, Plt Count 227, MPV 10.4, Immature Gran % (Auto) 0.500, Neut % (Auto) 81.7 H, Lymph % (Auto) 12.4 L, Freestone % (Auto) 4.2, Eos % (Auto) 1.0, Baso % (Auto) 0.2, Absolute Neuts (auto) 4.7, Absolute Lymphs (auto) 0.71 L, Nucleated RBC % 0, Sodium 136, Potassium 4.0, Chloride 100, Carbon Dioxide 23.3, Anion Gap 13, BUN 12, Creatinine 0.92, Estim Creat Clear Calc 88.47, Est GFR (MDRD) Non-Af 71, BUN/Creatinine Ratio 13.2, Glucose 111 H, Calcium 8.7 Cardiology Labs/Tests 12/13/24 11:59: WBC 5.7, RBC 4.84, Hgb 13.7, Hct 42.2, MCV 87.2, MCH 28.3, MCHC 32.5, Plt Count 227, MPV 10.4, Immature Gran % (Auto) 0.500, Neut % (Auto) 81.7 H, Lymph % (Auto) 12.4 L, Freestone % (Auto) 4.2, Eos % (Auto) 1.0, Baso % (Auto) 0.2, Absolute Neuts (auto) 4.7, Nucleated RBC % 0, Sodium 136, Potassium 4.0, Chloride 100, Carbon Dioxide 23.3, Anion Gap 13, BUN 12, Creatinine 0.92, Est GFR (MDRD) Non-Af 71, BUN/Creatinine Ratio 13.2, Glucose 111 H, Calcium 8.7 Rhythm: EKG: ECHO: Stress Test: Cardiac Cath: PCI: CT Surgery: Holter monitor: EPS: PPM: CXR: Chest CT Scan: Radiography Diagnostic Testing: Radiology Impression Echocardiogram 12/12/24 05:55 Interpretation Summary The study was technically difficult. Mild concentric left ventricular hypertrophy. Moderate generalized LV hypokinesis. Estimated LVEF 35-40%. Stage I diastolic dysfunction. There is moderate biatrial dilatation. Ordering Physician: Mackenzie Pritchard Referring Physician: KAREEM ESTEBAN Performed By: Kriss HOLDEN, Kyra and Student 12/13/24 1404 <Electronically signed by Zachary Cleary MD> Cosigner Signature (if applicable): CC: Dr. Kareem Esteban MD~ Signed [facility] Work Phone: [phone] Consult note [facility] Medical Records Department [address] [place] [address] Consultation - Cardiology 12/13/24 1355 MR#: [id number] Acct: [id number] Name: ALECIA GUTIERREZ Rep #:[id number] : 1965 59 From: Zachary Cleary MD PCP: Dr. Kareem Esteban MD Status:[facility] Location: [place] [address] Assessment & Plan Assessment/Plan (1) Abnormal cardiovascular stress test: PLAN: Stress test shows anterior ischemia. Recommend coronary angiography and possible revascularization, if indicated. Risks benefits and alternatives were explained to the patient. She understand these and wishes to proceed. (2) Atrial fibrillation: PLAN: New onset atrial fibrillation. Her echocardiogram showed LVEF 35 to 40%. If this is confirmedon left ventriculography, or if she is noted to have significant coronary artery disease, then willrecommend chronic oral anticoagulation. (3) Hypertension: PLAN: Started on metoprolol. (4) Morbid obesity: PLAN: Lose weight. (5) History of asthma: PLAN: As per internal medicine. HPI Consult Data Date of Consult: 12/13/24 HPI Narrative Reason for Consultation: Abnormal cardiovascular stress test HPI Narrative: 59-year-old female with past medical history significant for morbid obesity and asthma. She presented to the emergency room with complaints of chest pain. According to her, the chest pain was left-sided. Constant. According to her, it worsened with doing stuff such as lifting laundry. There was some shortness of breath. No diaphoresis. Lasted for hours. In the emergency room, she was noted to be in atrial fibrillation with rapid ventricular response. She was treated with diltiazem. An echocardiogram was done. It showed EF of 35 to 40%. Mild LVH. Also has had a Lexiscan stress Myoview done this morning. It shows ischemia in the anterior wall. Patient denies any previous history of chest pains. She does describe dyspnea on exertion. According to her, it has been a chronic problem for her with no recent exacerbation. Denies any orthopnea orPND. Denies ankle edema. [facility] Medical History (Updated 12/13/24 @ 14:[address] Zachary Cleary MD) Asthma Home Medications ?Medication ?Instructions ?Recorded ?Last Taken ?Type albuterol sulfate 90 mcg/actuation 2 inh inhalation Q4 H PRN shortness 12/11/24 Unknown History aerosol inhaler (Ventolin HFA) of breath or wheezing Allergy/AdvReac Type Severity Reaction Status Date / Time bee venom protein (honey Allergy Severe Anaphylaxis Verified 12/11/24 14:01 bee) (bee sting) Social History Smoking Status: Never smoker Physical Exam Narrative Morbidly obese. Heart sounds 1 and 2 noted. Irregularly irregular. Chest examination with decreasedair entry bilaterally. 1+ bilateral ankle edema. Alert oriented x 3. Risk Stratification Risk Stratification Applicable: No Objective Data Vital Signs: Vital Signs Temp Pulse Resp BP Pulse Ox O2 Del Method 97.5 F L 85 18 147/94 H 96 Room Air 12/13/24 10:58 12/13/24 10:58 12/13/24 10:58 12/13/24 10:58 12/13/24 10:58 12/13/24 10:58 Oxygen Delivery Method Room Air Weight: 278 lb 14.156 oz Body Mass Index (BMI) 45.0 Intake & Output: Intake and Output for Last 24 Hours 12/11/24 12/12/24 12/13/24 23:59 23:59 23:59 Intake Total 500 / 980 1140 / 1140 220 / 220 Balance 500 / 980 1140 / 1140 220 / 220 Lab / Micro Data 12/13/24 11:59 12/13/24 11:59 Labs: Laboratory Results - last 24 hr 12/13/24 11:59: WBC 5.7, RBC 4.84, Hgb 13.7, Hct 42.2, MCV 87.2, MCH 28.3, MCHC 32.5, RDW Std Deviation 40.1, RDW Coeff of Shannan 12.7, Plt Count 227, MPV 10.4, Immature Gran % (Auto) 0.500, Neut % (Auto) 81.7 H, Lymph % (Auto) 12.4 L, Freestone % (Auto) 4.2, Eos % (Auto) 1.0, Baso % (Auto) 0.2, Absolute Neuts (auto) 4.7, Absolute Lymphs (auto) 0.71 L, Nucleated RBC % 0, Sodium 136, Potassium 4.0, Chloride 100, Carbon Dioxide 23.3, Anion Gap 13, BUN 12, Creatinine 0.92, Estim Creat Clear Calc 88.47, Est GFR (MDRD) Non-Af 71, BUN/Creatinine Ratio 13.2, Glucose 111 H, Calcium 8.7 Cardiology Labs/Tests 12/13/24 11:59: WBC 5.7, RBC 4.84, Hgb 13.7, Hct 42.2, MCV 87.2, MCH 28.3, MCHC 32.5, Plt Count 227, MPV 10.4, Immature Gran % (Auto) 0.500, Neut % (Auto) 81.7 H, Lymph % (Auto) 12.4 L, Freestone % (Auto)4.2, Eos % (Auto) 1.0, Baso % (Auto) 0.2, Absolute Neuts (auto) 4.7, Nucleated RBC % 0, Sodium 136,Potassium 4.0, Chloride 100, Carbon Dioxide 23.3, Anion Gap 13, BUN 12, Creatinine 0.92, Est GFR (MDRD) Non-Af 71, BUN/Creatinine Ratio 13.2, Glucose 111 H, Calcium 8.7 Rhythm: EKG: ECHO: Stress Test: Cardiac Cath: PCI: CT Surgery: Holter monitor: EPS: PPM: CXR: Chest CT Scan: Radiography Diagnostic Testing: Radiology Impression Echocardiogram 12/12/24 05:55 Interpretation Summary The study was technically difficult. Mild concentric left ventricular hypertrophy. Moderate generalized LV hypokinesis. Estimated LVEF 35-40%. Stage I diastolic dysfunction. There is moderate biatrial dilatation. Ordering Physician: Mackenzie Pritchard Referring Physician: KAREEM ESTEBAN Performed By: Kyra Monterroso RDCS and Student 12/13/24 1404 Cosigner Signature (if applicable): CC: Dr. Kareem Esteban MD~ Signed [facility]06-26-2025 Progress note Author Holden Barros [facility] Note Date/Time December 12, 2024 3:56 pm [facility] Medical Records Department [address] [place] [address] Progress Note - Hospitalist 12/12/24928 MR#: [id number] Acct: [id number] Name: ALECIA GUTIERREZ Rep #:[id number] : 1965 59 From: Holden Mortensen PCP: Dr. Kareem Esteban MD Status:[facility] Location: [place] [address] Reason for Visit Reason for Visit: Diagnoses Unspecified atrial fibrillation (12/11/24) Objective Data Objective Data Vital Signs: Vital Signs Temp Pulse Resp BP Pulse Ox O2 Del Method 98.1 F 64 18 137/60 H 96 Room Air 12/12/24 02:00 12/12/24 03:00 12/12/24 02:00 12/12/24 02:00 12/12/24 02:00 12/12/24 02:00 Oxygen Delivery Method Room Air Weight: 279 lb 8.738 oz Body Mass Index (BMI) 44.9 Intake & Output: Intake and Output for Last 24 Hours 12/10/24 12/11/24 12/12/24 23:59 23:59 23:59 Intake Total 500 / 980 720 / 720 Balance 500 / 980 720 / 720 Lab / Micro Data 12/12/24 06:57 12/12/24 06:57 Labs: Laboratory Results - last 24 hr 12/11/24 14:02: WBC 8.1, RBC 5.14, Hgb 14.7, Hct 43.8, MCV 85.2, MCH 28.6, MCHC 33.6, RDW Std Deviation 39.3, RDW Coeff of Shannan 12.7, Plt Count 265, MPV 10.5, Immature Gran % (Auto) 0.500, Neut % (Auto) 76.7 H, Lymph % (Auto) 15.1 L, Freestone % (Auto) 5.8, Eos % (Auto) 1.5, Baso % (Auto) 0.4, Absolute Neuts (auto) 6.2, Absolute Lymphs (auto) 1.23, Nucleated RBC % 0, Sodium 138, Potassium 3.8, Chloride 100, Carbon Dioxide 24.4, Anion Gap 13, BUN 13, Creatinine 1.21 H, Est GFR (MDRD) Non-Af 51 L, BUN/Creatinine Ratio 10.7, Glucose 126 H, Calcium 9.5, Magnesium 2.0 12/11/24 14:02: Magnesium 1.9, Troponin T High Sens 13, NT pro BNP II 1213 H, TSH 10.100 H, Free T4 1.00, Free T3 pg/dL 2.7 12/11/24 14:37: PT 13.2, INR 1.0, APTT 27.8, D-Dimer Quant (PE/DVT) 0.93 H* 12/11/24 16:35: Troponin T Hi Sens 2 Hr 13 12/12/24 06:57: WBC 6.4, RBC 4.82, Hgb 13.8, Hct 41.4, MCV 85.9, MCH 28.6, MCHC 33.3, RDW Std Deviation 40.1, RDW Coeff of Shannan 12.7, Plt Count 239, MPV 10.3, Immature Gran % (Auto) 0.300, Neut % (Auto) 77.4 H, Lymph % (Auto) 15.2 L, Freestone % (Auto) 5.3, Eos % (Auto) 1.3, Baso % (Auto) 0.5, Absolute Neuts (auto) 4.9, Absolute Lymphs (auto) 0.97, Nucleated RBC % 0, Sodium 137, Potassium 3.8, Chloride 103, Carbon Dioxide 20.2 L, Anion Gap 14, BUN 11, Creatinine 0.88, Estim Creat Clear Calc 92.62, Est GFR (MDRD) Non-Af 75, BUN/Creatinine Ratio 12.8, Glucose 103 H, Hemoglobin A1c 5.5, Calcium 9.0, Triglycerides 88, Cholesterol 151, LDL Cholesterol, Calc 93, VLDL Cholesterol 18, HDL Cholesterol 41, Cholesterol/HDL Ratio 3.71 Micro: Microbiology 12/11/24 14:40 Mucosa - Nose SARS-CoV-2, Influenza & RSV (PCR) - Final Radiography Diagnostic Testing: Radiology Impression Chest X-Ray 12/11/24 14:45 IMPRESSION: The lateral view is markedly limited by patient motion. Mild frontal view patient motion. Lungs appear clear of acute disease. No pleural effusion or pneumothorax. The cardiomediastinal silhouette is within the normal range for age. 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 Reading Location: [facility] Chest CTA 12/11/24 15:46 IMPRESSION: LIMITED. NO LARGE CENTRAL PULMONARY EMBOLI. Reading Location: [facility] Physical Exam Narrative Seen and Patient had mild chest tightness/squeezing sensation over left inframammary region then persistent for 2 days. Mild short of breath. History of asthma. Shortness of breath. A-fib with RVR Physical exam General: Alert, Oriented x3, Cooperative. Morbid obesity BMI 45.1 kg/m? HEENT: Atraumatic, PERRLA, EOMI, Normocephalic. Oral: No Gingival or Mucosal Lesions/ Ulcerations Neck: Supple, No JVD, Negative Carotid Bruits Chest wall/Lungs: Air entry diminished in bilateral lungs. Bilateral fine wheezing Cardiovascular: Regular rate and rhythm, Normal S1,S2, No M/G/R Abdomen: Bowel Sounds Present, Soft, Non Tender, Non-Distended : No dysuria. No renal angle tenderness. No suprapubic tenderness. Extremities: Bilateral 3+ below mid thigh edema, bilateral TKR Skin: No rashes, No breakdown Musculoskeletal: No Tenderness to Palpation of Joints or Extremities Neurological: Cranial nerves II-XII grossly intact, DTR 2+/4. No acute focal neurological deficit. Psych/Mental Status: Normal Affect, Appropriate. Assessment & Plan Assessment/Plan (1) Atrial fibrillation with RVR: PLAN: Plan 59-year-old female admitted with shortness of breath and left-sided chest pain, inframammary region started yesterday and progressively got worse described as sharp with associated shortness of breath and chronic morning cough. Denies fever, chills, abdominal pain, nausea or vomiting. Bilateral middle extremity swelling or pain #Afib w/ RVR -Admit to telemetry -Improved with push of diltiazem, will schedule beta-gale -Initial rate in ED: 151 -EKG: With heart rate of 126, repeat with A-fib with rate of 68 12/12: Heart rate is controlled currently in 70s. Afebrile. Continue beta- gale. Chest x-ray shows lungs clear of no acute disease no pleural effusion or pneumothorax. Chest CTA no large central pulmonary emboli. A1c 5.5%. 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 TSH: 10.1 but free T4 and T3 WNL, advise repeat thyroid function test in 6 weeks to 2 months. Possible subclinical hypothyroidism. proBNP 1200. Heart failure core measures including intake and output, fluid restriction less than 1500 mL, dailyweight monitoring, kidney and electrolytes monitoring. Discussed with the commercial lines account assistant and nuclear stress test ordered for tomorrow Atypical chest pain: - Pain is sharp, positional, seems to be reproducible and troponin is within normal limits from admitting hospital Plan for nuclear stress test tomorrow a.m. # History of asthma -Albuterol as needed # Hyperglycemia -Will check A1c, unclear if this is stress response or patient may have diabetesor prediabetes # Mild renal insufficiency -Creatinine of 1.21, no baseline available -Repeat in the a.m. #Morbid obesity -BMI documented as 49.7 kg/m? at time of admission -Complicates treatment, prognosis, outcomes -Recommend weight loss and lifestyle changes - High suspicion the patient has sleep apnea given habitus and she does snore, would recommend sleep study on an outpatient basis #DVT ppx: Lovenox twice daily Microbiology Past 72 Hours 12/11/24 14:40 Mucosa - Nose SARS-CoV-2, Influenza & RSV (PCR) - Final Laboratory Results 12/11/24 14:02: Magnesium 1.9, NT pro BNP II 1213 H, TSH 10.100 H, Free T4 1.00,Free T3 pg/dL 2.7 12/11/24 16:35: Troponin T Hi Sens 2 Hr 13 12/12/24 06:57: WBC 6.4, RBC 4.82, Hgb 13.8, Hct 41.4, MCV 85.9, MCH 28.6, MCHC 33.3, RDW Std Deviation 40.1, RDW Coeff of Shannan 12.7, Plt Count 239, MPV 10.3, Immature Gran % (Auto) 0.300, Neut % (Auto) 77.4 H, Lymph % (Auto) 15.2 L, Freestone % (Auto) 5.3, Eos % (Auto) 1.3, Baso % (Auto) 0.5, Absolute Neuts (auto) 4.9, Absolute Lymphs (auto) 0.97, Nucleated RBC % 0, Sodium 137, Potassium 3.8, Chloride 103, Carbon Dioxide 20.2 L, Anion Gap 14, BUN 11, Creatinine 0.88, Estim Creat Clear Calc 92.62, Est GFR (MDRD) Non-Af 75, BUN/Creatinine Ratio 12.8, Glucose 103 H, Hemoglobin A1c 5.5, Calcium 9.0, Triglycerides 88, Cholesterol 151, LDL Cholesterol, Calc 93, VLDL Cholesterol 18, HDL Cholesterol 41, Cholesterol/HDL Ratio 3.71 Clinical Impression(s) from Imaging Studies Chest X-Ray 12/11/24 14:45 IMPRESSION: The lateral view is markedly limited by patient motion. Mild frontal view patient motion. Lungs appear clear of acute disease. No pleural effusion or pneumothorax. The cardiomediastinal silhouette is within the normal range for age. 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 Reading Location: [facility] Chest CTA 12/11/24 15:46 IMPRESSION: LIMITED. NO LARGE CENTRAL PULMONARY EMBOLI. Reading Location: [id number] Echocardiogram 12/12/24 05:55 Interpretation Summary The study was technically difficult. Mild concentric left ventricular hypertrophy. Moderate generalized LV hypokinesis. Estimated LVEF 35-40%. Stage I diastolic dysfunction. There is moderate biatrial dilatation. Ordering Physician: Mackenzie Pritchard Referring Physician: KAREEM ESTEBAN Performed By: Kriss HOLDEN, Kyra and Student Charges/Coding Visit Charges Inpatient E&M: 66723 Subs Hosp L2 12/12/24 1556 <Electronically signed by Holden Barros MD> Cosigner Signature (if applicable): CC: ~ Signed [facility] Work Phone: 1(284) 796-801806-26-2025 Progress note [facility] Medical Records Department [address] [place] [address] Progress Note - Hospitalist 12/12/24 0929 MR#: [id number] Acct: [id number] Name: ALECIA GUTIERREZ Rep #:[id number] : 1965 59 From: Holden Mortensen PCP: Dr. Kareem Esteban MD Status:ALANIS [facility] Location: [place] [address] Reason for Visit Reason for Visit: Diagnoses Unspecified atrial fibrillation (12/11/24) Objective Data Objective Data Vital Signs: Vital Signs Temp Pulse Resp BP Pulse Ox O2 Del Method 98.1 F 64 18 137/60 H 96 Room Air 12/12/24 02:00 12/12/24 03:00 12/12/24 02:00 12/12/24 02:00 12/12/24 02:00 12/12/24 02:00 Oxygen Delivery Method Room Air Weight: 279 lb 8.738 oz Body Mass Index (BMI) 44.9 Intake & Output: Intake and Output for Last 24 Hours 12/10/24 12/11/24 12/12/24 23:59 23:59 23:59 Intake Total 500 / 980 720 / 720 Balance 500 / 980 720 / 720 Lab / Micro Data 12/12/24 06:57 12/12/24 06:57 Labs: Laboratory Results - last 24 hr 12/11/24 14:02: WBC 8.1, RBC 5.14, Hgb 14.7, Hct 43.8, MCV 85.2, MCH 28.6, MCHC 33.6, RDW Std Deviation 39.3, RDW Coeff of Shannan 12.7, Plt Count 265, MPV 10.5, Immature Gran % (Auto) 0.500, Neut % (Auto) 76.7 H, Lymph % (Auto) 15.1 L, Freestone % (Auto) 5.8, Eos % (Auto) 1.5, Baso % (Auto) 0.4, Absolute Neuts (auto) 6.2, Absolute Lymphs (auto) 1.23, Nucleated RBC % 0, Sodium 138, Potassium 3.8, [id number], Carbon Dioxide 24.4, Anion Gap 13, BUN 13, Creatinine 1.21 H, Est GFR (MDRD) Non-Af 51 L, BUN/Creatinine Ratio 10.7, Glucose 126 H, Calcium 9.5, Magnesium 2.0 12/11/24 14:02: Magnesium 1.9, Troponin T High Sens 13, NT pro BNP II 1213 H, TSH 10.100 H, Free T41.00, Free T3 pg/dL 2.7 12/11/24 14:37: PT 13.2, INR 1.0, APTT 27.8, D-Dimer Quant (PE/DVT) 0.93 H* 12/11/24 16:35: Troponin T Hi Sens 2 Hr 13 12/12/24 06:57: WBC 6.4, RBC 4.82, Hgb 13.8, Hct 41.4, MCV 85.9, MCH 28.6, MCHC 33.3, RDW Std Deviation 40.1, RDW Coeff of Shannan 12.7, Plt Count 239, MPV 10.3, Immature Gran % (Auto) 0.300, Neut % (Auto) 77.4 H, Lymph % (Auto) 15.2 L, Freestone % (Auto) 5.3, Eos % (Auto) 1.3, Baso % (Auto) 0.5, Absolute Neuts (auto) 4.9, Absolute Lymphs (auto) 0.97, Nucleated RBC % 0, Sodium 137, Potassium 3.8, [id number], Carbon Dioxide 20.2 L, Anion Gap 14, BUN 11, Creatinine 0.88, Estim Creat Clear Calc 92.62, Est GFR (MDRD) Non-Af 75, BUN/Creatinine Ratio 12.8, Glucose 103 H, Hemoglobin A1c 5.5, Calcium 9.0, Triglycerides 88, Cholesterol 151, LDL Cholesterol, Calc 93, VLDL Cholesterol 18, HDL Cholesterol 41, Cholesterol/HDL Ratio 3.71 Micro: Microbiology 12/11/24 14:40 Mucosa - Nose SARS-CoV-2, Influenza & RSV (PCR) - Final Radiography Diagnostic Testing: Radiology Impression Chest X-Ray 12/11/24 14:45 IMPRESSION: The lateral view is markedly limited by patient motion. Mild frontal view patient motion. Lungs appear clear of acute disease. No pleural effusion or pneumothorax. The cardiomediastinal silhouette is within the normal range for age. 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 Reading Location: [facility] Chest CTA 12/11/24 15:46 IMPRESSION: LIMITED. NO LARGE CENTRAL PULMONARY EMBOLI. Reading Location: [facility] Physical Exam Narrative Seen and Patient had mild chest tightness/squeezing sensation over left inframammary region then persistent for 2 days. Mild short of breath. History of asthma. Shortness of breath. A-fib with RVR Physical exam General: Alert, Oriented x3, Cooperative. Morbid obesity BMI 45.1 kg/m? HEENT: Atraumatic, PERRLA, EOMI, Normocephalic. Oral: No Gingival or Mucosal Lesions/ Ulcerations Neck: Supple, No JVD, Negative Carotid Bruits Chest wall/Lungs: Air entry diminished in bilateral lungs. Bilateral fine wheezing Cardiovascular: Regular rate and rhythm, Normal S1,S2, No M/G/R Abdomen: Bowel Sounds Present, Soft, Non Tender, Non-Distended : No dysuria. No renal angle tenderness. No suprapubic tenderness. Extremities: Bilateral 3+ below mid thigh edema, bilateral TKR Skin: No rashes, No breakdown Musculoskeletal: No Tenderness to Palpation of Joints or Extremities Neurological: Cranial nerves II-XII grossly intact, DTR 2+/4. No acute focal neurological deficit. Psych/Mental Status: Normal Affect, Appropriate. Assessment & Plan Assessment/Plan (1) Atrial fibrillation with RVR: PLAN: Plan 59-year-old female admitted with shortness of breath and left-sided chest pain, inframammary regionstarted yesterday and progressively got worse described as sharp with associated shortness of breath and chronic morning cough. Denies fever, chills, abdominal pain, nausea or vomiting. Bilateral middle extremity swelling or pain #Afib w/ RVR -Admit to telemetry -Improved with push of diltiazem, will schedule beta-gale -Initial rate in ED: 151 -EKG: With heart rate of 126, repeat with A-fib with rate of 68 12/12: Heart rate is controlled currently in 70s. Afebrile. Continue beta- gale. Chest x-ray showslungs clear of no acute disease no pleural effusion or pneumothorax. Chest CTA no large central pulmonary emboli. A1c 5.5%. Fasting profile within normal limit Acute on chronic combined HFrEF and HFpEF may be due to A-fib RVR: 2D echo EF decreased, 35 to 40%,stage I diastolic dysfunction, moderate biatrial dilatation suggestive of combined acute on chronicHFrEF and HFpEF. TSH: 10.1 but free T4 and T3 WNL, advise repeat thyroid function test in 6 weeks to 2 months. Possible subclinical hypothyroidism. proBNP 1200. Heart failure core measures including i ntake and output, fluid restriction less than 1500 mL, dailyweight monitoring, kidney and electrolytes monitoring. Discussed with the commercial lines account assistant and nuclear stress test ordered for tomorrow Atypical chest pain: - Pain is sharp, positional, seems to be reproducible and troponin is within normal limits from admitting hospital Plan for nuclear stress test tomorrow a.m. # History of asthma -Albuterol as needed # Hyperglycemia -Will check A1c, unclear if this is stress response or patient may have diabetesor prediabetes # Mild renal insufficiency -Creatinine of 1.21, no baseline available -Repeat in the a.m. #Morbid obesity -BMI documented as 49.7 kg/m? at time of admission -Complicates treatment, prognosis, outcomes -Recommend weight loss and lifestyle changes - High suspicion the patient has sleep apnea given habitus and she does snore, would recommend sleep study on an outpatient basis #DVT ppx: Lovenox twice daily Microbiology Past 72 Hours 12/11/24 14:40 Mucosa - Nose SARS-CoV-2, Influenza & RSV (PCR) - Final Laboratory Results 12/11/24 14:02: Magnesium 1.9, NT pro BNP II 1213 H, TSH 10.100 H, Free T4 1.00,Free T3 pg/dL 2.7 12/11/24 16:35: Troponin T Hi Sens 2 Hr 13 12/12/24 06:57: WBC 6.4, RBC 4.82, Hgb 13.8, Hct 41.4, MCV 85.9, MCH 28.6, MCHC 33.3, RDW Std Deviation 40.1, RDW Coeff of Shannan 12.7, Plt Count 239, MPV 10.3, Immature Gran % (Auto) 0.300, Neut % (Auto) 77.4 H, Lymph % (Auto) 15.2 L, Freestone % (Auto) 5.3, Eos % (Auto) 1.3, Baso % (Auto) 0.5, Absolute Neuts (auto) 4.9, Absolute Lymphs (auto) 0.97, Nucleated RBC % 0, Sodium 137, Potassium 3.8, [id number], Carbon Dioxide 20.2 L, Anion Gap 14, BUN 11, Creatinine 0.88, Estim Creat Clear Calc 92.62, Est GFR (MDRD) Non-Af 75, BUN/Creatinine Ratio 12.8, Glucose 103 H, Hemoglobin A1c 5.5, Calcium 9.0, Triglycerides 88, Cholesterol 151, LDL Cholesterol, Calc 93, VLDL Cholesterol 18, HDL Cholesterol 41, Cholesterol/HDL Ratio 3.71 Clinical Impression(s) from Imaging Studies Chest X-Ray 12/11/24 14:45 IMPRESSION: The lateral view is markedly limited by patient motion. Mild frontal view patient motion. Lungs appear clear of acute disease. No pleural effusion or pneumothorax. The cardiomediastinal silhouette is within the normal range for age. 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 Reading Location: [facility] Chest CTA 12/11/24 15:46 IMPRESSION: LIMITED. NO LARGE CENTRAL PULMONARY EMBOLI. Reading Location: [id number] Echocardiogram 12/12/24 05:55 Interpretation Summary The study was technically difficult. Mild concentric left ventricular hypertrophy. Moderate generalized LV hypokinesis. Estimated LVEF 35-40%. Stage I diastolic dysfunction. There is moderate biatrial dilatation. Ordering Physician: Maceknzie Pritchard Referring Physician: KAREEM ESTEBAN Performed By: Kriss HOLDEN, Kyra and Student Charges/Coding Visit Charges Inpatient E&M: 07080 Subs Hosp L2 12/12/24 1556 Cosigner Signature (if applicable): CC: ~ Signed [facility]06-26-2025 Discharge summary Author Wilfrdeo Galindo [facility] Note Date/Time December 11, 2024 11:1 1pm [facility] Medical Records Department [address] [place] [address] Emergency Department Summary 12/11/24 MR#: [id number] Acct: [id number] Name: ALECIA GUTIERREZ Rep #:[id number] : 1965 59 From: Wilfredo Starks ggett DO PCP: Dr. Kareem Esteban MD Status:AD M [facility] Location: [place] [address] HPI History of Present Illness Chief Complaint: Shortness of Breath Narrative Narrative: Chief complaint and HPI: Chest pain. 59-year-old female with past medical history of asthma noncompliant with medication as well as had no medical care inmultiple years presents for evaluation of left-sided chest pain. Onset of symptoms yesterday and progressively worsened. Describes the pain as sharp. Associated symptom is shortness of breath and chronic morning cough. She deniesany fever, chills, URI symptoms, abdominal pain, nausea, vomiting. Bilateral lower extremity swelling or pain. Recent travel or surgery. Review of systems: See HPI Medications: As listed on the chart Allergies: As listed on the chart PFSH: Per chart Vital signs: As listed on the chart. Reviewed. Physical exam: Gen: A&O x3, NAD Head: Normocephalic, atraumatic Eyes: No sclera icterus, conjunctiva clear PERRL, ENT: Moist mucous membranes Neck: Trachea midline, No JVD CV: Tachycardic, irregularly irregular rhythm, no murmurs, no peripheral edema Resp: Lungs CTA BL, no w/r/c GI: Obese, abd soft, non-distended, non-tender, no r/r/g Musc: Full ROM, no deformity Skin: Warm, dry Neuro: Alert, oriented, grossly intact, sensation intact Psych: Cooperative, appropriate mood and affect [facility] Medical History (Updated 12/11/24 @ 19:[address] Mackenzie Pritchard MD) Asthma Home Medications ?Medication ?Instructions ?Recorded ?Last Taken ?Type albuterol sulfate 90 mcg/actuation 2 inh inhalation Q4 H PRN shortness 12/11/24 Unknown History aerosol inhaler (Ventolin HFA) of breath or wheezing Allergy/AdvReac Type Severity Reaction Status Date / Time bee venom protein (honey Allergy Severe Anaphylaxis Verified 12/11/24 14:01 bee) (bee sting) Social History Smoking Status: Never smoker EXAM Physical Exam Const Vital Signs: 12/11/24 13:53 12/11/24 14:31 12/11/24 14:31 Temperature 97.6 F L 98.5 F Temperature Source Oral Oral Pulse Rate 151 H 125 H Respiratory Rate 30 H 28 H Respiratory Effort Respiratory Depth Respiratory Pattern Blood Pressure 206/125 H 148/109 H Blood Pressure Mean 152 122 Pulse Ox 98 97 Oxygen Delivery Method Room Air Room Air Room Air 12/11/24 14:31 12/11/24 14:55 12/11/24 15:00 Temperature 98.5 F 98.5 F Temperature Source Oral Oral Pulse Rate 78 78 Respiratory Rate 23 H 23 H Respiratory Effort Short of Breath Respiratory Depth Normal Respiratory Pattern Tachypnea Blood Pressure 142/90 H 142/90 H Blood Pressure Mean 107 107 Pulse Ox 95 95 Oxygen Delivery Method Room Air Room Air Room Air 12/11/24 16:00 12/11/24 17:00 12/11/24 18:00 Temperature 98.3 F 98.3 F Temperature Source Oral Oral Pulse Rate 83 70 80 Respiratory Rate 20 H 16 21 H Respiratory Effort Respiratory Depth Respiratory Pattern Blood Pressure 142/78 H 142/77 H 152/81 H Blood Pressure Mean 99 98 104 Pulse Ox 96 96 96 Oxygen Delivery Method Room Air Room Air Room Air 12/11/24 19:03 Temperature 98 F Temperature Source Pulse Rate 73 Respiratory Rate 17 Respiratory Effort Respiratory Depth Respiratory Pattern Blood Pressure 139/79 H Blood Pressure Mean 99 Pulse Ox 96 Oxygen Delivery Method MDM MDM MDM Narrative Medical decision making narrative: 59-year-old female with past medical history of asthma noncompliant with medication as well as had no medical care in multiple years presents for evaluation of left-sided chest pain. Onset of symptoms yesterday and progressively worsened. On presentation, patient is hypertensive and tachycardic. She is in atrial fibrillation with RVR. Patient states she has nohistory of atrial fibrillation. Differential diagnosis includes but is not limited to symptomatic atrial fibrillation with RVR, ACS, PE, electrolyte abnormality, thyroid disease, viral illness, pneumonia, CHF. Diltiazem bolus ordered for atrial fibrillation with RVR. Cardiac/respiratory workup ordered. Aspirin given for chest pain. EKG and chest x-ray reviewed see below. CBC without leukocytosis or anemia. Coagulation panel unremarkable. D-dimer elevated at 0.93. CTA chest ordered to assess for PE. BMP shows mild renal insufficiency with creatinine 1.21. I do not previous labs to compare to. Troponin unremarkable. Magnesium level unremarkable. CTA chest negative for PE although this shows severe coronary artery and mild thoracic artery calcifications. Troponin unremarkable x 2. BNP elevated at 1213. Patient not overtly fluid overloaded on exam or chest x- ray. TSH elevated at 10.1. Will add on free T4 and free T3. Free T4 and free T3 unremarkable. On reevaluation,patient's chest pain has improved. She is no longer tachycardic. Repeat EKG shows atrial fibrillation with a heart rate of 68. Patient not placed on anticoagulation given no previous medical diagnoses. Patient will warrant admission for further cardiac workup given new onset atrial fibrillation with elevated BNP. Patient and family member was updated of all the results and the plan. They confirmed understanding. Patient discussed with the hospitalist service who accepted admission. EKG: Interpreted by me/EM physician: EKG shows atrial fibrillation with RVR. Nonspecific ST changes. Heart rate 126. Repeat EKG shows atrial fibrillation. Heart rate 68. Diagnostic: Interpreted by me/EM physician: Chest x-ray pneumonia, effusion, pneumothorax, cardiomegaly. Radiology in agreement. Impression: 1. New onset atrial fibrillation with RVR, now rate controlled 2. Elevated BNP, concerning for heart failure 3. Subclinical hypothyroidism 4. HTN Lab Data Labs: Laboratory Results - last 24 hr 12/11/24 12/11/24 12/11/24 14:02 14:02 14:37 WBC 8.1 RBC 5.14 Hgb 14.7 Hct 43.8 MCV 85.2 MCH 28.6 MCHC 33.6 RDW Std Deviation 39.3 RDW Coeff of Shannan 12.7 Plt Count 265 MPV 10.5 Immature Gran % (Auto) 0.500 Neut % (Auto) 76.7 H Lymph % (Auto) 15.1 L Freestone % (Auto) 5.8 Eos % (Auto) 1.5 Baso % (Auto) 0.4 Absolute Neuts (auto) 6.2 Absolute Lymphs (auto) 1.23 Nucleated RBC % 0 PT 13.2 INR 1.0 APTT 27.8 D-Dimer Quant (PE/DVT) 0.93 H* Sodium 138 Potassium 3.8 Chloride 100 Carbon Dioxide 24.4 Anion Gap 13 BUN 13 Creatinine 1.21 H Est GFR (MDRD) Non-Af 51 L BUN/Creatinine Ratio 10.7 Glucose 126 H Calcium 9.5 Magnesium 2.0 1.9 Troponin T High Sens 13 Troponin T Hi Sens 2 Hr NT pro BNP II 1213 H TSH 10.100 H Free T4 1.00 Free T3 pg/dL 2.7 12/11/24 16:35 WBC RBC Hgb Hct MCV MCH MCHC RDW Std Deviation RDW Coeff of Shannan Plt Count MPV Immature Gran % (Auto) Neut % (Auto) Lymph % (Auto) Freestone % (Auto) Eos % (Auto) Baso % (Auto) Absolute Neuts (auto) Absolute Lymphs (auto) Nucleated RBC % PT INR APTT D-Dimer Quant (PE/DVT) Sodium Potassium Chloride Carbon Dioxide Anion Gap BUN Creatinine Est GFR (MDRD) Non-Af BUN/Creatinine Ratio Glucose Calcium Magnesium Troponin T High Sens Troponin T Hi Sens 2 Hr 13 NT pro BNP II TSH Free T4 Free T3 pg/dL Radiography Diagnostic Testing: Clinical Impression(s) from Imaging Studies Chest X-Ray 12/11/24 14:45 IMPRESSION: The lateral view is markedly limited by patient motion. Mild frontal view patient motion. Lungs appear clear of acute disease. No pleural effusion or pneumothorax. The cardiomediastinal silhouette is within the normal range for age. 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 Reading Location: [facility] Chest CTA 12/11/24 15:46 IMPRESSION: LIMITED. NO LARGE CENTRAL PULMONARY EMBOLI. Reading Location: [facility] Discharge Plan Disposition Disposition: Acute Care Hospital [facility] Discharge Date/Time: 12/11/24 19:39 What to do if you have Problems For any increased pain, shortness of breath, bleeding, nausea or vomiting, chestpain, or any unexpected problems, contact your Primary Care Provider. Call [facility] ([phone]) or report to the closest Emergency Room. Call 911 if necessary. 12/11/24 2311 <Electronically signed by Wilfredo Galindo DO> Cosigner Signature (if applicable): CC: Dr. Kareem Esteban MD ~ Signed [facility] Work Phone: [phone] 110-474606-25-2025 Discharge summary [facility] Medical Records Department [address] [place] [address] Emergency Department Summary 12/11/24 MR#: [id number] Acct: [id number] Name: ALECIA GUTIERREZ Rep #:[id number] : 1965 59 From: Wilfredo rowell DO PCP: Dr. Kareem Esteban MD Status:AD M [facility] Location: [place] [address] HPI History of Present Illness Chief Complaint: Shortness of Breath Narrative Narrative: Chief complaint and HPI: Chest pain. 59-year-old female with past medical history of asthma noncompliant with medication as well as had no medical care inmultiple years presents for evaluation of left-sided chest pain. Onset of symptoms yesterday and progressively worsened. Describes the pain as sharp. Associated symptom is shortness of breath and chronic morning cough. She deniesany fever, chills, URI symptoms, abdominal pain, nausea, vomiting. Bilateral lower extremity swelling or pain. Recent travel or surgery. Review of systems: See HPI Medications: As listed on the chart Allergies: As listed on the chart PFSH: Per chart Vital signs: As listed on the chart. Reviewed. Physical exam: Gen: A&O x3, NAD Head: Normocephalic, atraumatic Eyes: No sclera icterus, conjunctiva clear PERRL, ENT: Moist mucous membranes Neck: Trachea midline, No JVD CV: Tachycardic, irregularly irregular rhythm, no murmurs, no peripheral edema Resp: Lungs CTA BL, no w/r/c GI: Obese, abd soft, non-distended, non-tender, no r/r/g Musc: Full ROM, no deformity Skin: Warm, dry Neuro: Alert, oriented, grossly intact, sensation intact Psych: Cooperative, appropriate mood and affect [facility] Medical History (Updated 12/11/24 @ 19:[address] Mackenzie Pritchard MD) Asthma Home Medications ?Medication ?Instructions ?Recorded ?Last Taken ?Type albuterol sulfate 90 mcg/actuation 2 inh inhalation Q4 H PRN shortness 12/11/24 Unknown History aerosol inhaler (Ventolin HFA) of breath or wheezing Allergy/AdvReac Type Severity Reaction Status Date / Time bee venom protein (honey Allergy Severe Anaphylaxis Verified 12/11/24 14:01 bee) (bee sting) Social History Smoking Status: Never smoker EXAM Physical Exam Const Vital Signs: 12/11/24 13:53 12/11/24 14:31 12/11/24 14:31 Temperature 97.6 F L 98.5 F Temperature Source Oral Oral Pulse Rate 151 H 125 H Respiratory Rate 30 H 28 H Respiratory Effort Respiratory Depth Respiratory Pattern Blood Pressure 206/125 H 148/109 H Blood Pressure Mean 152 122 Pulse Ox 98 97 Oxygen Delivery Method Room Air Room Air Room Air 12/11/24 14:31 12/11/24 14:55 12/11/24 15:00 Temperature 98.5 F 98.5 F Temperature Source Oral Oral Pulse Rate 78 78 Respiratory Rate 23 H 23 H Respiratory Effort Short of Breath Respiratory Depth Normal Respiratory Pattern Tachypnea Blood Pressure 142/90 H 142/90 H Blood Pressure Mean 107 107 Pulse Ox 95 95 Oxygen Delivery Method Room Air Room Air Room Air 12/11/24 16:00 12/11/24 17:00 12/11/24 18:00 Temperature 98.3 F 98.3 F Temperature Source Oral Oral Pulse Rate 83 70 80 Respiratory Rate 20 H 16 21 H Respiratory Effort Respiratory Depth Respiratory Pattern Blood Pressure 142/78 H 142/77 H 152/81 H Blood Pressure Mean 99 98 104 Pulse Ox 96 96 96 Oxygen Delivery Method Room Air Room Air Room Air 12/11/24 19:03 Temperature 98 F Temperature Source Pulse Rate 73 Respiratory Rate 17 Respiratory Effort Respiratory Depth Respiratory Pattern Blood Pressure 139/79 H Blood Pressure Mean 99 Pulse Ox 96 Oxygen Delivery Method MDM MDM MDM Narrative Medical decision making narrative: 59-year-old female with past medical history of asthma noncompliant with medication as well as had no medical care in multiple years presents for evaluation of left-sided chest pain. Onset of symptoms yesterday and progressively worsened. On presentation, patient is hypertensive and tachycardic. She is in atrial fibrillation with RVR. Patient states she has nohistory of atrial fibrillation. Differential diagnosis includes but is not limited to symptomatic atrial fibrillation with RVR, ACS, PE, electrolyte abnormality, thyroid disease, viral illness, pneumonia, CHF. Diltiazem bolus ordered foratrial fibrillation with RVR. Cardiac/respiratory workup ordered. Aspirin given for chest pain. EKGand chest x-ray reviewed see below. CBC without leukocytosis or anemia. Coagulation panel unremarkable. D-dimer elevated at 0.93. CTA chest ordered to assess for PE. BMP shows mild renal insufficiency with creatinine 1.21. I do not previous labs to compare to. Troponin unremarkable. Magnesium levelunremarkable. CTA chest negative for PE although this shows severe coronary artery and mild thoracic artery calcifications. Troponin unremarkable x 2. BNP elevated at 1213. Patient not overtly fluid o verloaded on exam or chest x-ray. TSH elevated at 10.1. Will add on free T4 and free T3. Free T4 and free T3 unremarkable. On reevaluation,patient's chest pain has improved. She is no longer tachycardic. Repeat EKG shows atrial fibrillation with a heart rate of 68. Patient not placed on anticoagulation given no previous medical diagnoses. Patient will warrant admission for further cardiac workup g iven new onset atrial fibrillation with elevated BNP. Patient and family member was updated of all the results and the plan. They confirmed understanding. Patient discussed with the hospitalist service who accepted admission. EKG: Interpreted by me/EM physician: EKG shows atrial fibrillation with RVR. Nonspecific ST changes. Heart rate 126. Repeat EKG shows atrial fibrillation. Heart rate 68. Diagnostic: Interpreted by me/EM physician: Chest x-ray pneumonia, effusion, pneumothorax, cardiomegaly. Radiology in agreement. Impression: 1. New onset atrial fibrillation with RVR, now rate controlled 2. Elevated BNP, concerning for heart failure 3. Subclinical hypothyroidism 4. HTN Lab Data Labs: Laboratory Results - last 24 hr 12/11/24 12/11/24 12/11/24 14:02 14:02 14:37 WBC 8.1 RBC 5.14 Hgb 14.7 Hct 43.8 MCV 85.2 MCH 28.6 MCHC 33.6 RDW Std Deviation 39.3 RDW Coeff of Shannan 12.7 Plt Count 265 MPV 10.5 Immature Gran % (Auto) 0.500 Neut % (Auto) 76.7 H Lymph % (Auto) 15.1 L Freestone % (Auto) 5.8 Eos % (Auto) 1.5 Baso % (Auto) 0.4 Absolute Neuts (auto) 6.2 Absolute Lymphs (auto) 1.23 Nucleated RBC % 0 PT 13.2 INR 1.0 APTT 27.8 D-Dimer Quant (PE/DVT) 0.93 H* Sodium 138 Potassium 3.8 Chloride 100 Carbon Dioxide 24.4 Anion Gap 13 BUN 13 Creatinine 1.21 H Est GFR (MDRD) Non-Af 51 L BUN/Creatinine Ratio 10.7 Glucose 126 H Calcium 9.5 Magnesium 2.0 1.9 Troponin T High Sens 13 Troponin T Hi Sens 2 Hr NT pro BNP II 1213 H TSH 10.100 H Free T4 1.00 Free T3 pg/dL 2.7 12/11/24 16:35 WBC RBC Hgb Hct MCV MCH MCHC RDW Std Deviation RDW Coeff of Shannan Plt Count MPV Immature Gran % (Auto) Neut % (Auto) Lymph % (Auto) Freestone % (Auto) Eos % (Auto) Baso % (Auto) Absolute Neuts (auto) Absolute Lymphs (auto) Nucleated RBC % PT INR APTT D-Dimer Quant (PE/DVT) Sodium Potassium Chloride Carbon Dioxide Anion Gap BUN Creatinine Est GFR (MDRD) Non-Af BUN/Creatinine Ratio Glucose Calcium Magnesium Troponin T High Sens Troponin T Hi Sens 2 Hr 13 NT pro BNP II TSH Free T4 Free T3 pg/dL Radiography Diagnostic Testing: Clinical Impression(s) from Imaging Studies Chest X-Ray 12/11/24 14:45 IMPRESSION: The lateral view is markedly limited by patient motion. Mild frontal view patient motion. Lungs appear clear of acute disease. No pleural effusion or pneumothorax. The cardiomediastinal silhouette is within the normal range for age. 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 Reading Location: [facility] Chest CTA 12/11/24 15:46 IMPRESSION: LIMITED. NO LARGE CENTRAL PULMONARY EMBOLI. Reading Location: [facility] Discharge Plan Disposition Disposition: Acute Care Hospital [facility] Discharge Date/Time: 12/11/24 19:39 What to do if you have Problems For any increased pain, shortness of breath, bleeding, nausea or vomiting, chestpain, or any unexpected problems, contact your Primary Care Provider. Call [facility] ([phone]) or report tothe closest Emergency Room. Call 911 if necessary. 12/11/24 2311 Cosigner Signature (if applicable): CC: Dr. Kareem Esteban MD ~ Signed [facility]06-25-2025 History and physical note Author Mackenzie Pritchard [facility] Note Date/Time December 11, 2024 7:58 pm [facility] Medical Records Department [address] [place] [address] H&P Exam - Hospitalist 12/11/241927 MR#: [id number] Acct: [id number] Name: ALECIA GUTIERREZ Rep #:[id number] : 1965 59 From: Mcakenzie Pritchard MD PCP: Dr. Kareem Esteban MD Status:ALANIS EAGLE Location: [facility] [id number] HPI - General General Date of Admission: 12/11/24 Date of Service: 12/11/24 Chief Complaint: Generally feeling unwell, some sharp left-sided chest pain HPI Narrative ALECIA GUTIERREZ, is a 59-year-old female history of asthma noncompliant with medications and no medical care in multiple years presented [facility] ED 12/11/2024 for left-sided chest pain. Symptoms started yesterday andhas progressively worsened, it is sharp in nature and is associated with shortness of breath and morning cough. In the ED patient afebrile, heart rate initially 151 with a blood pressure of 206/125, respiratory rate of 30 and pulseox 98% on room air. EKG revealed A-fib with RVR. CBC overall unremarkable, BMPwith a creatinine 1.21 with no previous baseline for comparison and a glucose of126. Chest x-ray no overt abnormality on D-dimer 0.93 so patient CTA which was limited but had no central pulmonary emboli or other acute abnormality. TSH found to be 10, proBNP 1200 and initial troponin of 13 with a repeat of 13. Patient given diltiazem bolus and hospitalist contacted for admission for A-fib with RVR with elevated BNP. Patient evaluated at bedside. She reports some chronic shortness of breath from her asthma but is noncompliant with her inhalerbut does not feel this is changed over the past couple of days, also has a chronic morning cough which is unchanged. She reports that since yesterday she has had some sharp pain under her left breast which is worse when she moves, does seem to be worse with palpation as well and she thinks she might of pulled a muscle playing with her puppy. She notes that her right now she might feel a little bit of dull sensation in that area but feels it is improved from earlier. She denies any swelling in her legs. [facility] Medical History (Updated 12/11/24 @ 19:[address] Mackenzie Pritchard MD) Asthma Home Medications ?Medication ?Instructions ?Recorded ?Last Taken ?Type albuterol sulfate 90 mcg/actuation 2 inh inhalation Q4 H PRN shortness 12/11/24 Unknown History aerosol inhaler (Ventolin HFA) of breath or wheezing Allergy/AdvReac Type Severity Reaction Status Date / Time bee venom protein (honey Allergy Severe Anaphylaxis Verified 12/11/24 14:01 bee) (bee sting) Social History Smoking Status: Never smoker ROS ROS Narrative General: Denies fever/chills HENT: Denies headache, denies stuffy nose, denies sore throat EYES: Denies changes in vision Resp: Chronic morning cough, chronic intermittent shortness of breath that is unchanged Cardiac: Some sharp pain under her left breast GI: Denies abdominal pain, denies changes in bowel, denies nausea/vomiting : Denies changes in urination Extremity: Denies swelling MSK: Denies weakness Neuro: Denies any numbness/tingling Heme: Denies any bleeding or bruising Skin: Denies rashes, some scratches on her legs from her puppy Psychiatric: No complaints voiced Vital Signs Vital Signs Vital Signs: 12/11/24 13:53 12/11/24 14:31 12/11/24 14:31 Temperature 97.6 F L 98.5 F Temperature Source Oral Oral Pulse Rate 151 H 125 H Respiratory Rate 30 H 28 H Respiratory Effort Respiratory Depth Respiratory Pattern Blood Pressure 206/125 H 148/109 H Blood Pressure Mean 152 122 Pulse Ox 98 97 Oxygen Delivery Method Room Air Room Air Room Air 12/11/24 14:31 12/11/24 14:55 12/11/24 15:00 Temperature 98.5 F 98.5 F Temperature Source Oral Oral Pulse Rate 78 78 Respiratory Rate 23 H 23 H Respiratory Effort Short of Breath Respiratory Depth Normal Respiratory Pattern Tachypnea Blood Pressure 142/90 H 142/90 H Blood Pressure Mean 107 107 Pulse Ox 95 95 Oxygen Delivery Method Room Air Room Air Room Air 12/11/24 16:00 12/11/24 17:00 12/11/24 18:00 Temperature 98.3 F 98.3 F Temperature Source Oral Oral Pulse Rate 83 70 80 Respiratory Rate 20 H 16 21 H Respiratory Effort Respiratory Depth Respiratory Pattern Blood Pressure 142/78 H 142/77 H 152/81 H Blood Pressure Mean 99 98 104 Pulse Ox 96 96 96 Oxygen Delivery Method Room Air Room Air Room Air 12/11/24 19:03 Temperature 98 F Temperature Source Pulse Rate 73 Respiratory Rate 17 Respiratory Effort Respiratory Depth Respiratory Pattern Blood Pressure 139/79 H Blood Pressure Mean 99 Pulse Ox 96 Oxygen Delivery Method Weight Weight: 139.6 kg Body Mass Index (BMI) 49.6 Physical Exam Narrative General: Alert, oriented, no apparent distress, large body habitus HEENT: Atraumatic, normocephalic Eyes: Anicteric, normal conjunctiva, extraocular movements grossly intact Neck: Supple Respiratory: Slightly diminished at the bases but suspect this largely due to body habitus, normal respiratory effort Cardiovascular: Irregularly irregular but normal rate GI: Soft, nontender, nondistended Extremities: No edema Musculoskeletal: Moving all extremities Neuro: No overt focal neurological deficits Skin: No rashes appreciated, has some light scratches on legs without any appreciated discharge Psych: Cooperative Results Lab / Micro Data 12/11/24 14:02 12/11/24 14:02 Labs: Laboratory Results - last 24 hr 12/11/24 14:02: WBC 8.1, RBC 5.14, Hgb 14.7, Hct 43.8, MCV 85.2, MCH 28.6, MCHC 33.6, RDW Std Deviation 39.3, RDW Coeff of Shannan 12.7, Plt Count 265, MPV 10.5, Immature Gran % (Auto) 0.500, Neut % (Auto) 76.7 H, Lymph % (Auto) 15.1 L, Freestone % (Auto) 5.8, Eos % (Auto) 1.5, Baso % (Auto) 0.4, Absolute Neuts (auto) 6.2, Absolute Lymphs (auto) 1.23, Nucleated RBC % 0, Sodium 138, Potassium 3.8, Chloride 100, Carbon Dioxide 24.4, Anion Gap 13, BUN 13, Creatinine 1.21 H, Est GFR (MDRD) Non-Af 51 L, BUN/Creatinine Ratio 10.7, Glucose 126 H, Calcium 9.5, Magnesium 2.0, Troponin T High Sens 13, NT pro BNP II 1213 H, TSH 10.100 H, FreeT4 1.00, Free T3 pg/dL 2.7 12/11/24 14:37: PT 13.2, INR 1.0, APTT 27.8, D-Dimer Quant (PE/DVT) 0.93 H* 12/11/24 16:35: Troponin T Hi Sens 2 Hr 13 Micro: Microbiology 12/11/24 14:40 Mucosa - Nose SARS-CoV-2, Influenza & RSV (PCR) - Final Imaging Radiology Impression Chest X-Ray 12/11/24 14:45 IMPRESSION: The lateral view is markedly limited by patient motion. Mild frontal view patient motion. Lungs appear clear of acute disease. No pleural effusion or pneumothorax. The cardiomediastinal silhouette is within the normal range for age. 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 Reading Location: [facility]-1 Chest CTA 12/11/24 15:46 IMPRESSION: LIMITED. NO LARGE CENTRAL PULMONARY EMBOLI. Reading Location: [id number] Assessment & Plan Assessment/Plan (1) Atrial fibrillation with RVR: PLAN: Plan #Afib w/ RVR -Admit to telemetry -Improved with push of diltiazem, will schedule beta-gale -Initial rate in ED: 151 -EKG: With heart rate of 126, repeat with A-fib with rate of 68 -Rate control: Start beta-gale -AC: Checking A1c in the a.m., technically patient does not meet criteria for anticoagulation but suspect this is because she does not follow with a physician, if she remains hypertensive or if A1c elevated may benefit from anticoagulation on discharge -Echocardiogram: Ordered -TSH: 10.1 but free T4 and T3 WNL, may need to repeat TSH on outpatient basis tosee if patient does indeed need further management, will need to establish with PCP on discharge - High suspicion the patient has sleep apnea given habitus and she does snore, would recommend sleep study on an outpatient basis # Elevated proBNP -proBNP of 1200, does not appear overloaded -May be due to patient's A-fib with RVR -Echo as above -Daily weights, I's and O's # Pain under left breast - Pain is sharp, positional, seems to be reproducible and troponin is within normal limits - This is atypical, patient said she thinks she might have pulled muscle playingwith her puppy and this is certainly possible - Beta-gale and echo as above, if pain becomes more concerning can consider stress testing or other workup prior to DC # History of asthma -Albuterol as needed # Hyperglycemia -Will check A1c, unclear if this is stress response or patient may have diabetesor prediabetes # Mild renal insufficiency -Creatinine of 1.21, no baseline available -Repeat in the a.m. #Morbid obesity -BMI documented as 49.7 kg/m? at time of admission -Complicates treatment, prognosis, outcomes -Recommend weight loss and lifestyle changes #DVT ppx: Lovenox twice daily Mackenzie Pritchard MD Charges/Coding Visit Charges Inpatient E&M: 23911 Init Hosp L2 12/11/241957 <Electronically signed by Mackenzie Pritchard MD> Cosigner Signature (if applicable): CC: Dr. Kareem Esteban MD; Dr. Mackenzie Pritchard MD~ Signed [facility] Work Phone: [phone]) 464-123806-25-2025 History and physical note [facility] Medical Records Department [address] [place] [address] H&P Exam - Hospitalist 12/11/241927 MR#: [id number] Acct: [id number] Name: ALECIA GUTIERREZ Rep #:[id number] : 1965 59 From: Mackenzie Pritchard MD PCP: Dr. Kareem Esteban MD Status:AD M [facility]CO Location: [place] [id number] HPI - General General Date of Admission: 12/11/24 Date of Service: 12/11/24 Chief Complaint: Generally feeling unwell, some sharp left-sided chest pain HPI Narrative ALECIA GUTIERREZ, is a 59-year-old female history of asthma noncompliant with medications and no medical care in multiple years presented [facility] ED 12/11/2024 for left-sided chest pain. Symptoms started yesterday andhas progressively worsened, it is sharp in nature and is associated with shortness of breath and morning cough. In the ED patient afebrile, heart rate initially 151 with a blood pressure of 206/125, respiratory rate of 30 and pulseox 98% on room air. EKG revealed A-fib with RVR. CBC overall unremarkable, BMPwith a creatinine 1.21 with no previous baseline for comparison and a glucose of126. Chest x-ray no overt abnormality on D-dimer 0.93 so patient CTA which was limited but had no central pulmonary emboli or other acute abnormality. TSH found to be 10, [id number] and initial troponin of 13 with a repeat of 13. Patient given diltiazem bolus and hospitalist contacted for admission for A-fib with RVR with elevated BNP. Patient evaluated at bedside. She reports some chronic shortness of breath from her asthma but is noncompliant with her inhalerbut does not feel this is changed over the past couple of days, also has a chronic morning cough which is unchanged. She reports that since yesterday she has had some sharp pain under her left breast which is worse when she moves, does seem to be worse with palpation as well and she thinks she might of pulled a muscle playing with her puppy. She notes that her right now she might feel a little bit of dull sensation in that area but feels it is improved from earlier. She denies any swelling in her legs. [facility] Medical History (Updated 12/11/24 @ 19:[address] Mackenzie Pritchard MD) Asthma Home Medications ?Medication ?Instructions ?Recorded ?Last Taken ?Type albuterol sulfate 90 mcg/actuation 2 inh inhalation Q4 H PRN shortness 12/11/24 Unknown History aerosol inhaler (Ventolin HFA) of breath or wheezing Allergy/AdvReac Type Severity Reaction Status Date / Time bee venom protein (honey Allergy Severe Anaphylaxis Verified 12/11/24 14:01 bee) (bee sting) Social History Smoking Status: Never smoker ROS ROS Narrative General: Denies fever/chills HENT: Denies headache, denies stuffy nose, denies sore throat EYES: Denies changes in vision Resp: Chronic morning cough, chronic intermittent shortness of breath that is unchanged Cardiac: Some sharp pain under her left breast GI: Denies abdominal pain, denies changes in bowel, denies nausea/vomiting : Denies changes in urination Extremity: Denies swelling MSK: Denies weakness Neuro: Denies any numbness/tingling Heme: Denies any bleeding or bruising Skin: Denies rashes, some scratches on her legs from her puppy Psychiatric: No complaints voiced Vital Signs Vital Signs Vital Signs: 12/11/24 13:53 12/11/24 14:31 12/11/24 14:31 Temperature 97.6 F L 98.5 F Temperature Source Oral Oral Pulse Rate 151 H 125 H Respiratory Rate 30 H 28 H Respiratory Effort Respiratory Depth Respiratory Pattern Blood Pressure 206/125 H 148/109 H Blood Pressure Mean 152 122 Pulse Ox 98 97 Oxygen Delivery Method Room Air Room Air Room Air 12/11/24 14:31 12/11/24 14:55 12/11/24 15:00 Temperature 98.5 F 98.5 F Temperature Source Oral Oral Pulse Rate 78 78 Respiratory Rate 23 H 23 H Respiratory Effort Short of Breath Respiratory Depth Normal Respiratory Pattern Tachypnea Blood Pressure 142/90 H 142/90 H Blood Pressure Mean 107 107 Pulse Ox 95 95 Oxygen Delivery Method Room Air Room Air Room Air 12/11/24 16:00 12/11/24 17:00 12/11/24 18:00 Temperature 98.3 F 98.3 F Temperature Source Oral Oral Pulse Rate 83 70 80 Respiratory Rate 20 H 16 21 H Respiratory Effort Respiratory Depth Respiratory Pattern Blood Pressure 142/78 H 142/77 H 152/81 H Blood Pressure Mean 99 98 104 Pulse Ox 96 96 96 Oxygen Delivery Method Room Air Room Air Room Air 12/11/24 19:03 Temperature 98 F Temperature Source Pulse Rate 73 Respiratory Rate 17 Respiratory Effort Respiratory Depth Respiratory Pattern Blood Pressure 139/79 H Blood Pressure Mean 99 Pulse Ox 96 Oxygen Delivery Method Weight Weight: 139.6 kg Body Mass Index (BMI) 49.6 Physical Exam Narrative General: Alert, oriented, no apparent distress, large body habitus HEENT: Atraumatic, normocephalic Eyes: Anicteric, normal conjunctiva, extraocular movements grossly intact Neck: Supple Respiratory: Slightly diminished at the bases but suspect this largely due to body habitus, normal respiratory effort Cardiovascular: Irregularly irregular but normal rate GI: Soft, nontender, nondistended Extremities: No edema Musculoskeletal: Moving all extremities Neuro: No overt focal neurological deficits Skin: No rashes appreciated, has some light scratches on legs without any appreciated discharge Psych: Cooperative Results Lab / Micro Data 12/11/24 14:02 12/11/24 14:02 Labs: Laboratory Results - last 24 hr 12/11/24 14:02: WBC 8.1, RBC 5.14, Hgb 14.7, Hct 43.8, MCV 85.2, MCH 28.6, MCHC 33.6, RDW Std Deviation 39.3, RDW Coeff of Shannan 12.7, Plt Count 265, MPV 10.5, Immature Gran % (Auto) 0.500, Neut % (Auto) 76.7 H, Lymph % (Auto) 15.1 L, Freestone % (Auto) 5.8, Eos % (Auto) 1.5, Baso % (Auto) 0.4, Absolute Neuts (auto) 6.2, Absolute Lymphs (auto) 1.23, Nucleated RBC % 0, Sodium 138, Potassium 3.8, [id number], Carbon Dioxide 24.4, Anion Gap 13, BUN 13, Creatinine 1.21 H, Est GFR (MDRD) Non-Af 51 L, BUN/Creatinine Ratio 10.7, Glucose 126 H, Calcium 9.5, Magnesium 2.0, Troponin T High Sens 13, NT pro BNP II 1213 H, TSH 10.100 H, FreeT4 1.00, Free T3 pg/dL 2.7 12/11/24 14:37: PT 13.2, INR 1.0, APTT 27.8, D-Dimer Quant (PE/DVT) 0.93 H* 12/11/24 16:35: Troponin T Hi Sens 2 Hr 13 Micro: Microbiology 12/11/24 14:40 Mucosa - Nose SARS-CoV-2, Influenza & RSV (PCR) - Final Imaging Radiology Impression Chest X-Ray 12/11/24 14:45 IMPRESSION: The lateral view is markedly limited by patient motion. Mild frontal view patient motion. Lungs appear clear of acute disease. No pleural effusion or pneumothorax. The cardiomediastinal silhouette is within the normal range for age. 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 Reading [facility] Chest CTA 12/11/24 15:46 IMPRESSION: LIMITED. NO LARGE CENTRAL PULMONARY EMBOLI. Reading Location: [id number] Assessment & Plan Assessment/Plan (1) Atrial fibrillation with RVR: PLAN: Plan #Afib w/ RVR -Admit to telemetry -Improved with push of diltiazem, will schedule beta-gale -Initial rate in ED: 151 -EKG: With heart rate of 126, repeat with A-fib with rate of 68 -Rate control: Start beta-gale -AC: Checking A1c in the a.m., technically patient does not meet criteria for anticoagulation but suspect this is because she does not follow with a physician, if she remains hypertensive or if A1c elevated may benefit from anticoagulation on discharge -Echocardiogram: Ordered -TSH: 10.1 but free T4 and T3 WNL, may need to repeat TSH on outpatient basis tosee if patient doesindeed need further management, will need to establish with PCP on discharge - High suspicion the patient has sleep apnea given habitus and she does snore, would recommend sleep study on an outpatient basis # Elevated proBNP -proBNP of 1200, does not appear overloaded -May be due to patient's A-fib with RVR -Echo as above -Daily weights, I's and O's # Pain under left breast - Pain is sharp, positional, seems to be reproducible and troponin is within normal limits - This is atypical, patient said she thinks she might have pulled muscle playingwith her puppy and this is certainly possible - Beta-gale and echo as above, if pain becomes more concerning can consider stress testing or other workup prior to DC # History of asthma -Albuterol as needed # Hyperglycemia -Will check A1c, unclear if this is stress response or patient may have diabetesor prediabetes # Mild renal insufficiency -Creatinine of 1.21, no baseline available -Repeat in the a.m. #Morbid obesity -BMI documented as 49.7 kg/m? at time of admission -Complicates treatment, prognosis, outcomes -Recommend weight loss and lifestyle changes #DVT ppx: Lovenox twice daily Mackenzie Pritchard MD Charges/Coding Visit Charges Inpatient E&M: 36648 Init Hosp L2 12/11/241957 Cosigner Signature (if applicable): CC: Dr. Kareem Esteban MD; Dr. Mackenzie Pritchard MD~ Signed [facility]06-25-2025 Radiology Diagnostic study note [facility] Imaging Services [address] [place] [address] CTA Chest W/WO Contrast MR#: [id number] Acct: [id number] Name: ALECIA GUTIERREZ Rep #: [id number] : 1965 F 59 From: Elizabeth Ritchie MD PCP: Dr. Kareem Esteban MD Status: RE G ER Study:CTA Chest W/WO Contrast Date of Exam: 12/11/24 Exam# [id number] Ordering Dr: Wilfredo Moore DO PROCEDURE: CTA [...] motion artifact. The central airways are patent withexpiratory phase imaging. No large pulmonary mass. No pleural effusion or pneumothorax. Upper Abdomen: Visualized portions of the upper abdominal viscera are unremarkable. Bones: Mild thoracic spondylosis. CT/CTA Chest W/WO Contrast IMPRESSION: LIMITED. NO LARGE CENTRAL PULMONARY EMBOLI. Reading Location: [facility] CC: Dr. Wilfredo Galindo DO; Dr. Kareem Esteban MD ~ Crutch Maker: Signed [facility]06-25-2025 Radiology Diagnostic study note [facility] Imaging Services [address] [place] [id number] Chest PA and Lateral MR#: [id number] Acct: [id number] Name: ALECIA GUTIERREZ Rep #: [id number] : 1965 F 59 From: Melvin Frank MD PCP: Dr. Kareem Esteban MD Status: RE G ER Study:Chest PA and Lateral Date of Exam: 12/11/24 Exam# [id number] Ordering Dr: Wilfredo Moore DO PROCEDURE: CHEST [...] degenerative changes and DISH noted. Reading Location: [place] [address] CC: Dr. Wilfredo Galindo DO; Dr. Kareem Esteban MD ~ Crutch Maker: Signed [facility] note[facility] assessment information available [facility] Work Phone: Evaluation note* Diagnosis Subclinical hypothyroidism- Primary Other specified acquired hypothyroidism CKD (chronic kidney disease) stage 2, GFR 60-89 ml/min Chronic kidney disease, Stage II (mild) Elevated alkaline phosphatase level Other nonspecific abnormal serum enzyme levels documented in this encounter [facility] Discharge instructionsAdditional Instructions Date of [facility]: [facility] Work Phone: Hospital Discharge instructionsAmbulatory Orders* Electrophysiology Location: [facility] Work Phone: Progress note Author Zachary Cleary [facility] Note Date/Time December 14, 2024 12:2 2pm [facility] Medical Records Department [address] [place] [address] Progress Note - Cardiology 12/14/24 1211 MR#: [id number] Acct: [id number] Name: ALECIA GUTIERREZ Rep #:[id number] : 1965 59 From: Zachary Cleary MD PCP: Dr. Kareem Esteban MD Status:AD M IN Location: [facility] [id number] Subjective Subjective Feels better. Denies any complaints. Objective Data Vital Signs: Vital Signs Temp Pulse Resp BP Pulse Ox O2 Del Method 98.3 F 91 18 133/73 H 96 Room Air 12/14/24 09:21 12/14/24 09:27 12/14/24 09:21 12/14/24 09:21 12/14/24 09:21 12/14/24 09:21 Oxygen Delivery Method Room Air Weight: 277 lb 12.519 oz Body Mass Index (BMI) 44.8 Intake & Output: Intake and Output for Last 24 Hours 12/12/24 12/13/24 12/14/24 23:59 23:59 23:59 Intake Total 1140 / 1140 560 / 560 1600 / 1600 Balance 1140 / 1140 560 / 560 1600 / 1600 Lab / Micro Data 12/14/24 05:50 12/14/24 05:50 Labs: Laboratory Results - last 24 hr 12/13/24 11:59: WBC 5.7, RBC 4.84, Hgb 13.7, Hct 42.2, MCV 87.2, MCH 28.3, MCHC 32.5, RDW Std Deviation 40.1, RDW Coeff of Shannan 12.7, Plt Count 227, MPV 10.4, Immature Gran % (Auto) 0.500, Neut % (Auto) 81.7 H, Lymph % (Auto) 12.4 L, Freestone % (Auto) 4.2, Eos % (Auto) 1.0, Baso % (Auto) 0.2, Absolute Neuts (auto) 4.7, Absolute Lymphs (auto) 0.71 L, Nucleated RBC % 0, Sodium 136, Potassium 4.0, Chloride 100, Carbon Dioxide 23.3, Anion Gap 13, BUN 12, Creatinine 0.92, Estim Creat Clear Calc 88.47, Est GFR (MDRD) Non-Af 71, BUN/Creatinine Ratio 13.2, Glucose 111 H, Calcium 8.7 12/13/24 13:13: Triglycerides 98, Cholesterol 147, LDL Cholesterol, Calc 90, VLDL Cholesterol 20, HDL Cholesterol 37 L, Cholesterol/HDL Ratio 3.93 12/13/24 14:37: Activated Clotting Time 227 H 12/14/24 05:50: WBC 7.2, RBC 4.71, Hgb 13.4, Hct 41.1, MCV 87.3, MCH 28.5, MCHC 32.6, RDW Std Deviation 40.4, RDW Coeff of Shannan 12.7, Plt Count 230, MPV 10.5, Immature Gran % (Auto) 0.600, Neut % (Auto) 78.9 H, Lymph % (Auto) 14.5 L, Freestone % (Auto) 4.7, Eos % (Auto) 1.0, Baso % (Auto) 0.3, Absolute Neuts (auto) 5.7, Absolute Lymphs (auto) 1.04, Nucleated RBC % 0, Sodium 138, Potassium 4.0, Chloride 102, Carbon Dioxide 24.1, Anion Gap 12, BUN 13, Creatinine 0.96, Estim Creat Clear Calc 84.59, Est GFR (MDRD) Non-Af 68, BUN/Creatinine Ratio 13.4, Glucose 101 H, Calcium 8.7 Cardiology Labs/Tests 12/13/24 11:59: WBC 5.7, RBC 4.84, Hgb 13.7, Hct 42.2, MCV 87.2, MCH 28.3, MCHC 32.5, Plt Count 227, MPV 10.4, Immature Gran % (Auto) 0.500, Neut % (Auto) 81.7 H, Lymph % (Auto) 12.4 L, Freestone % (Auto) 4.2, Eos % (Auto) 1.0, Baso % (Auto) 0.2, Absolute Neuts (auto) 4.7, Nucleated RBC % 0, Sodium 136, Potassium 4.0, Chloride 100, Carbon Dioxide 23.3, Anion Gap 13, BUN 12, Creatinine 0.92, Est GFR (MDRD) Non-Af 71, BUN/Creatinine Ratio 13.2, Glucose 111 H, Calcium 8.7 12/13/24 13:13: Triglycerides 98, Cholesterol 147, VLDL Cholesterol 20, HDL Cholesterol 37 L, Cholesterol/HDL Ratio 3.93 12/14/24 05:50: WBC 7.2, RBC 4.71, Hgb 13.4, Hct 41.1, MCV 87.3, MCH 28.5, MCHC 32.6, Plt Count 230, MPV 10.5, Immature Gran % (Auto) 0.600, Neut % (Auto) 78.9 H, Lymph % (Auto) 14.5 L, Freestone % (Auto) 4.7, Eos % (Auto) 1.0, Baso % (Auto) 0.3, Absolute Neuts (auto) 5.7, Nucleated RBC % 0, Sodium 138, Potassium 4.0, Chloride 102, Carbon Dioxide 24.1, Anion Gap 12, BUN 13, Creatinine 0.96, Est GFR (MDRD) Non-Af 68, BUN/Creatinine Ratio 13.4, Glucose 101 H, Calcium 8.7 Rhythm: EKG: ECHO: Stress Test: Cardiac Cath: PCI: CT Surgery: Holter monitor: EPS: PPM: CXR: Chest CT Scan: Physical Exam Narrative Morbidly obese. Heart sounds 1 and 2 noted. Irregularly irregular. Chest examination with decreased air entry bilaterally. 1+ bilateral ankle edema. Alert oriented x 3. Assessment & Plan Assessment/Plan (1) Atrial fibrillation: PLAN: New onset atrial fibrillation. CHADS2?VASc score 4. Recommend oral anticoagulation for prevention of thromboembolic phenomenon. Discussed with patient in detail. Risks and benefits explained. She understands these and wishes to proceed with chronic oral anticoagulation. Continue metoprolol for rate control. (2) CAD (coronary artery disease): PLAN: Three-vessel calcific CAD. No critical stenosis. Continue medical management. Risk factor modification. (3) Nonischemic cardiomyopathy: PLAN: Beta-blockers, ARB, SGLT2 inhibitors. (4) Chronic systolic (congestive) heart failure: PLAN: Beta-blockers, ARB, SGLT2 inhibitors, furosemide (5) Hypertension: PLAN: Metoprolol, furosemide, ARB (6) Dyslipidemia: PLAN: Atorvastatin. (7) Morbid obesity: PLAN: Lose weight. (8) History of asthma: PLAN: As per internal medicine. 12/14/24 1222 <Electronically signed by Zachary Cleary MD> Cosigner Signature (if applicable): CC: ~ Signed [facility] Work Phone: Reason for referral (narrative)No reason for referral information availableWProMedica Flower [facility] Work Phone: Chief Complaint and Reason for Visit Chief Complaint Admit Date NEW ONSET AFIB WITH RVR December 11, 2024 7:12pm Chief Complaint Admit Date NEW ONSET AFIB WITH RVR December 11, 2024 7:28pm A-FIB WITH RVR December 12, 2024 9:29 am A-FIB WITH RVR December 13, 2024 12:5 4pm A-FIB WITH RVR December 13, 2024 4:31 pm A-FIB WITH RVR December 13, 2024 4:43 pm A-FIB WITH RVR December 14, 2024 10:0 1am A-FIB WITH RVR December 14, 2024 12:1 1pm Reason for Visit Admit Date Abnormal cardiovascular stress test December 13, 2024 4:43pm Atrial fibrillation December 13, 2024 4:43 pm Atrial fibrillation with RVR December 13, 2024 4:43pm CAD (coronary artery disease) December 13, 2024 4:43pm Dyslipidemia December 13, 2024 4:43 pm History of asthma December 13, 2024 4:43 pm Morbid obesity December 13, 2024 4:43 pm Nonischemic cardiomyopathy December 13 4:43pm Chronic systolic (congestive) heart fail ure December 13, 2024 4:43pm Hypertension December 13, 2024 4:43 pm Chief Complaint Admit Date NEW ONSET AFIB WITH RVR December 11, 2024 7:28pm A-FIB WITH RVR December 12, 2024 9:29 am A-FIB WITH RVR December 13, 2024 12:5 4pm A-FIB WITH RVR December 13, 2024 4:31 pm A-FIB WITH RVR December 13, 2024 4:43 pm A-FIB WITH RVR December 14, 2024 10:0 1am A-FIB WITH RVR December 14, 2024 12:1 1pm [facility] 12/14 AFIB w/ RVR December 25, 2024 12:5 3pm Reason for Visit Admit Date Abnormal cardiovascular stress test December 13, 2024 4:43pm Atrial fibrillation with RVR December 13, 2024 4:43pm CAD (coronary artery disease) December 13, 2024 4:43pm Dyslipidemia December 13, 2024 4:43 pm History of asthma December 13, 2024 4:43 pm Morbid obesity December 13, 2024 4:43 pm Chronic systolic (congestive) heart fail ure December 13, 2024 4:43pm Hypertension December 13, 2024 4:43 pm Nonischemic cardiomyopathy December 13 4:43pm Atrial fibrillation December 13, 2024 4:43 pm CAD (coronary artery disease) December 25, 2024 12:53pm Dyslipidemia December 25, 2024 12:53 pm AYO (obstructive sleep apnea) December 25, 2024 12:53pm Persistent atrial fibrillation December 25, 2024 12:53pm Hypertension December 25, 2024 12:53 pm Nonischemic cardiomyopathy December 25 12:53pm Chief Complaint Admit Date NEW ONSET AFIB WITH RVR December 11, 2024 7:28pm A-FIB WITH RVR December 12, 2024 9:29 am A-FIB WITH RVR December 13, 2024 12:5 4pm A-FIB WITH RVR December 13, 2024 4:31 pm A-FIB WITH RVR December 13, 2024 4:43 pm A-FIB WITH RVR December 14, 2024 10:0 1am A-FIB WITH RVR December 14, 2024 12:1 1pm [facility] 12/14 AFIB w/ RVR December 25, 2024 12:5 3pm AFIB January 13, 2025 10:0 9am Atrial fibrillation January 13, 2025 12:4 4pm Atrial fibrillation January 13, 2025 12:5 4pm Chief Complaint Admit Date NEW ONSET AFIB WITH RVR December 11, 2024 7:28pm A-FIB WITH RVR December 12, 2024 9:29 am A-FIB WITH RVR December 13, 2024 12:5 4pm A-FIB WITH RVR December 13, 2024 4:31 pm A-FIB WITH RVR December 13, 2024 4:43 pm A-FIB WITH RVR December 14, 2024 10:0 1am A-FIB WITH RVR December 14, 2024 12:1 1pm [facility] 12/14 AFIB w/ RVR December 25, 2024 12:5 3pm AFIB January 13, 2025 10:0 9am Atrial fibrillation January 13, 2025 12:4 4pm Atrial fibrillation January 13, 2025 12:5 4pm AYO January 14, 2025 7:49 pm Sleep problems/Hospital FU January 29, 2025 9:06am Reason for Visit Admit Date Abnormal cardiovascular stress test December 13, 2024 4:43pm Atrial fibrillation with RVR December 13, 2024 4:43pm CAD (coronary artery disease) December 13, 2024 4:43pm Dyslipidemia December 13, 2024 4:43 pm History of asthma December 13, 2024 4:43 pm Morbid obesity December 13, 2024 4:43 pm Chronic systolic (congestive) heart fail ure December 13, 2024 4:43pm Hypertension December 13, 2024 4:43 pm Nonischemic cardiomyopathy December 13 4:43pm Atrial fibrillation December 13, 2024 4:43 pm CAD (coronary artery disease) December 25, 2024 12:53pm Dyslipidemia December 25, 2024 12:53 pm AYO (obstructive sleep apnea) December 25, 2024 12:53pm Persistent atrial fibrillation December 25, 2024 12:53pm Hypertension December 25, 2024 12:53 pm Nonischemic cardiomyopathy December 25 12:53pm AYO (obstructive sleep apnea) January 9:06am Persistent atrial fibrillation January 292024 9:06am Reason for Visit Admit Date Abnormal cardiovascular stress test December 13, 2024 4:43pm Atrial fibrillation with RVR December 13, 2024 4:43pm CAD (coronary artery disease) December 13, 2024 4:43pm Dyslipidemia December 13, 2024 4:43 pm History of asthma December 13, 2024 4:43 pm Chronic systolic (congestive) heart fail ure December 13, 2024 4:43pm Hypertension December 13, 2024 4:43 pm Morbid obesity December 13, 2024 4:43 pm Nonischemic cardiomyopathy December 13 4:43pm Atrial fibrillation December 13, 2024 4:43 pm CAD (coronary artery disease) December 25, 2024 12:53pm Dyslipidemia December 25, 2024 12:53 pm AYO (obstructive sleep apnea) December 25, 2024 12:53pm Persistent atrial fibrillation December 25, 2024 12:53pm Hypertension December 25, 2024 12:53 pm Nonischemic cardiomyopathy December 25 12:53pm AYO (obstructive sleep apnea) January 9:06am Persistent atrial fibrillation January 292024 9:06am Morbid obesity January 29, 2025 9: 06am Chief Complaint Admit Date NEW ONSET AFIB WITH RVR December 11, 2024 7:28pm A-FIB WITH RVR December 12, 2024 9:29 am A-FIB WITH RVR December 13, 2024 12:5 4pm A-FIB WITH RVR December 13, 2024 4:31 pm A-FIB WITH RVR December 13, 2024 4:43 pm A-FIB WITH RVR December 14, 2024 10:0 1am A-FIB WITH RVR December 14, 2024 12:1 1pm [facility] 6/28 AFIB w/ RVR December 25, 2024 12:5 3pm AFIB January 13, 2025 10:0 9am Atrial fibrillation January 13, 2025 12:4 4pm Atrial fibrillation January 13, 2025 12:5 4pm AYO January 14, 2025 7:49 pm Sleep problems/Hospital FU January 29, 2025 9:06am 2 M FU February 26, 2025 1:53pm Reason for Visit Admit Date Abnormal cardiovascular stress test December 13, 2024 4:43pm Atrial fibrillation with RVR December 13, 2024 4:43pm CAD (coronary artery disease) December 13, 2024 4:43pm Dyslipidemia December 13, 2024 4:43 pm History of asthma December 13, 2024 4:43 pm Chronic systolic (congestive) heart fail ure December 13, 2024 4:43pm Hypertension December 13, 2024 4:43 pm Morbid obesity December 13, 2024 4:43 pm Nonischemic cardiomyopathy December 13 4:43pm Atrial fibrillation December 13, 2024 4:43 pm CAD (coronary artery disease) December 25, 2024 12:53pm Dyslipidemia December 25, 2024 12:53 pm AYO (obstructive sleep apnea) December 25, 2024 12:53pm Persistent atrial fibrillation December 25, 2024 12:53pm Hypertension December 25, 2024 12:53 pm Nonischemic cardiomyopathy December 25 12:53pm AYO (obstructive sleep apnea) January 9:06am Persistent atrial fibrillation January 292024 9:06am Morbid obesity January 29, 2025 9: 06am CAD (coronary artery disease) February 26, 2025 1:53pm Dyslipidemia February 26, 2025 1:53pm AYO (obstructive sleep apnea) February 26, 2025 1:53pm Persistent atrial fibrillation February 26, 2025 1:53pm Hypertension February 26, 2025 1:53pm Nonischemic cardiomyopathy February 1:53pm Chief Complaint Admit Date NEW ONSET AFIB WITH RVR December 11, 2024 7:28pm A-FIB WITH RVR December 12, 2024 9:29 am A-FIB WITH RVR December 13, 2024 12:5 4pm A-FIB WITH RVR December 13, 2024 4:31 pm A-FIB WITH RVR December 13, 2024 4:43 pm A-FIB WITH RVR December 14, 2024 10:0 1am A-FIB WITH RVR December 14, 2024 12:1 1pm [facility] 12/14 AFIB w/ RVR December 25, 2024 12:5 3pm AFIB January 13, 2025 10:0 9am Atrial fibrillation January 13, 2025 12:4 4pm Atrial fibrillation January 13, 2025 12:5 4pm AYO January 14, 2025 7:49 pm Sleep problems/Hospital FU January 29, 2025 9:06am 2 M FU February 26, 2025 1:53pm with sleep aid February 28, 2025 7:33pm Advance Directives No Advanced Directives Records Found Advance Directive Response Recorded Date/ Time Do you have a Healthcare Power of Ship Rigger? No December 11, 2024 2:31pm Advance Directive Response Recorded Date/ Time Do you have a Healthcare Power of Ship Rigger? No December 11, 2024 7:47pm Advance Directive Response Recorded Date/ Time Do you have a Healthcare Power of Ship Rigger? No December 11, 2024 7:47pm Living Will No January 13, 2025 10:47am Do you have a Healthcare Power of Ship Rigger? No January 13, 2025 10:47am Advance Directives No January 13 10:47am Summary Purpose Family History No Family History Records FoundNo Family History Records FoundNo Family History Records Found Additional Source Comments Goals (unrecognized section and content) Goals may [...] Start: December 11, 2024 Dr. Wilfredo Galindo , Emergency Provider Activ e Start: December 11, 2024 Dr. Mackenzie Pritchard MD Admit Provider Active Star t: December 11, 2024 Dr. Mackenzie Pritchard MD Attending Provider Active Start: December 11, 2024 Team Status: Active Member Role/Relationship Status Dates Dr. Kareem Esteban MD Primary Care Provider Active Team Status: Active Member Role/Relationship Status Dates Dr. Kareem Esteban MD Primary Care Provider Active Start: December 11, 2024 Dr. Wilfredo Galindo DO Emergency Provider Activ e Start: December 11, 2024 Dr. Mackenzie Pritchard MD Admit Provider Active Star t: December 11, 2024 Dr. Mackenzie Pritchard MD Attending Provider Active Start: December 11, 2024 Dr. Mackenzie Pritchard MD Other Provider Active Star t: December 11, 2024 Team Status: Active Member Role/Relationship Status Dates Dr. Kareem Esteban MD Primary Care Provider Active Start: December 12, 2024 Dr. Wilfredo Galindo DO Emergency Provider Activ e Start: December 12, 2024 Dr. Mackenzie Pritchard MD Admit Provider Active Star t: December 12, 2024 Dr. Mackenzie Pritchard MD Other Provider Active Star t: December 12, 2024 Dr. Holden Barros MD Attending Provider Active Start: December 12, 2024 Dr. Holden Barros MD Other Provider Active Sta rt: December 12, 2024 Team Status: Active Member Role/Relationship Status Dates Dr. Kareem Esteban MD Primary Care Provider Active Start: December 13, 2024 Dr. Wilfredo Galindo DO Emergency Provider Activ e Start: December 13, 2024 Dr. Mackenzie Pritchard MD Admit Provider Active Star t: December 13, 2024 Dr. Mackenzie Pritchard MD Other Provider Active Star t: December 13, 2024 Dr. Holden Barros MD Other Provider Active Sta rt: December 13, 2024 Dr. Zachary Cleary MD Attending Provider Active Start: December 13, 2024 Team Status: Active Member Role/Relationship Status Dates Dr. Kareem Esteban MD Primary Care Provider Active Start: December 13, 2024 Dr. Wilfredo Galindo DO Emergency Provider Activ e Start: December 13, 2024 Dr. Mackenzie Pritchard MD Admit Provider Active Star t: December 13, 2024 Dr. Mackenzie Pritchard MD Other Provider Active Star t: December 13, 2024 Dr. Holden Barros MD Attending Provider Active Start: December 13, 2024 Dr. Holden Barros MD Other Provider Active Sta rt: December 13, 2024 Dr. Zachary Cleary MD Other Provider Active Star t: December 13, 2024 Team Status: Inactive Member Role/Relationship Status Dates Dr. Kareem Esteban MD Primary Care Provider Active Start: December 13, 2024 End: December 14, 2024 Dr. Wilfredo Galindo DO Emergency Provider Activ e Start: December 13, 2024 End: December 14, 2024 Dr. Mackenzie Pritchard MD Admit Provider Active Star t: December 13, 2024 End: December 14, 2024 Dr. Mackenzie Pritchard MD Other Provider Active Star t: December 13, 2024 End: December 14, 2024 Dr. Holden Barros MD Attending Provider Active Start: December 13, 2024 End: December 14, 2024 Dr. Zachary Cleary MD Other Provider Active Star t: December 13, 2024 End: December 14, 2024 Team Status: Active Member Role/Relationship Status Dates Dr. Kareem Esteban MD Primary Care Provider Active Start: December 14, 2024 Dr. Wilfredo Galindo DO Emergency Provider Activ e Start: December 14, 2024 Dr. Mackenzie Pritchard MD Admit Provider Active Star t: December 14, 2024 Dr. Mackenzie Pritchard MD Other Provider Active Star t: December 14, 2024 Dr. Holden Barros MD Attending Provider Active Start: December 14, 2024 Dr. Holden Barros MD Other Provider Active Sta rt: December 14, 2024 Dr. Zachary Cleary MD Other Provider Active Star t: December 14, 2024 Team Status: Active Member Role/Relationship Status Dates Dr. Kareem Esteban MD Primary Care Provider Active Start: December 14, 2024 Dr. Wilfredo Galindo DO Emergency Provider Activ e Start: December 14, 2024 Dr. Mackenzie Pritchard MD Admit Provider Active Star t: December 14, 2024 Dr. Mackenzie Pritchard MD Other Provider Active Star t: December 14, 2024 Dr. Holden Barros MD Other Provider Active Sta rt: December 14, 2024 Dr. Zachary Cleary MD Attending Provider Active Start: December 14, 2024 Dr. Zachary Cleary MD Other Provider Active Star t: December 14, 2024 Team Status: Inactive Member Role/Relationship Status Dates Dr. Kareem Esteban MD Primary Care Provider Active Start: December 25, 2024 End: December 25, 2024 Dr. Kareem Esteban MD Referring Provider Active Start: December 25, 2024 End: December 25, 2024 Germania Richardson PA, PA Attending Provider Active Start: December 25, 2024 End: December 25, 2024 Team Status: Inactive Member Role/Relationship Status Dates Dr. Kareem Esteban MD Primary Care Provider Active Start: January 13, 2025 End: January 13, 2025 Dr. Ezra Bay MD Attending Provider Active S tart: January 13, 2025 End: January 13, 2025 Dr. Ezra Bay MD Referring Provider Active S tart: January 13, 2025 End: January 13, 2025 Team Status: Active Member Role/Relationship Status Dates Dr. Kareem Esteban MD Primary Care Provider Active Start: January 13, 2025 Dr. Ezra Bay MD Referring Provider Active S tart: January 13, 2025 Dr. Ezra Bay MD Other Provider Active Start : January 13, 2025 Dr. Pato Ritchie DO Attending Provider Active S tart: January 13, 2025 Team Status: Active Member Role/Relationship Status Dates Dr. Kareem Esteban MD Primary Care Provider Active Start: January 13, 2025 Dr. Ezra Bay MD Attending Provider Active S tart: January 13, 2025 Dr. Ezra Bay MD Referring Provider Active S tart: January 13, 2025 Dr. Ezra Bay MD Other Provider Active Start : January 13, 2025 Marble Setter Relationship Specialty Start Date End Date Aidee Kincaid MD [address] [place] [address] PCP - General Internal Medicine/Pediatrics 01/24/25 Carmen Curry APRN.HIGH RISK CASE MANAGER [address] [place] [address] [facility] 05/27/24 Evi Daniel APRN.PATTERN PUNCHER [address] [place] [address] [facility] 09/10/24 Team Status: Active Member Role/Relationship Status Dates Dr. Aidee Kincaid MD Primary Care Provider Activ e Team Status: Active Member Role/Relationship Status Dates Dr. Kareem Esteban MD Primary Care Provider Active Start: January 14, 2025 Germania Richardson PA PA Attending Provider Active Start: January 14, 2025 Germania WHALEY PA Referring Provider Active Start: January 14, 2025 Team Status: Inactive Member Role/Relationship Status Dates Dr. Kareem Esteban MD Referring Provider Active Start: January 29, 2025 End: January 29, 2025 Nida Lemus EVENT SPECIALIST FOOD DEMONSTRATOR, EVENT SPECIALIST FOOD DEMONSTRATOR-C Attending Provider Active Start: January 29, 2025 End: January 29, 2025 Dr. Aidee Kincaid MD Primary Care Provider Activ e Start: January 29, 2025 End: January 29, 2025 Team Status: Inactive Member Role/Relationship Status Dates Dr. Kareem Esteban MD Primary Care Provider Active Start: January 14, 2025 End: January 14, 2025 Germania WHALEY PA Attending Provider Active Start: January 14, 2025 End: January 14, 2025 Germania Richardson PA, PA Referring Provider Active Start: January 14, 2025 End: January 14, 2025 Team Status: Inactive Member Role/Relationship Status Dates Dr. Kareem Esteban MD Referring Provider Active Start: February 26, 2025 End: February 26, 2025 Germania Richardson PA PA Attending Provider Active Start: February 26, 2025 End: February 26, 2025 Dr. Aidee Kincaid MD Primary Care Provider Activ e Start: February 26, 2025 End: February 26, 2025 Team Status: Active Member Role/Relationship Status Dates Dr. Aidee Kincaid MD Primary care physician [facility] [place] Team Status: Active Member Role/Relationship Status Dates Dr. Kareem Esteban MD Primary care physician Active Start: December 11, 2024 Dr. Wilfredo Galindo DO Emergency Department Physician Active Start: 2024 Dr. Mackenzie Pritchard MD Admitting physician Active Start: December 11, 2024 Dr. Mackenzie Pritchard MD Attending physician Active Start: December 11, 2024 Dr. Mackenzie Pritchard MD Nurse Practitioner Active Start: December 11, 2024 Team Status: Active Member Role/Relationship Status Dates Dr. Kareem Esteban MD Primary care physician Active Start: December 12, 2024 Dr. Wilfredo Galindo DO Emergency Department Physician Active Start: 2024 Dr. Mackenzie Pritchard MD Admitting physician Active Start: December 12, 2024 Dr. Mackenzie Pritchard MD Nurse Practitioner Active Start: December 12, 2024 Dr. Holden Barros MD Attending physician Active Start: December 12, 2024 Dr. Holden Barros MD Nurse Practitioner Active Start: December 12, 2024 Team Status: Active Member Role/Relationship Status Dates Dr. Kareem Esteban MD Primary care physician Active Start: December 13, 2024 Dr. Wilfredo Galindo DO Emergency Department Physician Active Start: 2024 Dr. Mackenzie Pritchard MD Admitting physician Active Start: December 13, 2024 Dr. Mackenzie Pritchard MD Nurse Practitioner Active Start: December 13, 2024 Dr. Holden Barros MD Nurse Practitioner Active Start: December 13, 2024 Dr. Zachary Cleary MD Attending physician Active Start: December 13, 2024 Team Status: Active Member Role/Relationship Status Dates Dr. Kareem Esteban MD Primary care physician Active Start: December 13, 2024 Dr. Wilfredo Galindo DO Emergency Department Physician Active Start: 2024 Dr. Mackenzie Pritchard MD Admitting physician Active Start: December 13, 2024 Dr. Mackenzie Pritchard MD Nurse Practitioner Active Start: December 13, 2024 Dr. Holden Barros MD Attending physician Active Start: December 13, 2024 Dr. Holden Barros MD Nurse Practitioner Active Start: December 13, 2024 Dr. Zachary Cleary MD Nurse Practitioner Active Start: December 13, 2024 Team Status: Inactive Member Role/Relationship Status Dates Dr. Kareem Esteban MD Primary care physician Active Start: December 13, 2024 End: December 14, 2024 Dr. Wilfredo Galindo DO Emergency Department Physician Active Start: 2024 End: December 14, 2024 Dr. Mackenzie Pritchard MD Admitting physician Active Start: December 13, 2024 End: December 14, 2024 Dr. Mackenzie Pritchard MD Nurse Practitioner Active Start: December 13, 2024 End: December 14, 2024 Dr. Holden Barros MD Attending physician Active Start: December 13, 2024 End: December 14, 2024 Dr. Zachary Cleary MD Nurse Practitioner Active Start: December 13, 2024 End: December 14, 2024 Team Status: Active Member Role/Relationship Status Dates Dr. Kareem Esteban MD Primary care physician Active Start: December 14, 2024 Dr. Wilfredo Galindo DO Emergency Department Physician Active Start: 2024 Dr. Mackenzie Pritchard MD Admitting physician Active Start: December 14, 2024 Dr. Makcenzie Pritchard MD Nurse Practitioner Active Start: December 14, 2024 Dr. Holden Barros MD Attending physician Active Start: December 14, 2024 Dr. Holden Barros MD Nurse Practitioner Active Start: December 14, 2024 Dr. Zachary Cleary MD Nurse Practitioner Active Start: December 14, 2024 Team Status: Active Member Role/Relationship Status Dates Dr. Kareem Esteban MD Primary care physician Active Start: December 14, 2024 Dr. Wilfredo Galindo DO Emergency Department Physician Active Start: 2024 Dr. Mackenzie Pritchard MD Admitting physician Active Start: December 14, 2024 Dr. Mackenzie Pritchard MD Nurse Practitioner Active Start: December 14, 2024 Dr. Holden Barros MD Nurse Practitioner Active Start: December 14, 2024 Dr. Zachary Cleary MD Attending physician Active Start: December 14, 2024 Dr. Zachary Cleary MD Nurse Practitioner Active Start: December 14, 2024 Team Status: Inactive Member Role/Relationship Status Dates Dr. Kareem Esteban MD Primary care physician Active Start: December 25, 2024 End: December 25, 2024 Dr. Kareem Esteban MD Referring Provider Active Start: December 25, 2024 End: December 25, 2024 Germania WHALEY, PA Attending physician Active Start: December 25, 2024 End: December 25, 2024 Team Status: Inactive Member Role/Relationship Status Dates Dr. Kareem Esteban MD Primary care physician Active Start: January 13, 2025 End: January 13, 2025 Dr. Ezra Bay MD Attending physician Active Start: January 13, 2025 End: January 13, 2025 Dr. Ezra Bay MD Referring Provider Active S tart: January 13, 2025 End: January 13, 2025 Team Status: Active Member Role/Relationship Status Dates Dr. Kareem Esteban MD Primary care physician Active Start: January 13, 2025 Dr. Ezra Bay MD Referring Provider Active S tart: January 13, 2025 Dr. Ezra Bay MD Nurse Practitioner Active S tart: January 13, 2025 Dr. Pato Ritchie DO Attending physician Active Start: January 13, 2025 Team Status: Active Member Role/Relationship Status Dates Dr. Kareem Esteban MD Primary care physician Active Start: January 13, 2025 Dr. Ezra Bay MD Attending physician Active Start: January 13, 2025 Dr. Ezra Bay MD Referring Provider Active S tart: January 13, 2025 Dr. Ezra Bay MD Nurse Practitioner Active S tart: January 13, 2025 Team Status: Inactive Member Role/Relationship Status Dates Dr. Kareem Esteban MD Primary care physician Active Start: January 14, 2025 End: January 14, 2025 Germania WHALEY, PA Attending physician Active Start: January 14, 2025 End: January 14, 2025 Germania WHALEY, PA Referring Provider Active Start: January 14, 2025 End: January 14, 2025 Team Status: Inactive Member Role/Relationship Status Dates Dr. Kareem Esteban MD Referring Provider Active Start: January 29, 2025 End: January 29, 2025 Nida Lemus NP EVENT [employer]IST [employer]ONSTRATOR-C Attending physician Active Start: January 29, 2025 End: January 29, 2025 Dr. Aidee Kincaid MD Primary care physician Acti ve Start: January 29, 2025 End: January 29, 2025 Team Status: Inactive Member Role/Relationship Status Dates Dr. Kareem Esteban MD Referring Provider Active Start: February 26, 2025 End: February 26, 2025 Germania WHALEY, PA Attending physician Active Start: February 26, 2025 End: February 26, 2025 Dr. Aidee Kincaid MD Primary care physician Acti ve Start: February 26, 2025 End: February 26, 2025 Team Status: Inactive Member Role/Relationship Status Dates Dr. Aidee Kincaid MD Primary care physician Acti ve Start: February 28, 2025 End: February 28, 2025 Nida Lemus NP EVENT SPECIALIST [employer] DEMONSTRATOR-C Attending physician Active Start: February 28, 2025 End: February 28, 2025 Nida Lemus NP EVENT SPECIALIST FOOD DEMONSTRATOR-C Referring Provider Active Start: February 28, 2025 End: February 28, 2025 Source Comments (unrecognize d section and content) In the event this informatio n is protected by the Federal Confidentiality of Alcohol and Drug Abuse Patient Records regulations: The Federal rules restrict any use of the information to criminally investigate or prosecute any alcohol or drug abuse patient.[facility] INFORMATION SOURCE (unrecogn ized section and content) DATE CREATED AUTHOR 01/29/2025 [facility] DATE CREATED AUTHOR AUTHOR'S ORGANIZ ATION 03/27/2025 [facility] DATE CREATED AUTHOR AUTHOR'S ORGANIZ ATION 04/01/2025 [facility] FOR RECORDS PERTAINING TO PATIENTS WHO ARE [...] BE BASED ON THE PRIMARY CLINICAL RECORDS. [facility] [employer], [facility]. provides no warranty or guarantee of the accuracy or completeness of information in this document.
== END | disposition home or self-care (01) ==
LOC: CVS 14:33
PROVIDERS: PCP Pediatrics; Referring Provider Physician Assistant Medical; Visit Provider Physician Assistant Medical
DX: I42.8 Other cardiomyopathies (principal)
CPT/HCPCS: 93308; Q9957; A4216; C8924